=== PATIENT | male | born 1935 | race Caucasian/White ===

== ENCOUNTER → 2017-11-13 08:37 | Outpatient (CLI) | payer MEDICARE, MEDICAID, SELFPAY ==
[2017-11-13 10:01] LABS: Abs Immature Grans 0.01 k/cumm (0.0-0.09); Absolute Basophil Count 0.06 k/cumm (0.0-0.2); Absolute Eosinophil Count 0.42 k/cumm (0.0-0.7); Absolute Lymphocyte Count 1.21 k/cumm (1.2-3.4); Absolute Monocyte Count 0.37 k/cumm (0.11-0.7); Absolute Neutrophil Count 3.97 k/cumm (1.2-6.7); HCT 46.1 % (40.0-50.0); HGB 15.3 g/dL (13.5-17.5); Immature Grans % 0.2; Mean Corp. HGB Concentration 33.2 g/dL (32.0-36.0); Mean Corpuscular Hemoglobin 28.5 pg (27.0-33.0); Mean Corpuscular Volume 85.8 fL (80-95); Mean Platelet Volume 9.4 fL (8.0-11.0); Monocytes % 6.1; Neutrophils % 65.7; Platelet Count 206 x1000/uL (130-400); RBC 5.37 m/cumm (4.50-6.00); RBC Distribution Width 13.7 % (11.8-14.1); White Blood Cell Count 6.04 k/cumm (4.4-10.8)
[2017-11-13 10:44] LABS: ALT 21 U/L (12-78); AST 16 U/L (15-37); Albumin 3.6 g/dL (3.4-5.0); Alkaline Phosphatase 82 U/L (46-116); Anion Gap 6.4 mmol/L (3-11); BUN 18 mg/dL (7-18); Bilirubin, Total 0.7 mg/dL (0.2-1.0); CO2 31.6 mmol/L (21.0-32.0); CREATININE 1.17 mg/dL (0.70-1.30); Calcium 8.4 mg/dL (8.5-10.1); Chloride 104 mmol/L (98-107); Glucose 92 mg/dL (70-100); Potassium 3.4 mmol/L (3.5-5.1); Sodium 142 mmol/L (136-145); Total Protein 6.2 g/dL (6.4-8.2)
== END ==
PROVIDERS: PCP Emergency Medicine; Visit Provider Nurse Practitioner Family
DX: R42 Dizziness and giddiness (principal)
CPT/HCPCS: 36415; 80053; 85025

== ENCOUNTER 2017-11-26 14:48 | Emergency (ER) | payer MEDICARE, MEDICAID, SELFPAY ==
[2017-11-26] VITALS (25 sets, daily range): BP systolic 124–175; BP diastolic 58–79; PULSE 66–81; RESP 13–35; TEMP 36.7–37.4; O2SAT 90–97
--- NOTE | 2017-11-26 15:18 | ED.GENADUL ---
Disposition Clinical Impression: UTI (urinary tract infection), Parkinson disease Disposition: HOME Instructions: Urinary Tract Infection in Men (ED) Additional Instructions: Please take antibiotic as prescribed. Be sure to complete the full course. Please follow-up with your primary care physician. Return to the emergency department immediately for any worsening or new concerning symptoms. Prescriptions: Cephalexin [Keflex] 500 mg PO QID #27 cap Referrals: Laureano Kaminski DO [Primary Care Provider] - Medical Decision Making - Lab Data Laboratory Tests 11/26/17 11/26/17 11/26/17 15:25 15:25 15:33 WBC 7.90 RBC 5.19 Hgb 14.8 Hct 44.1 MCV 85.0 MCH 28.5 MCHC 33.6 RDW 13.4 Plt Count 163 MPV 9.5 Immature Gran % 0.1 Neutrophils % 84.2 Lymphocytes % 4.3 Monocytes % 10.6 Eosinophils % 0.4 Basophils % 0.4 Absolute Neutrophils 6.65 Absolute Lymphocytes 0.34 L Absolute Monocytes 0.84 H Absolute Eosinophils 0.03 Absolute Basophils 0.03 Sodium 139 Potassium 4.0 Chloride 103 Carbon Dioxide 28.4 Anion Gap 7.6 BUN 18 Creatinine 1.09 Estimated GFR/1.73 m2 >= 60.00 Glucose 117 H Calcium 8.7 Magnesium 1.8 Total Bilirubin 0.9 AST 20 ALT 17 Alkaline Phosphatase 86 Troponin I < 0.02 Total Protein 6.7 Albumin 3.2 L Urine Color Yellow Urine Clarity Cloudy Urine pH 6.0 Ur Specific [place] 1.020 Urine Protein 30 H Urine Ketones 40 H Urine Blood Small H Urine Nitrite Positive H Urine Bilirubin Negative Urine Urobilinogen 0.2 Ur Leukocyte Esterase Moderate H Urine RBC 20-50 H Urine WBC >50 Ur Epithelial Cells Few Urine Crystals Negative Urine Bacteria Many Urine Casts Negative Urine Mucus Negative Ur Culture Indicated? Yes Urine Glucose Negative Results reviewed for labs ordered during visit: Yes - Medical Decision Making 81-year-old male with history of Parkinson's disease here with generalized weakness that has been chronic but worse over the past couple days. Subjective fever earlier today. Afebrile now. Labs reviewed: Urinalysis concerning for UTI. Patient is not septic. Patient was given IV fluid and started on Keflex. Plan is for discharge to home. It was recommended that he call his primary care physician tomorrow to arrange outpatient follow-up. I have asked care management to assist in arranging PT/OT to help him develop strength and hopefully prevent further decline. History of Present Illness - General Chief complaint: GenMedical Stated complaint: BARRIE Time Seen by Provider: 11/26/17 15:01 Source: patient, RN notes reviewed Mode of arrival: ambulatory Limitations: no limitations - History of Present Illness Initial comments: 81-year-old male with history of Parkinson's disease, A. fib, status post pacemaker, presents with chief complaint of weakness. Patient and his note generalized weakness worsening over the past 1 year. Much worse over the past couple days. Moderate intensity. Today he had difficulty ambulating. also concerned that he felt warm earlier today. No associated chills. No headache. No specific focal numbness or weakness. No abdominal pain. - Related Data Multivitamin/Iron/Folic Acid [Centrum Complete Multivit Tab] 1 tab-cap PO DAILY tab-cap 03/30/14 Cholecalciferol (Vitamin D3) [Vitamin D3] 1,000 unit PO DAILY 08/03/14 Cyanocobalamin (Vitamin B-12) [Vitamin B-12] 1,000 mcg PO DAILY 11/28/15 Apixaban [Eliquis] 5 mg PO BID #180 tab-cap 06/30/17 Loratadine [Claritin] 10 mg PO DAILY #60 tab-cap 09/25/17 Sertraline HCl 100 mg PO DAILY #90 tab-cap 10/13/17 Fludrocortisone Acetate [Florinef] 0.2 mg PO DAILY #180 tab-cap 11/09/17 Cephalexin [Keflex] 500 mg PO QID #27 cap 11/26/17 Allergies Allergy/AdvReac Type Severity Reaction Status Date / Time bee pollen [Bee Pollen] Allergy Intermediate PERIORBITAL Unverified 11/09/17 13:41 EDEMA aspirin AdvReac Mild Upset Unverified 11/09/17 13:41 Stomach DUST Allergy Intermediate unknown Uncoded 03/11/17 12:35 Review of Systems Constitutional: fever. denies: chills Cardiovascular: denies: chest pain Gastrointestinal: denies: abdominal pain Genitourinary: denies: urgency, dysuria, frequency Neurological: as per HPI, weakness. denies: headache, numbness Comment: All other systems reviewed and negative Past Medical History - Past Medical History Medical history: AFIB, arthritis gout, hernia, Parkinsonian features Surgical history: herniorraphy, pacemaker/AICD, other (Cataract surgery) - Social History Alcohol use: none Drug use: none General Exam - General Limitations: no limitations General appearance: alert, in no apparent distress - Eye Eye exam: Absent: scleral icterus, conjunctival injection - ENT ENT exam: Present: mucous membranes moist - Respiratory Respiratory exam: Present: normal lung sounds bilaterally. Absent: respiratory distress, wheezes, rales, rhonchi - Cardiovascular Cardiovascular Exam: Present: regular rate, normal rhythm, normal heart sounds - GI/Abdominal GI/Abdominal exam: Present: soft. Absent: distended, tenderness - Extremities Exam Extremities exam: Absent: pedal edema - Neurological Exam Neurological exam: Present: alert. Absent: altered, motor sensory deficit - Psychiatric Psychiatric exam: Present: other (Flat affect) - Skin Skin exam: Present: warm, dry, intact Course Vital Signs - 24 hr 11/26/17 11/26/17 15:02 15:13 Temperature 36.7 C Pulse 76 Respiratory 16 16 Rate Blood Pressure 127/79 Pulse Oximetry 95
[2017-11-26] MEDS: Normal Saline 1,000 ML 150 ML IV (15:27)
[2017-11-26 15:37] LABS: Abs Immature Grans 0.01 k/cumm (0.0-0.09); Absolute Basophil Count 0.03 k/cumm (0.0-0.2); Absolute Eosinophil Count 0.03 k/cumm (0.0-0.7); Absolute Lymphocyte Count 0.34 k/cumm (1.2-3.4); Absolute Monocyte Count 0.84 k/cumm (0.11-0.7); Absolute Neutrophil Count 6.65 k/cumm (1.2-6.7); Basophils % 0.4; Eosinophils % 0.4; HCT 44.1 % (40.0-50.0); HGB 14.8 g/dL (13.5-17.5); Immature Grans % 0.1; Lymphocytes % 4.3; Mean Corp. HGB Concentration 33.6 g/dL (32.0-36.0); Mean Corpuscular Hemoglobin 28.5 pg (27.0-33.0); Mean Platelet Volume 9.5 fL (8.0-11.0); Monocytes % 10.6; Neutrophils % 84.2; Platelet Count 163 x1000/uL (130-400); RBC 5.19 m/cumm (4.50-6.00); RBC Distribution Width 13.4 % (11.8-14.1)
[2017-11-26 15:39] LABS: Bilirubin Negative (Negative); Blood Small (Negative); Clarity Cloudy; Glucose Negative (Negative); Ketones 40 mg/dL (Negative); Leukocyte Esterase Moderate (Negative); Nitrite Positive (Negative); Urobilinogen 0.2 EU/dL (Up TO 0.2)
[2017-11-26 15:53] LABS: Bacteria Many HPF (Negative); C & S Indicated? Yes; Casts Negative LPF (Negative); Crystals Negative HPF (Negative); Epithelial Cells Few HPF (Negative); Mucus Negative (Negative); RBC 20-50 (0-2); WBC >50 HPF (0-5)
[2017-11-26 16:06] LABS: ALT 17 U/L (12-78); AST 20 U/L (15-37); Albumin 3.2 g/dL (3.4-5.0); Alkaline Phosphatase 86 U/L (46-116); Anion Gap 7.6 mmol/L (3-11); BUN 18 mg/dL (7-18); Bilirubin, Total 0.9 mg/dL (0.2-1.0); CO2 28.4 mmol/L (21.0-32.0); CREATININE 1.09 mg/dL (0.70-1.30); Calcium 8.7 mg/dL (8.5-10.1); Chloride 103 mmol/L (98-107); Glucose 117 mg/dL (70-100); Magnesium 1.8 mg/dL (1.8-2.4); Sodium 139 mmol/L (136-145); Total Protein 6.7 g/dL (6.4-8.2)
[2017-11-26 16:07] LABS: Troponin I < 0.02 ng/mL (0.00-0.06)
[2017-11-26] MEDS: Cephalexin 500 MG CAP PO (16:25)
--- NOTE | 2017-11-26 17:28 | NUR.NOTE ---
Nursing Note: 1700 able to walk around room with walker--pt states he wants to go home and his states she is willing to try it---Mayur LYNN to help with services
--- NOTE | 2017-11-27 12:26 | PDOC.ERCMPRO ---
Care Management Progress Note 11/26-DR. varghese requested assistance with home health and to see if other services were needed in the home. Laureano has Parkinson's and his is his primary care transition coordinator. Met with Laureano and his . Both are very receptive to having home health services. Completed home health referral, Dr. Varghese signed and it was faxed to home health. 11/27-Called Home health this am and spoke with Melissa. Melissa stated they received the referral and that home health will call Laureano and schedule a visit. Laureano and his have this CM's contact information if further assistance is needed.
== END 2017-11-26 17:18 | disposition home or self-care (01) ==
PROVIDERS: Emergency Provider Student in an Organized Health Care Education/Training Program; PCP Emergency Medicine
DX: N39.0 Urinary tract infection, site not specified (principal); B96.1 Klebsiella pneumoniae [K. pneumoniae] as the cause of diseases classified elsewhere; G20 Parkinson's disease
CPT/HCPCS: 93005; 96360; 96361; 99284 ×2; 36415; 80053; 87077; 81003; 81015; 83735; 84484; 85025; 87086; 87186; 93010

== ENCOUNTER → 2018-01-06 10:27 | Outpatient (BNVA) | payer MEDICARE, MEDICAID, SELFPAY | PROVIDERS: PCP Emergency Medicine; Visit Provider Psychiatry & Neurology Neurology | DX: I95.1 Orthostatic hypotension (principal); G23.9 Degenerative disease of basal ganglia, unspecified; G31.84 Mild cognitive impairment of uncertain or unknown etiology; R49.8 Other voice and resonance disorders; R26.89 Other abnormalities of gait and mobility | CPT/HCPCS: 99214 ==

== ENCOUNTER → 2018-01-21 13:22 | Outpatient (BNVA) | payer MEDICARE, MEDICAID, SELFPAY | PROVIDERS: PCP Emergency Medicine; Visit Provider Psychiatry & Neurology Neurology | DX: I95.1 Orthostatic hypotension (principal); G23.9 Degenerative disease of basal ganglia, unspecified; G31.84 Mild cognitive impairment of uncertain or unknown etiology; R26.89 Other abnormalities of gait and mobility | CPT/HCPCS: 99214 ==

== ENCOUNTER 2018-02-10 00:53 | Outpatient (CLI) | payer MEDICARE, MEDICAID, SELFPAY ==
--- NOTE | 2018-02-10 12:29 | DI.CT_ITS ---
SYMPTOM/DIAGNOSIS: CHANGE IN MENTAL STATUS, MILD COGNITIVE SYMPTOMS, G31.[address]: A noncontrast enhanced examination was performed. Atrophic changes consistent with age are identified. Faint areas of diminished absorption in the frontoparietal white matter would be consistent with small vessel disease. There is no evidence of an intra/extra-axial hemorrhage, mass or edema. There is nothing to suggest a territorial infarct. There is no evidence of a skull fracture. Mucoperiosteal thickening is noted in the ethmoid sinuses and a small left maxillary anterior retention cyst is seen and there is moderate mucoperiosteal thickening involving the inferior portion of the maxillary sinuses. A retention cyst is noted in the right sphenoid air cell. There is no evidence of a mastoid effusion. SUMMARY: No acute intracranial abnormality is demonstrated. There are findings consistent with sinusitis.
== END 2018-02-10 01:13 ==
PROVIDERS: PCP Emergency Medicine; Visit Provider Psychiatry & Neurology Neurology
DX: R41.82 Altered mental status, unspecified (principal); G31.84 Mild cognitive impairment of uncertain or unknown etiology; G31.1 Senile degeneration of brain, not elsewhere classified; I67.89 Other cerebrovascular disease; J01.00 Acute maxillary sinusitis, unspecified
CPT/HCPCS: 70450

== ENCOUNTER 2018-02-12 10:19 | Inpatient (IN) | payer MEDICARE, MEDICAID, SELFPAY ==
[2018-02-12 10:29] VITALS: BP 132/68; PULSE 60; RESP 18; TEMP 36.7; O2SAT 97
[2018-02-12 11:36] LABS: Lactate-non-spesis 0.7 mmol/L (0.6-1.4)
[2018-02-12 11:40] LABS: Abs Immature Grans 0.04 k/cumm (0.0-0.09); Absolute Eosinophil Count 0.22 k/cumm (0.0-0.7); Absolute Monocyte Count 1.08 k/cumm (0.11-0.7); Basophils % 0.3; Eosinophils % 1.9; HCT 42.3 % (40.0-50.0); HGB 13.9 g/dL (13.5-17.5); Immature Grans % 0.3; Lymphocytes % 5.4; Mean Corp. HGB Concentration 32.9 g/dL (32.0-36.0); Mean Corpuscular Hemoglobin 28.3 pg (27.0-33.0); Mean Platelet Volume 9.7 fL (8.0-11.0); Monocytes % 9.2; Neutrophils % 82.9; Platelet Count 184 x1000/uL (130-400); RBC 4.92 m/cumm (4.50-6.00); RBC Distribution Width 14.1 % (11.8-14.1); White Blood Cell Count 11.76 k/cumm (4.4-10.8)
[2018-02-12 11:42] LABS: Absolute Basophil Count 0.04 k/cumm (0.0-0.2); Absolute Lymphocyte Count 0.64 k/cumm (1.2-3.4); Absolute Neutrophil Count 9.75 k/cumm (1.2-6.7)
[2018-02-12] MEDS: Acetaminophen 325 MG TAB 650 MG PO (11:48)
[2018-02-12 11:53] LABS: Bilirubin Negative (Negative); Blood Small (Negative); Clarity Sl Cloudy; Glucose Negative (Negative); Ketones Negative (Negative); Leukocyte Esterase Moderate (Negative); Nitrite Positive (Negative); Specific Gravity 1.015 (1.005-1.025); Urobilinogen 0.2 EU/dL (Up TO 0.2)
[2018-02-12 12:07] LABS: ALT 20 U/L (12-78); AST 17 U/L (15-37); Albumin 3.1 g/dL (3.4-5.0); Alkaline Phosphatase 72 U/L (46-116); Anion Gap 6.7 mmol/L (3-11); BUN 20 mg/dL (7-18); Bilirubin, Total 0.7 mg/dL (0.2-1.0); CO2 29.3 mmol/L (21.0-32.0); CREATININE 0.96 mg/dL (0.70-1.30); Calcium 8.4 mg/dL (8.5-10.1); Chloride 104 mmol/L (98-107); Glucose 106 mg/dL (70-100); Potassium 3.9 mmol/L (3.5-5.1); Sodium 140 mmol/L (136-145); Total Protein 6.3 g/dL (6.4-8.2)
[2018-02-12 12:14] LABS: Bacteria Many HPF (Negative); C & S Indicated? Yes; Casts Negative LPF (Negative); Crystals Negative HPF (Negative); Epithelial Cells Negative HPF (Negative); Mucus Trace (Negative); RBC Negative (0-2); WBC 20-50 HPF (0-5)
--- NOTE | 2018-02-12 12:22 | DI.RAD_ITS ---
SYMPTOM/DIAGNOSIS: CONFUSION PA AND LATERAL CHEST: Comparison is made with 03/11/17. Heart size and pulmonary vasculature are within normal limits. Pacing wires are in stable position. The lungs are clear. No effusions or pneumothoraces are identified. Degenerative changes are seen in the spine. There are degenerative changes of the shoulders, left greater than right. IMPRESSION: No acute pulmonary process.
[2018-02-12 14:00] VITALS: BP 93/59; PULSE 55; RESP 16; TEMP 36.9; O2SAT 95
--- NOTE | 2018-02-12 14:04 | NUTRITION ---
pt. ate full lunch
--- NOTE | 2018-02-12 14:12 | W.ED.GENAD ---
Discharge Plan Disposition Patient Disposition: [facility] INPATIENT Condition: Stable Discharge Details Chief Complaint: Urinary Clinical Impression: UTI (urinary tract infection) Reason For Visit: UTI Admit Date/Time: 02/12/18 14:06 Admit Provider: Ignacio James Attending Provider: Ignacio Jmaes Primary Care Provider: Laureano Kaminski ED Provider: Ariel Moura Discharge Data Discharge Date/Time-TO BE ENTERED AT DEPARTURE: 02/12/18 15:55 Medical Decision Making Patient presenting to the emergency department for chief complaint of confusion and foul-smelling odor. states that she has noticed over the last 3 days. She does state that he had complained of a mild stomachache for the past week but has had no nausea vomiting or diarrhea. Patient states some mild back pain but has history of chronic back pain otherwise denies any other symptoms. Patient is alert and oriented but states significant weakness. Patient has no CVA tenderness no abdominal findings normal cardiac and respiratory examination. Neurologically patient is intact and moves all extremities but he does have Parkinson's. Given stating confusion I do feel that checking patient's labs, chest x-ray, and urinalysis as needed. I do not feel that CT examination is required as I am highly suspicious of urinary tract infection. Pending results patient was given acetaminophen for back pain Pending results staffing branch manager informed me that attempting to get patient up to restroom to give urine sample patient was extremely weak and needed significant 2 person assist to even ambulate to the bathroom. After review of labs that show a mild leukocytosis and positive findings for urinary tract infection otherwise nondiagnostic labs and normal chest x-ray patient was ordered 1 g of Rocephin. Given patient's significant weakness, 's report of confusion, and urinary tract infection I do not feel that patient is able to be safely discharged home. Called and spoke with the hospitalist and Dr. James agreed to admit the patient. Holding orders were placed for the patient. Patient remained stable throughout emergency department stay incident no new or worsening symptoms. Lab Data Lab results reviewed: Yes I reviewed the patient's lab results. HPI General Mode of arrival: EMS. Date/Time Provider Initiated Documentation: 02/12/18 10:32. Limitations to Documentation: no limitations. Information obtained by: patient and RN notes reviewed. History of Present Illness 82 year old M presents to the emergency department with the chief complaint of Confusion, foul-smelling urine, described as moderate, with intensity rated at 6. and is localized to the back. Patient reports no radiation. Patient started experiencing this day(s) (3) and it has been constant. No relieving factors improve symptom(s), No exacerbating factors reported . Patient did receive the following treatments prior to arrival, none Related Data Home Medications Medication Instructions Recorded Confirmed [id number] 1 tab-cap PO DAILY tab-cap 03/30/14 02/12/18 [Centrum Complete] cholecalciferol (vitamin D3) 1,000 unit PO DAILY 08/03/14 02/12/18 cyanocobalamin (vitamin B-12) 1,000 mcg PO DAILY 11/28/15 02/12/18 [Vitamin B-12] apixaban [Eliquis] 5 mg PO BID #180 tab-cap 06/30/17 01/21/18 fludrocortisone 0.2 mg PO DAILY #180 tab-cap 11/09/17 02/12/18 sertraline 150 mg PO DAILY #135 tab-cap 12/04/17 02/12/18 loratadine 10 mg tablet 10 mg PO DAILY #60 tab-cap 02/10/18 02/12/18 Previous Rx's Medication Instructions Recorded apixaban [Eliquis] 5 mg PO BID #180 tab-cap 06/30/17 fludrocortisone 0.2 mg PO DAILY #180 tab-cap 11/09/17 sertraline 150 mg PO DAILY #135 tab-cap 12/04/17 loratadine 10 mg tablet 10 mg PO DAILY #60 tab-cap 02/10/18 Allergies Allergy/AdvReac Type Severity Reaction Status Date / Time bee pollen [Bee Pollen] Allergy Intermediate PERIORBITAL Unverified 02/12/18 10:33 EDEMA aspirin AdvReac Mild Upset Unverified 02/12/18 10:33 Stomach DUST Allergy Intermediate unknown Uncoded 02/12/18 10:33 General Stated Complaint: Urinary ERIN: 3 Review of Systems Constitutional Denies body ache(s), Denies chills, Reports daytime sleepiness, Denies fever(s), Reports malaise and Reports weakness Cardiovascular Denies chest pain Respiratory Reports system reviewed and no additional complaints, except as docu Gastrointestinal Reports abdominal pain, Denies nausea and Denies vomiting Genitourinary Reports as per HPI, Denies hematuria, Denies difficulty urinating, Denies dysuria, Reports urinary frequency, Denies urinary hesitancy, Denies urinary incontinence and Denies urinary urgency Musculoskeletal Reports back pain Integumentary/Breasts Denies rash Neurologic Reports confusion and Reports weakness Psychiatric Reports confusion [facility] Family History Mother Personal history of malignant neoplasm Father Personal history of malignant neoplasm Sister Personal history of malignant neoplasm Brother Personal history of malignant neoplasm Son No problems noted. 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 No smoking, ETOH, illicit drug use. Surgical History H/O surgical procedure (Chronic) Excision, Skin Mass (03/06/14) Pacemaker Repair of inguinal hernia (~2002) Vasectomy Exam Const General: cooperative and no acute distress Orientation: alert, awake and oriented x3 Neck Neck: normal visual inspection and no meningeal signs Resp Effort & Inspection: normal respiratory effort and able to speak in complete sentences Auscultation: clear to auscultation bilaterally Cardio Rate: regular rate Rhythm: regular rhythm Heart Sounds: S1 normal and S2 normal GI Palpation: nontender Auscultation: normal bowel sounds Back/Spine/Pelvis Back: no CVA tenderness Neuro General: alert, awake, oriented x3, moves all extremities, no meningeal signs and confused Extrem General: normal capillary refill Course Vital Signs Temperature 36.7 C 02/12/18 10:29 Pulse 60 02/12/18 10:29 Respiratory Rate 18 02/12/18 10:29 Blood Pressure 132/68 02/12/18 10:29 Pulse Oximetry 97 02/12/18 10:29 Temperature 36.9 C 02/12/18 14:00 Temperature Source Temporal Artery Scan 02/12/18 14:00 Pulse 55 L 02/12/18 14:00 Respiratory Rate 16 02/12/18 14:00 Respiratory Effort 02/12/18 12:06 Blood Pressure 93/59 L 02/12/18 14:00 Pulse Oximetry 95 02/12/18 14:00 Oxygen Delivery Method Room Air 02/12/18 14:00 Oxygen Flow Rate 0 02/12/18 14:00 Pain Level 0 02/12/18 14:00 Comment 02/12/18 14:00 Lab/Test Results Lab/Test Results: 02/12/18 11:45 Urine - Reflex from Ua Urine Culture - Pending Laboratory Tests Range/Units 02/12/18 02/12/18 02/12/18 11:30 11:30 11:30 WBC (4.4-10.8) k/cumm 11.76 H RBC (4.50-6.00) m/cumm 4.92 Hgb (13.5-17.5) g/dL 13.9 Hct (40.0-50.0) % 42.3 MCV (80-95) fL 86.0 MCH (27.0-33.0) pg 28.3 MCHC (32.0-36.0) g/dL 32.9 RDW (11.8-14.1) % 14.1 Plt Count (130-400) x1000/uL 184 MPV (8.0-11.0) fL 9.7 Immature Gran % 0.3 Neutrophils % 82.9 Lymphocytes % 5.4 Monocytes % 9.2 Eosinophils % 1.9 Basophils % 0.3 Absolute Neutrophils (1.2-6.7) k/cumm 9.75 H Absolute Lymphocytes (1.2-3.4) k/cumm 0.64 L Absolute Monocytes (0.11-0.7) k/cumm 1.08 H Absolute Eosinophils (0.0-0.7) k/cumm 0.22 Absolute Basophils (0.0-0.2) k/cumm 0.04 Sodium (136-145) mmol/L 140 Potassium (3.5-5.1) mmol/L 3.9 Chloride (98-107) mmol/L 104 Carbon Dioxide (21.0-32.0) mmol/L 29.3 Anion Gap (3-11) mmol/L 6.7 BUN (7-18) mg/dL 20 H Creatinine (0.70-1.30) mg/dL 0.96 Estimated GFR/1.73 m2 (mL/min/1.73m2) >= 60.00 Glucose (70-100) mg/dL 106 H Lactate (0.6-1.4) mmol/L 0.7 Calcium (8.5-10.1) mg/dL 8.4 L Total Bilirubin (0.2-1.0) mg/dL 0.7 AST (15-37) U/L 17 ALT (12-78) U/L 20 Alkaline Phosphatase (46-116) U/L 72 Total Protein (6.4-8.2) g/dL 6.3 L Albumin (3.4-5.0) g/dL 3.1 L Urine Color (Yellow) Urine Clarity Urine pH (5-8) Ur Specific [place] (1.005-1.025) Urine Protein (Negative) mg/dL Urine Ketones (Negative) mg/dL Urine Blood (Negative) Urine Nitrite (Negative) Urine Bilirubin (Negative) Urine Urobilinogen (Up TO 0.2) EU/dL Ur Leukocyte Esterase (Negative) Urine RBC (0-2) Urine WBC (0-5) HPF Ur Epithelial Cells (Negative) HPF Urine Crystals (Negative) HPF Urine Bacteria (Negative) HPF Urine Casts (Negative) LPF Urine Mucus (Negative) Ur Culture Indicated? Urine Glucose (Negative) mg/dL Range/Units 02/12/18 11:45 WBC (4.4-10.8) k/cumm RBC (4.50-6.00) m/cumm Hgb (13.5-17.5) g/dL Hct (40.0-50.0) % MCV (80-95) fL MCH (27.0-33.0) pg MCHC (32.0-36.0) g/dL RDW (11.8-14.1) % Plt Count (130-400) x1000/uL MPV (8.0-11.0) fL Immature Gran % Neutrophils % Lymphocytes % Monocytes % Eosinophils % Basophils % Absolute Neutrophils (1.2-6.7) k/cumm Absolute Lymphocytes (1.2-3.4) k/cumm Absolute Monocytes (0.11-0.7) k/cumm Absolute Eosinophils (0.0-0.7) k/cumm Absolute Basophils (0.0-0.2) k/cumm Sodium (136-145) mmol/L Potassium (3.5-5.1) mmol/L Chloride (98-107) mmol/L Carbon Dioxide (21.0-32.0) mmol/L Anion Gap (3-11) mmol/L BUN (7-18) mg/dL Creatinine (0.70-1.30) mg/dL Estimated GFR/1.73 m2 (mL/min/1.73m2) Glucose (70-100) mg/dL Lactate (0.6-1.4) mmol/L Calcium (8.5-10.1) mg/dL Total Bilirubin (0.2-1.0) mg/dL AST (15-37) U/L ALT (12-78) U/L Alkaline Phosphatase (46-116) U/L Total Protein (6.4-8.2) g/dL Albumin (3.4-5.0) g/dL Urine Color (Yellow) Yellow Urine Clarity Sl cloudy Urine pH (5-8) 7.0 Ur Specific [place] (1.005-1.025) 1.015 Urine Protein (Negative) mg/dL Negative Urine Ketones (Negative) mg/dL Negative Urine Blood (Negative) Small H Urine Nitrite (Negative) Positive H Urine Bilirubin (Negative) Negative Urine Urobilinogen (Up TO 0.2) EU/dL 0.2 Ur Leukocyte Esterase (Negative) Moderate H Urine RBC (0-2) Negative Urine WBC (0-5) HPF 20-50 Ur Epithelial Cells (Negative) HPF Negative Urine Crystals (Negative) HPF Negative Urine Bacteria (Negative) HPF Many Urine Casts (Negative) LPF Negative Urine Mucus (Negative) Trace Ur Culture Indicated? Yes Urine Glucose (Negative) mg/dL Negative
[2018-02-12 15:50] VITALS: BP 141/71; BP 141/73; PULSE 59; PULSE 60; RESP 18; TEMP 37.1; O2SAT 96
[2018-02-12 16:32] VITALS: BP 141/71; PULSE 59; RESP 18; TEMP 37.1; O2SAT 96
--- NOTE | 2018-02-12 17:49 | HPE_ITS ---
Date of service: 02/12/18 Time of Service: 17:47 Assessment and Plan (1) Urinary tract infection: Current visit: Yes Status: Acute With altered mental status and generalized weakness. He does have a mild leukocytosis. His urinalysis was suspicious for infection. Urine culture is pending. IV ceftriaxone pending culture results. We will give him some gentle IV fluid hydration overnight. Discontinue tomorrow morning if he is taking p.o. fluids well. (2) Cardiomyopathy: Current visit: No Status: Chronic Possibly related to history of alcohol abuse. His most recent echocardiogram on record was from March 2017 which revealed an LVEF of 45-50% . Monitor fluid status closely. Daily weights. D/C IV fluids once he is taking orals well. (3) Parkinsons disease: Current visit: Yes Status: Chronic On no medication due to orthostatic hypotension requiring fludrocortisone at baseline. Will order PT consult. (4) Orthostatic hypotension: Current visit: No Status: Chronic His blood pressure is 141/71, which is elevated for him. We will hold fludrocortisone for now and monitor blood pressures. (5) Depression: Current visit: No Status: Chronic Continue sertraline at home dose. (6) Paroxysmal atrial fibrillation: Current visit: No Status: Chronic He is on a apixaban chronically. 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 We will continue his apixaban. (7) DVT prophylaxis: Current visit: Yes Status: Acute Continue apixaban for anticoagulation. (8) Discharge planning issues: Current visit: Yes Status: Acute He is a full code. His primary care provider has been working to set him up with home health services. He will likely need home health services upon discharge. His is his primary caregiver. This case was discussed with Dr. James who is in agreement. History of Present Illness Chief Complaint: Altered mental status Narrative: Laureano Baugh is an 82 year old man with a history of Parkinson's Disease (not on medication due to hypotension) with mild cognitive impairment, paroxysmal atrial fibrillation, and bradycardia, status post pacemaker, cardiomyopathy, with LVEF 45-50% (from [facility] 03/29), who presented to the ED via EMS with altered mental status. His notes that he was aggressive last night , trying to get out of the house. She said his urine had a foul odor. He notes abdominal discomfort. He has been eating, he has been drinking but his does not think he was taking in enough PO fluids. He felt warm at home, but they did not check his temperature. He denies chest pain/pressure, palpitations , shortness of breath, cough, wheeze, no nausea or vomiting,he had some abdominal discomfort over the last few days, he tends to be constipated. In the ED, his UA was suspicious for infection. He had mild leukocytosis at 11.76, his BUN was 20, creatinine normal at 0.96. Given his altered mental status and generalized weakness in the setting of UTI with history of parkinsons disease, he was admitted to the med/surg floor for further observation and managmenet. Review of Systems Review of Systems All systems reviewed & are unremarkable except as noted in HPI and below Meds Home Medications Medication Instructions Recorded Confirmed Type [id number] acid 1 tab-cap PO DAILY tab-cap 03/30/14 02/12/18 History [Centrum Complete] cholecalciferol (vitamin D3) 1,000 unit PO DAILY 08/03/14 02/12/18 History cyanocobalamin (vitamin B-12) 1,000 mcg PO DAILY 11/28/15 02/12/18 History [Vitamin B-12] apixaban [Eliquis] 5 mg PO BID #180 tab-cap 06/30/17 01/21/18 Rx fludrocortisone 0.2 mg PO DAILY #180 tab-cap 11/09/17 02/12/18 Rx sertraline 150 mg PO DAILY #135 tab-cap 12/04/17 02/12/18 Rx loratadine 10 mg tablet 10 mg PO DAILY #60 tab-cap 02/10/18 02/12/18 Rx Allergies Allergy/AdvReac Type Severity Reaction Status Date / Time bee pollen [Bee Pollen] Allergy Intermediate PERIORBITAL Unverified 02/12/18 10: 33 EDEMA aspirin AdvReac Mild Upset Unverified 02/12/18 10:33 Stomach DUST Allergy Intermediate unknown Uncoded 02/12/18 10:33 Exam Narrative Exam Narrative: General: He is awake and alert, he is oriented to self and place. He is in no acute distress. Neuro: his affect is flat, he has parkinsonian facies, he does not answer most questions appropriately. Neck: supple, no JVD or lymphadenopathy. HEENT: Pupils are equal round and reactive to light. Mucous membranes are slightly dry. Respiratory: Respirations are even and unlabored, lung sounds are clear to auscultation throughout. Cardiovascular: Heart rate regular, no murmur appreciated. GI: abdomen soft, mildly tender on palpation of lower abdomen, normoactive bowel sounds throughout. Extremities: well perfused without clubbing, cyanosis or edema. Healing skin tear on left elbow, no signs of infection. Results Labs : 02/12/18 11:30 02/12/18 11:30 Laboratory Results - last 24 hr 02/12/18 02/12/18 02/12/18 11:30 11:30 11:30 WBC 11.76 H RBC 4.92 Hgb 13.9 Hct 42.3 MCV 86.0 MCH 28.3 MCHC 32.9 RDW 14.1 Plt Count 184 MPV 9.7 Immature Gran % 0.3 Neutrophils % 82.9 Lymphocytes % 5.4 Monocytes % 9.2 Eosinophils % 1.9 Basophils % 0.3 Absolute Neutrophils 9.75 H Absolute Lymphocytes 0.64 L Absolute Monocytes 1.08 H Absolute Eosinophils 0.22 Absolute Basophils 0.04 Sodium 140 Potassium 3.9 Chloride 104 Carbon Dioxide 29.3 Anion Gap 6.7 BUN 20 H Creatinine 0.96 Estimated GFR/1.73 m2 >= 60.00 Glucose 106 H Lactate 0.7 Calcium 8.4 L Total Bilirubin 0.7 AST 17 ALT 20 Alkaline Phosphatase 72 Total Protein 6.3 L Albumin 3.1 L Urine Color Urine Clarity Urine pH Ur Specific Hollenberg Urine Protein Urine Ketones Urine Blood Urine Nitrite Urine Bilirubin Urine Urobilinogen Ur Leukocyte Esterase Urine RBC Urine WBC Ur Epithelial Cells Urine Crystals Urine Bacteria Urine Casts Urine Mucus Ur Culture Indicated? Urine Glucose 02/12/18 11:45 WBC RBC Hgb Hct MCV MCH MCHC RDW Plt Count MPV Immature Gran % Neutrophils % Lymphocytes % Monocytes % Eosinophils % Basophils % Absolute Neutrophils Absolute Lymphocytes Absolute Monocytes Absolute Eosinophils Absolute Basophils Sodium Potassium Chloride Carbon Dioxide Anion Gap BUN Creatinine Estimated GFR/1.73 m2 Glucose Lactate Calcium Total Bilirubin AST ALT Alkaline Phosphatase Total Protein Albumin Urine Color Yellow Urine Clarity Sl cloudy Urine pH 7.0 Ur Specific Hollenberg 1.015 Urine Protein Negative Urine Ketones Negative Urine Blood Small H Urine Nitrite Positive H Urine Bilirubin Negative Urine Urobilinogen 0.2 Ur Leukocyte Esterase Moderate H Urine RBC Negative Urine WBC 20-50 Ur Epithelial Cells Negative Urine Crystals Negative Urine Bacteria Many Urine Casts Negative Urine Mucus Trace Ur Culture Indicated? Yes Urine Glucose Negative Last Vital Signs Temp 37.1 C 02/12/18 16:32 Pulse 59 L 02/12/18 16:32 Resp 18 02/12/18 16:32 BP 141/71 H 02/12/18 16:32 Pulse Ox 96 02/12/18 16:32
[2018-02-12] MEDS: Docusate Sodium 100 MG CAP PO (20:27)
[2018-02-12] MEDS: Apixaban 5 MG TAB PO (20:27)
[2018-02-12] MEDS: Normal Saline Flush 10 ML SYR (21:55)
[2018-02-12] MEDS: Normal Saline 1,000 ML 80 ML IV (21:55)
[2018-02-12 22:20] VITALS: BP 166/90; PULSE 60; RESP 18; TEMP 37; O2SAT 94
[2018-02-12] MEDS: Normal Saline Flush 10 ML SYR IVP (23:07)
[2018-02-12 23:55] VITALS: BP 168/82; PULSE 58; RESP 19; TEMP 36; O2SAT 98
[2018-02-13] VITALS (7 sets, daily range): BP systolic 131–185; BP diastolic 57–88; PULSE 55–64; RESP 16–24; TEMP 36.1–36.8; O2SAT 97–100
[2018-02-13 07:26] LABS: Abs Immature Grans 0.01 k/cumm (0.0-0.09); Absolute Basophil Count 0.03 k/cumm (0.0-0.2); Absolute Eosinophil Count 0.51 k/cumm (0.0-0.7); Absolute Lymphocyte Count 1.67 k/cumm (1.2-3.4); Absolute Monocyte Count 0.86 k/cumm (0.11-0.7); Basophils % 0.3; Eosinophils % 5.7; HCT 44.6 % (40.0-50.0); HGB 14.4 g/dL (13.5-17.5); Immature Grans % 0.1; Lymphocytes % 18.8; Mean Corp. HGB Concentration 32.3 g/dL (32.0-36.0); Mean Corpuscular Hemoglobin 27.6 pg (27.0-33.0); Mean Corpuscular Volume 85.6 fL (80-95); Mean Platelet Volume 10.2 fL (8.0-11.0); Monocytes % 9.7; Neutrophils % 65.4; Platelet Count 198 x1000/uL (130-400); RBC 5.21 m/cumm (4.50-6.00); RBC Distribution Width 14.1 % (11.8-14.1); White Blood Cell Count 8.88 k/cumm (4.4-10.8)
[2018-02-13 07:32] LABS: Anion Gap 9.6 mmol/L (3-11); BUN 19 mg/dL (7-18); CO2 28.4 mmol/L (21.0-32.0); CREATININE 0.98 mg/dL (0.70-1.30); Calcium 8.6 mg/dL (8.5-10.1); Chloride 103 mmol/L (98-107); Glucose 98 mg/dL (70-100); Magnesium 1.9 mg/dL (1.8-2.4); Potassium 3.9 mmol/L (3.5-5.1); Sodium 141 mmol/L (136-145)
--- NOTE | 2018-02-13 07:45 | PDOC.CMIN ---
- If Service Date Differs Date of service: 02/13/18 Time of Service: 07:45 Care Management Initial Assess REASON FOR HOSPITALIZATION:: UTI. PAST MEDICAL HISTORY/PAST SURGICAL HISTORY:: Parkinson's disease, actinic keratosis, alcoholism in remission, basal cell carcinma right forehead, BPH, cardiomyopathy, chronic thoracic back pain s/p fracture, depression, diverticulosis, erectile dysfunction, gout, hearing loss, heart block s/p PM, mutiple system atrophy, orthostatic hypotension, osteoarthritis, seborrheic keratosis, paroxysmal A-fib, symptomatic bradycardia. Surgical hx: pacemaker, repair inguinal hernia, vesectomy. PREVIOUS FUNCTIONAL STATUS/SOCIAL/FAMILY SUPPORTS:: Laureano resides in [place] with his , Maegan. 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 He is independent with his ADLs and transports with Maegan, though he reports he can drive, he just doesn't think it's smart for him to do so. He utilizes a walker for ambulation. CURRENT FUNCTIONAL STATUS:: Laureano is lying in bed when CM visits this morning. He is engaged in conversation, makes good eye contact, and is talkative. Laureano reports that he is tired but is otherwise feeling 'ok'. When asks Laureano about discharge plans, he reports that now that he has Parkinson's and heart issues, he will likely be staying here (at [facility]?) for a long time. CM and Laureano talk about options for SNF s/t rehab vs HH services vs ?, but Laureano does not seem able to grasp/discuss. Maegan will likely be visiting later today and a conversation should be had when she is available. Per Laureano, he has outpatient PT and nursing. Nursing, he reports, only came one time and never came back. ADVANCE DIRECTIVES:: None on file at [facility]. Has patient been provided with information about the portal?: Yes Did the patient sign up for the portal?: No CODE STATUS:: Full Code INSURANCE COVERAGE / FINANCIAL ISSUES:: Medicaid, Medicare. CURRENT HOME/COMMUNITY SERVICES/EQUIPMENT:: [facility] ([facility]), outpatient/in home PT (patient not clear on which), HH nursing services x1 (again, pt not clear on this). FWW. PRIMARY CARE PHYSICIAN:: Laureano Kaminski MD. POTENTIAL DISCHARGE NEEDS:: Follow up appointment with PCP. PATIENT/FAMILY EDUCATION NEEDS:: Discharge education, any limitations, and follow up plan of care. Ask Me Three discussion. ANTICIPATED BARRIERS TO DISCHARGE:: No anticipated barriers to discharge. TRANSPORTATION:: Laureano will transport via private vehicle with his , Maegan. PLAN:: Laureano will discharge when medically ready per MD. Anticipate patient will discharge with no services vs. nursing/PT/OT (?) and follow up with PCP. CM will continue to offer support to patient and care team regarding discharge planning and disposition.
--- NOTE | 2018-02-13 07:53 | INITIAL_ITS ---
- If Service Date Differs Date of service: 02/13/18 Time of Service: 07:45 Care Management Initial Assess REASON FOR HOSPITALIZATION:: UTI. PAST MEDICAL HISTORY/PAST SURGICAL HISTORY:: Parkinson's disease, actinic keratosis, alcoholism in remission, basal cell carcinma right forehead, BPH, cardiomyopathy, chronic thoracic back pain s/p fracture, depression, diverticulosis, erectile dysfunction, gout, hearing loss, heart block s/p PM, mutiple system atrophy, orthostatic hypotension, osteoarthritis, seborrheic keratosis, paroxysmal A-fib, symptomatic bradycardia. Surgical hx: pacemaker, repair inguinal hernia, vesectomy. PREVIOUS FUNCTIONAL STATUS/SOCIAL/FAMILY SUPPORTS:: Laureano resides in [place] with his , Maegan. 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 He is independent with his ADLs and transports with Maegan, though he reports he can drive, he just doesn't think it's smart for him to do so. He utilizes a walker for ambulation. CURRENT FUNCTIONAL STATUS:: Laureano is lying in bed when CM visits this morning. He is engaged in conversation, makes good eye contact, and is talkative. Laureano reports that he is tired but is otherwise feeling 'ok'. When asks Laureano about discharge plans, he reports that now that he has Parkinson's and heart issues, he will likely be staying here (at [facility]?) for a long time. CM and Laureano talk about options for SNF s/t rehab vs HH services vs ?, but Laureano does not seem able to grasp/discuss. Maegan will likely be visiting later today and a conversation should be had when she is available. Per Laureano, he has outpatient PT and nursing. Nursing, he reports, only came one time and never came back. ADVANCE DIRECTIVES:: None on file at [facility]. Has patient been provided with information about the portal?: Yes Did the patient sign up for the portal?: No CODE STATUS:: Full Code INSURANCE COVERAGE / FINANCIAL ISSUES:: Medicaid, Medicare. CURRENT HOME/COMMUNITY SERVICES/EQUIPMENT:: [facility] ([facility]), outpatient/ in home PT (patient not clear on which), HH nursing services x1 (again, pt not clear on this). FWW. PRIMARY CARE PHYSICIAN:: Laureano Kaminski MD. POTENTIAL DISCHARGE NEEDS:: Follow up appointment with PCP. PATIENT/FAMILY EDUCATION NEEDS:: Discharge education, any limitations, and follow up plan of care. Ask Me Three discussion. ANTICIPATED BARRIERS TO DISCHARGE:: No anticipated barriers to discharge. TRANSPORTATION:: Laureano will transport via private vehicle with his , Maegan. PLAN:: Laureano will discharge when medically ready per MD. Anticipate patient will discharge with no services vs. nursing/PT/OT (?) and follow up with PCP. CM will continue to offer support to patient and care team regarding discharge planning and disposition.
[2018-02-13] MEDS: Acetaminophen 325 MG TAB PO (07:57)
[2018-02-13] MEDS: Apixaban 5 MG TAB PO ×2 (07:58→19:57)
[2018-02-13] MEDS: Sertraline 50 MG TAB 150 MG PO (07:58)
[2018-02-13] MEDS: Docusate Sodium 100 MG CAP PO (07:58)
[2018-02-13] MEDS: Normal Saline Flush 10 ML SYR IVP (07:58)
[2018-02-13] MEDS: Pantoprazole 40 MG VIAL IVP (07:59)
--- NOTE | 2018-02-13 09:42 | PT.INIE ---
Date of service: 02/13/18 Time of Service: 09:42 PT Notes Inpatient Physical Therapy Evaluation Date: 02/13/18 Referring Doctor: Ladonna Nelson PT Orders: PT CONSULT: Parkinson's disease, UIT, generalized weakness Precautions: Fall precautions Patient Profile/Admitting Diagnosis: Pt is an 82yr old male admitted with urinary tract infection PMHX: Parkinson's disease, osteoarthritis, hearing loss, orthostatic hypotension, bradycardia, s/p pacemaker, atrial fibrillation, cardiomyopathy, chronic thoracic back pain s/p fracture, depression, mild cognitive impairment diverticulosis, erectile dysfunction, basal cell carcinoma, alcoholism in remission, gout Social History/Home Situation: Lives with in a house, patient reports 7 steps with railing to enter, baseline mobility independent gait with cane or walker, states he has only started using them recently, independent with ADLS Equipment Owned/DME: cane, FWW Subjective: Pt lying in bed, asking to use a commode to have a bowel movement, agreeable to PT Consult. Objective: General Observation: IV RUE Mental Status: A&O x3 Pain: no c/o pain Bed Mobility/Transfers: Supine-sit: independent Sit-stand: SBA with FWW Bed-commode: SBA with FWW Stand-sit: independent Commode-bed: SBA with FWW Sit-supine: independent Gait: SBA with FWW 3ft in room, gait limited by patient needing to use commode, pt sat on commode for 10min experiencing constipation, RN notified. Pt deferred sitting in chair and transferred back to bed with fall alarm activated Balance: Static Sitting: normal Dynamic Sitting: normal Static Standing: fair Dynamic Standing: fair Special Tests: Mobility Limitations Standardized Measure [facility] AM-PAC 6 clicks Basic Mobility Inpatient Short Form: Raw Score: 18 Standardized Score: 43.63 CMS Score: 46.58% CMS Modifier: CK Informed Consent/Education: Patient instructed in purpose of PT consult and plan of care. Assessment: Pt is an 82yr old male admitted with urinary tract infection in setting of Parkinson's disease, osteoarthritis, hearing loss, orthostatic hypotension, bradycardia, s/p pacemaker, atrial fibrillation, cardiomyopathy, chronic thoracic back pain s/p fracture. Patient presents with the following impairment level findings: decreased strength with gait mobility, decreased static and dynamic standing balance putting him at risk for falls. Pt will benefit from short term therapy intervention in hospital setting, anticipate discharge to home when medically cleared. Impairments are contributing to the following functional limitations: AMPAC score CMS Score: 46.58% Patient is assessed as a Moderate [id number] complexity based on the following: History: see above Examination: see above Presentation: evolving Decision Making: AMPAC score CMS Score: 46.58% Goals: Goals X1 week 1. Supine-Sit : independent 2. Sit-Supine :L independent 3. Sit-Stand : independent 4. Stand-Sit : independent 5. Bed-Chair : supervision with FWW 6. Chair-Bed : supervision with FWW 7. Gait : supervision with FWW 100ft 8. Stairs : up/down 7 steps with railing, SBA Plan of Care/Treatment Plan: 1-2x/day, 7 days/week x 1 week. Plan of care has been reviewed with the REPAIRER providing the service under Physical Therapy direction. Initiate Physical Therapy intervention for strengthening, bed mobility, transfers, gait, stairs, balance training, use of assistive device. DISCHARGE RECOMMENDATIONS: Home with TREATMENT CODE/TIME: 25 IE 9:15 G Codes in the area mobility of walking and moving around: current status [id number] []; projected status GP [id number]-[]. Discharge status (if discharging) GP [id number] based on AMPAC score CMS Score: 46.58% Kitty Valdez PT
--- NOTE | 2018-02-13 09:54 | IN_ITS ---
Date of service: 02/13/18 Time of Service: 09:42 PT Notes Inpatient Physical Therapy Evaluation Date: 02/13/18 Referring Doctor: Ladonna Nelson PT Orders: PT CONSULT: Parkinson's disease, UIT, generalized weakness Precautions: Fall precautions Patient Profile/Admitting Diagnosis: Pt is an 82yr old male admitted with urinary tract infection PMHX: Parkinson's disease, osteoarthritis, hearing loss, orthostatic hypotension , bradycardia, s/p pacemaker, atrial fibrillation, cardiomyopathy, chronic thoracic back pain s/p fracture, depression, mild cognitive impairment diverticulosis, erectile dysfunction, basal cell carcinoma, alcoholism in remission, gout Social History/Home Situation: Lives with in a house, patient reports 7 steps with railing to enter, baseline mobility independent gait with cane or walker, states he has only started using them recently, independent with ADLS Equipment Owned/DME: cane, FWW Subjective: Pt lying in bed, asking to use a commode to have a bowel movement, agreeable to PT Consult. Objective: General Observation: IV RUE Mental Status: A&O x3 Pain: no c/o pain Bed Mobility/Transfers: Supine-sit: independent Sit-stand: SBA with FWW Bed-commode: SBA with FWW Stand-sit: independent Commode-bed: SBA with FWW Sit-supine: independent Gait: SBA with FWW 3ft in room, gait limited by patient needing to use commode, pt sat on commode for 10min experiencing constipation, RN notified. Pt deferred sitting in chair and transferred back to bed with fall alarm activated Balance: Static Sitting: normal Dynamic Sitting: normal Static Standing: fair Dynamic Standing: fair Special Tests: Mobility Limitations Standardized Measure [facility] AM-PAC 6 clicks Basic Mobility Inpatient Short Form: Raw Score: 18 Standardized Score: 43.63 CMS Score: 46.58% CMS Modifier: CK Informed Consent/Education: Patient instructed in purpose of PT consult and plan of care. Assessment: Pt is an 82yr old male admitted with urinary tract infection in setting of Parkinson's disease, osteoarthritis, hearing loss, orthostatic hypotension, bradycardia, s/p pacemaker, atrial fibrillation, cardiomyopathy, chronic thoracic back pain s/p fracture. Patient presents with the following impairment level findings: decreased strength with gait mobility, decreased static and dynamic standing balance putting him at risk for falls. Pt will benefit from short term therapy intervention in hospital setting, anticipate discharge to home when medically cleared. Impairments are contributing to the following functional limitations: AMPAC score CMS Score: 46.58% Patient is assessed as a Moderate [id number] complexity based on the following: History: see above Examination: see above Presentation: evolving Decision Making: AMPAC score CMS Score: 46.58% Goals: Goals X1 week 1. Supine-Sit : independent 2. Sit-Supine :L independent 3. Sit-Stand : independent 4. Stand-Sit : independent 5. Bed-Chair : supervision with FWW 6. Chair-Bed : supervision with FWW 7. Gait : supervision with FWW 100ft 8. Stairs : up/down 7 steps with railing, SBA Plan of Care/Treatment Plan: 1-2x/day, 7 days/week x 1 week. Plan of care has been reviewed with the CELL SUPPORT OPERATOR providing the service under Physical Therapy direction. Initiate Physical Therapy intervention for strengthening, bed mobility, transfers, gait, stairs, balance training, use of assistive device. DISCHARGE RECOMMENDATIONS: Home with TREATMENT CODE/TIME: 25 IE 9:15 G Codes in the area mobility of walking and moving around: current status [id number] []; projected status GP [id number]-[]. Discharge status (if discharging) GP [id number] based on AMPAC score CMS Score: 46.58% Kitty Valdez PT
[2018-02-13] MEDS: Fludrocortisone 0.1 MG TAB 0.2 MG PO (11:14)
--- NOTE | 2018-02-13 13:01 | PHARADMIT ---
Admission Pharmacy Clinical Review UTI, Altered mental status, weakness Code Status Full Code Current Weight 82.4 kg Renally Cleared and Narrow Therapeutic Index Meds CrCl~62ml/min QTc Value / Action Taken QTC 499 BP Control, Fever BP 131/85 HR 50-60's Afebrile Electrolytes reviewed K+ 3.9, Mag 1.9 DVT Prophylaxis Eliquis 5mg BID for Paroxysmal Afib Opiate Usage / Scheduled Bowel Regimen Ordered NONE Plt/SCr for Heparin / Enoxaparin Plt 198 SCr 0.98 INR for Warfarin H/H stable, WBC/Bands H/H 14.4/44.6 WBC 8.88 Antibiotic appropriateness Rocephin Cultures and Sensitivities Urine Gram neg >100K Surgical ABX d/c within 24 hr DM control / Insulin Dosing BG 98 Heart Failure (Check EF%) (SHANTEL's, B-Block, Diuretics) NONE IV to PO Switch Home Meds Reviewed Home Meds Not Ordered vIT d, Loratadine, MVI, Comments Fludrocortisone for Orthostatic Hypotension? Pacemaker in place
--- NOTE | 2018-02-13 19:30 | W.PM.PROGNOT ---
Date of Service Date of service: 02/13/18 Time of Service: 15:50 Assessment and Plan (1) Urinary tract infection: Current visit: No Status: Acute GNR UTI, POA. R/o urinary retention by voiding trial tonight. Continue empiric rocephin (2) Toxic metabolic encephalopathy: Current visit: Yes Status: Acute Treat infection (3) Cardiomyopathy: Current visit: No Status: Chronic ?alcoholic, w/ EF 45-50%. IVF d/c'ed (4) Parkinsons disease: Current visit: No Status: Chronic PT/OT consulted. Not on meds as outpatient. (5) Orthostatic hypotension: Current visit: No Status: Chronic Resume florinef (6) Depression: Current visit: No Status: Chronic Continue sertraline at home dose. (7) Paroxysmal atrial fibrillation: Current visit: No Status: Chronic with sick sinus syndrome, s/p pacer - continue his apixaban. (8) DVT prophylaxis: Current visit: No Status: Acute Continue apixaban for anticoagulation. (9) Discharge planning issues: Current visit: No Status: Acute Full code. Home health vs rehab on discharge - defer to PT for recommendations. Subjective Interval history since last seen: The patient does not clearly answer my questions - he is mumbling. He states he is not in pain, but I am unable to interpret his other answers. Exam Narrative Exam Narrative: General: Calm, cooperative elderly male, laying comfortably in bed, speaking softly/not pronouncing words clearly, confused Neurological: A&OX1, rigid, speaking very quietly Psychiatric: confused, calm/cooperative Skin: no bruising/rashes HEENT: EOMI, Dry MM Cardiovascular: RRR, no m/r/g Lungs: CTAB Gastrointestinal: Abdomen soft, nontender, nondistended Extremities: no edema, clubbing, or cyanosis BLE's Objective Objective Clinical Data: Abnormal lab results 02/13/18 02/13/18 Range/Units 07:00 07:00 Absolute Monocytes 0.86 H (0.11-0.7) k/cumm BUN 19 H (7-18) mg/dL Vital Signs Temperature 36.7 C 02/13/18 15:50 Temperature Source Tympanic 02/13/18 15:50 Pulse 60 02/13/18 15:50 Pulse Rhythm Regular 02/13/18 16:35 Respiratory Rate 18 02/13/18 15:50 Respiratory Effort Non-Labored 02/13/18 16:35 Respiratory Depth Normal 02/13/18 16:35 Respiratory Pattern Normal 02/13/18 16:35 Blood Pressure 183/88 H 02/13/18 15:50 Pulse Oximetry 97 02/13/18 15:50 Oxygen Delivery Method Room Air 02/13/18 15:50 Oxygen Flow Rate 0 02/13/18 15:50 Pain Level 0 02/13/18 15:50 Comment 02/13/18 11:28 Intake & Output 02/12/18 02/13/18 02/13/18 23:59 11:59 23:59 Intake Total 0 / 0 1240 / 1240 290 / 290 Output Total 400 / 400 300 / 300 1200 / 1200 Balance -400 / -400 940 / 940 -910 / -910 Weight 81.647 kg 82.4 kg Intake: IV 0 / 0 1000 / 1000 50 / 50 Oral 240 / 240 240 / 240 Output: Urine 400 / 400 300 / 300 1200 / 1200 Other: Urine Color Light Hillary Straw Yellow Urine Appearance Cloudy Clear Clear Urine Odor Strong Strong Normal Stool Size Small Stool Characteristics Hard Voiding Methods Toilet Urinal Toilet Laboratory Results WBC 8.88 k/cumm (4.4-10.8) 02/13/18 07:00 RBC 5.21 m/cumm (4.50-6.00) 02/13/18 07:00 Hgb 14.4 g/dL (13.5-17.5) 02/13/18 07:00 Hct 44.6 % (40.0-50.0) 02/13/18 07:00 MCV 85.6 fL (80-95) 02/13/18 07:00 MCH 27.6 pg (27.0-33.0) 02/13/18 07:00 MCHC 32.3 g/dL (32.0-36.0) 02/13/18 07:00 RDW 14.1 % (11.8-14.1) 02/13/18 07:00 Plt Count 198 x1000/uL (130-400) 02/13/18 07:00 MPV 10.2 fL (8.0-11.0) 02/13/18 07:00 Immature Gran % 0.1 02/13/18 07:00 Neutrophils % 65.4 02/13/18 07:00 Lymphocytes % 18.8 02/13/18 07:00 Monocytes % 9.7 02/13/18 07:00 Eosinophils % 5.7 02/13/18 07:00 Basophils % 0.3 02/13/18 07:00 Absolute Neutrophils 5.80 k/cumm (1.2-6.7) 02/13/18 07:00 Absolute Lymphocytes 1.67 k/cumm (1.2-3.4) 02/13/18 07:00 Absolute Monocytes 0.86 k/cumm (0.11-0.7) H 02/13/18 07:00 Absolute Eosinophils 0.51 k/cumm (0.0-0.7) 02/13/18 07:00 Absolute Basophils 0.03 k/cumm (0.0-0.2) 02/13/18 07:00 Sodium 141 mmol/L (136-145) 02/13/18 07:00 Potassium 3.9 mmol/L (3.5-5.1) 02/13/18 07:00 Chloride 103 mmol/L (98-107) 02/13/18 07:00 Carbon Dioxide 28.4 mmol/L (21.0-32.0) 02/13/18 07:00 Anion Gap 9.6 mmol/L (3-11) 02/13/18 07:00 BUN 19 mg/dL (7-18) H 02/13/18 07:00 Creatinine 0.98 mg/dL (0.70-1.30) 02/13/18 07:00 Estimated GFR/1.73 m2 >= 60.00 (mL/min/1.73m2) 02/13/18 07:00 Glucose 98 mg/dL (70-100) 02/13/18 07:00 Lactate 0.7 mmol/L (0.6-1.4) 02/12/18 11:30 Calcium 8.6 mg/dL (8.5-10.1) 02/13/18 07:00 Magnesium 1.9 mg/dL (1.8-2.4) 02/13/18 07:00 Total Bilirubin 0.7 mg/dL (0.2-1.0) 02/12/18 11:30 AST 17 U/L (15-37) 02/12/18 11:30 ALT 20 U/L (12-78) 02/12/18 11:30 Alkaline Phosphatase 72 U/L (46-116) 02/12/18 11:30 Total Protein 6.3 g/dL (6.4-8.2) L 02/12/18 11:30 Albumin 3.1 g/dL (3.4-5.0) L 02/12/18 11:30 Urine Color Yellow (Yellow) 02/12/18 11:45 Urine Clarity Sl cloudy 02/12/18 11:45 Urine pH 7.0 (5-8) 02/12/18 11:45 Ur Specific [place] 1.015 (1.005-1.025) 02/12/18 11:45 Urine Protein Negative mg/dL (Negative) 02/12/18 11:45 Urine Ketones Negative mg/dL (Negative) 02/12/18 11:45 Urine Blood Small (Negative) H 02/12/18 11:45 Urine Nitrite Positive (Negative) H 02/12/18 11:45 Urine Bilirubin Negative (Negative) 02/12/18 11:45 Urine Urobilinogen 0.2 EU/dL (Up TO 0.2) 02/12/18 11:45 Ur Leukocyte Esterase Moderate (Negative) H 02/12/18 11:45 Urine RBC Negative (0-2) 02/12/18 11:45 Urine WBC 20-50 HPF (0-5) 02/12/18 11:45 Ur Epithelial Cells Negative HPF (Negative) 02/12/18 11:45 Urine Crystals Negative HPF (Negative) 02/12/18 11:45 Urine Bacteria Many HPF (Negative) 02/12/18 11:45 Urine Casts Negative LPF (Negative) 02/12/18 11:45 Urine Mucus Trace (Negative) 02/12/18 11:45 Ur Culture Indicated? Yes 02/12/18 11:45 Urine Glucose Negative mg/dL (Negative) 02/12/18 11:45
[2018-02-14] VITALS (7 sets, daily range): BP systolic 113–176; BP diastolic 77–92; PULSE 55–69; RESP 18–20; TEMP 35.9–37.1; O2SAT 95–98
[2018-02-14 07:31] LABS: Absolute Basophil Count 0.05 k/cumm (0.0-0.2); Absolute Eosinophil Count 0.45 k/cumm (0.0-0.7); Absolute Lymphocyte Count 1.33 k/cumm (1.2-3.4); Absolute Monocyte Count 0.72 k/cumm (0.11-0.7); Absolute Neutrophil Count 5.01 k/cumm (1.2-6.7); Basophils % 0.7; HCT 41.7 % (40.0-50.0); HGB 13.7 g/dL (13.5-17.5); Lymphocytes % 17.6; Mean Corp. HGB Concentration 32.9 g/dL (32.0-36.0); Mean Corpuscular Hemoglobin 28.4 pg (27.0-33.0); Mean Corpuscular Volume 86.3 fL (80-95); Monocytes % 9.5; Neutrophils % 66.2; Platelet Count 208 x1000/uL (130-400); RBC 4.83 m/cumm (4.50-6.00); White Blood Cell Count 7.56 k/cumm (4.4-10.8)
[2018-02-14 07:45] LABS: Anion Gap 4.3 mmol/L (3-11); BUN 16 mg/dL (7-18); CO2 31.7 mmol/L (21.0-32.0); CREATININE 0.96 mg/dL (0.70-1.30); Calcium 8.5 mg/dL (8.5-10.1); Chloride 105 mmol/L (98-107); Glucose 105 mg/dL (70-100); Sodium 141 mmol/L (136-145)
[2018-02-14] MEDS: Normal Saline Flush 10 ML SYR IVP ×2 (09:23→11:56)
[2018-02-14] MEDS: Pantoprazole 40 MG VIAL IVP (09:23)
[2018-02-14] MEDS: Docusate Sodium 100 MG CAP PO ×2 (09:24→20:12)
[2018-02-14] MEDS: Sertraline 50 MG TAB 150 MG PO (09:24)
[2018-02-14] MEDS: Apixaban 5 MG TAB PO ×2 (09:24→20:11)
[2018-02-14] MEDS: Fludrocortisone 0.1 MG TAB 0.2 MG PO (09:24)
--- NOTE | 2018-02-14 11:08 | PTTR_ITS ---
Date of service: 02/14/18 Time of Service: 11:04 PT Notes 02/14/18 SUBJECTIVE: Laureaon stating he feels okay today. No complaints. Pt states he does daily exercise at home. He utilizes a cane and walker at home but feels he will use the walker for a while until he gets his strength back. OBJECTIVE: Supine in bed. Agreeable to PT treatment. Bed mobility/transfers: Supine to sit: I Sit to stand: SBA Stand to sit: SBA Gait: Device: FWW Weight bearing: Full Assist: SBA Distance: 25'x2 Deviation: Leans right, forgets walking when he turns Therex: Performs seated UE/LE strengthening exercises as noted on his flow sheet. See flow sheet for specifics. ASSESSMENT: Tolerates PT well. He does require cues for walker management and safe stand to sit transfers with hand placement and reaching. At one point he lets go of his walker and starts walking without it. PLAN: Continue current POC progressing towards established goals. Time: 15 minutes CHRISTINE Juarez, CONFIGURATION MANAGEMENT SPECIALIST
--- NOTE | 2018-02-14 18:05 | CMPROGNOTE_ITS ---
Care Management Progress Note S/O: Laureano was lying in bed, watching football when CM met with him. He reported he has pre-parkinsons and struggles to form his words. He requested Maegan join discharge planning discussions and voiced no concerns at this time. A: 82 year old male admitted to [facility] 02/14/18 for UTI P: Laureano will discharge when medically ready per MD. Laureano would like to meet with CM and his Maegan to discuss discharge planning considerations. CM will meet with the couple and continue to offer support to patient and care team regarding discharge planning and disposition.
--- NOTE | 2018-02-14 19:08 | W.PM.PROGNOT ---
Date of Service Date of service: 02/14/18 Time of Service: 15:25 Assessment and Plan (1) Urinary tract infection: Current visit: No Status: Acute GNR UTI, POA. Speciation pending. PVR's unremarkable overnight. Continue empiric rocephin. (2) Toxic metabolic encephalopathy: Current visit: Yes Status: Acute Significantly better. Continue to treat infection (3) Cardiomyopathy: Current visit: No Status: Chronic ?alcoholic, w/ EF 45-50%. Euvolemic. (4) Parkinsons disease: Current visit: No Status: Chronic PT/OT - appears to be able to ambulate at his baseline. (5) Orthostatic hypotension: Current visit: No Status: Chronic Continue florinef (6) Depression: Current visit: No Status: Chronic Continue sertraline at home dose. (7) Paroxysmal atrial fibrillation: Current visit: No Status: Chronic with sick sinus syndrome, s/p pacer - continue apixaban. (8) DVT prophylaxis: Current visit: No Status: Acute Continue apixaban for anticoagulation. (9) Discharge planning issues: Current visit: No Status: Acute Full code. Likely d/c home tomorrow if cx/sensitivities show a pathogen I can treat with oral abx. Subjective Interval history since last seen: Feels a lot better today. Denies dizziness, chest pain, shortness of breath, nausea, vomiting. Exam Narrative Exam Narrative: General: Calm, cooperative elderly male, laying comfortably in bed, speech much more clear today, and answers make sense. Neurological: A&OX2, rigid, no focal deficits Psychiatric: confused, calm/cooperative Skin: no bruising/rashes HEENT: EOMI, Dry MM Cardiovascular: RRR, no m/r/g Lungs: CTAB Gastrointestinal: Abdomen soft, nontender, nondistended Extremities: no edema, clubbing, or cyanosis BLE's Objective Objective Clinical Data: Abnormal lab results 02/14/18 02/14/18 Range/Units 07:05 07:05 Absolute Monocytes 0.72 H (0.11-0.7) k/cumm Glucose 105 H (70-100) mg/dL Vital Signs Temperature 37.1 C 02/14/18 16:41 Temperature Source Tympanic 02/14/18 16:41 Pulse 69 02/14/18 16:41 Pulse Rhythm Regular 02/14/18 09:59 Respiratory Rate 19 02/14/18 16:41 Respiratory Effort Non-Labored 02/14/18 09:59 Respiratory Depth Normal 02/14/18 09:59 Respiratory Pattern Normal 02/14/18 09:59 Blood Pressure 113/78 02/14/18 16:41 Pulse Oximetry 97 02/14/18 16:41 Oxygen Delivery Method Room Air 02/14/18 16:41 Oxygen Flow Rate 0 02/14/18 16:41 Pain Level 0 02/13/18 15:50 Comment 02/14/18 08:05 Intake & Output 02/14/18 02/14/18 02/14/18 00:59 11:59 23:59 Intake Total 1020 / 1020 Output Total Balance 1020 / 1020 Weight Intake: IV 50 / 50 Oral 970 / 970 Output: Urine Other: Urine Color Urine Appearance Urine Odor Comment pt voided in toilet, not in hat. hat noted to be in the trash can in bathroom. Voiding Methods Toilet Laboratory Results WBC 7.56 k/cumm (4.4-10.8) 02/14/18 07:05 RBC 4.83 m/cumm (4.50-6.00) 02/14/18 07:05 Hgb 13.7 g/dL (13.5-17.5) 02/14/18 07:05 Hct 41.7 % (40.0-50.0) 02/14/18 07:05 MCV 86.3 fL (80-95) 02/14/18 07:05 MCH 28.4 pg (27.0-33.0) 02/14/18 07:05 MCHC 32.9 g/dL (32.0-36.0) 02/14/18 07:05 RDW 14.0 % (11.8-14.1) 02/14/18 07:05 Plt Count 208 x1000/uL (130-400) 02/14/18 07:05 MPV 10.0 fL (8.0-11.0) 02/14/18 07:05 Immature Gran % 0.0 02/14/18 07:05 Neutrophils % 66.2 02/14/18 07:05 Lymphocytes % 17.6 02/14/18 07:05 Monocytes % 9.5 02/14/18 07:05 Eosinophils % 6.0 02/14/18 07:05 Basophils % 0.7 02/14/18 07:05 Absolute Neutrophils 5.01 k/cumm (1.2-6.7) 02/14/18 07:05 Absolute Lymphocytes 1.33 k/cumm (1.2-3.4) 02/14/18 07:05 Absolute Monocytes 0.72 k/cumm (0.11-0.7) H 02/14/18 07:05 Absolute Eosinophils 0.45 k/cumm (0.0-0.7) 02/14/18 07:05 Absolute Basophils 0.05 k/cumm (0.0-0.2) 02/14/18 07:05 Sodium 141 mmol/L (136-145) 02/14/18 07:05 Potassium 4.0 mmol/L (3.5-5.1) 02/14/18 07:05 Chloride 105 mmol/L (98-107) 02/14/18 07:05 Carbon Dioxide 31.7 mmol/L (21.0-32.0) 02/14/18 07:05 Anion Gap 4.3 mmol/L (3-11) 02/14/18 07:05 BUN 16 mg/dL (7-18) 02/14/18 07:05 Creatinine 0.96 mg/dL (0.70-1.30) 02/14/18 07:05 Estimated GFR/1.73 m2 >= 60.00 (mL/min/1.73m2) 02/14/18 07:05 Glucose 105 mg/dL (70-100) H 02/14/18 07:05 Lactate 0.7 mmol/L (0.6-1.4) 02/12/18 11:30 Calcium 8.5 mg/dL (8.5-10.1) 02/14/18 07:05 Magnesium 2.0 mg/dL (1.8-2.4) 02/14/18 07:05 Total Bilirubin 0.7 mg/dL (0.2-1.0) 02/12/18 11:30 AST 17 U/L (15-37) 02/12/18 11:30 ALT 20 U/L (12-78) 02/12/18 11:30 Alkaline Phosphatase 72 U/L (46-116) 02/12/18 11:30 Total Protein 6.3 g/dL (6.4-8.2) L 02/12/18 11:30 Albumin 3.1 g/dL (3.4-5.0) L 02/12/18 11:30 Urine Color Yellow (Yellow) 02/12/18 11:45 Urine Clarity Sl cloudy 02/12/18 11:45 Urine pH 7.0 (5-8) 02/12/18 11:45 Ur Specific [place] 1.015 (1.005-1.025) 02/12/18 11:45 Urine Protein Negative mg/dL (Negative) 02/12/18 11:45 Urine Ketones Negative mg/dL (Negative) 02/12/18 11:45 Urine Blood Small (Negative) H 02/12/18 11:45 Urine Nitrite Positive (Negative) H 02/12/18 11:45 Urine Bilirubin Negative (Negative) 02/12/18 11:45 Urine Urobilinogen 0.2 EU/dL (Up TO 0.2) 02/12/18 11:45 Ur Leukocyte Esterase Moderate (Negative) H 02/12/18 11:45 Urine RBC Negative (0-2) 02/12/18 11:45 Urine WBC 20-50 HPF (0-5) 02/12/18 11:45 Ur Epithelial Cells Negative HPF (Negative) 02/12/18 11:45 Urine Crystals Negative HPF (Negative) 02/12/18 11:45 Urine Bacteria Many HPF (Negative) 02/12/18 11:45 Urine Casts Negative LPF (Negative) 02/12/18 11:45 Urine Mucus Trace (Negative) 02/12/18 11:45 Ur Culture Indicated? Yes 02/12/18 11:45 Urine Glucose Negative mg/dL (Negative) 02/12/18 11:45
[2018-02-14] MEDS: Acetaminophen 325 MG TAB PO (20:16)
[2018-02-15 04:34] VITALS: BP 181/84; PULSE 59; RESP 18; TEMP 35.7; O2SAT 96
[2018-02-15 07:15] VITALS: BP 177/97; PULSE 60; RESP 16; TEMP 36.1; O2SAT 98
[2018-02-15 07:18] LABS: Anion Gap 4.5 mmol/L (3-11); BUN 15 mg/dL (7-18); CO2 32.5 mmol/L (21.0-32.0); CREATININE 1.12 mg/dL (0.70-1.30); Calcium 8.2 mg/dL (8.5-10.1); Chloride 104 mmol/L (98-107); Glucose 104 mg/dL (70-100); Magnesium 1.8 mg/dL (1.8-2.4); Potassium 3.7 mmol/L (3.5-5.1); Sodium 141 mmol/L (136-145)
[2018-02-15] MEDS: Apixaban 5 MG TAB PO (08:13)
[2018-02-15] MEDS: Sertraline 50 MG TAB 150 MG PO (08:14)
[2018-02-15] MEDS: Fludrocortisone 0.1 MG TAB 0.2 MG PO (08:14)
[2018-02-15] MEDS: Pantoprazole 40 MG TABCR PO (08:14)
[2018-02-15] MEDS: Docusate Sodium 100 MG CAP PO (08:14)
[2018-02-15 09:30] VITALS: O2SAT 98
--- NOTE | 2018-02-15 10:00 | PT.INTREAT ---
Date of service: 02/15/18 Time of Service: 10:00 PT Notes Inpatient Physical Therapy Treatment Note Date: 02/15/18 PRECAUTIONS: Fall precautions SUBJECTIVE: Pt lying in bed, states he has been up walking and has been walking to the bathroom. Reluctantly agreeable to PT session with encouragement to mobilize. OBJECTIVE: PAIN: no c/o pain BED MOBILITY/TRANSFERS Rolling L/R: independent Supine-sit: independent Sit-supine: independent Sit-stand: SBA with FWW, pt with slight posterior lean but able to self correct Stand-sit: supervision GAIT Assistive Device: FWW Weight bearing: full Assist: SBA Distance: 75ftx2 Deviation: narrow base of support, decreased stride length, decreased heel strike, slight posterior lean requiring cues to weight shift forward onto FWW. Verbal cues provided to stay closer to FWW with mking turns. Pt gait pattern consistent with Parkinson's disease. Pt deferred sitting in chair and returned back to bed after session completed. THEREX: seated ankle pumps, long arc quads and hip flexion x 20 reps bilaterally ASSESSMENT: Pt is independent with transfers except with sitting to standing where he occasionally has a posterior lean that he is able to self correct. Due to Parkinson's disease and decreased static and dynamic standing balance, pt is safer with gait with use of FWW than without an assistive device, recommend use of FWW in home setting. Pt will benefit from continued gait training and progression to stair training. If discharge home is planned, home PT is recommended PLAN: Progress gait Progress to stair training TREATMENT CODE/TIME: 25 min IE 9:56 Kitty Valdez PT
[2018-02-15 11:30] VITALS: BP 159/80; PULSE 60; RESP 18; TEMP 36.3; O2SAT 96
[2018-02-15] MEDS: Normal Saline Flush 10 ML SYR IVP (12:00)
--- NOTE | 2018-02-15 12:08 | DSE_ITS ---
Date of service: 02/15/18 Time of Service: 12:00 DS: Diagnosis Discharge Diagnosis (1) Urinary tract infection: Status: Acute (2) Toxic metabolic encephalopathy: Status: Acute (3) Cardiomyopathy: Status: Chronic (4) Parkinsons disease: Status: Chronic (5) Orthostatic hypotension: Status: Chronic (6) Depression: Status: Chronic (7) Paroxysmal atrial fibrillation: Status: Chronic (8) DVT prophylaxis: Status: Acute (9) Discharge planning issues: Status: Acute Discharge Plan Disposition Patient Disposition: HOME Condition: Stable Discharge Details Chief Complaint: Urinary Reason For Visit: UTI Admit Date/Time: 02/12/18 14:06 Admit Provider: Ignacio James Attending Provider: Ignacio James Primary Care Provider: Laureano Kaminski [facility] [place] [facility] Course: Laureano Baugh is an 82 year old man with a history of Parkinson's Disease ( not on medication due to hypotension) with mild cognitive impairment, paroxysmal atrial fibrillation, and bradycardia, status post pacemaker, cardiomyopathy, with LVEF 45-50% (from Echo 03/29), who presented to the ED via EMS with altered mental status. His notes that he was aggressive last night , trying to get out of the house. She said his urine had a foul odor. He notes abdominal discomfort. He has been eating, he has been drinking but his does not think he was taking in enough PO fluids. He felt warm at home, but they did not check his temperature. He denies chest pain/pressure, palpitations , shortness of breath, cough, wheeze, no nausea or vomiting,he had some abdominal discomfort over the last few days, he tends to be constipated. In the ED, his UA was suspicious for infection. He had mild leukocytosis at 11.76, his BUN was 20, creatinine normal at 0.96. Given his altered mental status and generalized weakness in the setting of UTI with history of parkinsons disease, he was admitted to the med/surg floor for further observation and managmenet. He was treated with ceftriaxone, slowly symptoms improved and he returned to his baseline. He remained afebrile and white count normalized. His urine grew 2 species of klebsiella pneumoniae both senstive to ceftriaxone. He will be discharged to complete 10 day course of oral antibiotics. Home Meds and New Rx's Prescriptions: New cephalexin 500 mg capsule 500 mg PO BID Qty: 14 RF: 0 Continue cxwgshddcykj-bqzz-aotzc acid [Centrum Complete] 1 EACH tablet 1 tab-cap PO DAILY RF: 0 cholecalciferol (vitamin D3) 1,000 UNIT tablet 1,000 unit PO DAILY RF: 0 cyanocobalamin (vitamin B-12) [Vitamin B-12] 1,000 MCG tablet extended release 1,000 mcg PO DAILY RF: 0 apixaban [Eliquis] 5 MG tablet 5 mg PO BID Qty: 180 RF: 3 fludrocortisone 0.1 MG tablet 0.2 mg PO DAILY Qty: 180 RF: 3 sertraline 100 MG tablet 150 mg PO DAILY Qty: 135 RF: 3 loratadine 10 mg tablet 10 mg PO DAILY Qty: 60 RF: 1 Discharge Instructions Instructions: Urinary Tract Infection in Men (DC) Additional Instructions: continue taking antibiotics as directed for 7 more days to complete a 10 day course. continue the rest of your medications as prescribed. drink at least 6-8 glasses of water daily to stay well hydrated. Stand Alone Forms: Nursing Discharge Form Referrals: Laureano Kaminski DO [Primary Care Provider] - Activity:: Activity as Tolerated Equipment/Supplies:: No Equipment Needed Diet:: As Tolerated Discharge Orders Discharge Orders: Discharge Order (Routine); Ordered 02/15/18 Ordered By: Adamaris Welch Exam Const General: cooperative, comfortable, disheveled (older than stated age), frail appearing and ill appearing chronically Orientation: alert, awake and oriented x3 HENMT Head: normocephalic and atraumatic Resp Effort & Inspection: normal respiratory effort Auscultation: clear to auscultation bilaterally and diminished lung sounds bilaterally in the lower lung solano Cardio Rate: regular rate GI Inspection: normal to inspection Palpation: soft Auscultation: normal bowel sounds Skin General skin exam: no rashes or lesions noted Neuro General: alert, awake and oriented Patient Orientation: Person, Place and Time ( able to tell me he is going home today) Extrem General: normal to inspection and full ROM Psych Affect: blunted Attitude: cooperative DS: Data Vitals/I&O Vitals and I&O: Vital Signs Temperature 36.1 C L 02/15/18 07:15 Temperature Source Tympanic 02/15/18 07:15 Pulse 60 02/15/18 07:15 Pulse Rhythm Irregular 02/15/18 07:32 Respiratory Rate 16 02/15/18 07:15 Respiratory Effort 02/15/18 07:32 Respiratory Depth Normal 02/15/18 07:32 Respiratory Pattern Normal 02/15/18 07:32 Blood Pressure 177/97 H 02/15/18 07:15 Pulse Oximetry 98 02/15/18 07:15 Oxygen Delivery Method Room Air 02/15/18 07:15 Oxygen Flow Rate 0 02/15/18 07:15 Pain Level 7 02/14/18 20:16 Comment 02/15/18 04:34 Intake & Output 02/14/18 02/15/18 02/15/18 23:59 11:59 23:59 Intake Total 1020 / 1020 350 / 350 Output Total 550 / 550 Balance 1020 / 1020 -200 / -200 Weight 81.3 kg Intake: IV 50 / 50 Oral 970 / 970 350 / 350 Output: Urine 550 / 550 Other: Urine Color Yellow Yellow Urine Appearance Clear Clear Comment Scanned pt and then he voided moderate amount in the toilet. Highest scan number was 212ml. Voiding Methods Toilet Urinal Labs on day of discharge: Labs from last 24 hours 02/15/18 06:56 Sodium 141 Potassium 3.7 Chloride 104 Carbon Dioxide 32.5 H Anion Gap 4.5 BUN 15 Creatinine 1.12 Estimated GFR/1.73 m2 >= 60.00 Glucose 104 H Calcium 8.2 L Magnesium 1.8
--- NOTE | 2018-02-15 13:35 | PDOC.CMDIS ---
- If Service Date Differs Date of service: 02/15/18 Time of Service: 13:35 LACE Index Scoring Tool - Questions: Length of Stay (in days): 4 - 6 Acuity (Admit via E.D.?): Yes Care Management Discharge Reason for Hospitalization: UTI. Discharge Plan: Laureano is being discharged home today with no addtional services. He will follow up with primary care as scheduled. SHANE has attempted to contact spouse to transport patient home. CM has been unable to contact the spouse on the cell phones listed. CM left a voicemail for spouse. Patient/Family Education Needs: Discharge education, limitations and follow up plan of care including ask me three and self management discussion.
--- NOTE | 2018-02-15 14:47 | PT.INDS ---
Date of service: 02/15/18 Time of Service: 14:47 PT Notes Inpatient Physical Therapy Discharge Summary Date: 02/15/18 Dates of Service: 02/13/18-02/15/18 SUBJECTIVE: NT OBJECTIVE: 02/13/18-02/15/18 Bed Mobility/Transfers: Supine-sit: independent Sit-stand: SBA with FWW Stand-sit: supervision Sit-supine: independent Gait: SBA with FWW 75ftx2 Balance: Static Sitting: normal Dynamic Sitting: normal Static Standing: fair Dynamic Standing: fair Assessment: Pt is an 82yr old male admitted with urinary tract infection in setting of Parkinson's disease, osteoarthritis, hearing loss, orthostatic hypotension, bradycardia, s/p pacemaker, atrial fibrillation, cardiomyopathy, chronic thoracic back pain s/p fracture. Patient was seen for 3 PT visits. Progressed from SBA gait with FWW 3ft to SBA gait with FWW 75ftx2, pt was discharged to home setting, home PT recommended for continued strengthening and mobility training. Goals: Goals X1 week 1. Supine-Sit : independent 2. Sit-Supine : independent 3. Sit-Stand : independent 4. Stand-Sit : independent 5. Bed-Chair : supervision with FWW 6. Chair-Bed : supervision with FWW 7. Gait : supervision with FWW 100ft 8. Stairs : up/down 7 steps with railing, SBA Pt met goals # 1, 2, 5 - recommend home PT DISCHARGE RECOMMENDATIONS: Home with Nika Pagan in the area mobility of walking and moving around:; projected status GP [id number]. Discharge status (if discharging) GP [id number] -CK Kitty Valdez PT
== END 2018-02-15 17:00 | disposition home or self-care (01) | DRG 689 ==
LOC: ER 14:25 → MS 16:10
PROVIDERS: Nurse Practitioner; Admitting Provider Internal Medicine; Emergency Provider Nurse Practitioner Family; PCP Emergency Medicine; Visit Provider Internal Medicine
DX: N39.0 Urinary tract infection, site not specified (principal); G92 Toxic encephalopathy; I42.9 Cardiomyopathy, unspecified; G20 Parkinson's disease; I95.9 Hypotension, unspecified; F32.9 Major depressive disorder, single episode, unspecified; I48.0 Paroxysmal atrial fibrillation; Z95.0 Presence of cardiac pacemaker; B96.1 Klebsiella pneumoniae [K. pneumoniae] as the cause of diseases classified elsewhere; Z16.11 Resistance to penicillins; Z79.01 Long term (current) use of anticoagulants; Z23 Encounter for immunization
CPT/HCPCS: 36415; 80048; 80053; 87077; 96365; 97110; 97162; 97530; 99222; 99232; 99238; 99285; 71046; 81003; 81015; 83605; 83735; 85025; 87086; 87186; 99284; J0696

== ENCOUNTER 2018-03-24 13:48 | Observation (INO) | payer MEDICARE, MEDICAID, SELFPAY ==
[2018-03-24 13:49] VITALS: BP 173/80; PULSE 69; RESP 16; TEMP 36.4; O2SAT 96
--- NOTE | 2018-03-24 14:03 | DI.RAD_ITS ---
SYMPTOMS/DIAGNOSIS: ALTERED MENTAL STATUS CHEST X-RAY, AP AND LATERAL: Comparison is 03/11/17. The heart size and pulmonary vasculature are stable and within normal limits. The pacing wires are stable in position. The lungs are clear. No effusions or pneumothoraces are identified. Stable degenerative changes are present in the spine. IMPRESSION: No acute pulmonary process.
--- NOTE | 2018-03-24 14:11 | W.ED.GENAD ---
Discharge Plan Disposition Patient Disposition: [facility] INPATIENT Condition: Fair Discharge Details Chief Complaint: AMS/LOC Clinical Impression: UTI (urinary tract infection) Reason For Visit: UTI Admit Date/Time: 03/24/18 17:09 Admit Provider: Ignacio James Attending Provider: Ignacio James Primary Care Provider: Laureano Kaminski ED Provider: Samira Campbell Discharge Data Discharge Date/Time-TO BE ENTERED AT DEPARTURE: 03/24/18 17:07 Medical Decision Making Patient is a 82-year-old male, brought in via EMS, with chief complaint of altered mental status. is also present and giving good history. She reports that beginning yesterday, he began having altered mental status and change in behavior. She reports that he has been paranoid, has been seeing people out of the house, mumbling to himself. EMS reports when they first arrived they did notice the patient was mumbling which is unusual for the patient at baseline. EMS providers do know the patient well. However, while in the ambulance, patient did seem to calm and was no longer mumbling or acting unusually. Patient has history of toxic metabolic encephalopathy, UTI, Parkinson's, pacemaker placement, mild cognitive impairment, depression, chronic pain, paroxysmal atrial fibrillation, orthostatic hypotension, diverticulosis, cardiomyopathy, basal cell carcinoma, as urethritis, alcoholism in remission, bradycardia and heart block. EMS reports that they noted a short time, prior to getting patient into the ambulance, when patient was bradycardic in the 30-40s. When on the monitor, in the ambulance and while here, patient has been in the 60s. At this time, patient is answering questions appropriately. He denies any discomfort. Denies any dysuria. does report that this onset of symptoms is quite similar to when he was having urinary tract infection in the past, most recently of which she was admitted for last month. EKG was reviewed by Dr. Tang. Pacer spikes, irregular heart rate and block are noted. She did compare this to previous EKG and does not note an acute abnormality. Laboratory evaluation significant for findings to suggest UTI. No leukocytosis. CT reviewed by radiology with no acute abnormality, read as negative. Patient given dose of Keflex orally. Nursing staff attempted to ambulate the patient, he was having difficulty following basic movement commands and is unable to ambulate with even one assist. Road test was aborted secondary to safety concerns. Consulted with hospitalist regarding admission for UTI with associated confusion and weakness. Dr. James agrees to admission. We also discussed the reported bradycardia, he will have device interigated while here. Contacted hospitalist LICENSED ARCHITECT as well to relay concerns for rash in groin. HPI General Mode of arrival: EMS. Date/Time Provider Initiated Documentation: 03/24/18 14:03. Limitations to Documentation: altered mental status. Information obtained by: patient, family and EMS. History of Present Illness 82 year old M presents to the emergency department with the chief complaint of AMS, described as moderate, and it has been constant. No relieving factors improve symptom(s), No exacerbating factors reported . Patient notes confusion; denies chest pain, cough, diaphoresis, fever/chills, headaches, loss of appetite, malaise, nausea/vomiting, rash, seizure, shortness of breath and syncope. Patient did receive the following treatments prior to arrival, none Related Data Home Medications Medication Instructions Recorded Confirmed leqgvapxmyae-pyxo-ferjc acid 1 tab-cap PO HS tab-cap 03/30/14 03/24/18 [Centrum Complete] cholecalciferol (vitamin D3) 1,000 unit PO DAILY 08/03/14 03/24/18 cyanocobalamin (vitamin B-12) 1,000 mcg PO DAILY 11/28/15 03/24/18 [Vitamin B-12] apixaban [Eliquis] 5 mg PO BID #180 tab-cap 06/30/17 03/24/18 fludrocortisone 0.2 mg PO DAILY #180 tab-cap 11/09/17 03/24/18 loratadine 10 mg tablet 10 mg PO DAILY #60 tab-cap 03/17/18 03/24/18 psyllium husk [Metamucil] 1 tbsp PO DAILY 03/24/18 03/24/18 sertraline 150 mg PO HS 03/24/18 03/24/18 Previous Rx's Medication Instructions Recorded apixaban [Eliquis] 5 mg PO BID #180 tab-cap 06/30/17 fludrocortisone 0.2 mg PO DAILY #180 tab-cap 11/09/17 loratadine 10 mg tablet 10 mg PO DAILY #60 tab-cap 03/17/18 Allergies Allergy/AdvReac Type Severity Reaction Status Date / Time bee pollen [Bee Pollen] Allergy Intermediate PERIORBITAL Unverified 02/12/18 10:33 EDEMA aspirin AdvReac Mild Upset Unverified 02/12/18 10:33 Stomach DUST Allergy Intermediate unknown Uncoded 02/12/18 10:33 General Stated Complaint: AMS/LOC ERIN: 3 Review of Systems Review of Systems Unobtainable due to mental status PFSH Depression (Chronic) Chronic thoracic back pain (Chronic) Shoulder pain, bilateral (Chronic 10/26/13) Paroxysmal atrial fibrillation (Chronic 11/28/15) Other seborrheic keratosis (Chronic) Orthostatic hypotension (Chronic 08/04/17) 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) Diverticulosis of colon without diverticulitis (Chronic) Cardiomyopathy (Chronic 08/03/14) Basal cell carcinoma of right forehead (Chronic 03/06/14) Actinic keratosis (Chronic) Osteoarthritis (Chronic) 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 No smoking, ETOH, illicit drug use. Exam Const General: cooperative, healthy appearing, comfortable, no acute distress, well developed and well groomed Nutritional Appearance: average body habitus and well nourished Orientation: alert, awake and not oriented x3 (level of orientation varies ) [facility] Head: normal to inspection, normocephalic and atraumatic Ears: hearing grossly normal bilaterally, external ears normal and TM's normal bilaterally General nose exam: external nose normal and nares normal Face and sinus: normal facial exam, sinuses nontender and face symmetric Mouth: oral mucosae normal, lip normal, tongue normal, oropharynx normal and mucous membranes dry (patient appears dry on exam) Throat: posterior oropharynx normal, tonsils normal and uvula midline Eyes General: appearance normal, both eyes and all related structures Alignment and Position: alignment normal Eyelids: eyelids normal Conjunctivae: conjunctivae normal Pupils: PERRL and normal by confrontation EOM: EOM intact bilaterally Neck Neck: normal visual inspection, full ROM, no lymphadenopathy and no meningeal signs Resp Effort & Inspection: normal respiratory effort, able to speak in complete sentences and no respiratory distress Auscultation: clear to auscultation bilaterally, no rales, no rhonchi and no wheezes Cardio Rate: regular rate Rhythm: regular rhythm Heart Sounds: S1 normal and S2 normal GI Inspection: normal to inspection, no abdominal wall ecchymosis, no edema, non-distended and no obesity Palpation: soft, no hepatosplenomegaly, not firm, no guarding, not rigid and nontender Auscultation: normal bowel sounds Male General Exam: Yes normal external exam, No ecchymosis, No edema, No erythema, No hernia, No lacerations and No lesions Penis: normal penis Meatus: meatus normal Scrotum: scrotum normal, no ecchymosis, not edematous, not erythematous and other (along the inguinal fold, patient has a moist, erythematous rash) Testes: normal Back/Spine/Pelvis Back: no CVA tenderness Skin General skin exam: no rashes or lesions noted Rashes: rashes noted (rash as above in inguinal folds bilaterally, R>L) Neuro General: alert, awake, not oriented x3 (as above), gait abnormal (patient is unable to ambulate without large amount of assistance) and tone normal Cranial Nerves: CN's II-XI intact bilaterally Cognition: abnormal cognition (patient has varying degrees of cognition, mumbling to himself) Speech: speech normal Gait: gait abnormal (as above) Motor: muscle tone normal throughout and strength 5/5 throughout Sensory Exam: no sensory deficits noted (no saddle paresthesias) Extrem General: normal to inspection, normal capillary refill, no joint enlargement, no pedal edema, no calf tenderness and abnormal gait Psych Appearance: grossly normal and disheveled Mental Status: other (cognition varies) Speech and Movement: delayed speech and restless Mood: anxious mood and other (cognition varies) Course Vital Signs Temperature 36.4 C L 03/24/18 13:49 Pulse 69 03/24/18 13:49 Respiratory Rate 16 03/24/18 13:49 Blood Pressure 173/80 H 03/24/18 13:49 Pulse Oximetry 96 03/24/18 13:49 Temperature 36.4 C L 03/24/18 13:49 Temperature Source Temporal Artery Scan 03/24/18 13:49 Pulse 69 03/24/18 13:49 Respiratory Rate 16 03/24/18 13:49 Blood Pressure 173/80 H 03/24/18 13:49 Pulse Oximetry 96 03/24/18 13:49 Oxygen Delivery Method Room Air 03/24/18 13:49 Oxygen Flow Rate 0 03/24/18 13:49
[2018-03-24 14:16] LABS: Abs Immature Grans 0.01 k/cumm (0.0-0.09); Absolute Basophil Count 0.04 k/cumm (0.0-0.2); Absolute Eosinophil Count 0.52 k/cumm (0.0-0.7); Absolute Lymphocyte Count 0.99 k/cumm (1.2-3.4); Absolute Monocyte Count 0.56 k/cumm (0.11-0.7); Absolute Neutrophil Count 4.75 k/cumm (1.2-6.7); Basophils % 0.6; Eosinophils % 7.6; HCT 42.4 % (40.0-50.0); HGB 14.3 g/dL (13.5-17.5); Immature Grans % 0.1; Lymphocytes % 14.4; Mean Corp. HGB Concentration 33.7 g/dL (32.0-36.0); Mean Corpuscular Hemoglobin 28.8 pg (27.0-33.0); Mean Corpuscular Volume 85.5 fL (80-95); Mean Platelet Volume 9.8 fL (8.0-11.0); Monocytes % 8.2; Neutrophils % 69.1; Platelet Count 193 x1000/uL (130-400); RBC 4.96 m/cumm (4.50-6.00); RBC Distribution Width 13.8 % (11.8-14.1); White Blood Cell Count 6.87 k/cumm (4.4-10.8)
--- NOTE | 2018-03-24 14:19 | ED.GENADUL_ITS ---
Discharge Plan Disposition Patient Disposition: [facility] INPATIENT Condition: Fair Discharge Details Chief Complaint: AMS/LOC Clinical Impression: UTI (urinary tract infection) Reason For Visit: UTI Admit Date/Time: 03/24/18 17:09 Admit Provider: Ignacio James Attending Provider: Ignacio James Primary Care Provider: Laureano Kaminski ED Provider: Samira Campbell Discharge Data Discharge Date/Time-TO BE ENTERED AT DEPARTURE: 03/24/18 17:07 Medical Decision Making Patient is a 82-year-old male, brought in via EMS, with chief complaint of altered mental status. is also present and giving good history. She reports that beginning yesterday, he began having altered mental status and change in behavior. She reports that he has been paranoid, has been seeing people out of the house, mumbling to himself. EMS reports when they first arrived they did notice the patient was mumbling which is unusual for the patient at baseline. EMS providers do know the patient well. However, while in the ambulance, patient did seem to calm and was no longer mumbling or acting unusually. Patient has history of toxic metabolic encephalopathy, UTI, Parkinson's, pacemaker placement, mild cognitive impairment, depression, chronic pain, paroxysmal atrial fibrillation, orthostatic hypotension, diverticulosis, cardiomyopathy, basal cell carcinoma, as urethritis, alcoholism in remission, bradycardia and heart block. EMS reports that they noted a short time, prior to getting patient into the ambulance, when patient was bradycardic in the 30-40s. When on the monitor, in the ambulance and while here, patient has been in the 60s. At this time, patient is answering questions appropriately. He denies any discomfort. Denies any dysuria. does report that this onset of symptoms is quite similar to when he was having urinary tract infection in the past, most recently of which she was admitted for last month. EKG was reviewed by Dr. Tang. Pacer spikes, irregular heart rate and block are noted. She did compare this to previous EKG and does not note an acute abnormality. Laboratory evaluation significant for findings to suggest UTI. No leukocytosis. CT reviewed by radiology with no acute abnormality, read as negative. Patient given dose of Keflex orally. Nursing staff attempted to ambulate the patient, he was having difficulty following basic movement commands and is unable to ambulate with even one assist. Road test was aborted secondary to safety concerns. Consulted with hospitalist regarding admission for UTI with associated confusion and weakness. Dr. James agrees to admission. We also discussed the reported bradycardia, he will have device interigated while here. Contacted hospitalist REPROGRAPHICS TECHNICIAN as well to relay concerns for rash in groin. HPI General Mode of arrival: EMS . Date/Time Provider Initiated Documentation: 03/24/18 14:03 . Limitations to Documentation: altered mental status . Information obtained by: patient, family and EMS . History of Present Illness 10 0 year old M presents to the emergency department with the chief complaint of AMS, described as moderate, and it has been constant. No relieving factors improve symptom(s), No exacerbating factors reported . Patient notes confusion; denies chest pain, cough, diaphoresis, fever/chills, headaches, loss of appetite, malaise, nausea/vomiting, rash, seizure, shortness of breath and syncope. Patient did receive the following treatments prior to arrival, none Related Data Home Medications Medication Instructions Recorded Confirmed fsyacenrbdko-ivrx-jiuig acid 1 tab-cap PO HS tab-cap 03/30/14 03/24/18 [Centrum Complete] cholecalciferol (vitamin D3) 1,000 unit PO DAILY 08/03/14 03/24/18 cyanocobalamin (vitamin B-12) 1,000 mcg PO DAILY 11/28/15 03/24/18 [Vitamin B-12] apixaban [Eliquis] 5 mg PO BID #180 tab-cap 06/30/17 03/24/18 fludrocortisone 0.2 mg PO DAILY #180 tab-cap 11/09/17 03/24/18 loratadine 10 mg tablet 10 mg PO DAILY #60 tab-cap 03/17/18 03/24/18 psyllium husk [Metamucil] 1 tbsp PO DAILY 03/24/18 03/24/18 sertraline 150 mg PO HS 03/24/18 03/24/18 Previous Rx's Medication Instructions Recorded apixaban [Eliquis] 5 mg PO BID #180 tab-cap 06/30/17 fludrocortisone 0.2 mg PO DAILY #180 tab-cap 11/09/17 loratadine 10 mg tablet 10 mg PO DAILY #60 tab-cap 03/17/18 Allergies Allergy/AdvReac Type Severity Reaction Status Date / Time bee pollen [Bee Pollen] Allergy Intermediate PERIORBITAL Unverified 02/12/18 10:33 EDEMA aspirin AdvReac Mild Upset Unverified 02/12/18 10:33 Stomach DUST Allergy Intermediate unknown Uncoded 02/12/18 10:33 General Stated Complaint: AMS/LOC ERIN: 3 Review of Systems Review of Systems Unobtainable due to mental status PFSH Depression (Chronic) Chronic thoracic back pain (Chronic) Shoulder pain, bilateral (Chronic 10/26/13) Paroxysmal atrial fibrillation (Chronic 11/28/15) Other seborrheic keratosis (Chronic) Orthostatic hypotension (Chronic 08/04/17) 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) Diverticulosis of colon without diverticulitis (Chronic) Cardiomyopathy (Chronic 08/03/14) Basal cell carcinoma of right forehead (Chronic 03/06/14) Actinic keratosis (Chronic) Osteoarthritis (Chronic) 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 No smoking, ETOH, illicit drug use. Exam Const General: cooperative, healthy appearing, comfortable, no acute distress, well developed and well groomed Nutritional Appearance: average body habitus and well nourished Orientation: alert, awake and not oriented x3 (level of orientation varies ) [facility] Head: normal to inspection, normocephalic and atraumatic Ears: hearing grossly normal bilaterally, external ears normal and TM's normal bilaterally General nose exam: external nose normal and nares normal Face and sinus: normal facial exam, sinuses nontender and face symmetric Mouth: oral mucosae normal, lip normal, tongue normal, oropharynx normal and mucous membranes dry (patient appears dry on exam) Throat: posterior oropharynx normal, tonsils normal and uvula midline Eyes General: appearance normal, both eyes and all related structures Alignment and Position: alignment normal Eyelids: eyelids normal Conjunctivae: conjunctivae normal Pupils: PERRL and normal by confrontation EOM: EOM intact bilaterally Neck Neck: normal visual inspection, full ROM, no lymphadenopathy and no meningeal signs Resp Effort & Inspection: normal respiratory effort, able to speak in complete sentences and no respiratory distress Auscultation: clear to auscultation bilaterally, no rales, no rhonchi and no wheezes Cardio Rate: regular rate Rhythm: regular rhythm Heart Sounds: S1 normal and S2 normal GI Inspection: normal to inspection, no abdominal wall ecchymosis, no edema, non- distended and no obesity Palpation: soft, no hepatosplenomegaly, not firm, no guarding, not rigid and nontender Auscultation: normal bowel sounds Male General Exam: Yes normal external exam, No ecchymosis, No edema, No ryan thema, No hernia, No lacerations and No lesions Penis: normal penis Meatus: meatus normal Scrotum: scrotum normal, no ecchymosis, not edematous, not erythematous and other (along the inguinal fold, patient has a moist, erythematous rash) Testes: normal Back/Spine/Pelvis Back: no CVA tenderness Skin General skin exam: no rashes or lesions noted Rashes: rashes noted (rash as above in inguinal folds bilaterally, R>L) Neuro General: alert, awake, not oriented x3 (as above), gait abnormal (patient is unable to ambulate without large amount of assistance) and tone normal Cranial Nerves: CN's II-XI intact bilaterally Cognition: abnormal cognition (patient has varying degrees of cognition, mumbling to himself) Speech: speech normal Gait: gait abnormal (as above) Motor: muscle tone normal throughout and strength 5/5 throughout Sensory Exam: no sensory deficits noted (no saddle paresthesias) Extrem General: normal to inspection, normal capillary refill, no joint enlargement, no pedal edema, no calf tenderness and abnormal gait Psych Appearance: grossly normal and disheveled Mental Status: other (cognition varies) Speech and Movement: delayed speech and restless Mood: anxious mood and other (cognition varies) Course Vital Signs Temperature 36.4 C L 03/24/18 13:49 Pulse 69 03/24/18 13:49 Respiratory Rate 16 03/24/18 13:49 Blood Pressure 173/80 H 03/24/18 13:49 Pulse Oximetry 96 03/24/18 13:49 Temperature 36.4 C L 03/24/18 13:49 Temperature Source Temporal Artery Scan 03/24/18 13:49 Pulse 69 03/24/18 13:49 Respiratory Rate 16 03/24/18 13:49 Blood Pressure 173/80 H 03/24/18 13:49 Pulse Oximetry 96 03/24/18 13:49 Oxygen Delivery Method Room Air 03/24/18 13:49 Oxygen Flow Rate 0 03/24/18 13:49
[2018-03-24 14:22] VITALS: RESP 16
[2018-03-24 14:37] LABS: ALT 21 U/L (12-78); AST 19 U/L (15-37); Albumin 3.4 g/dL (3.4-5.0); Alkaline Phosphatase 79 U/L (46-116); BUN 20 mg/dL (7-18); Bilirubin, Total 0.7 mg/dL (0.2-1.0); CREATININE 1.06 mg/dL (0.70-1.30); Calcium 8.8 mg/dL (8.5-10.1); Chloride 104 mmol/L (98-107); Glucose 113 mg/dL (70-100); Potassium 3.7 mmol/L (3.5-5.1); Sodium 142 mmol/L (136-145); TSH 3.79 uIU/mL (0.358-3.74); Total Protein 6.6 g/dL (6.4-8.2); Troponin I < 0.02 ng/mL (0.00-0.06)
--- NOTE | 2018-03-24 14:44 | DI.CT_ITS ---
SYMPTOMS/DIAGNOSIS: ALTERED MENTAL STATUS CT BRAIN, NONCONTRAST EXAMINATION: The ventricles and sulci are consistent with the patient's age. There are areas of decreased attenuation in the white matter consistent with small vessel ischemic disease. No evidence of an acute infarct, hemorrhage, midline shift or mass effect is identified. The ventricles are intact. The basilar cisterns are patent. There is opacification of several ethmoid air cells. Small mucus retention cysts or polyps are seen in the left maxillary sinus and the sphenoid sinuses. No fluid levels are seen. The mastoid air cells are well pneumatized. The calvarium is intact. IMPRESSION: No acute intracranial process. The findings were discussed with the Emergency Department on the date of the examination.
[2018-03-24] MEDS: Normal Saline 1,000 ML 125 ML IV (14:45)
[2018-03-24 14:53] LABS: Bilirubin Negative (Negative); Blood Moderate (Negative); Clarity Cloudy; Glucose Negative (Negative); Ketones Negative (Negative); Leukocyte Esterase Moderate (Negative); Nitrite Positive (Negative); Urobilinogen 0.2 EU/dL (Up TO 0.2)
[2018-03-24 14:59] LABS: Bacteria Many HPF (Negative); Casts Negative LPF (Negative); Crystals Negative HPF (Negative); Epithelial Cells Moderate HPF (Negative); Mucus Negative (Negative); RBC >50 (0-2); WBC >50 HPF (0-5)
[2018-03-24 15:00] LABS: C & S Indicated? Yes
[2018-03-24] MEDS: Cephalexin 500 MG CAP PO (16:45)
[2018-03-24 17:10] VITALS: BP 162/78; PULSE 76; RESP 20; TEMP 37.3; O2SAT 100
[2018-03-24 17:22] VITALS: BP 178/80; PULSE 73; RESP 20; TEMP 37.5; O2SAT 100
--- NOTE | 2018-03-24 17:44 | HPE_ITS ---
Date of service: 03/24/18 Time of Service: 17:43 Assessment and Plan (1) Urinary tract infection: Current visit: No Status: Acute With altered mental status and generalized weakness. No leukocytosis. His urinalysis was suspicious for infection. Urine culture is pending, previous cultures have grown Klebsiella. IV ceftriaxone pending culture results. We will give him some gentle IV fluid hydration overnight. Discontinue tomorrow morning if he is taking p.o. fluids well. (2) Cardiomyopathy: Current visit: No Status: Chronic Possibly related to history of alcohol abuse. His most recent echocardiogram on record was from March 2017 which revealed an LVEF of 45- 50%. Monitor fluid status closely. Daily weights. D/C IV fluids once he is taking orals well. (3) Parkinsons disease: Current visit: No Status: Chronic Not on medication due to orthostatic hypotension requiring fludrocortisone at baseline. Will order PT consult. (4) Orthostatic hypotension: Current visit: No Status: Chronic Continue fludrocortisone. Monitor blood pressures. Change positions slowly. (5) Depression: Current visit: No Status: Chronic Continue sertraline at home dose. (6) Paroxysmal atrial fibrillation: Current visit: No Status: Chronic He is on a apixaban chronically. 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 We will continue his apixaban. (7) Fungal infection of the groin: Current visit: Yes Status: Acute Nystatin powder. (8) DVT prophylaxis: Current visit: No Status: Acute Continue apixaban for anticoagulation. (9) Discharge planning issues: Current visit: No Status: Acute He is a full code. He will likely need home health services upon discharge. His is his primary caregiver. This case was discussed with Dr. James who is in agreement. History of Present Illness Chief Complaint: AMS Narrative: Laureano Baugh is an 82 year old man with a history of Parkinson's Disease (not on medication due to hypotension) with mild cognitive impairment, paroxysmal atrial fibrillation, and bradycardia, status post pacemaker, cardiomyopathy, with LVEF 45-50% (from Echo 03/29), BPH who presented to the ED via EMS with altered mental status. His reports that he has been paranoid, beginning yesterday, he was seeing people outside of the house that were not there, he was taking to himself. She is his primary caregiver, she reports that he becomes very confused when he gets a urinary tract infection. He was recently admitted to the hospital for a urinary tract infection with altered mental status in February of 2018 (last month). In the ED, he had a UA that was suspicious for infection with moderate leukocyte esterase, positive nitrite, many bacteria. He had a chest x-ray that was negative for an acute pulmonary process. His head CT did not show an acute intracranial process. He had no leukocytosis, his creatinine was normal. He was not felt to be safe for discharge due to his altered mental status and was admitted to the med/surg floor for IV antibiotics, urology consult and PT consult. On admission, he reports that he is hungry, he denies any other complaints. He denies chest pain/pressure, palpitations, shortness of breath, cough, wheeze, nausea, vomiting, diarrhea. He had a bowel movement today. His reports that he is still not at his baseline mental status. She has not noticed any odor to his urine, he has been eating and drinking. She notes that he has a fungal infection to his right groin. 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 No smoking, ETOH, illicit drug use. Meds Home Medications Medication Instructions Recorded Confirmed Type [id number] acid 1 tab-cap PO HS tab-cap 03/30/14 03/24/18 History [Centrum Complete] cholecalciferol (vitamin D3) 1,000 unit PO DAILY 08/03/14 03/24/18 History cyanocobalamin (vitamin B-12) 1,000 mcg PO DAILY 11/28/15 03/24/18 History [Vitamin B-12] apixaban [Eliquis] 5 mg PO BID #180 tab-cap 06/30/17 03/24/18 Rx fludrocortisone 0.2 mg PO DAILY #180 tab-cap 11/09/17 03/24/18 Rx loratadine 10 mg tablet 10 mg PO DAILY #60 tab-cap 03/17/18 03/24/18 Rx psyllium husk [Metamucil] 1 tbsp PO DAILY 03/24/18 03/24/18 History sertraline 150 mg PO HS 03/24/18 03/24/18 History Allergies Allergy/AdvReac Type Severity Reaction Status Date / Time bee pollen [Bee Pollen] Allergy Intermediate PERIORBITAL Unverified 02/12/18 10:33 EDEMA aspirin AdvReac Mild Upset Unverified 02/12/18 10:33 Stomach DUST Allergy Intermediate unknown Uncoded 02/12/18 10:33 Exam Narrative Exam Narrative: General: He is awake and alert, pleasantly confused, he is oriented to self. He is in no acute distress. Neuro: his affect is flat, he has a parkinsonian facies, he does not answer most questions. Neck: supple, no JVD or lymphadenopathy. HEENT: Pupils are equal round and reactive to light. Mucous membranes moist, tongue protrudes midline, palate rises symmetrically. Respiratory: Respirations are even and unlabored, lung sounds are clear to auscultation throughout. Cardiovascular: Heart rate regular, no murmur appreciated. GI: abdomen soft, nontender on palpation, normoactive bowel sounds throughout. Extremities: well perfused without clubbing, cyanosis or edema. Skin: right groin with erythema, appears fungal with odor. Results Labs : 03/24/18 14:07 03/24/18 14:07 Laboratory Results - last 24 hr 03/24/18 03/24/18 03/24/18 14:07 14:07 14:15 WBC 6.87 RBC 4.96 Hgb 14.3 Hct 42.4 MCV 85.5 MCH 28.8 MCHC 33.7 RDW 13.8 Plt Count 193 MPV 9.8 Immature Gran % 0.1 Neutrophils % 69.1 Lymphocytes % 14.4 Monocytes % 8.2 Eosinophils % 7.6 Basophils % 0.6 Absolute Neutrophils 4.75 Absolute Lymphocytes 0.99 L Absolute Monocytes 0.56 Absolute Eosinophils 0.52 Absolute Basophils 0.04 Sodium 142 Potassium 3.7 Chloride 104 Carbon Dioxide 31.0 Anion Gap 7.0 BUN 20 H Creatinine 1.06 Estimated GFR/1.73 m2 >= 60.00 Glucose 113 H Calcium 8.8 Magnesium 2.0 Total Bilirubin 0.7 AST 19 ALT 21 Alkaline Phosphatase 79 Troponin I < 0.02 Total Protein 6.6 Albumin 3.4 TSH 3.79 H Urine Color Yellow Urine Clarity Cloudy Urine pH 6.0 Ur Specific [place] 1.020 Urine Protein Trace H Urine Ketones Negative Urine Blood Moderate H Urine Nitrite Positive H Urine Bilirubin Negative Urine Urobilinogen 0.2 Ur Leukocyte Esterase Moderate H Urine RBC >50 H Urine WBC >50 Ur Epithelial Cells Moderate Urine Crystals Negative Urine Bacteria Many Urine Casts Negative Urine Mucus Negative Ur Culture Indicated? Yes Urine Glucose Negative Last Vital Signs Temp 36.4 C L 03/24/18 13:49 Pulse 69 03/24/18 13:49 Resp 16 03/24/18 14:22 BP 173/80 H 03/24/18 13:49 Pulse Ox 96 03/24/18 13:49
[2018-03-24 17:52] VITALS: BP 178/91; PULSE 73; RESP 20; TEMP 37.5; O2SAT 100
[2018-03-24] MEDS: Normal Saline Flush 10 ML SYR IVP (20:08)
[2018-03-24] MEDS: Nystatin POWDER 60 GM JAR TP (20:10)
[2018-03-24] MEDS: Apixaban 5 MG TAB PO (20:10)
--- NOTE | 2018-03-24 20:30 | NUR.NOTE ---
Patient presented to the med-surg unit with his who gave the history that patient was behaving confused and this generally happens when his having an unrinary tract infection. On assessment patient appears confused oriented to place and person but not to time. Chest clear when ascultated, abdomen having active bowel sounds. Left hand noted with IV access with normal saline progressing. Blood was noted to the underwear, pt state the doctor in ER told her this is sometimes normal for patients that is having an UTI, patient denied patient at this time. Bilateral yeasty looking rash noted to the groin.. Healed scar noted to the right lower leg, spouse said their cat at home had scratched him. Bed alarm applied.
[2018-03-24] MEDS: Normal Saline 500 ML 30 ML IV (21:56)
[2018-03-24] MEDS: Multivitamin w/Minerals TAB 1 TAB PO (21:56)
[2018-03-24] MEDS: Sertraline 50 MG TAB 150 MG PO (21:56)
[2018-03-24 23:40] VITALS: BP 158/91; PULSE 60; RESP 16; TEMP 36.3; O2SAT 97
[2018-03-25] MEDS: Normal Saline 1,000 ML 75 ML IV (01:59)
[2018-03-25 03:27] VITALS: TEMP 36.6
[2018-03-25 07:15] LABS: HCT 41.5 % (40.0-50.0); HGB 13.4 g/dL (13.5-17.5); Mean Corp. HGB Concentration 32.3 g/dL (32.0-36.0); Mean Corpuscular Hemoglobin 27.9 pg (27.0-33.0); Mean Corpuscular Volume 86.5 fL (80-95); Mean Platelet Volume 9.9 fL (8.0-11.0); Platelet Count 202 x1000/uL (130-400); RBC Distribution Width 13.7 % (11.8-14.1); White Blood Cell Count 6.35 k/cumm (4.4-10.8)
[2018-03-25 07:27] LABS: Anion Gap 7.8 mmol/L (3-11); BUN 17 mg/dL (7-18); CO2 31.2 mmol/L (21.0-32.0); CREATININE 1.04 mg/dL (0.70-1.30); Calcium 8.1 mg/dL (8.5-10.1); Chloride 106 mmol/L (98-107); Glucose 101 mg/dL (70-100); Magnesium 1.9 mg/dL (1.8-2.4); Potassium 3.5 mmol/L (3.5-5.1); Sodium 145 mmol/L (136-145)
[2018-03-25 07:30] VITALS: O2SAT 98
[2018-03-25 08:00] VITALS: BP 190/97; PULSE 65; RESP 16; TEMP 36.6; O2SAT 97
--- NOTE | 2018-03-25 08:13 | PHARADMIT ---
Admission Pharmacy Clinical Review UTI Code Status Full Code Current Weight Wgt-88 kg Renally Cleared and Narrow Therapeutic Index Meds CrCl~ 62 mL/min Meds-OK QTc Value / Action Taken [id number] NA (Sertraline) BP Control, Fever BP-158/91 Tmax- 36.3C Electrolytes reviewed Na- 145 K+3.5 Mag-1.9 DVT Prophylaxis Apixaban Opiate Usage / Scheduled Bowel Regimen Ordered No Yes Plt/SCr for Heparin / Enoxaparin Plts-202 SCr-1.04 INR for Warfarin NA H/H stable, WBC/Bands H&H- 13.4/41.5 WBC- 6.35 Antibiotic appropriateness Rocephin Cultures and Sensitivities Urine-Pending Surgical ABX d/c within 24 hr NA DM control / Insulin Dosing BG- 101 Heart Failure (Check EF%) (SHANTEL's, B-Block, Diuretics) NONE IV to PO Switch No Home Meds Reviewed Yes Home Meds Not Ordered B-12 Comments No Fludrocortisone
[2018-03-25] MEDS: Magnesium Oxide 400 MG TAB PO (09:03)
[2018-03-25] MEDS: Apixaban 5 MG TAB PO ×2 (09:03→20:45)
[2018-03-25] MEDS: Psyllium PKT 1 EACH PO (09:03)
[2018-03-25] MEDS: Nystatin POWDER 60 GM JAR TP ×3 (09:04→20:45)
[2018-03-25] MEDS: Loratidine 10 MG TAB PO (09:04)
[2018-03-25] MEDS: Fludrocortisone 0.1 MG TAB 0.2 MG PO (09:04)
[2018-03-25] MEDS: Potassium Chloride 20 MEQ TABCR 40 MEQ PO (09:04)
--- NOTE | 2018-03-25 10:40 | PT.INIE ---
Date of service: 03/25/18 Time of Service: 10:16 PT Notes Inpatient Physical Therapy Evaluation Date: 03/24/2018 Referring Doctor: Ladonna Kincaid PT Orders: PT CONSULT: UTI, Parkinson's, AMS Precautions: Fall precautions Patient Profile/Admitting Diagnosis: Patient is an 82-year-old male admitted with urinary tract infection, altered mental status, weakness PMHX: Parkinson's disease Mild cognitive impairment Bradycardia, status post pacemaker Chronic thoracic pain Depression Chronic thoracic back pain Shoulder pain, bilateral Paroxysmal atrial fibrillation Other seborrheic keratosis Orthostatic hypotension Multiple system atrophy Diverticulosis of colon without diverticulitis Cardiomyopathy Basal cell carcinoma of right forehead Actinic keratosis Osteoarthritis Alcoholism in remission Erectile dysfunction Benign prostatic hypertrophy Gout Hearing loss Vasectomy Social History/Home Situation: Lives with and home patient unable to provide home information, states he uses a walker for gait Equipment Owned/DME: [facility] Subjective: Patient lying in bed alert and agreeable to PT consult. He is able to state he is at [facility] in [facility] and the month is March, unable to state year. States he likes to move around it makes him feel better. Objective: General Observation: IV left upper extremity Mental Status: A and O times name, place, month Pain: Complains of pain Bed Mobility/Transfers: Supine to sit: Independent Sit to stand: SBA with FWW Stand to sit: SBA with FWW Sit to supine: Independent Gait: CGA with FWW 150 feet with use of gait belt, patient was steady step through gait pattern required tactile assist to guide front wheel walker around obstacles in the hallway and verbal cues for steering and directional changes. Patient returned to room back in bed with fall precaution alarm activated. Balance: Static Sitting: Normal Dynamic Sitting: Normal Static Standing: Fair Dynamic Standing: Fair Special Tests: Mobility Limitations Standardized Measure [facility] AM-PAC 6 clicks Basic Mobility Inpatient Short Form: Raw Score: 18 standardized Score: 43.63 CMS Score: 46.58% CMS Modifier: CK Informed Consent/Education: Patient instructed in purpose of PT consult and plan of care. Assessment: Patient is an 82-year-old male admitted with urinary tract infection, altered mental status, weakness in setting of Parkinson's disease, bilateral shoulder pain, chronic thoracic pain, bradycardia with pacemaker, paroxysmal atrial fibrillation. Patient presents with the following impairment level findings: Decreased strength with standing transfers, decreased strength with gait mobility requiring use of front wheel walker for stability to prevent falls due to decreased static and dynamic standing balance. Decreased safety with gait mobility due to Parkinson's disease and mild cognitive impairment, requiring tactile cues to guide front wheel walker around objects in hallway and verbal cues for directional changes. Patient was able to follow direction and participate with therapy session, oriented to place, name and month. Patient will benefit from skilled therapy intervention for strengthening, balance training, gait training with front wheel walker, and stair training to assist return to home setting with . Impairments are contributing to the following functional limitations: AMPAC score CMS Score: 46.58% Patient is assessed as a Moderate 68840 complexity based on the following: History: See above Examination: See above Presentation: Evolving Decision Making: AMPAC score CMS Score: 46.58% Goals: Goals X1 week 1. Supine-Sit: Independent 2. Sit-Supine: Independent 3. Sit-Stand: Independent with FWW 4. Stand-Sit: Independent 5. Bed-Chair: SBA with FWW 6. Chair-Bed: SBA with FWW 7. Gait: SBA with FWW 200 feet 8. Stairs up/down 5 steps with railing, SBA Plan of Care/Treatment Plan: 1-2x/day, 7 days/week x 1 week. Plan of care has been reviewed with the B[employer] CARPENTER providing the service under Physical Therapy direction. Initiate Physical Therapy intervention for strengthening, bed mobility, transfers, gait, stairs, balance training, use of assistive device. DISCHARGE RECOMMENDATIONS: Home with TREATMENT CODE/TIME: 26 minutes IE 10:15 AM G Codes in the area mobility of walking and moving around: current status [id number] CK projected status GP [id number]. Discharge status (if discharging) GP [id number] CK based on AMAPC score. Kitty Valdez PT Disclaimer: This note was created using [employer] voice recognition software. It was reviewed for major content. However, there may be multiple small discrepancies and errors due to the voice recognition aspects of the software.
--- NOTE | 2018-03-25 10:45 | IN_ITS ---
Date of service: 03/25/18 Time of Service: 10:16 PT Notes Inpatient Physical Therapy Evaluation Date: 03/24/2018 Referring Doctor: Ladonna Kincaid PT Orders: PT CONSULT: UTI, Parkinson's, AMS Precautions: Fall precautions Patient Profile/Admitting Diagnosis: Patient is an 82-year-old male admitted with urinary tract infection, altered mental status, weakness PMHX: Parkinson's disease Mild cognitive impairment Bradycardia, status post pacemaker Chronic thoracic pain Depression Chronic thoracic back pain Shoulder pain, bilateral Paroxysmal atrial fibrillation Other seborrheic keratosis Orthostatic hypotension Multiple system atrophy Diverticulosis of colon without diverticulitis Cardiomyopathy Basal cell carcinoma of right forehead Actinic keratosis Osteoarthritis Alcoholism in remission Erectile dysfunction Benign prostatic hypertrophy Gout Hearing loss Vasectomy Social History/Home Situation: Lives with and home patient unable to provide home information, states he uses a walker for gait Equipment Owned/DME: [facility] Subjective: Patient lying in bed alert and agreeable to PT consult. He is able to state he is at [facility] in [facility] and the month is March, unable to state year. States he likes to move around it makes him feel better. Objective: General Observation: IV left upper extremity Mental Status: A and O times name, place, month Pain: Complains of pain Bed Mobility/Transfers: Supine to sit: Independent Sit to stand: SBA with FWW Stand to sit: SBA with FWW Sit to supine: Independent Gait: CGA with FWW 150 feet with use of gait belt, patient was steady step through gait pattern required tactile assist to guide front wheel walker around obstacles in the hallway and verbal cues for steering and directional changes. Patient returned to room back in bed with fall precaution alarm activated. Balance: Static Sitting: Normal Dynamic Sitting: Normal Static Standing: Fair Dynamic Standing: Fair Special Tests: Mobility Limitations Standardized Measure [facility] AM-PAC 6 clicks Basic Mobility Inpatient Short Form: Raw Score: 18 standardized Score: 43.63 CMS Score: 46.58% CMS Modifier: CK Informed Consent/Education: Patient instructed in purpose of PT consult and plan of care. Assessment: Patient is an 82-year-old male admitted with urinary tract infection, altered mental status, weakness in setting of Parkinson's disease, bilateral shoulder pain, chronic thoracic pain, bradycardia with pacemaker, paroxysmal atrial fibrillation. Patient presents with the following impairment level findings: Decreased strength with standing transfers, decreased strength with gait mobility requiring use of front wheel walker for stability to prevent falls due to decreased static and dynamic standing balance. Decreased safety with gait mobility due to Parkinson's disease and mild cognitive impairment, requiring tactile cues to guide front wheel walker around objects in hallway and verbal cues for directional changes. Patient was able to follow direction and participate with therapy session, oriented to place, name and month. Patient will benefit from skilled therapy intervention for strengthening, balance training, gait training with front wheel walker, and stair training to assist return to home setting with . Impairments are contributing to the following functional limitations: AMPAC score CMS Score: 46.58% Patient is assessed as a Moderate 88129 complexity based on the following: History: See above Examination: See above Presentation: Evolving Decision Making: AMPAC score CMS Score: 46.58% Goals: Goals X1 week 1. Supine-Sit: Independent 2. Sit-Supine: Independent 3. Sit-Stand: Independent with FWW 4. Stand-Sit: Independent 5. Bed-Chair: SBA with FWW 6. Chair-Bed: SBA with FWW 7. Gait: SBA with FWW 200 feet 8. Stairs up/down 5 steps with railing, SBA Plan of Care/Treatment Plan: 1-2x/day, 7 days/week x 1 week. Plan of care has been reviewed with the MAINTENANCE PLUMBER providing the service under Physical Therapy direction. Initiate Physical Therapy intervention for strengthening, bed mobility, transfers, gait, stairs, balance training, use of assistive device. DISCHARGE RECOMMENDATIONS: Home with TREATMENT CODE/TIME: 26 minutes IE 10:15 AM G Codes in the area mobility of walking and moving around: current status [id number] CK projected status GP [id number]. Discharge status (if discharging) GP G8980 CK based on AMAPC score. Kitty Valdez PT Disclaimer: This note was created using [employer] voice recognition software. It was reviewed for major content. However, there may be multiple small discrepancies and errors due to the voice recognition aspects of the software.
--- NOTE | 2018-03-25 12:14 | PGE_ITS ---
Date of Service Date of service: 03/25/18 Time of Service: 12:13 Assessment and Plan (1) Urinary tract infection: Current visit: No Status: Acute With altered mental status and generalized weakness, appears to be improving with current treatment. No leukocytosis. Urine culture growing gram negative rods, previous cultures have grown Klebsiella. Continue IV ceftriaxone. Repeat CBC and BMP in the morning. Continue to monitor cultures. Urology has been consulted and recommends testing for cure after antibiotic course to determine if this is a recurrent or persistent infection. He also ordered a renal ultrasound to assess for anything acute that may need to be assessed. (2) Cardiomyopathy: Current visit: No Status: Chronic Possibly related to history of alcohol abuse. His most recent echocardiogram on record was from March 2017 which revealed an LVEF of 45- 50%. Monitor fluid status closely. Daily weights. D/C IV fluids. (3) Parkinsons disease: Current visit: No Status: Chronic Not on medication due to orthostatic hypotension requiring fludrocortisone at baseline. Continue PT. (4) Orthostatic hypotension: Current visit: No Status: Chronic Continue fludrocortisone. Monitor blood pressures. Change positions slowly. (5) Depression: Current visit: No Status: Chronic Continue sertraline at home dose. (6) Paroxysmal atrial fibrillation: Current visit: No Status: Chronic He is on a apixaban chronically for anticoagulation. 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 Heart rate 65. We will continue his apixaban. (7) Fungal infection of the groin: Current visit: Yes Status: Acute Nystatin powder. (8) DVT prophylaxis: Current visit: No Status: Acute Continue apixaban for anticoagulation. (9) Discharge planning issues: Current visit: No Status: Acute He is a full code. He will likely need home health services upon discharge. His is his primary caregiver. This case was discussed with Dr. James who is in agreement. Subjective Interval history since last seen: Laureano Baugh is an 82 year old man with a history of Parkinson's Disease (not on medication due to hypotension) with mild cognitive impairment, paroxysmal atrial fibrillation, and bradycardia, status post pacemaker, cardiomyopathy, with LVEF 45-50% (from Echo 03/29), BPH who presented to the ED via EMS with altered mental status on 03/24/18. He had a UA in the ED that was suspicious for infection. He was admitted to the med/surg floor for IV ceftriaxone, urology and PT consult. He seems to be clearing mentally today. He recalls feeling confused yesterday and that he feels more like himself today. He notes that he did have some dysuria, but that has cleared today. He denies any other urinary symptoms. He remains unsteady on his feet. Denies chest pain/pressure, palpitations, shortness of breath, cough, wheeze, abdominal pain, nausea, vomiting, diarrhea. Exam Narrative Exam Narrative: General: He is awake and alert, , he is oriented x3 today. He is hard to understand at times. He seems to be answering questions appropriately. He is in no acute distress. Neuro: his affect is flat, he has parkinsonian facies. Neck: supple, no JVD. HEENT: Pupils are equal and round. Mucous membranes moist, tongue protrudes midline, palate rises symmetrically. Respiratory: Respirations are even and unlabored, lung sounds are clear to auscultation throughout. Cardiovascular: Heart rate regular, no murmur appreciated. GI: abdomen soft, nontender on palpation, normoactive bowel sounds throughout. Extremities: well perfused without clubbing, cyanosis or edema. Skin: right groin remains with erythema, appears fungal with odor. Objective Objective Clinical Data: Abnormal lab results 03/24/18 03/24/18 03/24/18 Range/Units 14:07 14:07 14:15 Hgb (13.5-17.5) g/dL Absolute Lymphocytes 0.99 L (1.2-3.4) k/cumm BUN 20 H (7-18) mg/dL Glucose 113 H (70-100) mg/dL Calcium (8.5-10.1) mg/dL TSH 3.79 H (0.358-3.74) uIU/mL Urine Protein Trace H (Negative) mg/dL Urine Blood Moderate H (Negative) Urine Nitrite Positive H (Negative) Ur Leukocyte Esterase Moderate H (Negative) Urine RBC >50 H (0-2) 03/25/18 03/25/18 Range/Units 06:30 06:30 Hgb 13.4 L (13.5-17.5) g/dL Absolute Lymphocytes (1.2-3.4) k/cumm BUN (7-18) mg/dL Glucose 101 H (70-100) mg/dL Calcium 8.1 L (8.5-10.1) mg/dL TSH (0.358-3.74) uIU/mL Urine Protein (Negative) mg/dL Urine Blood (Negative) Urine Nitrite (Negative) Ur Leukocyte Esterase (Negative) Urine RBC (0-2) Vital Signs Temperature 36.6 C 03/25/18 03:27 Temperature Source Skin 03/25/18 03:27 Pulse 60 03/24/18 23:40 Pulse Rhythm Regular 03/24/18 23:40 Respiratory Rate 16 03/24/18 23:40 Respiratory Effort Non-Labored 03/24/18 23:40 Respiratory Depth Normal 03/24/18 23:40 Respiratory Pattern Normal 03/24/18 23:40 Blood Pressure 158/91 H 03/24/18 23:40 Pulse Oximetry 97 03/24/18 23:40 Oxygen Delivery Method Room Air 03/24/18 23:40 Oxygen Flow Rate 0 03/24/18 23:40 Pain Level 0 03/24/18 23:40 Intake & Output 03/24/18 03/25/18 03/25/18 23:59 11:59 23:59 Intake Total 1550 / 1550 Output Total 525 / 525 Balance 1550 / 1550 -525 / -525 Weight 88 kg Intake: IV 1550 / 1550 Output: Urine 525 / 525 Other: Urine Color Yellow Urine Appearance Clear Urine Odor Normal Comment bladder scanned after voiding void x 1 toilet Voiding Methods Toilet Laboratory Results WBC 6.35 k/cumm (4.4-10.8) 03/25/18 06:30 RBC 4.80 m/cumm (4.50-6.00) 03/25/18 06:30 Hgb 13.4 g/dL (13.5-17.5) L 03/25/18 06:30 Hct 41.5 % (40.0-50.0) 03/25/18 06:30 MCV 86.5 fL (80-95) 03/25/18 06:30 MCH 27.9 pg (27.0-33.0) 03/25/18 06:30 MCHC 32.3 g/dL (32.0-36.0) 03/25/18 06:30 RDW 13.7 % (11.8-14.1) 03/25/18 06:30 Plt Count 202 x1000/uL (130-400) 03/25/18 06:30 MPV 9.9 fL (8.0-11.0) 03/25/18 06:30 Immature Gran % 0.1 03/24/18 14:07 Neutrophils % 69.1 03/24/18 14:07 Lymphocytes % 14.4 03/24/18 14:07 Monocytes % 8.2 03/24/18 14:07 Eosinophils % 7.6 03/24/18 14:07 Basophils % 0.6 03/24/18 14:07 Absolute Neutrophils 4.75 k/cumm (1.2-6.7) 03/24/18 14:07 Absolute Lymphocytes 0.99 k/cumm (1.2-3.4) L 03/24/18 14:07 Absolute Monocytes 0.56 k/cumm (0.11-0.7) 03/24/18 14:07 Absolute Eosinophils 0.52 k/cumm (0.0-0.7) 03/24/18 14:07 Absolute Basophils 0.04 k/cumm (0.0-0.2) 03/24/18 14:07 Sodium 145 mmol/L (136-145) 03/25/18 06:30 Potassium 3.5 mmol/L (3.5-5.1) 03/25/18 06:30 Chloride 106 mmol/L (98-107) 03/25/18 06:30 Carbon Dioxide 31.2 mmol/L (21.0-32.0) 03/25/18 06:30 Anion Gap 7.8 mmol/L (3-11) 03/25/18 06:30 BUN 17 mg/dL (7-18) 03/25/18 06:30 Creatinine 1.04 mg/dL (0.70-1.30) 03/25/18 06:30 Estimated GFR/1.73 m2 >= 60.00 (mL/min/1.73m2) 03/25/18 06:30 Glucose 101 mg/dL (70-100) H 03/25/18 06:30 Calcium 8.1 mg/dL (8.5-10.1) L 03/25/18 06:30 Magnesium 1.9 mg/dL (1.8-2.4) 03/25/18 06:30 Total Bilirubin 0.7 mg/dL (0.2-1.0) 03/24/18 14:07 AST 19 U/L (15-37) 03/24/18 14:07 ALT 21 U/L (12-78) 03/24/18 14:07 Alkaline Phosphatase 79 U/L (46-116) 03/24/18 14:07 Troponin I < 0.02 ng/mL (0.00-0.06) 03/24/18 14:07 Total Protein 6.6 g/dL (6.4-8.2) 03/24/18 14:07 Albumin 3.4 g/dL (3.4-5.0) 03/24/18 14:07 TSH 3.79 uIU/mL (0.358-3.74) H 03/24/18 14:07 Urine Color Yellow (Yellow) 03/24/18 14:15 Urine Clarity Cloudy 03/24/18 14:15 Urine pH 6.0 (5-8) 03/24/18 14:15 Ur Specific [place] 1.020 (1.005-1.025) 03/24/18 14:15 Urine Protein Trace mg/dL (Negative) H 03/24/18 14:15 Urine Ketones Negative mg/dL (Negative) 03/24/18 14:15 Urine Blood Moderate (Negative) H 03/24/18 14:15 Urine Nitrite Positive (Negative) H 03/24/18 14:15 Urine Bilirubin Negative (Negative) 03/24/18 14:15 Urine Urobilinogen 0.2 EU/dL (Up TO 0.2) 03/24/18 14:15 Ur Leukocyte Esterase Moderate (Negative) H 03/24/18 14:15 Urine RBC >50 (0-2) H 03/24/18 14:15 Urine WBC >50 HPF (0-5) 03/24/18 14:15 Ur Epithelial Cells Moderate HPF (Negative) 03/24/18 14:15 Urine Crystals Negative HPF (Negative) 03/24/18 14:15 Urine Bacteria Many HPF (Negative) 03/24/18 14:15 Urine Casts Negative LPF (Negative) 03/24/18 14:15 Urine Mucus Negative (Negative) 03/24/18 14:15 Ur Culture Indicated? Yes 03/24/18 14:15 Urine Glucose Negative mg/dL (Negative) 03/24/18 14:15
[2018-03-25] MEDS: Acetaminophen 325 MG TAB PO (12:31)
--- NOTE | 2018-03-25 13:30 | DI.US_ITS ---
SYMPTOMS/DIAGNOSIS: RECURRENT URINARY TRACT INFECTIONS RENAL ULTRASOUND: Routine examination was performed. The right kidney measures 11.1 cm long. There are two simple renal cysts present, the largest measures 3 x 2.6 x 3.5 cm. The smaller measures 1.2 x 1.4 x 1.7 cm. No solid right renal mass, calculus or obstruction is seen. The left kidney measures 10.2 cm long. No renal mass or obstruction is present. There is an echogenic focus measuring 0.7 cm in the mid pole, suggestive of a nonobstructing stone. The prevoid urinary bladder volume is 180 cc. The bladder wall appeared smooth. No intraluminal masses were seen. Both ureteral jets were visualized. Postvoid urinary bladder volume was 16 cc. The prostatic volume was 40 cc. IMPRESSION: 1. Right renal cysts. 2. Findings suggestive of a nonobstructing stone in the left kidney.
--- NOTE | 2018-03-25 14:02 | W.UROLOGYCON ---
Date of service: 03/25/18 Time of Service: 11:03 History of Present Illness Chief Complaint: recurrent UTI Narrative: This is an 82-year-old gentleman who has had several hospitalizations in the past 6 months related to mental status changes. During each of these encounters, he was identified as having a urinary tract infection. When cultures have been obtained, his urine has grown Klebsiella. He is again admitted with mental status changes. A urine culture has been obtained but the results are not yet available. I have been asked to see him for his recurrent UTIs. He tells me that he rarely has any dysuria. He has had hematuria in the past. He tells me this only occurred when he was passing a kidney stone. He is never had urologic surgery as far as he can recall. He does have some lower urinary tract symptoms but has never gone into urinary retention Review of Systems Constitutional Denies chills, Reports fatigue and Denies headache(s) ENT Denies dizziness and Denies headache(s) Cardiovascular Denies chest pain and Denies palpitations Respiratory Denies cough and Denies hemoptysis Gastrointestinal Denies nausea and Denies vomiting Musculoskeletal Reports arthralgias Neurologic Denies dizziness and Denies headache(s) Endocrine Reports fatigue and Denies palpitations Hematologic/Lymphatic Denies easy bleeding PFSH Depression (Chronic) Chronic thoracic back pain (Chronic) Shoulder pain, bilateral (Chronic 10/26/13) Paroxysmal atrial fibrillation (Chronic 11/28/15) Other seborrheic keratosis (Chronic) Orthostatic hypotension (Chronic 08/04/17) 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) Diverticulosis of colon without diverticulitis (Chronic) Cardiomyopathy (Chronic 08/03/14) Basal cell carcinoma of right forehead (Chronic 03/06/14) Actinic keratosis (Chronic) Osteoarthritis (Chronic) 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 No smoking, ETOH, illicit drug use. Exam Narrative Exam Narrative: He does not appear septic or toxic He is a bit confused and difficult to keep on point. His vital signs are documented elsewhere in the chart. His abdomen is soft with no masses. The testes are soft with no scrotal erythema or tenderness. There is no scrotal fluctuance. He is awake and alert. Results Last Vital Signs Temp 36.6 C 03/25/18 03:27 Pulse 60 03/24/18 23:40 Resp 16 03/24/18 23:40 BP 158/91 H 03/24/18 23:40 Pulse Ox 97 03/24/18 23:40 Labs : 03/25/18 06:30 03/25/18 06:30 Laboratory Results - last 24 hr 03/24/18 03/24/18 03/24/18 14:07 14:07 14:15 WBC 6.87 RBC 4.96 Hgb 14.3 Hct 42.4 MCV 85.5 MCH 28.8 MCHC 33.7 RDW 13.8 Plt Count 193 MPV 9.8 Immature Gran % 0.1 Neutrophils % 69.1 Lymphocytes % 14.4 Monocytes % 8.2 Eosinophils % 7.6 Basophils % 0.6 Absolute Neutrophils 4.75 Absolute Lymphocytes 0.99 L Absolute Monocytes 0.56 Absolute Eosinophils 0.52 Absolute Basophils 0.04 Sodium 142 Potassium 3.7 Chloride 104 Carbon Dioxide 31.0 Anion Gap 7.0 BUN 20 H Creatinine 1.06 Estimated GFR/1.73 m2 >= 60.00 Glucose 113 H Calcium 8.8 Magnesium 2.0 Total Bilirubin 0.7 AST 19 ALT 21 Alkaline Phosphatase 79 Troponin I < 0.02 Total Protein 6.6 Albumin 3.4 TSH 3.79 H Urine Color Yellow Urine Clarity Cloudy Urine pH 6.0 Ur Specific [place] 1.020 Urine Protein Trace H Urine Ketones Negative Urine Blood Moderate H Urine Nitrite Positive H Urine Bilirubin Negative Urine Urobilinogen 0.2 Ur Leukocyte Esterase Moderate H Urine RBC >50 H Urine WBC >50 Ur Epithelial Cells Moderate Urine Crystals Negative Urine Bacteria Many Urine Casts Negative Urine Mucus Negative Ur Culture Indicated? Yes Urine Glucose Negative 03/25/18 03/25/18 06:30 06:30 WBC 6.35 RBC 4.80 Hgb 13.4 L Hct 41.5 MCV 86.5 MCH 27.9 MCHC 32.3 RDW 13.7 Plt Count 202 MPV 9.9 Immature Gran % Neutrophils % Lymphocytes % Monocytes % Eosinophils % Basophils % Absolute Neutrophils Absolute Lymphocytes Absolute Monocytes Absolute Eosinophils Absolute Basophils Sodium 145 Potassium 3.5 Chloride 106 Carbon Dioxide 31.2 Anion Gap 7.8 BUN 17 Creatinine 1.04 Estimated GFR/1.73 m2 >= 60.00 Glucose 101 H Calcium 8.1 L Magnesium 1.9 Total Bilirubin AST ALT Alkaline Phosphatase Troponin I Total Protein Albumin TSH Urine Color Urine Clarity Urine pH Ur Specific [place] Urine Protein Urine Ketones Urine Blood Urine Nitrite Urine Bilirubin Urine Urobilinogen Ur Leukocyte Esterase Urine RBC Urine WBC Ur Epithelial Cells Urine Crystals Urine Bacteria Urine Casts Urine Mucus Ur Culture Indicated? Urine Glucose Assessment and Plan (1) Urinary tract infection: Current visit: No Status: Acute I do not see that his urine has been checked after he completes his antibiotic to insure the bacteruria has cleared. If it does not clear, we would consider this a persistent infection rather than reinfection and a longer course of antibiotic is probably needed. If the urine clears, but he develops repeated new infections with the same organism over and over, we need to look for a nidus of infection like a stone. I have ordered a renal US to make sure there is nothing acute that needs to be addressed (I would doubt it since he has never had positive blood cultures). As long as nothing acute is identified, we will simply recommend treating him based on his C&S results. We can see him as an outpatient once he completes his antibiotic and retest his urine. We can then make recommendations regarding additional studies such as a cystoscopy.
--- NOTE | 2018-03-25 14:26 | PDOC.ERCMIN ---
Care Management Initial Assess REASON FOR HOSPITALIZATION:: UTI PAST MEDICAL HISTORY/PAST SURGICAL HISTORY:: Actinic keratosis, Alcoholism in remission, basal cell carcinoma of right forehead, benign prostatic hypertrophy, cardiomyopathy, chronic thoracic back pain, depression, diverticulosis of colon without diverticulitis, erectile dysfunction, Gout, hearing loss, heart block, multiple system atrophy, orthostatic hypotension, osteoarthritis, other seborrheic keratosis, paroxysmal atrial fibrillation, shoulder pain, bilateral, symptomatic bradycardia, excision of skin mass, hx of surgical procedure, pacemaker, repair of inguinal hernia, vasectomy PREVIOUS FUNCTIONAL STATUS/SOCIAL/FAMILY SUPPORTS:: Laureano resides in [place] with his , Maegan. He retired 10 years ago following a career in [employer] and has a love of fishing. Laureano resides with his , Maegan in [place], [place]. She reports no family locally and shares that Laureano has children that live out of state, including a son in [facility]. Maegan manages most of the couple's ADLs though she reports besides driving, Laureano is physically independent at baseline and only needs some support when showering. He utilizes a walker for ambulation. CURRENT FUNCTIONAL STATUS:: Laureano is more clear this morning and alert and oriented. He reports being tired and his voice is gone. He is difficult to understand. He reports wanting to get up and walk more as he is feeling increasingly weak. Maegan and Laureano engage fully in assessment and are agreeable to and requesting additional support and referral for [facility]/PT/OT. ADVANCE DIRECTIVES:: None on file at [facility]. Has patient been provided with information about the portal?: Yes Did the patient sign up for the portal?: No CODE STATUS:: Full Code INSURANCE COVERAGE / FINANCIAL ISSUES:: Medicaid, Medicare. CURRENT HOME/COMMUNITY SERVICES/EQUIPMENT:: MOW ([place] [facility]), FWW. PRIMARY CARE PHYSICIAN:: aLureano Kaminski, POTENTIAL DISCHARGE NEEDS:: Follow up appointments, new orders for PT/OT (CM faxed referral to [facility]), evaluation for further needs. PATIENT/FAMILY EDUCATION NEEDS:: Review of discharge instructions, community based supports, discuss Ask Me Three. ANTICIPATED BARRIERS TO DISCHARGE:: None identfied. TRANSPORTATION:: Via private vehicle with his , Maegan. PLAN:: Laureano will continue to be monitored, his AMS is clearing and he is being treated for UTI, he is working with PT and will likely be ready for discharge tomorrow. Anticipate new orders for [facility]/PT/OT. Laureano will transport via private vehicle with his , Maegan.
--- NOTE | 2018-03-25 14:41 | PT.INTREAT ---
Date of service: 03/25/18 Time of Service: 14:42 PT Notes Inpatient Physical Therapy Treatment Note Date: 03/25/18 PRECAUTIONS: Fall SUBJECTIVE: Ayden is agreeable to PT, although states that he has already walked three times today. OBJECTIVE: PAIN: No c/o pain BED MOBILITY/TRANSFERS Supine-sit: I Sit-supine: I Sit-stand: SBA Stand-sit: SBA GAIT Assistive Device: FWW Weight bearing: Full Assist: CGA Distance: 300' Deviation: Cueing for FWW mechanics, upright posture, and pacing. THEREX: Patient was unable to follow directions for ther ex. ASSESSMENT: Patient tolerated session without complaint. He was able to tolerate a progression in gait distance, although required significant verbal and tactile cueing throughout for FWW mechanics, upright posture, and for pacing for safety. PLAN: Continue with PT's POC TREATMENT CODE/TIME: 25 minutes; TAx2
--- NOTE | 2018-03-25 14:54 | INITIAL_ITS ---
Care Management Initial Assess REASON FOR HOSPITALIZATION:: UTI PAST MEDICAL HISTORY/PAST SURGICAL HISTORY:: Actinic keratosis, Alcoholism in remission, basal cell carcinoma of right forehead, benign prostatic hypertrophy, cardiomyopathy, chronic thoracic back pain, depression, diverticulosis of colon without diverticulitis, erectile dysfunction, Gout, hearing loss, heart block, multiple system atrophy, orthostatic hypotension, osteoarthritis, other seborrheic keratosis, paroxysmal atrial fibrillation, shoulder pain, bilateral, symptomatic bradycardia, excision of skin mass, hx of surgical procedure, pacemaker, repair of inguinal hernia, vasectomy PREVIOUS FUNCTIONAL STATUS/SOCIAL/FAMILY SUPPORTS:: Laureano resides in [place] with his , Maegan. He retired 10 years ago following a career in [employer] and has a love of fishing. Laureano resides with his , Maegan in [place], [place]. She reports no family locally and shares that Laureano has children that live out of state, including a son in [facility]. Maegan manages most of the couple's ADLs though she reports besides driving, Laureano is physically independent at baseline and only needs some support when showering. He utilizes a walker for ambulation. CURRENT FUNCTIONAL STATUS:: Laureano is more clear this morning and alert and oriented. He reports being tired and his voice is gone. He is difficult to understand. He reports wanting to get up and walk more as he is feeling increasingly weak. Maegan and Laureano engage fully in assessment and are agreeable to and requesting additional support and referral for [facility]/PT/OT. ADVANCE DIRECTIVES:: None on file at [facility]. Has patient been provided with information about the portal?: Yes Did the patient sign up for the portal?: No CODE STATUS:: Full Code INSURANCE COVERAGE / FINANCIAL ISSUES:: Medicaid, Medicare. CURRENT HOME/COMMUNITY SERVICES/EQUIPMENT:: MOW ([place] [facility]), FWW. PRIMARY CARE PHYSICIAN:: Laureano Kaminski, POTENTIAL DISCHARGE NEEDS:: Follow up appointments, new orders for PT/OT (CM faxed referral to [facility]), evaluation for further needs. PATIENT/FAMILY EDUCATION NEEDS:: Review of discharge instructions, community based supports, discuss Ask Me Three. ANTICIPATED BARRIERS TO DISCHARGE:: None identfied. TRANSPORTATION:: Via private vehicle with his , Maegan. PLAN:: Laureano will continue to be monitored, his AMS is clearing and he is being treated for UTI, he is working with PT and will likely be ready for discharge tomorrow. Anticipate new orders for [facility]/PT/OT. Laureano will transport via private vehicle with his , Maegan.
[2018-03-25 15:32] VITALS: BP 171/81; PULSE 60; RESP 18; TEMP 37.3; O2SAT 95
[2018-03-25] MEDS: Potassium Chloride 10 MEQ TABCR PO (16:30)
[2018-03-25] MEDS: Normal Saline Flush 10 ML SYR IVP (17:26)
[2018-03-25] MEDS: Multivitamin w/Minerals TAB 1 TAB PO (22:56)
[2018-03-25] MEDS: Sertraline 50 MG TAB 150 MG PO (22:56)
[2018-03-26 00:12] VITALS: BP 149/91; PULSE 59; RESP 18; TEMP 36.6; O2SAT 94
[2018-03-26 07:17] LABS: Abs Immature Grans 0.01 k/cumm (0.0-0.09); Absolute Basophil Count 0.05 k/cumm (0.0-0.2); Absolute Eosinophil Count 0.65 k/cumm (0.0-0.7); Absolute Lymphocyte Count 1.38 k/cumm (1.2-3.4); Absolute Neutrophil Count 4.24 k/cumm (1.2-6.7); Basophils % 0.7; Eosinophils % 9.5; HCT 41.8 % (40.0-50.0); HGB 13.7 g/dL (13.5-17.5); Immature Grans % 0.1; Lymphocytes % 20.2; Mean Corp. HGB Concentration 32.8 g/dL (32.0-36.0); Mean Corpuscular Hemoglobin 28.3 pg (27.0-33.0); Mean Corpuscular Volume 86.4 fL (80-95); Monocytes % 7.3; Neutrophils % 62.2; Platelet Count 204 x1000/uL (130-400); RBC 4.84 m/cumm (4.50-6.00); RBC Distribution Width 13.9 % (11.8-14.1); White Blood Cell Count 6.83 k/cumm (4.4-10.8)
[2018-03-26 07:31] LABS: Anion Gap 6.2 mmol/L (3-11); BUN 17 mg/dL (7-18); CO2 31.8 mmol/L (21.0-32.0); CREATININE 1.01 mg/dL (0.70-1.30); Calcium 8.4 mg/dL (8.5-10.1); Chloride 106 mmol/L (98-107); Glucose 102 mg/dL (70-100); Potassium 3.9 mmol/L (3.5-5.1); Sodium 144 mmol/L (136-145)
--- NOTE | 2018-03-26 07:50 | PGE_ITS ---
Date of Service Date of service: 03/26/18 Time of Service: 07:47 Assessment and Plan (1) Urinary tract infection: Current visit: No Status: Acute I do not see anything on the ultrasound that indicates he needs any acute intervention. With the same organism being identified time and time again, a repeat urine sample when he completes his antibiotic is more important than ever. This would help us decide if he has an incompletely treated infection or a recurrent infection. Once his sensitivities are available, I have no issues with him being discharged on oral antibiotics. I would simply need to see him as his outpatient antibiotic therapy winds down. Subjective Patient reports: no new complaints Exam Narrative Exam Narrative: He is resting comfortably this morning. His vital signs are documented elsewhere in the chart. He does not appear septic or toxic. I did review his renal ultrasound that was done yesterday. I do not see any sign of hydronephrosis. He does have a stone in the left kidney but this does not have the appearance of a staghorn calculus His urine culture is again growing Klebsiella. Objective Objective Clinical Data: Abnormal lab results 03/26/18 Range/Units 06:20 Glucose 102 H (70-100) mg/dL Calcium 8.4 L (8.5-10.1) mg/dL Vital Signs Temperature 36.6 C 03/26/18 00:12 Temperature Source Tympanic 03/26/18 00:12 Pulse 59 L 03/26/18 00:12 Pulse Rhythm Regular 03/25/18 20:34 Respiratory Rate 18 03/26/18 00:12 Respiratory Effort 03/25/18 20:34 Respiratory Depth Normal 03/25/18 20:34 Respiratory Pattern Normal 03/25/18 20:34 Blood Pressure 149/91 H 03/26/18 00:12 Pulse Oximetry 94 L 03/26/18 00:12 Oxygen Delivery Method Room Air 03/26/18 00:12 Oxygen Flow Rate 0 03/26/18 00:12 Pain Level 6 03/25/18 12:31 Comment 03/25/18 08:00 Intake & Output 03/25/18 03/25/18 03/26/18 11:59 23:59 11:59 Intake Total 2029 240 / 240 Output Total 525 / 525 Balance -525 / 1505 2030 / 1505 240 / 240 Intake: IV 1550 / 1550 Oral 480 / 480 240 / 240 Output: Urine 525 / 525 Other: Urine Color Yellow Pale Yellow Urine Appearance Clear Clear Clear Urine Odor Normal None Normal Comment void x 1 toilet Voiding Methods Toilet Toilet Toilet Laboratory Results WBC 6.83 k/cumm (4.4-10.8) 03/26/18 06:20 RBC 4.84 m/cumm (4.50-6.00) 03/26/18 06:20 Hgb 13.7 g/dL (13.5-17.5) 03/26/18 06:20 Hct 41.8 % (40.0-50.0) 03/26/18 06:20 MCV 86.4 fL (80-95) 03/26/18 06:20 MCH 28.3 pg (27.0-33.0) 03/26/18 06:20 MCHC 32.8 g/dL (32.0-36.0) 03/26/18 06:20 RDW 13.9 % (11.8-14.1) 03/26/18 06:20 Plt Count 204 x1000/uL (130-400) 03/26/18 06:20 MPV 10.0 fL (8.0-11.0) 03/26/18 06:20 Immature Gran % 0.1 03/26/18 06:20 Neutrophils % 62.2 03/26/18 06:20 Lymphocytes % 20.2 03/26/18 06:20 Monocytes % 7.3 03/26/18 06:20 Eosinophils % 9.5 03/26/18 06:20 Basophils % 0.7 03/26/18 06:20 Absolute Neutrophils 4.24 k/cumm (1.2-6.7) 03/26/18 06:20 Absolute Lymphocytes 1.38 k/cumm (1.2-3.4) 03/26/18 06:20 Absolute Monocytes 0.50 k/cumm (0.11-0.7) 03/26/18 06:20 Absolute Eosinophils 0.65 k/cumm (0.0-0.7) 03/26/18 06:20 Absolute Basophils 0.05 k/cumm (0.0-0.2) 03/26/18 06:20 Sodium 144 mmol/L (136-145) 03/26/18 06:20 Potassium 3.9 mmol/L (3.5-5.1) 03/26/18 06:20 Chloride 106 mmol/L (98-107) 03/26/18 06:20 Carbon Dioxide 31.8 mmol/L (21.0-32.0) 03/26/18 06:20 Anion Gap 6.2 mmol/L (3-11) 03/26/18 06:20 BUN 17 mg/dL (7-18) 03/26/18 06:20 Creatinine 1.01 mg/dL (0.70-1.30) 03/26/18 06:20 Estimated GFR/1.73 m2 >= 60.00 (mL/min/1.73m2) 03/26/18 06:20 Glucose 102 mg/dL (70-100) H 03/26/18 06:20 Calcium 8.4 mg/dL (8.5-10.1) L 03/26/18 06:20 Magnesium 1.9 mg/dL (1.8-2.4) 03/25/18 06:30 Total Bilirubin 0.7 mg/dL (0.2-1.0) 03/24/18 14:07 AST 19 U/L (15-37) 03/24/18 14:07 ALT 21 U/L (12-78) 03/24/18 14:07 Alkaline Phosphatase 79 U/L (46-116) 03/24/18 14:07 Troponin I < 0.02 ng/mL (0.00-0.06) 03/24/18 14:07 Total Protein 6.6 g/dL (6.4-8.2) 03/24/18 14:07 Albumin 3.4 g/dL (3.4-5.0) 03/24/18 14:07 TSH 3.79 uIU/mL (0.358-3.74) H 03/24/18 14:07 Urine Color Yellow (Yellow) 03/24/18 14:15 Urine Clarity Cloudy 03/24/18 14:15 Urine pH 6.0 (5-8) 03/24/18 14:15 Ur Specific [place] 1.020 (1.005-1.025) 03/24/18 14:15 Urine Protein Trace mg/dL (Negative) H 03/24/18 14:15 Urine Ketones Negative mg/dL (Negative) 03/24/18 14:15 Urine Blood Moderate (Negative) H 03/24/18 14:15 Urine Nitrite Positive (Negative) H 03/24/18 14:15 Urine Bilirubin Negative (Negative) 03/24/18 14:15 Urine Urobilinogen 0.2 EU/dL (Up TO 0.2) 03/24/18 14:15 Ur Leukocyte Esterase Moderate (Negative) H 03/24/18 14:15 Urine RBC >50 (0-2) H 03/24/18 14:15 Urine WBC >50 HPF (0-5) 03/24/18 14:15 Ur Epithelial Cells Moderate HPF (Negative) 03/24/18 14:15 Urine Crystals Negative HPF (Negative) 03/24/18 14:15 Urine Bacteria Many HPF (Negative) 03/24/18 14:15 Urine Casts Negative LPF (Negative) 03/24/18 14:15 Urine Mucus Negative (Negative) 03/24/18 14:15 Ur Culture Indicated? Yes 03/24/18 14:15 Urine Glucose Negative mg/dL (Negative) 03/24/18 14:15
[2018-03-26 08:08] VITALS: BP 155/89; PULSE 64; RESP 16; TEMP 36.1; O2SAT 98
[2018-03-26] MEDS: Fludrocortisone 0.1 MG TAB 0.2 MG PO (09:18)
[2018-03-26] MEDS: Apixaban 5 MG TAB PO (09:18)
[2018-03-26] MEDS: Ciprofloxacin 500 MG TAB PO (09:18)
[2018-03-26] MEDS: Psyllium PKT 1 EACH PO (09:18)
[2018-03-26] MEDS: Loratidine 10 MG TAB PO (09:19)
[2018-03-26] MEDS: Potassium Chloride 10 MEQ TABCR PO ×2 (09:19→10:50)
[2018-03-26] MEDS: Nystatin POWDER 60 GM JAR TP (09:21)
--- NOTE | 2018-03-26 09:32 | PT.INTREAT ---
Date of service: 03/26/18 Time of Service: 09:32 PT Notes Inpatient Physical Therapy Treatment Note Date: 03/26/18 PRECAUTIONS: Fall SUBJECTIVE: Laureano is agreeable to PT OBJECTIVE: PAIN: No c/o pain BED MOBILITY/TRANSFERS Sit-stand: SBA Stand-sit: SBA GAIT Assistive Device: FWW Weight bearing: Full Assist: CGA Distance: 300' Deviation: Cueing for FWW mechanics, upright posture, and pacing STAIRS: Up/down 3x4 and 2x6 using B rails and a step-to pattern with CGA TOILETING: Patient toileted with assist ASSESSMENT: Patient continues to require significant cueing during gait training for FWW mechanics and upright posture as well as for pacing for safety. Patient was able to perform stair training with CGA. Patient would benefit from continued gait and transfer training as well as strengthening for improved mobility. PLAN: Continue with PT's POC TREATMENT CODE/TIME: 30 minutes; TAx2
--- NOTE | 2018-03-26 13:07 | W.PM.DS.N ---
Date of service: 03/26/18 Time of Service: 13:08 DS: Diagnosis Discharge Diagnosis (1) Urinary tract infection: Status: Acute Discharge Plan Disposition Patient Disposition: HOME W/HOME HEALTH SERVICE Condition: Improving Discharge Details Reason For Visit: UTI Admit Date/Time: 03/24/18 17:09 Admit Provider: Ignacio James Attending Provider: Ignacio James Primary Care Provider: Laureano Kaminski Hospital Course Hospital Course: Laureano Baugh is an 82 year old man with a history of Parkinson's Disease (not on medication due to hypotension) with mild cognitive impairment, paroxysmal atrial fibrillation, and bradycardia, status post pacemaker, cardiomyopathy, with LVEF 45-50% (from Echo 03/29), BPH who presented to the ED via EMS on 03/24/18 with altered mental status. His reports that he has been paranoid, beginning yesterday, he was seeing people outside of the house that were not there, he was taking to himself. She is his primary caregiver, she reports that he becomes very confused when he gets a urinary tract infection. He was recently admitted to the hospital for a urinary tract infection with altered mental status in February of 2018 (last month). In the ED, he had a UA that was suspicious for infection with moderate leukocyte esterase, positive nitrite, many bacteria. His urine culture grew Klebsiella pneumoniae (as it did in February,). He had a chest x-ray that was negative for an acute pulmonary process. His head CT did not show an acute intracranial process. He had no leukocytosis, his creatinine was normal. He was not felt to be safe for discharge due to his altered mental status and was admitted to the med/surg floor for IV antibiotics, urology consult and PT consult. He was started on IV ceftriaxone and improved overnight. His mental status cleared. Nursing reported some confusion overnight prior to discharge. His felt that he had cleared significantly and that this was likely related to his parkinsons with mild cognitive impairment. She felt that he would further improve when he was home in his usual environment. He was ambulating with PT with a walker. His urine cultures were monitored and grew Klebsiella, sensitive to Cipro. He was transitioned to oral antibiotics and will complete a 14 day course. Once he has completed his course of antibiotics, he will need a repeat urinalysis to ensure cure of the UTI versus persistent infection. If the infection persists, he will need further evaluation to determine the nidus of infection. He will have a follow up appointment with Urology. Urology saw him and ordered a renal ultrasound that revealed right renal cysts and findings suggestive of a nonobstructing stone in the left kidney. Post void residual at that time was 16cc. He will follow up with his PCP. He is discharged with a walker as recommended by PT. He will have new home health PT/OT. Home Meds and New Rx's Prescriptions: New ciprofloxacin HCl 500 mg Tablet 500 mg PO BID Qty: 24 RF: 0 nystatin 100,000 unit/gram Powder Topical TID Qty: 0 RF: 0 Continued [id number]-[id number] acid [Centrum Complete] 1 EACH tablet 1 tab-cap PO HS RF: 0 cholecalciferol (vitamin D3) 1,000 UNIT tablet 1,000 unit PO DAILY RF: 0 cyanocobalamin (vitamin B-12) [Vitamin B-12] 1,000 MCG tablet extended release 1,000 mcg PO DAILY RF: 0 apixaban [Eliquis] 5 MG tablet 5 mg PO BID Qty: 180 RF: 3 fludrocortisone 0.1 MG tablet 0.2 mg PO DAILY Qty: 180 RF: 3 loratadine 10 mg tablet 10 mg PO DAILY Qty: 60 RF: 1 sertraline 100 mg tablet 150 mg PO HS RF: 0 psyllium husk [Metamucil] 3.4 gram/5.4 gram Powder 1 tbsp PO DAILY RF: 0 Discharge Instructions Instructions: Urinary Tract Infection in Men (DC) Additional Instructions: Take all of your antibiotics until they are gone. You will need to take a urine sample to the lab after you complete the course of antibiotics. We will also check your potassium that day. You will have new home health PT and OT. Use the walker as recommended by PT. Follow up with your PCP and Urology as directed. Stand Alone Forms: Nursing Discharge Form Referrals: Laureano Kaminski DO [Primary Care Provider] - 04/07/18 2:40 pm Campos Jensen MD [ [facility] STAFF PHYSICIAN] - 04/16/18 2:00 pm Activity:: Activity as Tolerated Equipment/Supplies:: Walker Diet:: As Tolerated Discharge Orders Discharge Orders: Discharge Order (Routine); Ordered 03/26/18 Ordered By: Ladonna Nelson Other Ambulatory Orders: Basic Metabolic Panel (Routine) Timeframe: 20180410 Location: Determined by Patient Ordered By: Ladonna Nelson Urinalysis (Routine) Timeframe: 20180410 Location: Determined by Patient Ordered By: Ladonna Nelson Exam Narrative Exam Narrative: General: He is awake and alert, , he is oriented. He is hard to understand at times, he is soft spoken. He is answering questions appropriately. He is in no acute distress. Neuro: his affect is flat, he has parkinsonian facies. Neck: supple, no JVD. HEENT: Pupils are equal and round. Mucous membranes moist, tongue protrudes midline, palate rises symmetrically. Respiratory: Respirations are even and unlabored, lung sounds are clear to auscultation throughout. Cardiovascular: Heart rate regular, no murmur appreciated. GI: abdomen soft, nontender on palpation, normoactive bowel sounds throughout. Extremities: well perfused without clubbing, cyanosis or edema. Skin: right groin with fungal infection. DS: Data Vitals/I&O Vitals and I&O: Vital Signs Temperature 36.1 C L 03/26/18 08:08 Temperature Source Tympanic 03/26/18 08:08 Pulse 64 03/26/18 08:08 Pulse Rhythm Regular 03/26/18 10:37 Respiratory Rate 16 03/26/18 08:08 Respiratory Effort 03/26/18 10:37 Respiratory Depth Normal 03/26/18 10:37 Respiratory Pattern Normal 03/26/18 10:37 Blood Pressure 155/89 H 03/26/18 08:08 Pulse Oximetry 98 03/26/18 08:08 Oxygen Delivery Method Room Air 03/26/18 08:08 Oxygen Flow Rate 0 03/26/18 08:08 Pain Level 6 03/25/18 12:31 Comment 03/26/18 08:08 Intake & Output 03/25/18 03/26/18 03/26/18 23:59 11:59 23:59 Intake Total 2029 240 / 480 240 / 480 Balance 2029 240 / 480 240 / 480 Weight 78.3 kg Intake: IV 1550 / 1550 Oral 480 / 480 240 / 480 240 / 480 Other: Urine Color Pale Yellow Urine Appearance Clear Clear Urine Odor None Normal Comment patient was impulsive up to toilet w/o assist Stool Size Moderate Stool Characteristics Soft Formed Voiding Methods Toilet Toilet Completed studies during hospitalization [Text1]: 03/24/18: CHEST X-RAY, AP AND LATERAL: Comparison is 03/11/17. The heart size and pulmonary vasculature are stable and within normal limits. The pacing wires are stable in position. The lungs are clear. No effusions or pneumothoraces are identified. Stable degenerative changes are present in the spine. IMPRESSION: No acute pulmonary process CT BRAIN, NONCONTRAST EXAMINATION: The ventricles and sulci are consistent with the patient's age. There are areas of decreased attenuation in the white matter consistent with small vessel ischemic disease. No evidence of an acute infarct, hemorrhage, midline shift or mass effect is identified. The ventricles are intact. The basilar cisterns are patent. There is opacification of several ethmoid air cells. Small mucus retention cysts or polyps are seen in the left maxillary sinus and the sphenoid sinuses. No fluid levels are seen. The mastoid air cells are well pneumatized. The calvarium is intact. IMPRESSION: No acute intracranial process. The findings were discussed with the Emergency Department on the date of the examination. 03/25/18 RENAL ULTRASOUND: Routine examination was performed. The right kidney measures 11.1 cm long. There are two simple renal cysts present, the largest measures 3 x 2.6 x 3.5 cm. The smaller measures 1.2 x 1.4 x 1.7 cm. No solid right renal mass, calculus or obstruction is seen. The left kidney measures 10.2 cm long. No renal mass or obstruction is present. There is an echogenic focus measuring 0.7 cm in the mid pole, suggestive of a nonobstructing stone. The prevoid urinary bladder volume is 180 cc. The bladder wall appeared smooth. No intraluminal masses were seen. Both ureteral jets were visualized. Postvoid urinary bladder volume was 16 cc. The prostatic volume was 40 cc. IMPRESSION: 1. Right renal cysts. 2. Findings suggestive of a nonobstructing stone in the left kidney. Labs on day of discharge: Labs from last 24 hours 03/26/18 03/26/18 06:20 06:20 WBC 6.83 RBC 4.84 Hgb 13.7 Hct 41.8 MCV 86.4 MCH 28.3 MCHC 32.8 RDW 13.9 Plt Count 204 MPV 10.0 Immature Gran % 0.1 Neutrophils % 62.2 Lymphocytes % 20.2 Monocytes % 7.3 Eosinophils % 9.5 Basophils % 0.7 Absolute Neutrophils 4.24 Absolute Lymphocytes 1.38 Absolute Monocytes 0.50 Absolute Eosinophils 0.65 Absolute Basophils 0.05 Sodium 144 Potassium 3.9 Chloride 106 Carbon Dioxide 31.8 Anion Gap 6.2 BUN 17 Creatinine 1.01 Estimated GFR/1.73 m2 >= 60.00 Glucose 102 H Calcium 8.4 L PFSH Depression (Chronic) Chronic thoracic back pain (Chronic) Shoulder pain, bilateral (Chronic 10/26/13) Paroxysmal atrial fibrillation (Chronic 11/28/15) Other seborrheic keratosis (Chronic) Orthostatic hypotension (Chronic 08/04/17) 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) Diverticulosis of colon without diverticulitis (Chronic) Cardiomyopathy (Chronic 08/03/14) Basal cell carcinoma of right forehead (Chronic 03/06/14) Actinic keratosis (Chronic) Osteoarthritis (Chronic) 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 No smoking, ETOH, illicit drug use.
--- NOTE | 2018-03-26 14:05 | INDS_ITS ---
Date of service: 03/26/18 Time of Service: 14:02 PT Notes Inpatient Physical Therapy Discharge Summary Date: 03/26/18 Dates of Service: 03/25/18-03/26/18 SUBJECTIVE: NT OBJECTIVE: 03/25/18-03/26/18 Bed Mobility/Transfers: Supine to sit: Independent Sit to stand: SBA with FWW Stand to sit: SBA with FWW Sit to supine: Independent Gait: CGA with FWW 300ft Stairs: up/down 5 steps with railings, CGA Balance: Static Sitting: Normal Dynamic Sitting: Normal Static Standing: Fair Dynamic Standing: Fair Special Tests: Mobility Limitations Standardized Measure [facility] AM-PAC 6 clicks Basic Mobility Inpatient Short Form: Raw Score: 18 standardized Score: 43.63 CMS Score: 46.58% CMS Modifier: CK Informed Consent/Education: Patient instructed in purpose of PT consult and plan of care. Assessment: Patient is an 82-year-old male admitted with urinary tract infection, altered mental status, weakness in setting of Parkinson's disease, bilateral shoulder pain, chronic thoracic pain, bradycardia with pacemaker, paroxysmal atrial fibrillation. Patient was seen for 3 PT visits. Progressed from CGA gait with FWW 150ft to CGA with FWW 300ft. Pt is discharged to home setting, home PT recommended for continued strengthening and gait training. Goals: Goals X1 week 1. Supine-Sit: Independent 2. Sit-Supine: Independent 3. Sit-Stand: Independent with FWW 4. Stand-Sit: Independent 5. Bed-Chair: SBA with FWW 6. Chair-Bed: SBA with FWW 7. Gait: SBA with FWW 200 feet 8. Stairs up/down 5 steps with railing, SBA Pt met goals # 1, 2- recommend home PT to meet remaining goals DISCHARGE RECOMMENDATIONS: Home with Nika Pagan in the area mobility of walking and moving around: projected status GP [id number]. Discharge status (if discharging) GP [id number] CK Kitty Valdez PT
--- NOTE | 2018-03-26 14:20 | PDOC.HHF2F ---
1. Encounter Date and Reason I certify that DENA CAMACHO was seen by Ladonna Nelson on 03/26/18 and that I had a [id number] encounter with this patient that meets the physician face to face encounter requirements. 2. Clinical Findings Supporting Skilled Need and Homebound Status I certify that home health services are medically necessary, include either intermittent snf and/or physical/speech therapy, and that this patient is homebound in that absences from the home require considerable and taxing effort and are infrequent or of short duration, or are attributable to the need to receive medical care. [X] (a) Attached documentation from encounter provides clinical findings supporting skilled need and homebound status (including what assistance patient requires to leave the home). The encounter with the patient was in whole, or in part, for the following medical condition, which is the primary reason for home health care: UTI, Parkinsons with mild cognitive impairment. Usp: Physical Therapy: Needed for increasing strength and endurance after hospitalization. OT: Needed for evaluation of home environment and make recommendations as needed. Speech Therapy: Homebound: Unable to leave home without assistance. 3. Certification and Authentication I certify that I composed the above information based on my clinical judgement relating to this patient's medical condition and, if applicable, clinical findings communicated to me by the NPP or inpatient physician who performed the Home Health Referral. All further orders will be obtained through ____Dr. Kaminski (Community Based Physician - PCP)
--- NOTE | 2018-03-26 14:23 | HHF2F_ITS ---
1. Encounter Date and Reason I certify that DENA CAMACHO was seen by Ladonna Nelson on 03/26/18 and that I had a [id number] encounter with this patient that meets the physician face to face encounter requirements. 2. Clinical Findings Supporting Skilled Need and Homebound Status I certify that home health services are medically necessary, include either intermittent usp and/or physical/speech therapy, and that this patient is homebound in that absences from the home require considerable and taxing effort and are infrequent or of short duration, or are attributable to the need to receive medical care. [X] (a) Attached documentation from encounter provides clinical findings supporting skilled need and homebound status (including what assistance patient requires to leave the home). The encounter with the patient was in whole, or in part, for the following medical condition, which is the primary reason for home health care: UTI, Parkinsons with mild cognitive impairment. Penitentiary: Physical Therapy: Needed for increasing strength and endurance after hospitalization. OT: Needed for evaluation of home environment and make recommendations as needed. Speech Therapy: Homebound: Unable to leave home without assistance. 3. Certification and Authentication I certify that I composed the above information based on my clinical judgement relating to this patient's medical condition and, if applicable, clinical findings communicated to me by the NPP or inpatient physician who performed the Home Health Referral. All further orders will be obtained through ____Dr. Kaminski (Community Based Physician - PCP)
--- NOTE | 2018-03-26 17:12 | PDOC.CMDIS ---
LACE Index Scoring Tool - Questions: Length of Stay (in days): 3 Acuity (Admit via E.D.?): Yes Comorbidities: Dementia E.D. Visits: 3 - Answers: Total Score: 12 Risk of Readmission: High Risk Care Management Discharge Reason for Hospitalization: UTI Discharge Plan: Laureano will discharge home when ready per MD. He will have new orders for [facility]/PT/OT and a FWW filled through [facility] at patient preference. He will follow up with his PCP and plan of care as prescribed. Laureano will transport via private vehicle with his , Maegan. Patient/Family Education Needs: Review of discharge instructions, DME providers, discussion central to care needs upon discharge; Ask Me Three. Services Needed at Discharge: DME Agency ([facility]), Home Health Care Services (New PT/OT)
--- NOTE | 2018-03-26 17:15 | CMDISCH_ITS ---
LACE Index Scoring Tool - Questions: Length of Stay (in days): 3 Acuity (Admit via E.D.?): Yes Comorbidities: Dementia E.D. Visits: 3 - Answers: Total Score: 12 Risk of Readmission: High Risk Care Management Discharge Reason for Hospitalization: UTI Discharge Plan: Laureano will discharge home when ready per MD. He will have new orders for CHH/PT/OT and a FWW filled through [facility] at patient preference. He will follow up with his PCP and plan of care as prescribed. Laureano will transport via private vehicle with his , Maegan. Patient/Family Education Needs: Review of discharge instructions, DME providers, discussion central to care needs upon discharge; Ask Me Three. Services Needed at Discharge: DME Agency ([facility]), Home Health Care Services (New PT/OT)
== END 2018-03-26 15:20 | disposition home health service (06) ==
LOC: ER 15:10 → MS 17:16
PROVIDERS: Nurse Practitioner; Admitting Provider Internal Medicine; Emergency Provider Physician Assistant; PCP Emergency Medicine; Visit Provider Internal Medicine
DX: N39.0 Urinary tract infection, site not specified (principal); R41.82 Altered mental status, unspecified; B96.1 Klebsiella pneumoniae [K. pneumoniae] as the cause of diseases classified elsewhere; Z16.11 Resistance to penicillins; G20 Parkinson's disease; G31.84 Mild cognitive impairment of uncertain or unknown etiology; I48.0 Paroxysmal atrial fibrillation; N40.0 Benign prostatic hyperplasia without lower urinary tract symptoms; I42.9 Cardiomyopathy, unspecified; I95.1 Orthostatic hypotension; F32.9 Major depressive disorder, single episode, unspecified; Z79.01 Long term (current) use of anticoagulants; B36.8 Other specified superficial mycoses; Z87.440 Personal history of urinary (tract) infections
CPT/HCPCS: 36415; 76770; 80048; 80053; 85027; 87077; 93005; 96360; 96361; 97162; 97530; 99213; 99219; 99225; 99232; 99239; 99252; 99285; 70450; 71046; 81003; 81015; 83735; 84443; 84484; 85025; 87086; 87186; 93010; 99217; G0378; J0696

== ENCOUNTER 2018-04-07 15:55 | Outpatient (REF) | payer MEDICARE, MEDICAID, SELFPAY ==
[2018-04-07 18:36] LABS: Bilirubin Negative (Negative); Blood Trace-lysed (Negative); Clarity Clear; Glucose Negative (Negative); Ketones Negative (Negative); Leukocyte Esterase Negative (Negative); Nitrite Negative (Negative); Specific Gravity <= 1.005 (1.005-1.025); Urobilinogen 0.2 EU/dL (Up TO 0.2)
[2018-04-07 19:12] LABS: Bacteria Negative HPF (Negative); C & S Indicated? No; Casts Negative LPF (Negative); Crystals Negative HPF (Negative); Epithelial Cells Negative HPF (Negative); Mucus Negative (Negative); Other Cells Negative (Negative); RBC Negative (0-2); WBC 0-2 HPF (0-5)
== END 2018-04-07 16:15 ==
LOC: LBN 15:55
PROVIDERS: PCP Emergency Medicine; Visit Provider Emergency Medicine
DX: N39.0 Urinary tract infection, site not specified (principal)
CPT/HCPCS: 81003; 81015

== ENCOUNTER → 2018-06-21 12:44 | Outpatient (BNVA) | payer MEDICARE, MEDICAID, SELFPAY | PROVIDERS: PCP Emergency Medicine; Visit Provider Psychiatry & Neurology Neurology | DX: I95.1 Orthostatic hypotension (principal); G23.9 Degenerative disease of basal ganglia, unspecified; G31.84 Mild cognitive impairment of uncertain or unknown etiology; R26.9 Unspecified abnormalities of gait and mobility; R49.8 Other voice and resonance disorders; R41.82 Altered mental status, unspecified | CPT/HCPCS: 99214 ==

== ENCOUNTER 2018-08-04 08:22 | Emergency (ER) | payer MEDICARE, MEDICAID, SELFPAY ==
[2018-08-04] VITALS (14 sets, daily range): BP systolic 119–157; BP diastolic 66–84; PULSE 59–69; RESP 12–24; TEMP 36.5–36.6; O2SAT 98–99
--- NOTE | 2018-08-04 08:18 | W.ED.GENAD ---
Discharge Plan Disposition Patient Disposition: HOME Condition: Stable Discharge Details Chief Complaint: GenMedical Clinical Impression: Epistaxis Primary Care Provider: Laureano Kaminski ED Provider: Willie Rosenberg Home Meds and New Rx's Prescriptions: No Action Centrum Complete 1 EACH tablet 1 tab-cap PO HS RF: 0 cholecalciferol (vitamin D3) 1,000 UNIT tablet 1,000 unit PO DAILY RF: 0 cyanocobalamin (vitamin B-12) [Vitamin B-12] 1,000 MCG tablet extended release 1,000 mcg PO DAILY RF: 0 fludrocortisone 0.1 MG tablet 0.2 mg PO DAILY Qty: 180 RF: 3 Eliquis 5 mg tablet 5 mg PO BID Qty: 180 RF: 3 nystatin 100,000 unit/gram powder 1 applic Topical TID Qty: 60 RF: 0 omeprazole 20 mg capsule,delayed release(DR/EC) 20 mg PO DAILY Qty: 90 RF: 6 quetiapine [Seroquel] 50 mg tablet 50 mg PO QHS Qty: 30 RF: 5 loratadine 10 mg tablet 10 mg PO DAILY Qty: 90 RF: 3 sertraline 100 mg tablet 150 mg PO HS RF: 0 Metamucil 3.4 gram/5.4 gram Powder 1 tbsp PO DAILY RF: 0 Discharge Instructions Instructions: Nosebleed (ED) Additional Instructions: try to avoid picking your nose as this can make your nose bleed If you have a nosebleed use the nose clamp or your fingers to try and stop the bleeding by pushing on the outside of the nose. If it continues to bleed after 15 minutes of holding return to the emergency department follow up with your primary care provider within 1-2 weeks Medical Decision Making 82 yo male with hx of parkinson's and is on eliquis comes in with intermittent nose bleeds and states he has been picking his nose recently. Has no current bleeding on exam, dried blood on ecternal nare with no visible focus of bleeding on exam at this time. He has had some intermittent episodes of weakness but states at the moment feels well and has no other complaints. Denies headaches, chest pain, loc, n/v. Given his nose bleeds and being on eliquis will observe here and check for decreased platelets and also eval for electrolyte abnormalities. pt remains stable and has no recurrence of bleeding, no acute changes on lab work. He feels comfortable with d/c. I reviewed his last neurology note and they thought palliative care would be of benefit, I offered referral but pt and not interested in time. Advised f/u with pcp and return precautions given Differential Diagnosis anterior vs posterior nose bleed, med reaction HPI General Mode of arrival: EMS. Date/Time Provider Initiated Documentation: 08/04/18 08:28. Limitations to Documentation: no limitations. Information obtained by: patient and family. History of Present Illness 82 year old M presents to the emergency department with the chief complaint of epistaxis, and is localized to the face. Patient reports no radiation. Patient started experiencing this day(s) (1) and it has been now resolved. No relieving factors improve symptom(s), No exacerbating factors reported . Patient did receive the following treatments prior to arrival, none Related Data Home Medications Medication Instructions Recorded Confirmed Centrum Complete 1 tab-cap PO HS tab-cap 03/30/14 08/04/18 cholecalciferol (vitamin D3) 1,000 unit PO DAILY 08/03/14 08/04/18 cyanocobalamin (vitamin B-12) 1,000 mcg PO DAILY 11/28/15 08/04/18 [Vitamin B-12] fludrocortisone 0.2 mg PO DAILY #180 tab-cap 11/09/17 08/04/18 Metamucil 1 tbsp PO DAILY 03/24/18 08/04/18 sertraline 150 mg PO HS 03/24/18 08/04/18 apixaban 5 mg tablet 5 mg PO BID #180 tab-cap 03/30/18 08/04/18 nystatin 100,000 unit/gram topical 1 applic TOPICAL TID #60 gm 04/08/18 08/04/18 powder omeprazole 20 mg capsule,delayed 20 mg PO DAILY #90 cap 06/22/18 08/04/18 release quetiapine 50 mg tablet 50 mg PO QHS #30 tab 07/05/18 08/04/18 loratadine 10 mg tablet 10 mg PO DAILY #90 tab-cap 07/06/18 08/04/18 Previous Rx's Medication Instructions Recorded fludrocortisone 0.2 mg PO DAILY #180 tab-cap 11/09/17 apixaban 5 mg tablet 5 mg PO BID #180 tab-cap 03/30/18 nystatin 100,000 unit/gram topical 1 applic TOPICAL TID #60 gm 04/08/18 powder omeprazole 20 mg capsule,delayed 20 mg PO DAILY #90 cap 06/22/18 release quetiapine 50 mg tablet 50 mg PO QHS #30 tab 07/05/18 loratadine 10 mg tablet 10 mg PO DAILY #90 tab-cap 07/06/18 Allergies Allergy/AdvReac Type Severity Reaction Status Date / Time bee pollen [Bee Pollen] Allergy Intermediate PERIORBITAL Unverified 08/04/18 08:42 EDEMA aspirin AdvReac Mild Upset Unverified 08/04/18 08:42 Stomach DUST Allergy Intermediate unknown Uncoded 08/04/18 08:42 General ERIN: 3 Review of Systems Review of Systems All systems reviewed & are unremarkable except as noted in HPI and below Constitutional Denies chills and Denies fever(s) ENT Denies change in voice Cardiovascular Denies chest pain and Denies dyspnea Respiratory Denies cough and Denies dyspnea Gastrointestinal Denies abdominal pain, Denies nausea and Denies vomiting Genitourinary Denies dysuria Integumentary/Breasts Denies rash [facility] 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) Diverticulosis of colon without diverticulitis (Chronic) Cardiomyopathy (Chronic 08/03/14) Basal cell carcinoma of right forehead (Chronic 03/06/14) Actinic keratosis (Chronic) Osteoarthritis (Chronic) 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 No smoking, ETOH, illicit drug use. Exam Const General: no acute distress Orientation: alert HENMT Head: normal to inspection Ears: external ears normal General nose exam: no nasal polyps Mouth: moist mucous membranes Eyes General: appearance normal, both eyes and all related structures Neck Neck: normal visual inspection Resp Effort & Inspection: normal respiratory effort and able to speak in complete sentences Cardio Rate: regular rate Skin General skin exam: no rashes or lesions noted Neuro General: alert and oriented x3 Extrem General: normal to inspection Psych Mental Status: mental status grossly normal
[2018-08-04] MEDS: Normal Saline 1,000 ML 1000 ML IV (08:36)
[2018-08-04 08:39] LABS: Abs Immature Grans 0.01 k/cumm (0.0-0.09); Absolute Basophil Count 0.02 k/cumm (0.0-0.2); Absolute Eosinophil Count 0.16 k/cumm (0.0-0.7); Absolute Lymphocyte Count 0.69 k/cumm (1.2-3.4); Absolute Monocyte Count 0.45 k/cumm (0.11-0.7); Absolute Neutrophil Count 7.29 k/cumm (1.2-6.7); Basophils % 0.2; Eosinophils % 1.9; HGB 13.2 g/dL (13.5-17.5); Immature Grans % 0.1; Mean Corpuscular Hemoglobin 28.6 pg (27.0-33.0); Mean Corpuscular Volume 86.8 fL (80-95); Mean Platelet Volume 9.8 fL (8.0-11.0); Monocytes % 5.2; Neutrophils % 84.6; Platelet Count 198 x1000/uL (130-400); RBC 4.61 m/cumm (4.50-6.00); RBC Distribution Width 13.8 % (11.8-14.1); White Blood Cell Count 8.62 k/cumm (4.4-10.8)
--- NOTE | 2018-08-04 08:41 | ED.GENADUL_ITS ---
Discharge Plan Disposition Patient Disposition: HOME Condition: Stable Discharge Details Chief Complaint: GenMedical Clinical Impression: Epistaxis Primary Care Provider: Laureano Kaminski ED Provider: Willie Rosenberg Home Meds and New Rx's Prescriptions: No Action Centrum Complete 1 EACH tablet 1 tab-cap PO HS RF: 0 cholecalciferol (vitamin D3) 1,000 UNIT tablet 1,000 unit PO DAILY RF: 0 cyanocobalamin (vitamin B-12) [Vitamin B-12] 1,000 MCG tablet extended release 1,000 mcg PO DAILY RF: 0 fludrocortisone 0.1 MG tablet 0.2 mg PO DAILY Qty: 180 RF: 3 Eliquis 5 mg tablet 5 mg PO BID Qty: 180 RF: 3 nystatin 100,000 unit/gram powder 1 applic Topical TID Qty: 60 RF: 0 omeprazole 20 mg capsule,delayed release(DR/EC) 20 mg PO DAILY Qty: 90 RF: 6 quetiapine [Seroquel] 50 mg tablet 50 mg PO QHS Qty: 30 RF: 5 loratadine 10 mg tablet 10 mg PO DAILY Qty: 90 RF: 3 sertraline 100 mg tablet 150 mg PO HS RF: 0 Metamucil 3.4 gram/5.4 gram Powder 1 tbsp PO DAILY RF: 0 Discharge Instructions Instructions: Nosebleed (ED) Additional Instructions: try to avoid picking your nose as this can make your nose bleed If you have a nosebleed use the nose clamp or your fingers to try and stop the bleeding by pushing on the outside of the nose. If it continues to bleed after 15 minutes of holding return to the emergency department follow up with your primary care provider within 1-2 weeks Medical Decision Making 82 yo male with hx of parkinson's and is on eliquis comes in with intermittent nose bleeds and states he has been picking his nose recently. Has no current bleeding on exam, dried blood on ecternal nare with no visible focus of bleeding on exam at this time. He has had some intermittent episodes of weakness but states at the moment feels well and has no other complaints. Denies headaches, chest pain, loc, n/v. Given his nose bleeds and being on eliquis will observe here and check for decreased platelets and also eval for electrolyte abnormalities. pt remains stable and has no recurrence of bleeding, no acute changes on lab work. He feels comfortable with d/c. I reviewed his last neurology note and they thought palliative care would be of benefit, I offered referral but pt and not interested in time. Advised f/u with pcp and return precautions given Differential Diagnosis anterior vs posterior nose bleed, med reaction HPI General Mode of arrival: EMS . Date/Time Provider Initiated Documentation: 08/04/18 08:28 . Limitations to Documentation: no limitations . Information obtained by: patient and family . History of Present Illness 82 year old M presents to the emergency department with the chief complaint of epistaxis, and is localized to the face. Patient reports no radiation. Patient started experiencing this day(s) (1) and it has been now resolved. No relieving factors improve symptom(s), No exacerbating factors reported . Patient did receive the following treatments prior to arrival, none Related Data Home Medications Medication Instructions Recorded Confirmed Centrum Complete 1 tab-cap PO HS tab-cap 03/30/14 08/04/18 cholecalciferol (vitamin D3) 1,000 unit PO DAILY 08/03/14 08/04/18 cyanocobalamin (vitamin B-12) 1,000 mcg PO DAILY 11/28/15 08/04/18 [Vitamin B-12] fludrocortisone 0.2 mg PO DAILY #180 tab-cap 11/09/17 08/04/18 Metamucil 1 tbsp PO DAILY 03/24/18 08/04/18 sertraline 150 mg PO HS 03/24/18 08/04/18 apixaban 5 mg tablet 5 mg PO BID #180 tab-cap 03/30/18 08/04/18 nystatin 100,000 unit/gram topical 1 applic TOPICAL TID #60 gm 04/08/18 08/04/18 powder omeprazole 20 mg capsule,delayed 20 mg PO DAILY #90 cap 06/22/18 08/04/18 release quetiapine 50 mg tablet 50 mg PO QHS #30 tab 07/05/18 08/04/18 loratadine 10 mg tablet 10 mg PO DAILY #90 tab-cap 07/06/18 08/04/18 Previous Rx's Medication Instructions Recorded fludrocortisone 0.2 mg PO DAILY #180 tab-cap 11/09/17 apixaban 5 mg tablet 5 mg PO BID #180 tab-cap 03/30/18 nystatin 100,000 unit/gram topical 1 applic TOPICAL TID #60 gm 04/08/18 powder omeprazole 20 mg capsule,delayed 20 mg PO DAILY #90 cap 06/22/18 release quetiapine 50 mg tablet 50 mg PO QHS #30 tab 07/05/18 loratadine 10 mg tablet 10 mg PO DAILY #90 tab-cap 07/06/18 Allergies Allergy/AdvReac Type Severity Reaction Status Date / Time bee pollen [Bee Pollen] Allergy Intermediate PERIORBITAL Unverified 08/04/18 08:42 EDEMA aspirin AdvReac Mild Upset Unverified 08/04/18 08:42 Stomach DUST Allergy Intermediate unknown Uncoded 08/04/18 08:42 General ERIN: 3 Review of Systems Review of Systems All systems reviewed & are unremarkable except as noted in HPI and below Constitutional Denies chills and Denies fever(s) ENT Denies change in voice Cardiovascular Denies chest pain and Denies dyspnea Respiratory Denies cough and Denies dyspnea Gastrointestinal Denies abdominal pain, Denies nausea and Denies vomiting Genitourinary Denies dysuria Integumentary/Breasts Denies rash [facility] 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) Diverticulosis of colon without diverticulitis (Chronic) Cardiomyopathy (Chronic 08/03/14) Basal cell carcinoma of right forehead (Chronic 03/06/14) Actinic keratosis (Chronic) Osteoarthritis (Chronic) 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 No smoking, ETOH, illicit drug use. Exam Const General: no acute distress Orientation: alert HENMT Head: normal to inspection Ears: external ears normal General nose exam: no nasal polyps Mouth: moist mucous membranes Eyes General: appearance normal, both eyes and all related structures Neck Neck: normal visual inspection Resp Effort & Inspection: normal respiratory effort and able to speak in complete sentences Cardio Rate: regular rate Skin General skin exam: no rashes or lesions noted Neuro General: alert and oriented x3 Extrem General: normal to inspection Psych Mental Status: mental status grossly normal
[2018-08-04 08:53] LABS: INR 1.1 (0.9-1.1); PTT Activated 21.2 sec (21.0-31.4); Prothrombin Time 10.7 sec (9.3-11.0)
[2018-08-04 08:56] LABS: ALT 16 U/L (12-78); AST 13 U/L (15-37); Alkaline Phosphatase 65 U/L (46-116); Anion Gap 6.9 mmol/L (3-11); BUN 34 mg/dL (7-18); Bilirubin, Total 0.5 mg/dL (0.2-1.0); CO2 30.1 mmol/L (21.0-32.0); CREATININE 1.14 mg/dL (0.70-1.30); Chloride 105 mmol/L (98-107); Glucose 122 mg/dL (70-100); Potassium 3.9 mmol/L (3.5-5.1); Sodium 142 mmol/L (136-145)
--- NOTE | 2018-08-04 09:20 | NUR.NOTE ---
Nursing Note: has pts am mds and wants to give them---OK per Dr Rosenberg.
== END 2018-08-04 10:25 | disposition home or self-care (01) ==
PROVIDERS: Emergency Provider Emergency Medicine; PCP Emergency Medicine
DX: R04.0 Epistaxis (principal); G35 Multiple sclerosis; Z79.01 Long term (current) use of anticoagulants
CPT/HCPCS: 36415; 80053; 96360; 99283; 85025; 85610; 85730; J3490

== ENCOUNTER 2018-09-26 10:04 | Observation (INO) | payer MEDICARE, MEDICAID, SELFPAY ==
--- NOTE | 2018-09-26 10:13 | NUR.NOTE ---
Nursing Note: states that starting yesterday PT experienced hemataurea, disuria and increased confusion although baseline for PT is confused so states that some days he is just this confused
[2018-09-26 10:17] VITALS: BP 142/71; PULSE 60; RESP 18; TEMP 37.1; O2SAT 98
--- NOTE | 2018-09-26 10:25 | W.ED.GENAD ---
Discharge Plan Disposition Patient Disposition: HOME Condition: Stable Discharge Details Chief Complaint: Urinary Clinical Impression: Acute UTI Admit Date/Time: 09/26/18 12:19 Admit Provider: Catina To Attending Provider: Catina To Primary Care Provider: Laureano Kaminski ED Provider: Roberto Tang [place] [facility] Hospital Course: Mr. 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 He has been living at home with his . He was brought to the ER by his on 09/26/2018 for increased weakness and confusion with inability to care for him at home as well as a report of hematuria and dysuria. He was initiated on ceftriaxone, however, his urinalysis did not show leukocyte esterase or nitrites so the antibiotics were discontinued. His stated that she was no longer able o care for him at home due to progressing/worsening parkinson's symptoms and dementia. She was requesting that he be placed in a intermediate facility. He was admitted on observation status for further evaluation and monitoring. There have been ongoing concerns about his safety returning home to his usual living situation. His son has been present and is also concerned about him. He is listed as a full code. He was seen by Palliative, however, his family was not present for the visit. There is a meeting planned for tomorrow morning with palliative and his son and are planning to attend. They will discuss code status at that time as well. He was also seen by Neurology, Dr. Son is familiar with him as she follows him as an outpatient. She was concerned that Mr. Baugh may be oversedated from Seroquel which was started in June for increased hallucinations and agitation as reported by his . She recommends decreasing his dose to see if he continues to need the Seroquel. She recommends reducing his dose by 12.5 mg every 2 to 3 days as tolerated. His Seroquel dose has been decreased to 25 mg at HS (09/27/18). She recommends continuing Florinef 0.2 mg daily for his orthostatic hypotension and monitoring his blood pressures closely. She will follow up with him in the clinic in 4-6 weeks. Care management is working on placement at a intermediate facility, however, they have not placed him as of today. Therefore, he will transition to swing bed status while the care managers continue to work on a safe discharge plan. Discharge Data Discharge Date/Time-TO BE ENTERED AT DEPARTURE: 09/26/18 13:12 Medical Decision Making 11:00 --82-year-old male with multiple medical problems occluding history of Parkinson's dementia, urinary tract infection in the past, here with dysuria, hematuria, increased confusion and generalized weakness since yesterday. Patient is afebrile, hemodynamically stable. Patient is saturating well with clear to auscultation on lung exam. Abdominal exam is benign. No focal deficits on neurologic exam. He has had some episodes of intermittent bradycardia noted on pulse oximetry. An EKG was performed and reviewed and interpreted by me: Ventricular paced rhythm at 72 bpm, he does have some intermittent what appears to be ventricular escape rhythm in between paced beats. 11:50 -- Labs reviewed: Urinalysis with 5-10 RBCs, only 0-2 WBCs. Urinalysis is inconclusive but given his clinical symptoms treatment is indicated. I obtained and reviewed past urine culture from 03/24/2018: Growing greater than 100,000 Klebsiella pneumoniae that is sensitive to everything except ampicillin. I will give ceftriaxone 1 g IV and then continue Keflex orally. 12:05 --on attempted ambulation, nurse and patient's were not able to safely transfer him to wheelchair. He has severe generalized weakness. Plan for admission with likely rehab placement. Spoke with hospitalist who will admit - care transitioned to hospitalist service. HPI General Mode of arrival: ambulatory. Date/Time Provider Initiated Documentation: 09/26/18 10:13. Limitations to Documentation: no limitations. Information obtained by: patient. HPI Narrative: 82-year-old with multiple medical problems including history of Parkinson's disease with dementia, here with his with chief complaint of dysuria. Patient has had small hematuria, dysuria, and associated confusion since yesterday. Symptoms are mild. No modifiers. No associated fever. No abdominal pain. No chest pain, shortness of breath or cough. He has had some generalized weakness. He is able to ambulate with assistance from his . Related Data Home Medications Medication Instructions Recorded Confirmed cholecalciferol (vitamin D3) 1,000 unit PO DAILY 08/03/14 09/28/18 cyanocobalamin (vitamin B-12) 1,000 mcg PO DAILY 11/28/15 09/28/18 [Vitamin B-12] Metamucil 1 tbsp PO TID 03/24/18 09/28/18 apixaban 5 mg tablet 5 mg PO BID #180 tab-cap 03/30/18 09/28/18 omeprazole 20 mg capsule,delayed 20 mg PO DAILY #90 cap 06/22/18 09/28/18 release loratadine 10 mg tablet 10 mg PO DAILY #90 tab-cap 07/06/18 09/28/18 fludrocortisone 0.1 mg tablet 0.2 mg PO DAILY #180 tab-cap 09/15/18 09/28/18 acetaminophen 650 mg PO Q4H PRN 09/28/18 09/28/18 clotrimazole 1 applic TOPICAL TID 09/28/18 09/28/18 dimethicone-zinc oxide 0 applic TOPICAL PRN PRN 09/28/18 09/28/18 docusate sodium 100 mg PO TID PRN 09/28/18 09/28/18 magnesium hydroxide 30 ml PO DAILY PRN 09/28/18 09/28/18 quetiapine [Seroquel] 25 mg PO QHS 09/28/18 09/28/18 sertraline 100 mg PO BID 09/28/18 09/28/18 Previous Rx's Medication Instructions Recorded apixaban 5 mg tablet 5 mg PO BID #180 tab-cap 03/30/18 omeprazole 20 mg capsule,delayed 20 mg PO DAILY #90 cap 06/22/18 release loratadine 10 mg tablet 10 mg PO DAILY #90 tab-cap 07/06/18 fludrocortisone 0.1 mg tablet 0.2 mg PO DAILY #180 tab-cap 09/15/18 Allergies Allergy/AdvReac Type Severity Reaction Status Date / Time bee pollen [Bee Pollen] Allergy Intermediate PERIORBITAL Unverified 09/26/18 10:21 EDEMA aspirin AdvReac Mild Upset Unverified 09/26/18 10:21 Stomach DUST Allergy Intermediate unknown Uncoded 09/26/18 10:21 General Stated Complaint: Urinary ERIN: 3 Review of Systems Review of Systems Limited secondary to altered mental status, see [facility] 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) Diverticulosis of colon without diverticulitis (Chronic) Cardiomyopathy (Chronic 08/03/14) Basal cell carcinoma of right forehead (Chronic 03/06/14) Actinic keratosis (Chronic) Osteoarthritis (Chronic) 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 No smoking, ETOH, illicit drug use. Exam Const General: cooperative and no acute distress HENMT Head: normocephalic and atraumatic Mouth: moist mucous membranes Eyes Conjunctivae: normal conjunctivae Sclera: normal sclerae Neck Neck: trachea midline Resp Auscultation: clear to auscultation bilaterally, no rales, no rhonchi and no wheezes Cardio Jugular venous pressure: no JVD Rate: regular rate and not tachycardic Rhythm: regular rhythm GI Palpation: soft, not firm, no guarding, no masses, not rigid and nontender Penis: normal penis Meatus: meatus normal Scrotum: scrotum normal Testes: normal Skin Rashes: rashes noted (Mild scaly rash in groin bilateral) Neuro General: alert, awake and tone normal Extrem General: no edema Course Vital Signs Temperature 37.1 C 09/26/18 10:17 Pulse 60 09/26/18 10:17 Respiratory Rate 18 09/26/18 10:17 Blood Pressure 142/71 H 09/26/18 10:17 Pulse Oximetry 98 09/26/18 10:17 Temperature 37.1 C 09/26/18 10:17 Temperature Source Skin 09/26/18 10:17 Pulse 60 09/26/18 10:17 Respiratory Rate 18 09/26/18 10:17 Respiratory Effort 09/26/18 10:18 Blood Pressure 142/71 H 09/26/18 10:17 Blood Pressure Position Sitting 09/26/18 10:17 Pulse Oximetry 98 09/26/18 10:17 Oxygen Delivery Method Room Air 09/26/18 10:17 Oxygen Flow Rate 0 09/26/18 10:17 Pain Level 0 09/26/18 10:17
[2018-09-26 10:38] LABS: Abs Immature Grans 0.01 k/cumm (0.0-0.09); Absolute Basophil Count 0.05 k/cumm (0.0-0.2); Absolute Eosinophil Count 0.33 k/cumm (0.0-0.7); Absolute Lymphocyte Count 0.91 k/cumm (1.2-3.4); Absolute Monocyte Count 0.65 k/cumm (0.11-0.7); Absolute Neutrophil Count 6.22 k/cumm (1.2-6.7); Basophils % 0.6; HCT 41.9 % (40.0-50.0); HGB 13.7 g/dL (13.5-17.5); Immature Grans % 0.1; Lymphocytes % 11.1; Mean Corp. HGB Concentration 32.7 g/dL (32.0-36.0); Mean Corpuscular Hemoglobin 28.5 pg (27.0-33.0); Mean Corpuscular Volume 87.3 fL (80-95); Mean Platelet Volume 9.8 fL (8.0-11.0); Neutrophils % 76.2; Platelet Count 207 x1000/uL (130-400); RBC Distribution Width 13.3 % (11.8-14.1); White Blood Cell Count 8.17 k/cumm (4.4-10.8)
--- NOTE | 2018-09-26 10:53 | ED.GENADUL_ITS ---
Discharge Plan Disposition Patient Disposition: HOME Condition: Stable Discharge Details Chief Complaint: Urinary Clinical Impression: Acute UTI Admit Date/Time: 09/26/18 12:19 Admit Provider: Catina To Attending Provider: Catina To Primary Care Provider: Laureano Kaminski ED Provider: Roberto Tang [facility] Hospital Course: Mr. 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 He has been living at home with his . He was brought to the ER by his on 09/26/2018 for increased weakness and confusion with inability to care for him at home as well as a report of hematuria and dysuria. He was initiated on ceftriaxone, however, his urinalysis did not show leukocyte esterase or nitrites so the antibiotics were discontinued. His stated that she was no longer able o care for him at home due to progressing/worsening parkinson's symptoms and dementia. She was requesting that he be placed in a alf facility. He was admitted on observation status for further evaluation and monitoring. There have been ongoing concerns about his safety returning home to his usual living situation. His son has been present and is also concerned about him. He is listed as a full code. He was seen by Palliative, however, his family was not present for the visit. There is a meeting planned for tomorrow morning with palliative and his son and are planning to attend. They will discuss code status at that time as well. He was also seen by Neurology, Dr. Son is familiar with him as she follows him as an outpatient. She was concerned that Mr. Baugh may be overs edated from Seroquel which was started in June for increased hallucinations and agitation as reported by his . She recommends decreasing his dose to see if he continues to need the Seroquel. She recommends reducing his dose by 12.5 mg every 2 to 3 days as tolerated. His Seroquel dose has been decreased to 25 mg at HS (09/27/18). She recommends continuing Florinef 0.2 mg daily for his orthostatic hypotension and monitoring his blood pressures closely. She will follow up with him in the clinic in 4-6 weeks. Care management is working on placement at a alf facility, however, they have not placed him as of today. Therefore, he will transition to swing bed status while the care managers continue to work on a safe discharge plan. Discharge Data Discharge Date/Time-TO BE ENTERED AT DEPARTURE: 09/26/18 13:12 Medical Decision Making 11:00 --82-year-old male with multiple medical problems occluding history of Parkinson's dementia, urinary tract infection in the past, here with dysuria, hematuria, increased confusion and generalized weakness since yesterday. Patient is afebrile, hemodynamically stable. Patient is saturating well with clear to auscultation on lung exam. Abdominal exam is benign. No focal deficits on neurologic exam. He has had some episodes of intermittent bradycardia noted on pulse oximetry. An EKG was performed and reviewed and interpreted by me: Ventricular paced rhythm at 72 bpm, he does have some intermittent what appears to be ventricular escape rhythm in between paced beats. 11:50 -- Labs reviewed: Urinalysis with 5-10 RBCs, only 0-2 WBCs. Urinalysis is inconclusive but given his clinical symptoms treatment is indicated. I obtained and reviewed past urine culture from 03/24/2018: Growing greater than 100,000 Klebsiella pneumoniae that is sensitive to everything except ampicillin. I will give ceftriaxone 1 g IV and then continue Keflex orally. 12:05 --on attempted ambulation, nurse and patient's were not able to safely transfer him to wheelchair. He has severe generalized weakness. Plan for admission with likely rehab placement. Spoke with hospitalist who will admit - care transitioned to hospitalist service. HPI General Mode of arrival: ambulatory . Date/Time Provider Initiated Documentation: 09/26/18 10:13 . Limitations to Documentation: no limitations . Information obtained by: patient . HPI Narrative: 82-year-old with multiple medical problems including history of Parkinson's disease with dementia, here with his with chief complaint of dysuria. Patient has had small hematuria, dysuria, and associated confusion since yesterday. Symptoms are mild. No modifiers. No associated fever. No abdominal pain. No chest pain, shortness of breath or cough. He has had some generalized weakness. He is able to ambulate with assistance from his . Related Data Home Medications Medication Instructions Recorded Confirmed cholecalciferol (vitamin D3) 1,000 unit PO DAILY 08/03/14 09/28/18 cyanocobalamin (vitamin B-12) 1,000 mcg PO DAILY 11/28/15 09/28/18 [Vitamin B-12] Metamucil 1 tbsp PO TID 03/24/18 09/28/18 apixaban 5 mg tablet 5 mg PO BID #180 tab-cap 03/30/18 09/28/18 omeprazole 20 mg capsule,delayed 20 mg PO DAILY #90 cap 06/22/18 09/28/18 release loratadine 10 mg tablet 10 mg PO DAILY #90 tab-cap 07/06/18 09/28/18 fludrocortisone 0.1 mg tablet 0.2 mg PO DAILY #180 tab-cap 09/15/18 09/28/18 acetaminophen 650 mg PO Q4H PRN 09/28/18 09/28/18 clotrimazole 1 applic TOPICAL TID 09/28/18 09/28/18 dimethicone-zinc oxide 0 applic TOPICAL PRN PRN 09/28/18 09/28/18 docusate sodium 100 mg PO TID PRN 09/28/18 09/28/18 magnesium hydroxide 30 ml PO DAILY PRN 09/28/18 09/28/18 quetiapine [Seroquel] 25 mg PO QHS 09/28/18 09/28/18 sertraline 100 mg PO BID 09/28/18 09/28/18 Previous Rx's Medication Instructions Recorded apixaban 5 mg tablet 5 mg PO BID #180 tab-cap 03/30/18 omeprazole 20 mg capsule,delayed 20 mg PO DAILY #90 cap 06/22/18 release loratadine 10 mg tablet 10 mg PO DAILY #90 tab-cap 07/06/18 fludrocortisone 0.1 mg tablet 0.2 mg PO DAILY #180 tab-cap 09/15/18 Allergies Allergy/AdvReac Type Severity Reaction Status Date / Time bee pollen [Bee Pollen] Allergy Intermediate PERIORBITAL Unverified 09/26/18 10:21 EDEMA aspirin AdvReac Mild Upset Unverified 09/26/18 10:21 Stomach DUST Allergy Intermediate unknown Uncoded 09/26/18 10:21 General Stated Complaint: Urinary ERIN: 3 Review of Systems Review of Systems Limited secondary to altered mental status, see [facility] 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) Diverticulosis of colon without diverticulitis (Chronic) Cardiomyopathy (Chronic 08/03/14) Basal cell carcinoma of right forehead (Chronic 03/06/14) Actinic keratosis (Chronic) Osteoarthritis (Chronic) 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 No smoking, ETOH, illicit drug use. Exam Const General: cooperative and no acute distress HENMT Head: normocephalic and atraumatic Mouth: moist mucous membranes Eyes Conjunctivae: normal conjunctivae Sclera: normal sclerae Neck Neck: trachea midline Resp Auscultation: clear to auscultation bilaterally, no rales, no rhonchi and no wheezes Cardio Jugular venous pressure: no JVD Rate: regular rate and not tachycardic Rhythm: regular rhythm GI Palpation: soft, not firm, no guarding, no masses, not rigid and nontender Penis: normal penis Meatus: meatus normal Scrotum: scrotum normal Testes: normal Skin Rashes: rashes noted (Mild scaly rash in groin bilateral) Neuro General: alert, awake and tone normal Extrem General: no edema Course Vital Signs Temperature 37.1 C 09/26/18 10:17 Pulse 60 09/26/18 10:17 Respiratory Rate 18 09/26/18 10:17 Blood Pressure 142/71 H 09/26/18 10:17 Pulse Oximetry 98 09/26/18 10:17 Temperature 37.1 C 09/26/18 10:17 Temperature Source Skin 09/26/18 10:17 Pulse 60 09/26/18 10:17 Respiratory Rate 18 09/26/18 10:17 Respiratory Effort 09/26/18 10:18 Blood Pressure 142/71 H 09/26/18 10:17 Blood Pressure Position Sitting 09/26/18 10:17 Pulse Oximetry 98 09/26/18 10:17 Oxygen Delivery Method Room Air 09/26/18 10:17 Oxygen Flow Rate 0 09/26/18 10:17 Pain Level 0 09/26/18 10:17
[2018-09-26 10:54] LABS: ALT 16 U/L (12-78); AST 18 U/L (15-37); Albumin 3.4 g/dL (3.4-5.0); Alkaline Phosphatase 76 U/L (46-116); Anion Gap 8.4 mmol/L (3-11); BUN 25 mg/dL (7-18); Bilirubin, Total 0.3 mg/dL (0.2-1.0); CO2 28.6 mmol/L (21.0-32.0); Calcium 8.6 mg/dL (8.5-10.1); Chloride 107 mmol/L (98-107); Estimated GFR 58.26 (mL/min/1.73m2); Glucose 89 mg/dL (70-100); Sodium 144 mmol/L (136-145); Total Protein 6.3 g/dL (6.4-8.2)
[2018-09-26 10:54] LABS: Bilirubin Negative (Negative); Blood Small (Negative); Clarity Clear; Glucose Negative (Negative); Ketones Negative (Negative); Leukocyte Esterase Negative (Negative); Nitrite Negative (Negative); Urobilinogen 0.2 EU/dL (Up TO 0.2)
[2018-09-26 11:05] LABS: Bacteria Rare HPF (Negative); C & S Indicated? No; Casts Negative LPF (Negative); Crystals Rare Calcium Oxalate HPF (Negative); Epithelial Cells Negative HPF (Negative); Mucus Negative (Negative); WBC 0-2 HPF (0-5)
[2018-09-26] MEDS: cefTRIAXone 1 GM/50 ML BAG IVPB (11:31)
[2018-09-26 12:05] VITALS: BP 121/73; PULSE 60; TEMP 36.6; O2SAT 98
--- NOTE | 2018-09-26 13:08 | W.PM.HP.N ---
Date of service: 09/26/18 Time of Service: 13:08 Assessment and Plan (1) Hematuria: Start date: 09/26/18 Start time: 13:25 Current visit: Yes Status: Acute Brought in by , when she was helping him void yesterday she saw bloody urine and he stated it burned. Rocephine received in the ED, u/a without leuks or nitrites. Unlikely UTI. Consider retention. Is on eliquis for Afib. montior for bleeding. No symptoms or signs of infection, hold off on antibiotics at this time. PVR was 83 ml 30 mins after voiding 100 ml (2) Parkinsons disease: Start date: 09/26/18 Start time: 13:27 Current visit: No Status: Chronic Progressing, worsening parkinsons with dementia, Unable to care for self, bathes, feeds, toilets patient, would like palliative care to see him and would like him to go to a intermediate, but not the [facility]. Does not follow commands, AO to self and time. (3) Depression: Start date: 09/26/18 Start time: 13:28 Current visit: No Status: Chronic Continue seroquel and sertraline (4) Paroxysmal atrial fibrillation: Start date: 09/26/18 Start time: 13:28 Current visit: No Status: Chronic Rate controlled at this time. Pacemaker in place and on eliquis, continue to monitor. (5) DVT prophylaxis: Start date: 09/26/18 Start time: 13:29 Current visit: No Status: Acute On eliquis at this time (6) Discharge planning issues: Start date: 09/26/18 Start time: 13:29 Current visit: Yes Status: Acute Unable to care for self and unable to care for patient would like him placed into a intermediate. He is a full code. History of Present Illness Chief Complaint: PARKINSONS, DEMENTIA, DYSURIA Narrative: 82 y.o Male brought to [facility] emergency department by after having bloody pee yesterday. Increased weakness, confusion since yesterday. PMH of Parkinson, Dementia, Afib on eliquis. U/A in the ED negative for leukocyte Esterase and Nitrites, positive for small amount of blood, awaiting PVR at this time, he did void 100 ml while in the ED that was not bloody. Received one dose Rocephine in ED. Afebrile with no leukocytosis. Chemistry is normal. has a hard time managing patient at home with declining cognition, she would like palliative involved and wants him to go to a intermediate but not the [facility]. Does not follow commands, though he answered who he was, where he was, AA0x2. Parkinsonian tremors noticable when sitting still. Unable to feed himself, bath himself or use the bathroom on his own. Will be admitted to M/S as observation. Monitor for signs of infection and have PT/OT work with him. Review of Systems Constitutional Reports system reviewed and no additional complaints, except as docu Eyes Reports system reviewed and no additional complaints, except as docu ENT Reports system reviewed and no additional complaints, except as docu Cardiovascular Reports as per HPI Respiratory Reports system reviewed and no additional complaints, except as docu Gastrointestinal Reports system reviewed and no additional complaints, except as docu Genitourinary Reports as per HPI Musculoskeletal Reports as per HPI and Reports stiffness Integumentary/Breasts Reports as per HPI Neurologic Reports as per HPI Psychiatric Reports system reviewed and no additional complaints, except as docu Hematologic/Lymphatic Reports system reviewed and no additional complaints, except as docu Allergic/Immunologic Reports system reviewed and no additional complaints, except as docu [facility] 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) Diverticulosis of colon without diverticulitis (Chronic) Cardiomyopathy (Chronic 08/03/14) Basal cell carcinoma of right forehead (Chronic 03/06/14) Actinic keratosis (Chronic) Osteoarthritis (Chronic) 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 No smoking, ETOH, illicit drug use. Meds Home Medications Medication Instructions Recorded Confirmed Type Centrum Complete 1 tab-cap PO HS tab-cap 03/30/14 09/26/18 History cholecalciferol (vitamin D3) 1,000 unit PO DAILY 08/03/14 09/26/18 History cyanocobalamin (vitamin B-12) 1,000 mcg PO DAILY 11/28/15 09/26/18 History [Vitamin B-12] Metamucil 1 tbsp PO DAILY 03/24/18 09/26/18 History apixaban 5 mg tablet 5 mg PO BID #180 tab-cap 03/30/18 09/26/18 Rx nystatin 100,000 unit/gram topical 1 applic TOPICAL TID #60 gm 04/08/18 09/26/18 Rx powder omeprazole 20 mg capsule,delayed 20 mg PO DAILY #90 cap 06/22/18 09/26/18 Rx release quetiapine 50 mg tablet 50 mg PO QHS #30 tab 07/05/18 09/26/18 Rx loratadine 10 mg tablet 10 mg PO DAILY #90 tab-cap 07/06/18 09/26/18 Rx sertraline 100 mg tablet 200 mg PO HS #180 tab 08/10/18 09/26/18 Rx fludrocortisone 0.1 mg tablet 0.2 mg PO DAILY #180 tab-cap 09/15/18 09/26/18 Rx cephalexin [Keflex] 500 mg PO BID #14 cap 09/26/18 Rx Allergies Allergy/AdvReac Type Severity Reaction Status Date / Time bee pollen [Bee Pollen] Allergy Intermediate PERIORBITAL Unverified 09/26/18 10:21 EDEMA aspirin AdvReac Mild Upset Unverified 09/26/18 10:21 Stomach DUST Allergy Intermediate unknown Uncoded 09/26/18 10:21 Exam Narrative Exam Narrative: Calm older male sitting in wheelchair being fed by . AAOx2 does not follow commands but will answer questions when asked several times, does confuse questions sometimes. Neck: No lymphedema, supple Resp: Speaking in clear sentences, no resp distress, Lung sounds clear all solano Cardio: No JVD, irregularly irregular rhythm GI: soft non tender BS + in all quads : Rash to groin area SKin: no clubbing or cyanosis Extremities: tremors from parkinsons Results Labs : 09/26/18 10:28 09/26/18 10:28 Laboratory Results - last 24 hr 09/26/18 09/26/18 09/26/18 10:28 10:28 10:47 WBC 8.17 RBC 4.80 Hgb 13.7 Hct 41.9 MCV 87.3 MCH 28.5 MCHC 32.7 RDW 13.3 Plt Count 207 MPV 9.8 Immature Gran % 0.1 Neutrophils % 76.2 Lymphocytes % 11.1 Monocytes % 8.0 Eosinophils % 4.0 Basophils % 0.6 Absolute Neutrophils 6.22 Absolute Lymphocytes 0.91 L Absolute Monocytes 0.65 Absolute Eosinophils 0.33 Absolute Basophils 0.05 Sodium 144 Potassium 4.0 Chloride 107 Carbon Dioxide 28.6 Anion Gap 8.4 BUN 25 H Creatinine 1.20 Estimated GFR/1.73 m2 58.26 Glucose 89 Calcium 8.6 Total Bilirubin 0.3 AST 18 ALT 16 Alkaline Phosphatase 76 Total Protein 6.3 L Albumin 3.4 Urine Color Yellow Urine Clarity Clear Urine pH 6.0 Ur Specific [place] 1.020 Urine Protein Negative Urine Ketones Negative Urine Blood Small H Urine Nitrite Negative Urine Bilirubin Negative Urine Urobilinogen 0.2 Ur Leukocyte Esterase Negative Urine RBC 5-10 H Urine WBC 0-2 Ur Epithelial Cells Negative Urine Crystals Rare calcium oxalate Urine Bacteria Rare Urine Casts Negative Urine Mucus Negative Ur Culture Indicated? No Urine Glucose Negative Last Vital Signs Temp 36.6 C 09/26/18 12:05 Pulse 60 09/26/18 12:05 Resp 18 09/26/18 10:17 BP 121/73 09/26/18 12:05 Pulse Ox 98 09/26/18 12:05
[2018-09-26 13:20] VITALS: BP 95/58; PULSE 55; RESP 20; TEMP 36.5; O2SAT 97
--- NOTE | 2018-09-26 13:32 | HPE_ITS ---
Date of service: 09/26/18 Time of Service: 13:08 Assessment and Plan (1) Hematuria: Start date: 09/26/18 Start time: 13:25 Current visit: Yes Status: Acute Brought in by , when she was helping him void yesterday she saw bloody urine and he stated it burned. Rocephine received in the ED, u/a without leuks or nitrites. Unlikely UTI. Consider retention. Is on eliquis for Afib. montior for bleeding. No symptoms or signs of infection, hold off on antibiotics at this time. PVR was 83 ml 30 mins after voiding 100 ml (2) Parkinsons disease: Start date: 09/26/18 Start time: 13:27 Current visit: No Status: Chronic Progressing, worsening parkinsons with dementia, Unable to care for self, bathes, feeds, toilets patient, would like palliative care to see him and would like him to go to a group home, but not the [facility]. Does not follow commands, AO to self and time. (3) Depression: Start date: 09/26/18 Start time: 13:28 Current visit: No Status: Chronic Continue seroquel and sertraline (4) Paroxysmal atrial fibrillation: Start date: 09/26/18 Start time: 13:28 Current visit: No Status: Chronic Rate controlled at this time. Pacemaker in place and on eliquis, continue to monitor. (5) DVT prophylaxis: Start date: 09/26/18 Start time: 13:29 Current visit: No Status: Acute On eliquis at this time (6) Discharge planning issues: Start date: 09/26/18 Start time: 13:29 Current visit: Yes Status: Acute Unable to care for self and unable to care for patient would like him placed into a group home. He is a full code. History of Present Illness Chief Complaint: PARKINSONS, DEMENTIA, DYSURIA Narrative: 82 y.o Male brought to [facility] emergency department by after having bloody pee yesterday. Increased weakness, confusion since yesterday. PMH of Parkinson, Dementia, Afib on eliquis. U/A in the ED negative for leukocyte Esterase and Nitrites, positive for small amount of blood, awaiting PVR at this time, he did void 100 ml while in the ED t hat was not bloody. Received one dose Rocephine in ED. Afebrile with no leukocytosis. Chemistry is normal. has a hard time managing patient at home with declining cognition, she would like palliative involved and wants him to go to a group home but not the [facility]. Does not follow commands, though he answered who he was, where he was, AA0x2. Parkinsonian tremors noticable when sitting still. Unable to feed himself, bath himself or use the bathroom on his own. Will be admitted to M/S as observation. Monitor for signs of infection and have PT/OT work with him. Review of Systems Constitutional Reports system reviewed and no additional complaints, except as docu Eyes Reports system reviewed and no additional complaints, except as docu ENT Reports system reviewed and no additional complaints, except as docu Cardiovascular Reports as per HPI Respiratory Reports system reviewed and no additional complaints, except as docu Gastrointestinal Reports system reviewed and no additional complaints, except as docu Genitourinary Reports as per HPI Musculoskeletal Reports as per HPI and Reports stiffness Integumentary/Breasts Reports as per HPI Neurologic Reports as per HPI Psychiatric Reports system reviewed and no additional complaints, except as docu Hematologic/Lymphatic Reports system reviewed and no additional complaints, except as docu Allergic/Immunologic Reports system reviewed and no additional complaints, except as docu [facility] 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) Diverticulosis of colon without diverticulitis (Chronic) Cardiomyopathy (Chronic 08/03/14) Basal cell carcinoma of right forehead (Chronic 03/06/14) Actinic keratosis (Chronic) Osteoarthritis (Chronic) 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 No smoking, ETOH, illicit drug use. Meds Home Medications Medication Instructions Recorded Confirmed Type Centrum Complete 1 tab-cap PO HS tab-cap 03/30/14 09/26/18 History cholecalciferol (vitamin D3) 1,000 unit PO DAILY 08/03/14 09/26/18 History cyanocobalamin (vitamin B-12) 1,000 mcg PO DAILY 11/28/15 09/26/18 History [Vitamin B-12] Metamucil 1 tbsp PO DAILY 03/24/18 09/26/18 History apixaban 5 mg tablet 5 mg PO BID #180 tab-cap 03/30/18 09/26/18 Rx nystatin 100,000 unit/gram topical 1 applic TOPICAL TID #60 gm 04/08/18 09/26/18 Rx powder omeprazole 20 mg capsule,delayed 20 mg PO DAILY #90 cap 06/22/18 09/26/18 Rx release quetiapine 50 mg tablet 50 mg PO QHS #30 tab 07/05/18 09/26/18 Rx loratadine 10 mg tablet 10 mg PO DAILY #90 tab-cap 07/06/18 09/26/18 Rx sertraline 100 mg tablet 200 mg PO HS #180 tab 08/10/18 09/26/18 Rx fludrocortisone 0.1 mg tablet 0.2 mg PO DAILY #180 tab-cap 09/15/18 09/26/18 Rx cephalexin [Keflex] 500 mg PO BID #14 cap 09/26/18 Rx Allergies Allergy/AdvReac Type Severity Reaction Status Date / Time bee pollen [Bee Pollen] Allergy Intermediate PERIORBITAL Unverified 09/26/18 10:21 EDEMA aspirin AdvReac Mild Upset Unverified 09/26/18 10:21 Stomach DUST Allergy Intermediate unknown Uncoded 09/26/18 10:21 Exam Narrative Exam Narrative: Calm older male sitting in wheelchair being fed by . AAOx2 does not follow commands but will answer questions when asked several times, does confuse questions sometimes. Neck: No lymphedema, supple Resp: Speaking in clear sentences, no resp distress, Lung sounds clear all solano Cardio: No JVD, irregularly irregular rhythm GI: soft non tender BS + in all quads : Rash to groin area SKin: no clubbing or cyanosis Extremities: tremors from parkinsons Results Labs : 09/26/18 10:28 09/26/18 10:28 Laboratory Results - last 24 hr 09/26/18 09/26/18 09/26/18 10:28 10:28 10:47 WBC 8.17 RBC 4.80 Hgb 13.7 Hct 41.9 MCV 87.3 MCH 28.5 MCHC 32.7 RDW 13.3 Plt Count 207 MPV 9.8 Immature Gran % 0.1 Neutrophils % 76.2 Lymphocytes % 11.1 Monocytes % 8.0 Eosinophils % 4.0 Basophils % 0.6 Absolute Neutrophils 6.22 Absolute Lymphocytes 0.91 L Absolute Monocytes 0.65 Absolute Eosinophils 0.33 Absolute Basophils 0.05 Sodium 144 Potassium 4.0 Chloride 107 Carbon Dioxide 28.6 Anion Gap 8.4 BUN 25 H Creatinine 1.20 Estimated GFR/1.73 m2 58.26 Glucose 89 Calcium 8.6 Total Bilirubin 0.3 AST 18 ALT 16 Alkaline Phosphatase 76 Total Protein 6.3 L Albumin 3.4 Urine Color Yellow Urine Clarity Clear Urine pH 6.0 Ur Specific [place] 1.020 Urine Protein Negative Urine Ketones Negative Urine Blood Small H Urine Nitrite Negative Urine Bilirubin Negative Urine Urobilinogen 0.2 Ur Leukocyte Esterase Negative Urine RBC 5-10 H Urine WBC 0-2 Ur Epithelial Cells Negative Urine Crystals Rare calcium oxalate Urine Bacteria Rare Urine Casts Negative Urine Mucus Negative Ur Culture Indicated? No Urine Glucose Negative Last Vital Signs Temp 36.6 C 09/26/18 12:05 Pulse 60 09/26/18 12:05 Resp 18 09/26/18 10:17 BP 121/73 09/26/18 12:05 Pulse Ox 98 09/26/18 12:05
[2018-09-26] MEDS: Acetaminophen 325 MG TAB PO (13:52)
[2018-09-26 14:42] LABS: Magnesium 2.2 mg/dL (1.8-2.4)
[2018-09-26 15:12] VITALS: BP 125/75; PULSE 60; RESP 18; TEMP 36.8; O2SAT 100
[2018-09-26] MEDS: Apixaban 5 MG TAB PO (19:37)
[2018-09-26 20:01] VITALS: BP 150/76; PULSE 60; RESP 17; TEMP 36.8; O2SAT 99
[2018-09-26] MEDS: QUEtiapine 25 MG TAB 50 MG PO (22:24)
[2018-09-26] MEDS: Sertraline 50 MG TAB 100 MG PO (22:24)
[2018-09-26 23:50] VITALS: BP 152/78; PULSE 61; RESP 17; TEMP 37; O2SAT 99
[2018-09-27 04:09] VITALS: BP 134/83; PULSE 57; RESP 16; TEMP 36.4; O2SAT 93
[2018-09-27 07:05] VITALS: BP 122/75; PULSE 61; RESP 19; TEMP 36.7; O2SAT 97
[2018-09-27 07:17] LABS: HCT 40.6 % (40.0-50.0); HGB 12.9 g/dL (13.5-17.5); Mean Corp. HGB Concentration 31.8 g/dL (32.0-36.0); Mean Corpuscular Hemoglobin 27.6 pg (27.0-33.0); Mean Corpuscular Volume 86.9 fL (80-95); Mean Platelet Volume 9.9 fL (8.0-11.0); Platelet Count 193 x1000/uL (130-400); RBC 4.67 m/cumm (4.50-6.00); RBC Distribution Width 13.3 % (11.8-14.1)
[2018-09-27 07:50] LABS: Anion Gap 7.4 mmol/L (3-11); BUN 24 mg/dL (7-18); CO2 27.6 mmol/L (21.0-32.0); CREATININE 1.11 mg/dL (0.70-1.30); Calcium 8.5 mg/dL (8.5-10.1); Chloride 107 mmol/L (98-107); Glucose 102 mg/dL (70-100); Sodium 142 mmol/L (136-145)
[2018-09-27] MEDS: Sertraline 50 MG TAB 100 MG PO ×2 (08:24→23:15)
[2018-09-27] MEDS: Loratidine 10 MG TAB PO (08:25)
[2018-09-27] MEDS: Apixaban 5 MG TAB PO ×2 (08:25→19:57)
[2018-09-27] MEDS: Omeprazole 20 MG CAPCR PO (08:25)
[2018-09-27] MEDS: Cholecalciferol (Vitamin D3) 1,000 UNIT TAB 1000 UNITS PO (08:25)
[2018-09-27] MEDS: Cyanocobalamin 500 MCG TAB 1000 MCG PO (08:25)
[2018-09-27] MEDS: Fludrocortisone 0.1 MG TAB 0.2 MG PO (08:25)
[2018-09-27 11:15] VITALS: BP 171/91; PULSE 60; RESP 18; TEMP 36.5; O2SAT 98
--- NOTE | 2018-09-27 11:15 | W.PM.PROGNOT ---
Date of Service Date of service: 09/27/18 Time of Service: 11:16 Assessment and Plan (1) Hematuria: Start date: 09/27/18 Start time: 11:18 Current visit: Yes Status: Acute Resolved. Continue to monitor in setting of being on eliqius. (2) Parkinsons disease: Current visit: No Status: Chronic Flat affect, staring at wall when spoken too. Not communicating today, does have tremors to upper and lower extremities. Neurology consulted, palliative care consulted. PT/OT consulted. (3) Depression: Start date: 09/27/18 Start time: 11:20 Current visit: No Status: Chronic Continue seroquel and sertraline (4) Paroxysmal atrial fibrillation: Start date: 09/27/18 Start time: :20 Current visit: No Status: Chronic Rate controlled at this time. Pacemaker in place and on eliquis, continue to monitor. (5) DVT prophylaxis: Start date: 09/27/18 Start time: 11:20 Current visit: No Status: Acute On eliquis at this time, with TEDs and SCDs, consider fall risk, may need to d/c eliquis. (6) Discharge planning issues: Start date: 09/27/18 Start time: 11:20 Current visit: Yes Status: Acute Unable to care for self, patient will need PT/OT, palliative care consult. Subjective Patient reports: no new complaints Interval history since last seen: Flat affect, not really answering questions, blank stare when spoken too, at times will shut eyes and pretend to sleep. Could not get patient to follow commands or answer questions today. Noticeable tremors to feet. Neurology consulted. Exam Narrative Exam Narrative: Lying in bed, flat affect not answering questions. Neck: No lymphedema, supple Resp: Speaking in clear sentences, no resp distress, Lung sounds clear all solano Cardio: No JVD, irregularly irregular rhythm GI: soft non tender BS + in all quads : Rash to groin area SKin: no clubbing or cyanosis Extremities: tremors from parkinsons Objective Objective Clinical Data: Abnormal lab results 09/27/18 09/27/18 Range/Units 06:55 06:55 Hgb 12.9 L (13.5-17.5) g/dL MCHC 31.8 L (32.0-36.0) g/dL BUN 24 H (7-18) mg/dL Glucose 102 H (70-100) mg/dL Vital Signs Temperature 36.7 C 09/27/18 07:05 Temperature Source Tympanic 09/27/18 07:05 Pulse 61 09/27/18 07:05 Pulse Rhythm Regular 09/27/18 07:40 Respiratory Rate 19 09/27/18 07:05 Respiratory Effort Non-Labored 09/27/18 07:40 Respiratory Depth Normal 09/27/18 07:40 Respiratory Pattern Normal 09/27/18 07:40 Blood Pressure 122/75 09/27/18 07:05 Blood Pressure Position Sitting 09/26/18 10:17 Pulse Oximetry 97 09/27/18 07:05 Oxygen Delivery Method Room Air 09/27/18 07:05 Oxygen Flow Rate 0 09/27/18 07:05 Pain Level 0 09/27/18 07:05 Intake & Output 09/26/18 09/26/18 09/27/18 11:59 23:59 11:59 Intake Total 50 / 490 440 / 490 480 / 480 Output Total 1150 / 1150 1250 / 1250 Balance 50 / -660 -710 / -660 -770 / -770 Weight 175 kg 77 kg 78.3 kg Intake: IV 50 / 50 Oral 440 / 440 480 / 480 Output: Urine 1150 / 1150 1250 / 1250 Other: Urine Color Yellow Yellow Urine Appearance Clear Clear Urine Odor Normal Comment pt voided 30 min ago ( 100 ) Stool Size Moderate Stool Characteristics Formed Brown Voiding Methods Bedside Commode Bedside Commode Laboratory Results WBC 7.20 k/cumm (4.4-10.8) 09/27/18 06:55 RBC 4.67 m/cumm (4.50-6.00) 09/27/18 06:55 Hgb 12.9 g/dL (13.5-17.5) L 09/27/18 06:55 Hct 40.6 % (40.0-50.0) 09/27/18 06:55 MCV 86.9 fL (80-95) 09/27/18 06:55 MCH 27.6 pg (27.0-33.0) 09/27/18 06:55 MCHC 31.8 g/dL (32.0-36.0) L 09/27/18 06:55 RDW 13.3 % (11.8-14.1) 09/27/18 06:55 Plt Count 193 x1000/uL (130-400) 09/27/18 06:55 MPV 9.9 fL (8.0-11.0) 09/27/18 06:55 Immature Gran % 0.1 09/26/18 10:28 Neutrophils % 76.2 09/26/18 10:28 Lymphocytes % 11.1 09/26/18 10:28 Monocytes % 8.0 09/26/18 10:28 Eosinophils % 4.0 09/26/18 10:28 Basophils % 0.6 09/26/18 10:28 Absolute Neutrophils 6.22 k/cumm (1.2-6.7) 09/26/18 10:28 Absolute Lymphocytes 0.91 k/cumm (1.2-3.4) L 09/26/18 10:28 Absolute Monocytes 0.65 k/cumm (0.11-0.7) 09/26/18 10:28 Absolute Eosinophils 0.33 k/cumm (0.0-0.7) 09/26/18 10:28 Absolute Basophils 0.05 k/cumm (0.0-0.2) 09/26/18 10:28 Sodium 142 mmol/L (136-145) 09/27/18 06:55 Potassium 4.0 mmol/L (3.5-5.1) 09/27/18 06:55 Chloride 107 mmol/L (98-107) 09/27/18 06:55 Carbon Dioxide 27.6 mmol/L (21.0-32.0) 09/27/18 06:55 Anion Gap 7.4 mmol/L (3-11) 09/27/18 06:55 BUN 24 mg/dL (7-18) H 09/27/18 06:55 Creatinine 1.11 mg/dL (0.70-1.30) 09/27/18 06:55 Estimated GFR/1.73 m2 >= 60.00 (mL/min/1.73m2) 09/27/18 06:55 Glucose 102 mg/dL (70-100) H 09/27/18 06:55 Calcium 8.5 mg/dL (8.5-10.1) 09/27/18 06:55 Magnesium 2.0 mg/dL (1.8-2.4) 09/27/18 06:55 Total Bilirubin 0.3 mg/dL (0.2-1.0) 09/26/18 10:28 AST 18 U/L (15-37) 09/26/18 10:28 ALT 16 U/L (12-78) 09/26/18 10:28 Alkaline Phosphatase 76 U/L (46-116) 09/26/18 10:28 Total Protein 6.3 g/dL (6.4-8.2) L 09/26/18 10:28 Albumin 3.4 g/dL (3.4-5.0) 09/26/18 10:28 Urine Color Yellow (Yellow) 09/26/18 10:47 Urine Clarity Clear 09/26/18 10:47 Urine pH 6.0 (5-8) 09/26/18 10:47 Ur Specific [place] 1.020 (1.005-1.025) 09/26/18 10:47 Urine Protein Negative mg/dL (Negative) 09/26/18 10:47 Urine Ketones Negative mg/dL (Negative) 09/26/18 10:47 Urine Blood Small (Negative) H 09/26/18 10:47 Urine Nitrite Negative (Negative) 09/26/18 10:47 Urine Bilirubin Negative (Negative) 09/26/18 10:47 Urine Urobilinogen 0.2 EU/dL (Up TO 0.2) 09/26/18 10:47 Ur Leukocyte Esterase Negative (Negative) 09/26/18 10:47 Urine RBC 5-10 (0-2) H 09/26/18 10:47 Urine WBC 0-2 HPF (0-5) 09/26/18 10:47 Ur Epithelial Cells Negative HPF (Negative) 09/26/18 10:47 Urine Crystals Rare calcium oxalate HPF (Negative) 09/26/18 10:47 Urine Bacteria Rare HPF (Negative) 09/26/18 10:47 Urine Casts Negative LPF (Negative) 09/26/18 10:47 Urine Mucus Negative (Negative) 09/26/18 10:47 Ur Culture Indicated? No 09/26/18 10:47 Urine Glucose Negative mg/dL (Negative) 09/26/18 10:47
--- NOTE | 2018-09-27 12:26 | PTTR_ITS ---
Date of service: 09/27/18 Time of Service: 12:24 PT Notes Inpatient Physical Therapy Treatment Note [facility] Date: 09/27/18 PRECAUTIONS: Fall, Dementia SUBJECTIVE: Laureano is agreeable to participating in PT, although appears to be confused about where he is, asking multiple times when did I get here and do you know how I got here? OBJECTIVE: PAIN: No c/o pain BED MOBILITY/TRANSFERS Supine-sit: Min A with HOB at 20 degrees Sit-supine: Min A with HOB flat Sit-stand: Min A x2 Stand-sit: CGA GAIT Assistive Device: INHALATION THERAPY TEACHER x2 Weight bearing: Full Assist: Min A x2 Distance: 15' x2 Deviation: Path deviation TOILETING: Patient toileted with Min A for transfers ASSESSMENT: Patient was able to tolerate a progression in gait distance today, with INHALATION THERAPY TEACHER x2 for support and Min A x2. Patient would benefit from continued gait and transfer training, as well as strengthening for improved mobility and improved ability to perform daily functional tasks at a more independent level. PLAN: Continue with PT's POC TREATMENT CODE/TIME: Session 1: 30 minutes; 21597 x2
--- NOTE | 2018-09-27 13:04 | W.NEUROCONSU ---
Date of service: 09/27/18 Time of Service: 13:04 Assessment and Plan (1) Multiple system atrophy: Current visit: No Status: Chronic Mr. Baugh is an 82-year-old, right-handed man with severe orthostatic hypotension secondary to dysautonomia and moderate dementia from multiple system atrophy, admitted for increasing confusion and inability to be cared for at home. Neurologically, he appears at baseline to me. There is a question of whether he may be oversedated from Seroquel. Seroquel was started in June due to increased hallucinations and agitation as reported by his [place]. As he is currently inpatient, it may be worthwhile to wean it off to see if he truly needs it. It is not clear exactly what dose she was giving him. When we last spoke, he was taking 12.5 mg a.m. and noon time with 25 mg at bedtime. I would reduce to 12.5 mg every 2 to 3 days as tolerated. He should continue Florinef 0.2mg daily for his OH. Monitor for supine hypertension. BPs generally good while inpatient. In the meantime, I have recommended both speech therapy and physical therapy for some time as an outpatient. It sounds like plans are to go to rehab facility initially and then likely placement in a home care per situation. I recommend PT and ST as an outpatient. He should follow-up in the neurology clinic in 4 to 6 weeks. DISCLAIMER: This note was created using [employer] voice recognition software. (2) Orthostatic hypotension: Current visit: No Status: Chronic (3) Mild cognitive impairment: Current visit: No Status: Chronic History of Present Illness Chief Complaint: altered mental status Narrative: Handedness: right. HPI: Mr. Baugh is an 82-year-old man well-known to me for multiple system atrophy complicated by severe orthostatic hypotension, moderate hypophonia/dysarthria, moderate memory loss, and gait imbalance. He was brought to the ER by his on 09/26/2018 for increased weakness and confusion with inability to care for him at home. He was admitted for presumed urinary tract infection, however, his UA was unremarkable. Further laboratory studies have been unremarkable. In the hospital, his blood pressures have been under fairly good control with some dysautonomia. He has not had any difficulties with delirium and has generally been more sedated per reports. He was started on Seroquel in June after his reported increased hallucinations with agitation. This was reportedly increased to 12.5 mg a.m. and noon time with 25 mg at bedtime when I last spoke with her. There has been some previous difficulties in knowing exactly what medication doses and amounts Mr. Baugh is receiving from his . His often canceled follow-up appointments due to difficulty in transporting to the office and has not followed up with recommendations including outpatient speech therapy, physical therapy, and a sleep study. She has been very resistant to people coming into her home in the past. 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) Diverticulosis of colon without diverticulitis (Chronic) Cardiomyopathy (Chronic 08/03/14) Basal cell carcinoma of right forehead (Chronic 03/06/14) Actinic keratosis (Chronic) Osteoarthritis (Chronic) 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 No smoking, ETOH, illicit drug use. Visit Medication and Allergies Active Medications Generic Name Dose Route Start Last Admin Trade Name Freq PRN Reason Stop Dose Admin Acetaminophen 0 mg 09/26/18 12:18 09/26/18 13:52 Tylenol PO 650 mg Q4H PRN PRN Administration Al Hydrox/Mg Hydrox/Simethicone 30 ml 09/26/18 12:18 Mylanta Liquid PO Q2H PRN PRN Apixaban 5 mg 09/26/18 20:00 09/27/18 08:25 Eliquis PO 5 mg BID IAM Administration Cholecalciferol 1,000 units 09/27/18 08:30 09/27/18 08:25 Vitamin D PO 1,000 units DAILY IAM Administration Clotrimazole 60 gm/ Zinc Oxide 0 gm 09/26/18 14:00 09/26/18 19:37 60 gm/ Vitamin A/Vitamin D 60 TP 1 applicatio gm TID IAM Administration Cyanocobalamin 1,000 mcg 09/27/18 08:30 09/27/18 08:25 Vitamin B-12 PO 1,000 mcg DAILY IAM Administration Dimethicone/Zinc Oxide 0 gm 09/26/18 12:18 Adelso Protect Cream TP PRN PRN Docusate Sodium 100 mg 09/26/18 12:18 Colace PO TID PRN PRN Fludrocortisone Acetate 0.2 mg 09/27/18 08:30 09/27/18 08:25 Florinef PO 0.2 mg DAILY IAM Administration Loratadine 10 mg 09/27/18 08:30 09/27/18 08:25 Claritin PO 10 mg DAILY IAM Administration Magnesium Hydroxide 30 ml 09/26/18 12:18 Milk Of Magnesia PO DAILY PRN PRN Omeprazole 20 mg 09/27/18 07:30 09/27/18 08:25 Prilosec PO 20 mg DAILY@0730 IAM Administration Quetiapine Fumarate 50 mg 09/26/18 22:00 09/26/18 22:24 Seroquel PO 50 mg HS IAM Administration Sertraline HCl 100 mg 09/26/18 22:00 09/27/18 08:24 Zoloft PO 100 mg BID@0800,2200 IAM Administration Allergies bee pollen [Bee Pollen] Allergy (Intermediate, Unverified 09/26/18 10:21) PERIORBITAL EDEMA aspirin Adverse Reaction (Mild, Unverified 09/26/18 10:21) Upset Stomach DUST Allergy (Intermediate, Uncoded 09/26/18 10:21) unknown Exam Narrative Exam Narrative: Physical Exam: Constitutional: Patient of apparent stated age, well nourished, well developed, no acute distress; mild hypomimia Neck: Supple, no meningismus CV: irregular Resp: CTAB Abd: Soft, nontender, nondistended, +BS Extrem: no edema, cyanosis, or clubbing; AMANDA hose on Neuro: MS/Language/Speech: Alert, oriented to self only, clear language (fluency and comprehension), mild dysarthria with moderate hypophonia CN: PERRL, EOMI with impaired pursuit, visual solano full, trigeminal sensation intact, no facial asymmetry, hearing reduced, palate elevates symmetrically, tongue protrudes midline, SCM and trap strength intact Motor: Normal bulk. Mild bilateral UE cogwheel rigidity. Mild diffuse bradykinesia, worse in the bilateral LE and on the right compared to the left. FMM intact, no pronator drift. 5/5 strength in bilateral upper and lower extremities. No resting tremor. Sensation: Intact to PP throughout Reflexes: 2+ DTRs in the UE; brisk in the bilateral LE, downgoing toes Coordination: Finger to nose performed with mild bilateral UE dysmetria Gait: deferred Results Last Vital Signs Temp 36.5 C 09/27/18 11:15 Pulse 60 09/27/18 11:15 Resp 18 09/27/18 11:15 BP 171/91 H 09/27/18 11:15 Pulse Ox 98 09/27/18 11:15 Labs : 09/27/18 06:55 09/27/18 06:55 Laboratory Results - last 24 hr 09/26/18 09/27/18 09/27/18 10:28 06:55 06:55 WBC 7.20 RBC 4.67 Hgb 12.9 L Hct 40.6 MCV 86.9 MCH 27.6 MCHC 31.8 L RDW 13.3 Plt Count 193 MPV 9.9 Sodium 142 Potassium 4.0 Chloride 107 Carbon Dioxide 27.6 Anion Gap 7.4 BUN 24 H Creatinine 1.11 Estimated GFR/1.73 m2 >= 60.00 Glucose 102 H Calcium 8.5 Magnesium 2.2 2.0
--- NOTE | 2018-09-27 13:36 | PT.INIE ---
Date of service: 09/27/18 Time of Service: 09:05 PT Notes Inpatient Physical Therapy Evaluation Date: 12/28/2018 Referring Doctor: Catina To MD PT Orders: PT CONSULT: Eval/treat Precautions: Fall. Standard. Impaired safety awareness. Activity as tolerated. Patient Profile/Admitting Diagnosis: Patient is an 82-year-old male with past medical history significant for Parkinson's disease who presented to the ED on 09/26/2018 with chief symptoms of confusion, dysuria, hematuria, and generalized weakness. Patient was diagnosed with toxic metabolic encephalopathy, multiple system atrophy, hematuria, depression, paroxysmal atrial fibrillation with referral for palliative care. 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 Current Functional Limitations: Need for physical assistance, assistive device, and maximum verbal cueing for all transfer and ambulation tasks Equipment Owned/DME: Unable to extract information from patient due to impaired cognitive level Subjective: My wfe's name is Maegan. Patient was able to follow single step commands with maximal verbal, tactile, visual cueing. Objective: General Observation: Patient seen resting in bed with head of bed elevated 20 degree. TEDS on bilateral legs. Anti-DVT pump on bilateral legs. IV access to right UE. Intentional tremors aggravated by movement. Mental Status: Alert and oriented as to person only Pain: No verbal and nonverbal expression of bodily pain throughout PT evaluation ROM: Right Upper Extremity: Shoulder Flexion 0 to 120 degrees. Shoulder abduction 0 to 110 degrees. Elbow flexion WFL. Wrist flexion WFL. Functional opening and closing of hand WFL. Left Upper Extremity: Shoulder Flexion 0 to 120 degrees. Shoulder abduction 0 to 110 degrees. Elbow flexion WFL. Wrist flexion WFL. Functional opening and closing of hand WFL. Right Lower Extremity: Hip flexion WFL. Hip abduction WFL. Knee flexion WFL. Ankle dorsiflexion WFL. Ankle plantarflexion WFL. Left Lower Extremity: Hip flexion WFL. Hip abduction WFL. Knee flexion WFL. Ankle dorsiflexion WFL. Ankle plantarflexion WFL. Strength: Right Upper Extremity: Shoulder flexors 3-/5. Shoulder abductors 3-/5. Elbow flexors 4/5. Elbow extensors 4/5. Professor Of Practice strong. Left Upper Extremity: Shoulder flexors 3-/5. Shoulder abductors 3-/5. Elbow flexors 4/5. Elbow extensors 4/5. Professor Of Practice strong. Right Lower Extremity: Hip flexors 4-/5. Hip abductors 4-/5. Knee flexors 4/5. Knee extensors 4-/5. Ankle dorsiflexors 4-/5. Ankle plantarflexors 4-5. Left Lower Extremity:Hip flexors 4-/5. Hip abductors 4-/5. Knee flexors 4/5. Knee extensors 4-/5. Ankle dorsiflexors 4-/5. Ankle plantarflexors 4-5. Bed Mobility/Transfers: Rolling minimal assist Supine to sit minimal assist of 2 for safety Sit to supine minimal assist of 2 for safety Sit to stand minimal assist of 2 for safety Stand to sit minimal assist of 2 for safety Bed to chair moderate assist of 2 for safety Chair to bed moderate assist of 2 for safety Gait: Patient was only able to do 2-3 steps and one side step onto chair placed directly adjacent to his bed. He is unable to fully grasp the use of and therefore may present as a fall risk at this time. Balance: Static Sitting: Fair Dynamic Sitting: Fair Static Standing: Fair Dynamic Standing: Fair Special Tests: Mobility Limitations Standardized Measure [employer] AM-PAC 6 clicks Basic Mobility Inpatient Short Form: Raw Score: 10 CMS Score: 77% deficit Informed Consent/Education: Maegan is agreeable to PT referral for patient to determine appropriateness of therapy intervention while in this facility. Assessment: Patient is an 82-year-old male with diagnosis of toxic metabolic encephalopathy, multiple system atrophy, Parkinson's disease and hematuria. Patient presents with clinical signs and symptoms consistent with current/admitting diagnoses that have resulted to mobility limitations, gait instability, generalized weakness, and impairment of motor control as demonstrated by the following impairment level findings: 1. Decreased strength to B LE major muscle groups 2. Impaired sitting/standing balance 3. Impaired activity tolerance 4. Impaired safety awareness Impairments are contributing to the following functional limitations: 1. Dependent bed mobility skills 2. Increased dependence with transfers 3. Inability to safely ambulate without assistive device and physical assistance 4. Increase completion time for mobility ADL performance 5. Increased fall risk 6. Inability to negotiate steps alone safely Patient is assessed as a 73735 moderate complexity based on the following: History: Cognitively impaired patient with Parkinson's disease, toxic metabolic encephalopathy and multi-system with being unable to provide care for her at this time Examination: Underlying impairments and functional limitations as noted above Presentation:Evolving Decision Makin moderate complexity Goals: Goals X1 week 1. Supine-Sit supervision 2. Sit-Supine supervision 3. Sit-Stand supervision 4. Stand-Sit supervision 5. Bed-Chair supervision 6. Chair-Bed supervision 7. Independent gait on level surface with use of least restrictive device for at least 50 feet without report of pain nor dyspnea 8. Independent with home exercise program 19. Good static and dynamic standing balance/tolerance Plan of Care/Treatment Plan: 1-2x/day, 7 days/week x 1 week. Plan of care has been reviewed with the CABLE MAKER providing the service under Physical Therapy direction. Initiate Physical Therapy intervention for strengthening, bed mobility, transfers, gait, stairs, balance training, use of assistive device. DISCHARGE RECOMMENDATIONS: Patient will benefit from [facility] facility placement in order to progress mobility level, strength, and balance in preparation for a safe discharge to home. TREATMENT CODE/TIME: 74143 for 29 minutes beginning at 9:05 AM. Thank you very much for this referral. Valorie Hunter PT, DPT, CLT [facility]
--- NOTE | 2018-09-27 13:43 | IN_ITS ---
Date of service: 09/27/18 Time of Service: 09:05 PT Notes Inpatient Physical Therapy Evaluation Date: 12/28/2018 Referring Doctor: Catina To MD PT Orders: PT CONSULT: Eval/treat Precautions: Fall. Standard. Impaired safety awareness. Activity as tolerated. Patient Profile/Admitting Diagnosis: Patient is an 82-year-old male with past medical history significant for Parkinson's disease who presented to the ED on 09/26/2018 with chief symptoms of confusion, dysuria, hematuria, and generalized weakness. Patient was diagnosed with toxic metabolic encephalopathy, multiple system atrophy, hematuria, depression, paroxysmal atrial fibrillation with re ferral for palliative care. 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 Current Functional Limitations: Need for physical assistance, assistive device, and maximum verbal cueing for all transfer and ambulation tasks Equipment Owned/DME: Unable to extract information from patient due to impaired cognitive level Subjective: My wfe's name is Maegan. Patient was able to follow single step commands with maximal verbal, tactile, visual cueing. Objective: General Observation: Patient seen resting in bed with head of bed elevated 20 degree. TEDS on bilateral legs. Anti-DVT pump on bilateral legs. IV access to right UE. Intentional tremors aggravated by movement. Mental Status: Alert and oriented as to person only Pain: No verbal and nonverbal expression of bodily pain throughout PT evaluation ROM: Right Upper Extremity: Shoulder Flexion 0 to 120 degrees. Shoulder abduction 0 to 110 degrees. Elbow flexion WFL. Wrist flexion WFL. Functional opening and closing of hand WFL. Left Upper Extremity: Shoulder Flexion 0 to 120 degrees. Shoulder abduction 0 to 110 degrees. Elbow flexion WFL. Wrist flexion WFL. Functional opening and closing of hand WFL. Right Lower Extremity: Hip flexion WFL. Hip abduction WFL. Knee flexion WFL. Ankle dorsiflexion WFL. Ankle plantarflexion WFL. Left Lower Extremity: Hip flexion WFL. Hip abduction WFL. Knee flexion WFL. Ankle dorsiflexion WFL. Ankle plantarflexion WFL. Strength: Right Upper Extremity: Shoulder flexors 3-/5. Shoulder abductors 3-/5. Elbow flexors 4/5. Elbow extensors 4/5. Rfid Systems Engineer strong. Left Upper Extremity: Shoulder flexors 3-/5. Shoulder abductors 3-/5. Elbow flexors 4/5. Elbow extensors 4/5. Rfid Systems Engineer strong. Right Lower Extremity: Hip flexors 4-/5. Hip abductors 4-/5. Knee flexors 4/5. Knee extensors 4-/5. Ankle dorsiflexors 4-/5. Ankle plantarflexors 4-5. Left Lower Extremity:Hip flexors 4-/5. Hip abductors 4-/5. Knee flexors 4/5. Knee extensors 4-/5. Ankle dorsiflexors 4-/5. Ankle plantarflexors 4-5. Bed Mobility/Transfers: Rolling minimal assist Supine to sit minimal assist of 2 for safety Sit to supine minimal assist of 2 for safety Sit to stand minimal assist of 2 for safety Stand to sit minimal assist of 2 for safety Bed to chair moderate assist of 2 for safety Chair to bed moderate assist of 2 for safety Gait: Patient was only able to do 2-3 steps and one side step onto chair placed directly adjacent to his bed. He is unable to fully grasp the use of and therefore may present as a fall risk at this time. Balance: Static Sitting: Fair Dynamic Sitting: Fair Static Standing: Fair Dynamic Standing: Fair Special Tests: Mobility Limitations Standardized Measure [facility]-PAC 6 clicks Basic Mobility Inpatient Short Form: Raw Score: 10 CMS Score: 77% deficit Informed Consent/Education: Maegan is agreeable to PT referral for patient to determine appropriateness of therapy intervention while in this facility. Assessment: Patient is an 82-year-old male with diagnosis of toxic metabolic encephalopathy, multiple system atrophy, Parkinson's disease and hematuria. Patient presents with clinical signs and symptoms consistent with current/admitting diagnoses that have resulted to mobility limitations, gait instability, generalized weakness, and impairment of motor control as demonstrated by the following impairment level findings: 1. Decreased strength to B LE major muscle groups 2. Impaired sitting/standing balance 3. Impaired activity tolerance 4. Impaired safety awareness Impairments are contributing to the following functional limitations: 1. Dependent bed mobility skills 2. Increased dependence with transfers 3. Inability to safely ambulate without assistive device and physical assistance 4. Increase completion time for mobility ADL performance 5. Increased fall risk 6. Inability to negotiate steps alone safely Patient is assessed as a 42019 moderate complexity based on the following: History: Cognitively impaired patient with Parkinson's disease, toxic metabolic encephalopathy and multi-system with being unable to provide care for her at this time Examination: Underlying impairments and functional limitations as noted above Presentation:Evolving Decision Makin moderate complexity Goals: Goals X1 week 1. Supine-Sit supervision 2. Sit-Supine supervision 3. Sit-Stand supervision 4. Stand-Sit supervision 5. Bed-Chair supervision 6. Chair-Bed supervision 7. Independent gait on level surface with use of least restrictive device for at least 50 feet without report of pain nor dyspnea 8. Independent with home exercise program 19. Good static and dynamic standing balance/tolerance Plan of Care/Treatment Plan: 1-2x/day, 7 days/week x 1 week. Plan of care has been reviewed with the INSTRUMENT REPAIR TECHNICIAN providing the service under Physical Therapy direction. Initiate Physical Therapy intervention for strengthening, bed mobility, transfers, gait, stairs, balance training, use of assistive device. DISCHARGE RECOMMENDATIONS: Patient will benefit from [facility] facility placement in order to progress mobility level, strength, and balance in preparation for a safe discharge to home. TREATMENT CODE/TIME: 47612 for 29 minutes beginning at 9:05 AM. Thank you very much for this referral. Valorie Hunter PT, DPT, CLT [facility]
--- NOTE | 2018-09-27 14:36 | OT.INIE ---
Occupational Therapy Notes Inpatient Occupational Therapy Evaluation Date: 09/27/18 Referring Doctor:Catina To MD OT Orders: Eval and Treat Precautions: Fall, Standard PATIENT PROFILE/ADMITTING DIAGNOSIS: Pt is an 82 year old male who was admitted through the ER on 09/26/2018 with chief symptoms of confusion, dysuria, hematuria, and generalized weakness. Patient was diagnosed with hematuria, depression, paroxysmal atrial fibrillation with referral for palliative care. 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 His (A) pt with bathing, feeding and toileting. Pt is a poor historian and unable to report details of his home. Equipment owned/DME: Unable to assess from pt SUBJECTIVE: Pt was sitting in bed when OT arrived. He is difficulty to understand with quiet slurred speech from [place]. OBJECTIVE: General Observation: Pt quickly tries to pull a blanket over himself when OT arrives. He is nervous and asks for his pants multiple times. Mental Status: Alert to self and time Pain: no c/o pain ROM: RUE AROM WNL L UE AROM WNL STRENGTH: RUE 3-/5 throughout with weak hardware sales assistant symmetrically LUE 3-/5 throughout with weak hardware sales assistant symmetrically FUNCTIONAL MOBILITY/ADLS: Transfers FWW, mod (A) Supine-sit mod (A) Sit-Stand mod (A) x2 Stand-sit mod (A) x2 Bed-Chair CGA HHAx2 Chair-bed CGa, HHAx2 BATHING Standing at sink Bathing UE Min (A) Bathing LE NT pt denies DRESSING Sitting on side of bed Dressing UE Max (A) placement of shirt on pts lap for appropriate put on directions, (I) putting over head Dressing LE Mod (A) don and doffing pants, max (A) don and doffing (B) socks. GROOMING Standing at sink with FWW min vc TOILETING on toilet, min (A) EATING Min (A) with opening containers BALANCE: Static sitting Fair Dynamic Sitting Fair Static Standing Poor Dynamic Standing Poor SPECIAL TESTS: Daily Activity Limitations Standardized Measure [facility] AM -PAC ?6 clicks? Daily Activity Inpatient Short Form: Raw score: 16 CMS score: 53.32% INFORMED CONSENT/EDUCATION: Pt instructed in purpose of OT Consult and plan of care. ASSESSMENT: Patient is a 82-year-old male referred to occupational therapy services with diagnosis of acute UTI, hx parkinsons,dementia, dysuria, hematuria, increased confusion, generalized weakness . Patient presents with clinical signs and symptoms consistent with dx, as demonstrated by the following impairment level findings: decreased (B) UE strength, decreased functional activity tolerance, hx of dementia, decreased functional mobility. Impairments are contributing to the following functional limitations: Decreased functional mobility, mod vc throughout for performance of ADLs/IADLs, decreased cognitive affecting ability to perform ADLs in a safe manner. AMPAC score 16, CMS score 53.32% Patient is assessed as a high 68348 complexity based on the following: History: See Above Examination: See Above Presentation: Evolving Decision Making: AMPAC score 16, CMS score 53.32% GOALS Goals x1 week 1. Transfers FWW, SBA 2. Dressing- Seated with min (A) LE dressing, (I) UE dressing 3. Bathing- Seated with min (A) LE, (I) UE 4. Toileting- Toilet (I) 5. Eating- Seated (I) 6. Grooming- Standing at sink with FWW (I) with teeth and hair. PLAN OF CARE/TREATMENT PLAN: 1x/day, 5 days/ week x 1week Initiate Occupational Therapy Services for bathing, dressing, grooming, toileting, eating, transfer training. DISCHARGE RECOMMENDATIONS OT recommends SNF vs. 24 hour care. TREATMENT TIME/MINUTES/CODES 14775, 79364, 25 minutes (11:30) Lucía Rogel OTR/[facility]
--- NOTE | 2018-09-27 14:53 | OTIE_ITS ---
Occupational Therapy Notes Inpatient Occupational Therapy Evaluation Date: 09/27/18 Referring Doctor:Catina To MD OT Orders: Eval and Treat Precautions: Fall, Standard PATIENT PROFILE/ADMITTING DIAGNOSIS: Pt is an 82 year old male who was admitted through the ER on 09/26/2018 with chief symptoms of confusion, dysuria, hematuria, and generalized weakness. Patient was diagnosed with hematuria, depression, paroxysmal atrial fibrillation with referral for palliative care. 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 His (A) pt with bathing, feeding and toileting. Pt is a poor historian and unable to report details of his home. Equipment owned/DME: Unable to assess from pt SUBJECTIVE: Pt was sitting in bed when OT arrived. He is difficulty to understand with quiet slurred speech from Parksinsons. OBJECTIVE: General Observation: Pt quickly tries to pull a blanket over himself when OT arrives. He is nervous and asks for his pants multiple times. Mental Status: Alert to self and time Pain: no c/o pain ROM: RUE AROM WNL L UE AROM WNL STRENGTH: RUE 3-/5 throughout with weak decorating machine tender symmetrically LUE 3-/5 throughout with weak decorating machine tender symmetrically FUNCTIONAL MOBILITY/ADLS: Transfers FWW, mod (A) Supine-sit mod (A) Sit-Stand mod (A) x2 Stand-sit mod (A) x2 Bed-Chair CGA HHAx2 Chair-bed CGa, HHAx2 BATHING Standing at sink Bathing UE Min (A) Bathing LE NT pt denies DRESSING Sitting on side of bed Dressing UE Max (A) placement of shirt on pts lap for appropriate put on directions, (I) putting over head Dressing LE Mod (A) don and doffing pants, max (A) don and doffing (B) socks. GROOMING Standing at sink with FWW min vc TOILETING on toilet, min (A) EATING Min (A) with opening containers BALANCE: Static sitting Fair Dynamic Sitting Fair Static Standing Poor Dynamic Standing Poor SPECIAL TESTS: Daily Activity Limitations Standardized Measure [facility] AM -PAC ?6 clicks? Daily Activity Inpatient Short Form: Raw score: 16 CMS score: 53.32% INFORMED CONSENT/EDUCATION: Pt instructed in purpose of OT Consult and plan of care. ASSESSMENT: Patient is a 82-year-old male referred to occupational therapy services with diagnosis of acute UTI, hx parkinsons,dementia, dysuria, hematuria, increased confusion, generalized weakness . Patient presents with clinical signs and symptoms consistent with dx, as demonstrated by the following impairment level findings: decreased (B) UE strength, decreased functional activity tolerance, hx of dementia, decreased functional mobility. Impairments are contributing to the following functional limitations: Decreased functional mobility, mod vc throughout for performance of ADLs/IADLs, decreased cognitive affecting ability to perform ADLs in a safe manner. AMPAC score 16, CMS score 53.32% Patient is assessed as a high 25662 complexity based on the following: History: See Above Examination: See Above Presentation: Evolving Decision Making: AMPAC score 16, CMS score 53.32% GOALS Goals x1 week 1. Transfers FWW, SBA 2. Dressing- Seated with min (A) LE dressing, (I) UE dressing 3. Bathing- Seated with min (A) LE, (I) UE 4. Toileting- Toilet (I) 5. Eating- Seated (I) 6. Grooming- Standing at sink with FWW (I) with teeth and hair. PLAN OF CARE/TREATMENT PLAN: 1x/day, 5 days/ week x 1week Initiate Occupational Therapy Services for bathing, dressing, grooming, toileting, eating, transfer training. DISCHARGE RECOMMENDATIONS OT recommends SNF vs. 24 hour care. TREATMENT TIME/MINUTES/CODES 39016, 11481, 25 minutes (11:30) Lucía Rogel OTR/[facility]
[2018-09-27 15:20] VITALS: BP 96/59; PULSE 63; RESP 16; TEMP 36.5; O2SAT 93
[2018-09-27 19:05] VITALS: BP 166/78; PULSE 60; RESP 16; TEMP 37.2; O2SAT 96
[2018-09-27] MEDS: QUEtiapine 25 MG TAB PO (23:16)
[2018-09-28 00:41] VITALS: BP 138/78; PULSE 64; RESP 16; TEMP 36.9; O2SAT 96
[2018-09-28 07:53] VITALS: BP 93/61; PULSE 60; RESP 17; TEMP 36; O2SAT 97
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
[2018-09-28] MEDS: Cholecalciferol (Vitamin D3) 1,000 UNIT TAB 1000 UNITS PO (09:44)
[2018-09-28] MEDS: Sertraline 50 MG TAB 100 MG PO (09:44)
[2018-09-28] MEDS: Apixaban 5 MG TAB PO (09:45)
[2018-09-28] MEDS: Loratidine 10 MG TAB PO (09:45)
[2018-09-28] MEDS: Omeprazole 20 MG CAPCR PO (09:45)
[2018-09-28] MEDS: Cyanocobalamin 500 MCG TAB 1000 MCG PO (09:45)
[2018-09-28] MEDS: Fludrocortisone 0.1 MG TAB 0.2 MG PO (09:45)
--- NOTE | 2018-09-28 10:06 | W.PALLCONSUL ---
Date of service: 09/28/18 Time of Service: 06:30 History of Present Illness Narrative: Patient is an 82-year-old man who was recently admitted to the hospital due to hematuria. There is big concerns that he is not able to be cared for at home. Additionally he has Parkinson's, dementia, depression, A. fib, multisystem atrophy and cardiomyopathy Per nursing he has not been verbal he has been a little erratic in his behavior. Consults Consult date: 09/28/18 Requesting physician: Catina To Assessment and Plan (1) Discharge planning issues: Current visit: Yes Status: Acute (2) Hematuria: Current visit: Yes Status: Acute (3) Mild cognitive impairment: Current visit: No Status: Chronic (4) Paroxysmal atrial fibrillation: Current visit: No Status: Chronic (5) Multiple system atrophy: Current visit: No Status: Chronic I do believe the CODE STATUS needs to be clarified. He does not have a designated D POA. I will need to meet with him and his family to determine next steps. I did find a advanced directive on the bedside. It looks like it was filled out by his son. And also had full code checked. I think a discussion is warranted given his multiple comorbidities There is question about his hypotension and whether he needs be on medication for this Parkinson's with dementia?appears that he has not been taking his medications outpatient. Await discussion with family regarding placement. This document was created by [email or web address] recognition and may contain grammatical and translation errors. Addendum Plan is to meet with the family tomorrow at 830 to discuss the above issues. Review of Systems Review of Systems The patient was nonverbal when I was in the room. He was arousable. He looks through me rather than at me. 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) Diverticulosis of colon without diverticulitis (Chronic) Cardiomyopathy (Chronic 08/03/14) Basal cell carcinoma of right forehead (Chronic 11/24/14) Actinic keratosis (Chronic) Osteoarthritis (Chronic) 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 No smoking, ETOH, illicit drug use. Exam Narrative Exam Narrative: He is lying in bed. He looks comfortable for most part. His heart is irregular. His lungs very little effort. His abdomen was nontender. Results Last Vital Signs Temp 96.8 F L 09/28/18 07:53 Pulse 60 09/28/18 07:53 Resp 17 09/28/18 07:53 BP 93/61 L 09/28/18 07:53 Pulse Ox 97 09/28/18 07:53 Labs : 09/27/18 06:55 09/27/18 06:55
--- NOTE | 2018-09-28 10:09 | PCNE_ITS ---
Date of service: 09/28/18 Time of Service: 06:30 History of Present Illness Narrative: Patient is an 82-year-old man who was recently admitted to the hospital due to hematuria. There is big concerns that he is not able to be cared for at home. Additionally he has Parkinson's, dementia, depression, A. fib, multisystem atrophy and cardiomyopathy Per nursing he has not been verbal he has been a little erratic in his behavior. Consults Consult date: 09/28/18 Requesting physician: Catina To Assessment and Plan (1) Discharge planning issues: Current visit: Yes Status: Acute (2) Hematuria: Current visit: Yes Status: Acute (3) Mild cognitive impairment: Current visit: No Status: Chronic (4) Paroxysmal atrial fibrillation: Current visit: No Status: Chronic (5) Multiple system atrophy: Current visit: No Status: Chronic I do believe the CODE STATUS needs to be clarified. He does not have a designated D POA. I will need to meet with him and his family to determine next steps. I did find a advanced directive on the bedside. It looks like it was filled out by his son. And also had full code checked. I think a discussion is warranted given his multiple comorbidities There is question about his hypotension and whether he needs be on medication for this Parkinson's with dementia?appears that he has not been taking his medications outpatient. Await discussion with family regarding placement. This document was created by [employer] recognition and may contain grammatical and translation errors. Addendum Plan is to meet with the family tomorrow at 830 to discuss the above issues. Review of Systems Review of Systems The patient was nonverbal when I was in the room. He was arousable. He looks through me rather than at me. 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) Diverticulosis of colon without diverticulitis (Chronic) Cardiomyopathy (Chronic 08/03/14) Basal cell carcinoma of right forehead (Chronic 11/24/14) Actinic keratosis (Chronic) Osteoarthritis (Chronic) 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 No smoking, ETOH, illicit drug use. Exam Narrative Exam Narrative: He is lying in bed. He looks comfortable for most part. His heart is irregular. His lungs very little effort. His abdomen was nontender. Results Last Vital Signs Temp 96.8 F L 09/28/18 07:53 Pulse 60 09/28/18 07:53 Resp 17 09/28/18 07:53 BP 93/61 L 09/28/18 07:53 Pulse Ox 97 09/28/18 07:53 Labs : 09/27/18 06:55 09/27/18 06:55
--- NOTE | 2018-09-28 10:49 | OT.INTREAT ---
Date of service: 09/28/18 Time of Service: 08:40 Occupational Therapy Notes Occupational Therapy Inpatient Treatment Note Date: 09/28/18 PRECAUTIONS: Fall, Standard SUBJECTIVE: Pt was sitting in chair when OT arrived. He was agreeable to OT session noting that he would like to use the bathroom. His overall verbal response to questions was very limited today. OBJECTIVE: PAIN:no c/o pain FUNCTIONAL MOBILITY required mod vc throughout for performance of functional mobility Sit-stand: Min (A) Stand-sit: Min (A) Bed-Chair: CGA, FAVOR MAKER Chair-bed: CGA, FAVOR MAKER BATHING: Standing at sink pt had an episode of non verbal response with slight shaking of whole body. He was unable to stand up straight at this time. Post episode he performed the following functional activities Upper Body: Standing at sink with mod vc with (I) in washing face and (B) UE DRESSING: At toilet Lower Extremity: Mod (A) donning underwear and pulling up TOILETING: Device: Toilet Assist: Mod (A) for underwear, mod vc for toileting hygiene ASSESSMENT/PLAN: Pt functionally was able to perform toileting routine with increased (A). Pt requires mod vc throughout for functional mobility as well as step by step instructions to aide pt in performance. OT will discuss with RN episode at sink. OT will continue to progress pt towards goals established at initial evaluation. TREATMENT CODES/TIME: [id number], 25 minutes (08;40) [facility]
--- NOTE | 2018-09-28 11:02 | OTTR_ITS ---
Date of service: 09/28/18 Time of Service: 08:40 Occupational Therapy Notes Occupational Therapy Inpatient Treatment Note Date: 09/28/18 PRECAUTIONS: Fall, Standard SUBJECTIVE: Pt was sitting in chair when OT arrived. He was agreeable to OT session noting that he would like to use the bathroom. His overall verbal response to questions was very limited today. OBJECTIVE: PAIN:no c/o pain FUNCTIONAL MOBILITY required mod vc throughout for performance of functional mobility Sit-stand: Min (A) Stand-sit: Min (A) Bed-Chair: CGA, WING MAILER MACHINE OPERATOR Chair-bed: CGA, WING MAILER MACHINE OPERATOR BATHING: Standing at sink pt had an episode of non verbal response with slight shaking of whole body. He was unable to stand up straight at this time. Post episode he performed the following functional activities Upper Body: Standing at sink with mod vc with (I) in washing face and (B) UE DRESSING: At toilet Lower Extremity: Mod (A) donning underwear and pulling up TOILETING: Device: Toilet Assist: Mod (A) for underwear, mod vc for toileting hygiene ASSESSMENT/PLAN: Pt functionally was able to perform toileting routine with increased (A). Pt requires mod vc throughout for functional mobility as well as step by step instructions to aide pt in performance. OT will discuss with RN episode at sink. OT will continue to progress pt towards goals established at initial evaluation. TREATMENT CODES/TIME: [id number], 25 minutes (08;40) [facility]
--- NOTE | 2018-09-28 11:05 | PT.INTREAT ---
Date of service: 09/28/18 Time of Service: 11:05 PT Notes Inpatient Physical Therapy Treatment Note [facility] Date: 09/28/18 PRECAUTIONS: Fall SUBJECTIVE: Tee is agreeable to participing in PT, although states that he is tired. OBJECTIVE: PAIN: No c/o pain BED MOBILITY/TRANSFERS Sit-supine: SBA with HOB flat Sit-stand: CGA Stand-sit: CGA GAIT Assistive Device: MANAGER PRODUCT SUPPORT Weight bearing: Full Assist: CGA Distance: 15' + 20' THEREX: Patient completed a LE and UE strengthening program, as per flow sheet. He requires visual and verbal cueing for exercise completion. ASSESSMENT: Patient tolerated session well with some c/o increased fatigue. He was able to tolerate the addition of supine UE and LE exercises, requiring visual and verbal cueing. Patient would benefit from continued gait and transfer training, as well a strengthening for improved activity tolerance and mobility. PLAN: Continue with PT's POC TREATMENT CODE/TIME: Session 1: 20 minutes; [id number]
--- NOTE | 2018-09-28 11:10 | PTTR_ITS ---
Date of service: 09/28/18 Time of Service: 11:05 PT Notes Inpatient Physical Therapy Treatment Note [facility] Date: 09/28/18 PRECAUTIONS: Fall SUBJECTIVE: Tee is agreeable to participing in PT, although states that he is tired. OBJECTIVE: PAIN: No c/o pain BED MOBILITY/TRANSFERS Sit-supine: SBA with HOB flat Sit-stand: CGA Stand-sit: CGA GAIT Assistive Device: MUSIC LIBRARY ASSISTANT Weight bearing: Full Assist: CGA Distance: 15' + 20' THEREX: Patient completed a LE and UE strengthening program, as per flow sheet. He requires visual and verbal cueing for exercise completion. ASSESSMENT: Patient tolerated session well with some c/o increased fatigue. He was able to tolerate the addition of supine UE and LE exercises, requiring visual and verbal cueing. Patient would benefit from continued gait and transfer training, as well a strengthening for improved activity tolerance and mobility. PLAN: Continue with PT's POC TREATMENT CODE/TIME: Session 1: 20 minutes; [id number]
[2018-09-28 11:15] VITALS: BP 117/65; PULSE 60; RESP 17; TEMP 36.5; O2SAT 96
[2018-09-28] MEDS: Psyllium PKT 1 EACH PO (14:27)
--- NOTE | 2018-09-28 14:46 | W.PM.DS.N ---
Date of service: 09/28/18 Time of Service: 14:47 DS: Diagnosis Discharge Diagnosis (1) Discharge planning issues: Status: Acute (2) Hematuria: Status: Acute (3) Mild cognitive impairment: Status: Chronic (4) Paroxysmal atrial fibrillation: Status: Chronic (5) Multiple system atrophy: Status: Chronic Discharge Plan Disposition Patient Disposition: [facility] SWING BED LEVEL 1 Condition: Stable Discharge Details Reason For Visit: FAILURE TO THRIVE, AMBULATORY DYSFUNCTION, DEMENTI Admit Date/Time: 09/26/18 12:19 Admit Provider: Catina To Attending Provider: Catina To Primary Care Provider: Laureano Kaminski Hospital Course Hospital Course: Mr. 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 He has been living at home with his . He was brought to the ER by his on 09/26/2018 for increased weakness and confusion with inability to care for him at home as well as a report of hematuria and dysuria. He was initiated on ceftriaxone, however, his urinalysis did not show leukocyte esterase or nitrites so the antibiotics were discontinued. His stated that she was no longer able o care for him at home due to progressing/worsening parkinson's symptoms and dementia. She was requesting that he be placed in a fdc facility. He was admitted on observation status for further evaluation and monitoring. There have been ongoing concerns about his safety returning home to his usual living situation. His son has been present and is also concerned about him. He is listed as a full code. He was seen by Palliative, however, his family was not present for the visit. There is a meeting planned for tomorrow morning with palliative and his son and are planning to attend. They will discuss code status at that time as well. He was also seen by Neurology, Dr. Son is familiar with him as she follows him as an outpatient. She was concerned that Mr. Baugh may be oversedated from Seroquel which was started in June for increased hallucinations and agitation as reported by his . She recommends decreasing his dose to see if he continues to need the Seroquel. She recommends reducing his dose by 12.5 mg every 2 to 3 days as tolerated. His Seroquel dose has been decreased to 25 mg at HS (09/27/18). She recommends continuing Florinef 0.2 mg daily for his orthostatic hypotension and monitoring his blood pressures closely. She will follow up with him in the clinic in 4-6 weeks. Care management is working on placement at a fdc facility, however, they have not placed him as of today. Therefore, he will transition to swing bed status while the care managers continue to work on a safe discharge plan. Home Meds and New Rx's Prescriptions: New cephalexin [Keflex] 500 mg capsule 500 mg PO BID Qty: 14 RF: 0 Continued Centrum Complete 1 EACH tablet 1 tab-cap PO HS RF: 0 cholecalciferol (vitamin D3) 1,000 UNIT tablet 1,000 unit PO DAILY RF: 0 cyanocobalamin (vitamin B-12) [Vitamin B-12] 1,000 MCG tablet extended release 1,000 mcg PO DAILY RF: 0 Eliquis 5 mg tablet 5 mg PO BID Qty: 180 RF: 3 nystatin 100,000 unit/gram powder 1 applic Topical TID Qty: 60 RF: 0 omeprazole 20 mg capsule,delayed release(DR/EC) 20 mg PO DAILY Qty: 90 RF: 6 quetiapine [Seroquel] 50 mg tablet 50 mg PO QHS Qty: 30 RF: 5 loratadine 10 mg tablet 10 mg PO DAILY Qty: 90 RF: 3 sertraline 100 mg tablet 200 mg PO HS Qty: 180 RF: 4 fludrocortisone 0.1 mg tablet 0.2 mg PO DAILY Qty: 180 RF: 3 Metamucil 3.4 gram/5.4 gram Powder 1 tbsp PO TID RF: 0 Discharge Instructions Referrals: Laureano Kaminski DO [Primary Care Provider] - Activity:: with assistance Equipment/Supplies:: No Equipment Needed Diet:: Heart healthy diet Exam Narrative Exam Narrative: General: Resting in bed with eyes closed, awakens briefly to verbal and tactile stimuli. HEENT: Normocephalic, atraumatic, mucous membranes moist. Neck: Supple, no JVD. Respiratory: Respirations even and unlabored, lung sounds clear on limited anterior and lateral exam bilaterally. Cardiovascular: irregularly irregular rhythm, no murmur appreciated. Extremities: no significant edema. Teds on BLEs. DS: Data Vitals/I&O Vitals and I&O: Vital Signs Temperature 36.5 C 09/28/18 11:15 Temperature Source Tympanic 09/28/18 11:15 Pulse 60 09/28/18 11:15 Pulse Rhythm Regular 09/28/18 09:39 Respiratory Rate 17 09/28/18 11:15 Respiratory Effort Non-Labored 09/28/18 09:39 Respiratory Depth Normal 09/28/18 09:39 Respiratory Pattern Normal 09/28/18 09:39 Blood Pressure 117/65 09/28/18 11:15 Blood Pressure Position Sitting 09/26/18 10:17 Pulse Oximetry 96 09/28/18 11:15 Oxygen Delivery Method Room Air 09/28/18 11:15 Oxygen Flow Rate 0 09/28/18 11:15 Pain Level 0 09/27/18 15:20 Intake & Output 09/27/18 09/28/18 09/28/18 23:59 11:59 23:59 Intake Total 360 / 840 770 / 1010 240 / 1010 Output Total 1350 / 2600 325 / 325 Balance -990 / -1760 445 / 685 240 / 685 Weight 78 kg Intake: IV 50 / 50 Oral 360 / 840 720 / 960 240 / 960 Output: Urine 1350 / 2600 325 / 325 Other: Urine Color Straw Yellow Urine Appearance Clear Clear Urine Odor Normal None Comment pt sat on bedside commode but did not void mixed w/stool. 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) Diverticulosis of colon without diverticulitis (Chronic) Cardiomyopathy (Chronic 08/03/14) Basal cell carcinoma of right forehead (Chronic 03/06/14) Actinic keratosis (Chronic) Osteoarthritis (Chronic) 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 No smoking, ETOH, illicit drug use.
--- NOTE | 2018-09-28 14:54 | DSE_ITS ---
Date of service: 09/28/18 Time of Service: 14:47 DS: Diagnosis Discharge Diagnosis (1) Discharge planning issues: Status: Acute (2) Hematuria: Status: Acute (3) Mild cognitive impairment: Status: Chronic (4) Paroxysmal atrial fibrillation: Status: Chronic (5) Multiple system atrophy: Status: Chronic Discharge Plan Disposition Patient Disposition: [facility] SWING BED LEVEL 1 Condition: Stable Discharge Details Reason For Visit: FAILURE TO THRIVE, AMBULATORY DYSFUNCTION, DEMENTI Admit Date/Time: 09/26/18 12:19 Admit Provider: Catina To Attending Provider: Catina To Primary Care Provider: Laureano Kaminski Hospital Course Hospital Course: Mr. 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 He has been living at home with his . He was brought to the ER by his on 09/26/2018 for increased weakness and confusion with inability to care for him at home as well as a report of hematuria and dysuria. He was initiated on ceftriaxone, however, his urinalysis did not show leukocyte esterase or nitrites so the antibiotics were discontinued. His stated that she was no longer able o care for him at home due to progressing/worsening parkinson's symptoms and dementia. She was requesting that he be placed in a senior care facility. He was admitted on observation status for further evaluation and monitoring. There have been ongoing concerns about his safety returning home to his usual living situation. His son has been present and is also concerned about him. He is listed as a full code. He was seen by Palliative, however, his family was not present for the visit. There is a meeting planned for tomorrow morning with palliative and his son and are planning to attend. They will discuss code status at that time as well. He was also seen by Neurology, Dr. Son is familiar with him as she follows him as an outpatient. She was concerned that Mr. Baugh may be oversed ated from Seroquel which was started in June for increased hallucinations and agitation as reported by his . She recommends decreasing his dose to see if he continues to need the Seroquel. She recommends reducing his dose by 12.5 mg every 2 to 3 days as tolerated. His Seroquel dose has been decreased to 25 mg at HS (09/27/18). She recommends continuing Florinef 0.2 mg daily for his orthostatic hypotension and monitoring his blood pressures closely. She will follow up with him in the clinic in 4-6 weeks. Care management is working on placement at a senior care facility, however, they have not placed him as of today. Therefore, he will transition to swing bed status while the care managers continue to work on a safe discharge plan. Home Meds and New Rx's Prescriptions: New cephalexin [Keflex] 500 mg capsule 500 mg PO BID Qty: 14 RF: 0 Continued Centrum Complete 1 EACH tablet 1 tab-cap PO HS RF: 0 cholecalciferol (vitamin D3) 1,000 UNIT tablet 1,000 unit PO DAILY RF: 0 cyanocobalamin (vitamin B-12) [Vitamin B-12] 1,000 MCG tablet extended release 1,000 mcg PO DAILY RF: 0 Eliquis 5 mg tablet 5 mg PO BID Qty: 180 RF: 3 nystatin 100,000 unit/gram powder 1 applic Topical TID Qty: 60 RF: 0 omeprazole 20 mg capsule,delayed release(DR/EC) 20 mg PO DAILY Qty: 90 RF: 6 quetiapine [Seroquel] 50 mg tablet 50 mg PO QHS Qty: 30 RF: 5 loratadine 10 mg tablet 10 mg PO DAILY Qty: 90 RF: 3 sertraline 100 mg tablet 200 mg PO HS Qty: 180 RF: 4 fludrocortisone 0.1 mg tablet 0.2 mg PO DAILY Qty: 180 RF: 3 Metamucil 3.4 gram/5.4 gram Powder 1 tbsp PO TID RF: 0 Discharge Instructions Referrals: Laureano Kaminski DO [Primary Care Provider] - Activity:: with assistance Equipment/Supplies:: No Equipment Needed Diet:: Heart healthy diet Exam Narrative Exam Narrative: General: Resting in bed with eyes closed, awakens briefly to verbal and tactile stimuli. HEENT: Normocephalic, atraumatic, mucous membranes moist. Neck: Supple, no JVD. Respiratory: Respirations even and unlabored, lung sounds clear on limited anterior and lateral exam bilaterally. Cardiovascular: irregularly irregular rhythm, no murmur appreciated. Extremities: no significant edema. Teds on BLEs. DS: Data Vitals/I&O Vitals and I&O: Vital Signs Temperature 36.5 C 09/28/18 11:15 Temperature Source Tympanic 09/28/18 11:15 Pulse 60 09/28/18 11:15 Pulse Rhythm Regular 09/28/18 09:39 Respiratory Rate 17 09/28/18 11:15 Respiratory Effort Non-Labored 09/28/18 09:39 Respiratory Depth Normal 09/28/18 09:39 Respiratory Pattern Normal 09/28/18 09:39 Blood Pressure 117/65 09/28/18 11:15 Blood Pressure Position Sitting 09/26/18 10:17 Pulse Oximetry 96 09/28/18 11:15 Oxygen Delivery Method Room Air 09/28/18 11:15 Oxygen Flow Rate 0 09/28/18 11:15 Pain Level 0 09/27/18 15:20 Intake & Output 09/27/18 09/28/18 09/28/18 23:59 11:59 23:59 Intake Total 360 / 840 770 / 1010 240 / 1010 Output Total 1350 / 2600 325 / 325 Balance -990 / -1760 445 / 685 240 / 685 Weight 78 kg Intake: IV 50 / 50 Oral 360 / 840 720 / 960 240 / 960 Output: Urine 1350 / 2600 325 / 325 Other: Urine Color Straw Yellow Urine Appearance Clear Clear Urine Odor Normal None Comment pt sat on bedside commode but did not void mixed w/stool. 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) Diverticulosis of colon without diverticulitis (Chronic) Cardiomyopathy (Chronic 08/03/14) Basal cell carcinoma of right forehead (Chronic 03/06/14) Actinic keratosis (Chronic) Osteoarthritis (Chronic) 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 No smoking, ETOH, illicit drug use.
[2018-09-28 14:55] VITALS: BP 148/77; PULSE 60; RESP 17; TEMP 36.3; O2SAT 96
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
--- NOTE | 2018-09-28 17:07 | PT.INDS ---
Date of service: 09/28/18 Time of Service: 17:07 PT Notes Inpatient Physical Therapy Discharge Summary Dates: 09/28/2018 Dates of Service: 09/27/2018 through 09/28/2018 This is a clinical summary of care provided on the duration of dates listed above. No charge was made in the completion of this documentation. Referring Doctor: Catina To MD PT Orders: PT CONSULT: Eval/treat Precautions: Fall. Standard. Impaired safety awareness. Activity as tolerated. Patient Profile/Admitting Diagnosis: Patient is an 82-year-old male with past medical history significant for Parkinson's disease who presented to the ED on 09/26/2018 with chief symptoms of confusion, dysuria, hematuria, and generalized weakness. Patient was diagnosed with toxic metabolic encephalopathy, multiple system atrophy, hematuria, depression, paroxysmal atrial fibrillation with referral for palliative care. Patient is discontinued today under observation status and will be re-evaluated tomorrow under swing bed level. 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 Current Functional Limitations: Need for physical assistance, assistive device, and maximum verbal cueing for all transfer and ambulation tasks Equipment Owned/DME: Unable to extract information from patient due to impaired cognitive level Subjective: NT Objective: General Observation: NT Mental Status: NT Pain: NT ROM: Right Upper Extremity: Shoulder Flexion 0 to 120 degrees. Shoulder abduction 0 to 110 degrees. Elbow flexion WFL. Wrist flexion WFL. Functional opening and closing of hand WFL. Left Upper Extremity: Shoulder Flexion 0 to 120 degrees. Shoulder abduction 0 to 110 degrees. Elbow flexion WFL. Wrist flexion WFL. Functional opening and closing of hand WFL. Right Lower Extremity: Hip flexion WFL. Hip abduction WFL. Knee flexion WFL. Ankle dorsiflexion WFL. Ankle plantarflexion WFL. Left Lower Extremity: Hip flexion WFL. Hip abduction WFL. Knee flexion WFL. Ankle dorsiflexion WFL. Ankle plantarflexion WFL. Strength: Right Upper Extremity: Shoulder flexors 3-/5. Shoulder abductors 3-/5. Elbow flexors 4/5. Elbow extensors 4/5. Blood Bank Laboratory Technician strong. Left Upper Extremity: Shoulder flexors 3-/5. Shoulder abductors 3-/5. Elbow flexors 4/5. Elbow extensors 4/5. Blood Bank Laboratory Technician strong. Right Lower Extremity: Hip flexors 4-/5. Hip abductors 4-/5. Knee flexors 4/5. Knee extensors 4-/5. Ankle dorsiflexors 4-/5. Ankle plantarflexors 4-5. Left Lower Extremity:Hip flexors 4-/5. Hip abductors 4-/5. Knee flexors 4/5. Knee extensors 4-/5. Ankle dorsiflexors 4-/5. Ankle plantarflexors 4-5. Bed Mobility/Transfers: Rolling minimal assist Supine to sit minimal assist of 2 for safety Sit to supine minimal assist of 2 for safety Sit to stand minimal assist of 2 for safety Stand to sit minimal assist of 2 for safety Bed to chair moderate assist of 2 for safety Chair to bed moderate assist of 2 for safety Gait: Patient was only able to do 2-3 steps and one side step onto chair placed directly adjacent to his bed. He is unable to fully grasp the use of and therefore may present as a fall risk at this time. Balance: Static Sitting: Fair Dynamic Sitting: Fair Static Standing: Fair Dynamic Standing: Fair Special Tests: Mobility Limitations Standardized Measure [facility]-P[facility] 6 clicks Basic Mobility Inpatient Short Form: Raw Score: 10 CMS Score: 77% deficit Informed Consent/Education: Maegan is agreeable to PT referral for patient to determine appropriateness of therapy intervention while in this facility. Assessment: Patient is an 82-year-old male with diagnosis of toxic metabolic encephalopathy, multiple system atrophy, Parkinson's disease and hematuria. Patient presents with clinical signs and symptoms consistent with current/admitting diagnoses that have resulted to mobility limitations, gait instability, generalized weakness, and impairment of motor control as demonstrated by the following impairment level findings: 1. Decreased strength to B LE major muscle groups 2. Impaired sitting/standing balance 3. Impaired activity tolerance 4. Impaired safety awareness Impairments are contributing to the following functional limitations: 1. Dependent bed mobility skills 2. Increased dependence with transfers 3. Inability to safely ambulate without assistive device and physical assistance 4. Increase completion time for mobility ADL performance 5. Increased fall risk 6. Inability to negotiate steps alone safely Patient is assessed as a [id number] moderate complexity based on the following: History: Cognitively impaired patient with Parkinson's disease, toxic metabolic encephalopathy and multi-system with being unable to provide care for her at this time Examination: Underlying impairments and functional limitations as noted above Presentation:Evolving Decision Makin moderate complexity Goals: Goals X1 week 1. Supine-Sit supervision NOT MET 2. Sit-Supine supervision NOT MET 3. Sit-Stand supervision NOT MET 4. Stand-Sit supervision NOT MET 5. Bed-Chair supervision NOT MET 6. Chair-Bed supervision NOT MET 7. Independent gait on level surface with use of least restrictive device for at least 50 feet without report of pain nor dyspnea NOT MET 8. Independent with home exercise program NOT MET 19. Good static and dynamic standing balance/tolerance NOT MET DISCHARGE RECOMMENDATIONS: Patient will benefit from shelter facility placement in order to progress mobility level, strength, and balance in preparation for a safe discharge to home. TREATMENT CODE/TIME: NC. Thank you very much for this referral. Valorie Hunter PT, DPT, CLT [facility]
--- NOTE | 2018-09-29 07:53 | OT.INDS ---
Date of service: 09/29/18 Time of Service: 07:53 Occupational Therapy Notes Occupational Therapy Inpatient Discharge Summary Date: 09/29/18 Dates of Service: 09/27/18-09/29/18 Referring Doctor:Catina To MD OT Orders: Eval and Treat Precautions: Fall, Standard PATIENT PROFILE/ADMITTING DIAGNOSIS: Pt is an 82 year old male who was admitted through the ER on 09/26/2018 with chief symptoms of confusion, dysuria, hematuria, and generalized weakness. Patient was diagnosed with hematuria, depression, paroxysmal atrial fibrillation with referral for palliative care. 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 His (A) pt with bathing, feeding and toileting. Pt is a poor historian and unable to report details of his home. Equipment owned/DME: Unable to assess from pt SUBJECTIVE: NT This document serves as a summary of care, no skilled OT services provided for this documentation. OBJECTIVE: ROM: RUE AROM WNL L UE AROM WNL STRENGTH: RUE 3-/5 throughout with weak rest room attendant symmetrically LUE 3-/5 throughout with weak rest room attendant symmetrically FUNCTIONAL MOBILITY/ADLS: Based on previous treatment no skilled OT services provided for this documentation. Transfers FWW, mod (A) Supine-sit mod (A) Sit-Stand mod (A) x2 Stand-sit mod (A) x2 Bed-Chair CGA HHAx2 Chair-bed CGa, HHAx2 BATHING Standing at sink Bathing UE Min (A) Bathing LE NT pt denies DRESSING Sitting on side of bed Dressing UE Max (A) placement of shirt on pts lap for appropriate put on directions, (I) putting over head Dressing LE Mod (A) don and doffing pants, max (A) don and doffing (B) socks. GROOMING Standing at sink with FWW min vc TOILETING on toilet, min (A) EATING Min (A) with opening containers BALANCE: Static sitting Fair Dynamic Sitting Fair Static Standing Poor Dynamic Standing Poor ASSESSMENT: Patient is a 82-year-old male referred to occupational therapy services with diagnosis of acute UTI, hx parkinsons,dementia, dysuria, hematuria, increased confusion, generalized weakness . Pt was seen for 2 skilled OT sessions. He will transition to SWING bed status at this time and will be re-assessed functionally for performance of ADLs/IADLs. GOALS- Not met 1. Transfers FWW, SBA 2. Dressing- Seated with min (A) LE dressing, (I) UE dressing 3. Bathing- Seated with min (A) LE, (I) UE 4. Toileting- Toilet (I) 5. Eating- Seated (I) 6. Grooming- Standing at sink with FWW (I) with teeth and hair. PLAN OF CARE/TREATMENT PLAN: Discharge pt at this time, pt to be transitioned to SWING bed rehabilitation status DISCHARGE RECOMMENDATIONS OT recommends SNF vs. 24 hour care. TREATMENT TIME/MINUTES/CODES N/A Lucía Rogel OTR/L [facility]
--- NOTE | 2018-09-29 07:56 | OTDS_ITS ---
Date of service: 09/29/18 Time of Service: 07:53 Occupational Therapy Notes Occupational Therapy Inpatient Discharge Summary Date: 09/29/18 Dates of Service: 09/27/18-09/29/18 Referring Doctor:Catina To MD OT Orders: Eval and Treat Precautions: Fall, Standard PATIENT PROFILE/ADMITTING DIAGNOSIS: Pt is an 82 year old male who was admitted through the ER on 09/26/2018 with chief symptoms of confusion, dysuria, hematuria, and generalized weakness. Patient was diagnosed with hematuria, depression, paroxysmal atrial fibrillation with referral for palliative care. 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 His (A) pt with bathing, feeding and toileting. Pt is a poor historian and unable to report details of his home. Equipment owned/DME: Unable to assess from pt SUBJECTIVE: NT This document serves as a summary of care, no skilled OT services provided for this documentation. OBJECTIVE: ROM: RUE AROM WNL L UE AROM WNL STRENGTH: RUE 3-/5 throughout with weak structural analysis engineer symmetrically LUE 3-/5 throughout with weak structural analysis engineer symmetrically FUNCTIONAL MOBILITY/ADLS: Based on previous treatment no skilled OT services provided for this documentation. Transfers FWW, mod (A) Supine-sit mod (A) Sit-Stand mod (A) x2 Stand-sit mod (A) x2 Bed-Chair CGA HHAx2 Chair-bed CGa, HHAx2 BATHING Standing at sink Bathing UE Min (A) Bathing LE NT pt denies DRESSING Sitting on side of bed Dressing UE Max (A) placement of shirt on pts lap for appropriate put on directions, (I) putting over head Dressing LE Mod (A) don and doffing pants, max (A) don and doffing (B) socks. GROOMING Standing at sink with FWW min vc TOILETING on toilet, min (A) EATING Min (A) with opening containers BALANCE: Static sitting Fair Dynamic Sitting Fair Static Standing Poor Dynamic Standing Poor ASSESSMENT: Patient is a 82-year-old male referred to occupational therapy services with diagnosis of acute UTI, hx parkinsons,dementia, dysuria, hematuria, increased confusion, generalized weakness . Pt was seen for 2 skilled OT sessions. He will transition to SWING bed status at this time and will be re- assessed functionally for performance of ADLs/IADLs. GOALS- Not met 1. Transfers FWW, SBA 2. Dressing- Seated with min (A) LE dressing, (I) UE dressing 3. Bathing- Seated with min (A) LE, (I) UE 4. Toileting- Toilet (I) 5. Eating- Seated (I) 6. Grooming- Standing at sink with FWW (I) with teeth and hair. PLAN OF CARE/TREATMENT PLAN: Discharge pt at this time, pt to be transitioned to SWING bed rehabilitation status DISCHARGE RECOMMENDATIONS OT recommends SNF vs. 24 hour care. TREATMENT TIME/MINUTES/CODES N/A Lucía Rogel OTR/L [facility]
== END 2018-09-28 17:30 | disposition swing bed (61) ==
LOC: ER 12:40 → MS 13:14
PROVIDERS: Admitting Provider Internal Medicine; Emergency Provider Student in an Organized Health Care Education/Training Program; PCP Emergency Medicine; Visit Provider Internal Medicine
DX: R31.9 Hematuria, unspecified (principal); R30.0 Dysuria; G20 Parkinson's disease; F02.80 Dementia in other diseases classified elsewhere, unspecified severity, without behavioral disturbance, psychotic disturbance, mood disturbance, and anxiety; R62.7 Adult failure to thrive; Z68.23 Body mass index [BMI] 23.0-23.9, adult; Z74.2 Need for assistance at home and no other household member able to render care; R53.81 Other malaise; T43.595A Adverse effect of other antipsychotics and neuroleptics, initial encounter; I95.1 Orthostatic hypotension; G23.9 Degenerative disease of basal ganglia, unspecified; I48.0 Paroxysmal atrial fibrillation; N40.0 Benign prostatic hyperplasia without lower urinary tract symptoms; Z75.1 Person awaiting admission to adequate facility elsewhere; Z79.01 Long term (current) use of anticoagulants; F32.9 Major depressive disorder, single episode, unspecified; Z95.0 Presence of cardiac pacemaker; Z51.5 Encounter for palliative care
CPT/HCPCS: 36415; 80048; 80053; 85027; 96365; 97110; 97162; 97167; 97530; 97535; 99215; 99222; 99223; 99233; 99239; 99253; 99285; 81003; 81015; 83735; 85025; 99217; 99220; 99226; 99284; G0378; J0696

== ENCOUNTER → 2018-09-27 09:41 | Outpatient (BNVA) | payer MEDICARE, MEDICAID, SELFPAY | PROVIDERS: PCP Emergency Medicine; Visit Provider Psychiatry & Neurology Neurology | DX: R69 Illness, unspecified (principal) ==

== ENCOUNTER 2018-09-28 16:41 | Inpatient (IN) | payer MEDICARE, MEDICAID, SELFPAY ==
--- NOTE | 2018-09-28 16:01 | W.PM.HP.N ---
Date of service: 09/28/18 Time of Service: 16:01 Assessment and Plan (1) Multiple system atrophy: Current visit: No Status: Chronic With dementia and increasing difficulty being cared for at home. He has been seen by Dr. Son who is familiar with the patient and feels he is neurologically at his baseline. She is concerned that he may be oversedated from Seroquel. His dose has been decreased to 25 mg at HS. She recommends that he continue Florinef 0.2mg daily for his orthostatic hypotension. She recommends Speech therapy and Physical therapy. He should follow up with Dr. Son in the clinic in 4-6 weeks. Continue PT/OT. (2) Orthostatic hypotension: Current visit: No Status: Chronic Continue Florinef 0.2mg daily. Continue to monitor blood pressure. (3) Depression: Current visit: No Status: Chronic Continue seroquel and sertraline. (4) Paroxysmal atrial fibrillation: Current visit: No Status: Chronic Rate controlled. Has pacemaker. Continue eliquis. (5) DVT prophylaxis: Current visit: No Status: Acute On eliquis. Conitinue TEDs and SCDs. (6) Discharge planning issues: Current visit: No Status: Acute He is a FULL CODE. There is a palliative care meeting planned for tomorrow morning (09/29/18) to discuss goals of care. There are concerns about his ability to be cared for at home. Care management is working on placement for him at a senior living facility. This case was discussed with Dr. To who is in agreement. History of Present Illness Chief Complaint: Weakness, failure to thrive, dementia. Narrative: Mr. 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 He has been living at home with his . He was brought to the ER by his on 09/26/2018 for increased weakness and confusion with inability to care for him at home as well as a report of hematuria and dysuria. He was initiated on ceftriaxone, however, his urinalysis did not show leukocyte esterase or nitrites so the antibiotics were discontinued. His stated that she was no longer able to care for him at home due to progressing/worsening parkinson's symptoms and dementia. She was requesting that he be placed in a senior living facility. He was admitted on observation status for further evaluation and monitoring. There have been ongoing concerns about his safety returning home to his usual living situation. His son has been present and is also concerned about him. He is listed as a full code. He was seen by Palliative, however, his family was not present for the visit. There is a meeting planned for tomorrow morning with palliative and his son and are planning to attend. They will discuss code status at that time as well. He was also seen by Neurology, Dr. Son is familiar with him as she follows him as an outpatient. She was concerned that Mr. Baugh may be oversedated from Seroquel which was started in June for increased hallucinations and agitation as reported by his . She recommends decreasing his dose to see if he continues to need the Seroquel. She recommends reducing his dose by 12.5 mg every 2 to 3 days as tolerated. She recommends continuing Florinef 0.2 mg daily for his orthostatic hypotension and monitoring his blood pressures closely. She will follow up with him in the clinic in 4-6 weeks. Care management is working on placement at a senior living facility, however, they have not placed him as of today. Therefore, he will transition to swing bed status while the care managers continue to work on a safe discharge plan. Today, he is resting in bed with eyes closed. He awakens briefly to verbal and tactile stimuli. He is unable to engage in a review of symptoms. He answers no when questioned if he has any pain. His denies that he has been coughing, she states, he just sleeps all of the time like at home. 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 No smoking, ETOH, illicit drug use. Meds Home Medications Medication Instructions Recorded Confirmed Type Centrum Complete 1 tab-cap PO HS tab-cap 03/30/14 09/26/18 History cholecalciferol (vitamin D3) 1,000 unit PO DAILY 08/03/14 09/26/18 History cyanocobalamin (vitamin B-12) 1,000 mcg PO DAILY 11/28/15 09/26/18 History [Vitamin B-12] Metamucil 1 tbsp PO TID 03/24/18 09/26/18 History apixaban 5 mg tablet 5 mg PO BID #180 tab-cap 03/30/18 09/26/18 Rx nystatin 100,000 unit/gram topical 1 applic TOPICAL TID #60 gm 04/08/18 09/26/18 Rx powder omeprazole 20 mg capsule,delayed 20 mg PO DAILY #90 cap 06/22/18 09/26/18 Rx release quetiapine 50 mg tablet 50 mg PO QHS #30 tab 07/05/18 09/26/18 Rx loratadine 10 mg tablet 10 mg PO DAILY #90 tab-cap 07/06/18 09/26/18 Rx sertraline 100 mg tablet 200 mg PO HS #180 tab 08/10/18 09/26/18 Rx fludrocortisone 0.1 mg tablet 0.2 mg PO DAILY #180 tab-cap 09/15/18 09/26/18 Rx cephalexin [Keflex] 500 mg PO BID #14 cap 09/26/18 Rx Allergies Allergy/AdvReac Type Severity Reaction Status Date / Time bee pollen [Bee Pollen] Allergy Intermediate PERIORBITAL Unverified 09/26/18 10:21 EDEMA aspirin AdvReac Mild Upset Unverified 09/26/18 10:21 Stomach DUST Allergy Intermediate unknown Uncoded 09/26/18 10:21 Exam Narrative Exam Narrative: Exam Narrative: General: Resting in bed with eyes closed, awakens briefly to verbal and tactile stimuli. HEENT: Normocephalic, atraumatic, mucous membranes moist. Neck: Supple, no JVD. Respiratory: Respirations even and unlabored, lung sounds clear on limited anterior and lateral exam bilaterally. Cardiovascular: irregularly irregular rhythm, no murmur appreciated. Extremities: no significant edema. Teds on BLEs.
--- NOTE | 2018-09-28 16:13 | HPE_ITS ---
Date of service: 09/28/18 Time of Service: 16:01 Assessment and Plan (1) Multiple system atrophy: Current visit: No Status: Chronic With dementia and increasing difficulty being cared for at home. He has been seen by Dr. Son who is familiar with the patient and feels he is neurologically at his baseline. She is concerned that he may be oversedated from Seroquel. His dose has been decreased to 25 mg at HS. She recommends that he continue Florinef 0.2mg daily for his orthostatic hypotension. She recommends Speech therapy and Physical therapy. He should follow up with Dr. Son in the clinic in 4-6 weeks. Continue PT/OT. (2) Orthostatic hypotension: Current visit: No Status: Chronic Continue Florinef 0.2mg daily. Continue to monitor blood pressure. (3) Depression: Current visit: No Status: Chronic Continue seroquel and sertraline. (4) Paroxysmal atrial fibrillation: Current visit: No Status: Chronic Rate controlled. Has pacemaker. Continue eliquis. (5) DVT prophylaxis: Current visit: No Status: Acute On eliquis. Conitinue TEDs and SCDs. (6) Discharge planning issues: Current visit: No Status: Acute He is a FULL CODE. There is a palliative care meeting planned for tomorrow morning (09/29/18) to discuss goals of care. There are concerns about his ability to be cared for at home. Care management is [facility]. This case was discussed with Dr. To who is in agreement. History of Present Illness Chief Complaint: Weakness, failure to thrive, dementia. Narrative: Mr. 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 He has been living at home with his . He was brought to the ER by his on 09/26/2018 for increased weakness and confusion with inability to care for him at home as well as a report of hematuria and dysuria. He was initiated on ceftriaxone, however, his urinalysis did not show leukocyte esterase or nitrites so the antibiotics were discontinued. His stated that she was no longer able to care for him at home due to progressing/worsening parkinson's symptoms and dementia. She was requesting that he be placed in a jail facility. He was admitted on observation status for further evaluation and monitoring. There have been ongoing concerns about his safety returning home to his usual living situation. His son has been present and is also concerned about him. He is listed as a full code. He was seen by Palliative, however, his family was not present for the visit. There is a meeting planned for tomorrow morning with palliative and his son and are planning to attend. They will discuss code status at that time as well. He was also seen by Neurology, Dr. Son is familiar with him as she follows him as an outpatient. She was concerned that Mr. Baugh may be oversedated from Seroquel which was started in June for increased hallucinations and agitation as reported by his . She recommends decreasing his dose to see if he continues to need the Seroquel. She recommends reducing his dose by 12.5 mg every 2 to 3 days as tolerated. She recommends continuing Florinef 0.2 mg daily for his orthostatic hypotension and monitoring his blood pressures closely. She will follow up with him in the clinic in 4-6 weeks. Care management is working on placement at a jail facility, however, they have not placed him as of today. Therefore, he will transition to swing bed status while the care managers continue to work on a safe discharge plan. Today, he is resting in bed with eyes closed. He awakens briefly to verbal and tactile stimuli. He is unable to engage in a review of symptoms. He answers no when questioned if he has any pain. His denies that he has been coughing, she states, he just sleeps all of the time like at home. 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 No smoking, ETOH, illicit drug use. Meds Home Medications Medication Instructions Recorded Confirmed Type Centrum Complete 1 tab-cap PO HS tab-cap 03/30/14 09/26/18 History cholecalciferol (vitamin D3) 1,000 unit PO DAILY 08/03/14 09/26/18 History cyanocobalamin (vitamin B-12) 1,000 mcg PO DAILY 11/28/15 09/26/18 History [Vitamin B-12] Metamucil 1 tbsp PO TID 03/24/18 09/26/18 History apixaban 5 mg tablet 5 mg PO BID #180 tab-cap 03/30/18 09/26/18 Rx nystatin 100,000 unit/gram topical 1 applic TOPICAL TID #60 gm 04/08/18 09/26/18 Rx powder omeprazole 20 mg capsule,delayed 20 mg PO DAILY #90 cap 06/22/18 09/26/18 Rx release quetiapine 50 mg tablet 50 mg PO QHS #30 tab 07/05/18 09/26/18 Rx loratadine 10 mg tablet 10 mg PO DAILY #90 tab-cap 07/06/18 09/26/18 Rx sertraline 100 mg tablet 200 mg PO HS #180 tab 08/10/18 09/26/18 Rx fludrocortisone 0.1 mg tablet 0.2 mg PO DAILY #180 tab-cap 09/15/18 09/26/18 Rx cephalexin [Keflex] 500 mg PO BID #14 cap 09/26/18 Rx Allergies Allergy/AdvReac Type Severity Reaction Status Date / Time bee pollen [Bee Pollen] Allergy Intermediate PERIORBITAL Unverified 09/26/18 10:21 EDEMA aspirin AdvReac Mild Upset Unverified 09/26/18 10:21 Stomach DUST Allergy Intermediate unknown Uncoded 09/26/18 10:21 Exam Narrative Exam Narrative: Exam Narrative: General: Resting in bed with eyes closed, awakens briefly to verbal and tactile stimuli. HEENT: Normocephalic, atraumatic, mucous membranes moist. Neck: Supple, no JVD. Respiratory: Respirations even and unlabored, lung sounds clear on limited anterior and lateral exam bilaterally. Cardiovascular: irregularly irregular rhythm, no murmur appreciated. Extremities: no significant edema. Teds on BLEs.
[2018-09-28 18:24] VITALS: BP 148/77; PULSE 60; RESP 17; TEMP 36.3; O2SAT 96
[2018-09-28 18:30] VITALS: BP 148/77; PULSE 60; RESP 17; TEMP 36.3; O2SAT 96
[2018-09-28] MEDS: Acetaminophen 325 MG TAB PO (19:07)
[2018-09-28 19:16] VITALS: BP 141/79; PULSE 60; RESP 18; TEMP 36.7; O2SAT 97
[2018-09-28] MEDS: Psyllium PKT 1 EACH PO (20:15)
[2018-09-28] MEDS: Apixaban 5 MG TAB PO (20:15)
--- NOTE | 2018-09-28 20:52 | CM.SWINGPC ---
Swingbed Plan of Care Plan of care: SWING BED PROGRAM ACTIVITIES/DISCHARGE PLAN OF CARE ACTIVITIES PLAN Date: 09/28/18 Identified Need: Life enrichment Intervention/Plan: Music, PT, OT, Activities Cart, Reiki, Therapy Dogs, Plants, etc. Initials: [facility] DISCHARGE PLAN Date: 09/28/18 Identified Need: Further assessment, possible placement, payer source attainment. Intervention/Plan: Family planning, DPOA assignment, APS report completed, possible guardianship, completion of applications for LTC Medicaid and [facility] financial assistance. Initials: [facility]
--- NOTE | 2018-09-28 20:57 | CMSCP_ITS ---
Swingbed Plan of Care Plan of care: SWING BED PROGRAM ACTIVITIES/DISCHARGE PLAN OF CARE ACTIVITIES PLAN Date: 09/28/18 Identified Need: Life enrichment Intervention/Plan: Music, PT, OT, Activities Cart, Reiki, Therapy Dogs, Plants, etc. Initials: [facility] DISCHARGE PLAN Date: 09/28/18 Identified Need: Further assessment, possible placement, payer source attainment. Intervention/Plan: Family planning, DPOA assignment, APS report completed, possible guardianship, completion of applications for LTC Medicaid and [facility] financial assistance. Initials: [facility]
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
[2018-09-28] MEDS: QUEtiapine 25 MG TAB PO (21:39)
[2018-09-28] MEDS: Sertraline 50 MG TAB 100 MG PO (21:40)
[2018-09-28 23:30] VITALS: BP 162/85; PULSE 82; RESP 18; TEMP 36.6; O2SAT 96
--- NOTE | 2018-09-29 00:34 | NUR.NOTE ---
Nursing Note: Pt received alert and oriented x 2, except time. at bedside all night. Medicated with tylenol for back pain rated 7. HS meds given and well tolerated but after, pt became confused, suspicious that staff giving him with needles. Rest assured that, only vital signs will be done. Pt was very resistant. Assisted by two staff on bedside commode used. Remains weak and unsteady on gait. Continue to observe with bed alarm in progress.
[2018-09-29 08:07] VITALS: BP 116/72; PULSE 61; RESP 17; TEMP 36.2; O2SAT 96
[2018-09-29] MEDS: Psyllium PKT 1 EACH PO ×2 (10:31→14:02)
[2018-09-29] MEDS: Cholecalciferol (Vitamin D3) 1,000 UNIT TAB 1000 UNITS PO (10:31)
[2018-09-29] MEDS: Sertraline 50 MG TAB 100 MG PO ×2 (10:31→20:16)
[2018-09-29] MEDS: Loratidine 10 MG TAB PO (10:32)
[2018-09-29] MEDS: Fludrocortisone 0.1 MG TAB 0.2 MG PO (10:32)
[2018-09-29] MEDS: Cyanocobalamin 500 MCG TAB 1000 MCG PO (10:32)
[2018-09-29] MEDS: Omeprazole 20 MG CAPCR PO (10:33)
[2018-09-29] MEDS: Apixaban 5 MG TAB PO ×2 (10:33→20:15)
--- NOTE | 2018-09-29 10:40 | PDOC.CMPRO ---
Care Management Progress Note CM participated in family meeting with Palliative Care doctor, Dr. Vargas. Laureano completed [employer] form listing Duane as first agent and Maegan as second. Both were present as well as Ismael; identified long-term provider and family friend. CM processed COLST and DPOA paperwork and provided copies to the agents and placed a copy on the chart. CM coordinated and facilitated completion of [employer] for Medicaid coverage with [employer] of [employer] completed the application and reported anticipating a determination within a week. CM reviewed LTC Medicaid application with Duane and Maegan, reviewed document retrieval needed and copies for completion. CM provided resources for [facility], the family decided they would likely choose [facility] for CM services when appropriate. CM will continue to follow and support completion and processing of LTC Medicaid application.
--- NOTE | 2018-09-29 10:51 | W.SPEECHEVAL ---
Date of service: 09/29/18 Time of Service: 09:30 Speech Therapy Evaluation Note: REFERRING PROVIDER: Ladonna Nelson NP BACKGROUND This is an 82 year old right-handed male who presented to the ED from home on 09/26/18 with weakness, FTT, dementia and 's report that she can no longer take care of him at home. He had been seeing Dr. Son on an outpatient basis and she had recommended a speech evaluation due to dysarthria/hypophonia which, to date, had not been followed up on. Consequently, it was ordered during this hospital stay. PMH: multisystem atrophy with severe orthostatic hypotension, moderate hypophonia/dysarthria, moderate memory loss & gait imbalance; h/o ETOH abuse;depression; hearing loss; paroxysmal A-fib; heart block w/pace maker; BPH. The patient's is able to provide additional background information. She states that he began to have problems five years ago and that the diminished speech intelligibility began several months ago. Some days are worse than others with regard to intelligibility. Mornings, after he gets up, are often problematic. OBJECTIVE The patient (pt) is transferred from bed to chair by his & son with minimal assist. Once seated he almost immediately gets up and requires repeated requests to stay seated. He becomes stationary when a bedside table is placed in front of him, as I sit at the opposite side of the table. He makes delayed direct eye contact and offers a Hi in response to my verbal greeting. He shows adequate conversational turn-taking but many of his utterances are off-topic (e.g., when asked if he thinks people sometimes have a hard time understanding him, he begins talking about baseball). At times this unrelated speech continues until I interrupt him. His vocal intensity/volume is inconsistently low and very occasionally aphonic. Similarly, his production accuracy for consonants, and even vowels at times, is inconsistent. Some utterances are 100% intelligible and others are unintelligible. He shows no oral groping behaviors. Vocal quality, pitch & prosody are WNL. No vocal tremor is noted. He is A & O x 1 (person) and able to follow 1-step directions inconsistently. When responding to the orientation question for 'place', he says [facility]. When asked what type of place it is, he says [facility] place [facility] human care. versus 'hospital'. Later, when asked his [age], he says [age]. Oral Sensorimotor Exam The pt has his own dentition but is partially edentulous on the upper ridge bilaterally and has no partial denture. Oral hygiene is poor but he denies any dental discomfort. Oral sensation is unable to be assessed due to his difficulty with following directions. This limitation prevents assessment of other parts of this exam but the following is noted: no facial droop; smile is symmetrical; no lingual deviation on protrusion in a setting of good excursion; velopharyngeal elevation is strong & symmetrical; volitional cough & throat-clear are strong; automatic oral motor movement is WNL; estimated overall speech intelligibility to this unfamiliar listener in the absence of background noise is 75%. Respiratory support is perceptually adequate for spontaneous speech. Respiratory support for a 15-syllable sentence on imitation is WNL but mildly diminished for oral reading at paragraph level. It should be noted that vocal intensity for these tasks was WNL. Articulation tasks: - Repetitive speech (CVCVCV): 100% - Coarticulation ([id number]): unable to follow direction - Multisyllabic words: - 2-syllable: 100% - 3-syllable: 100% - 4-syllable: 75% - 5-syllable: 100% - 6-syllable: 50% - Vocal intensity for all tasks is WNL. The pt is trialed on use of vocal intensity exercises but he is unable to comprehend what to do. However, during spontaneous speech, he is generally responsive to cueing for both raising his vocal volume and for moving his oral musculature more. Both of these strategies increase his speech intelligibility. Unfortunately, his dementia prevents him from generalizing the use of these strategies beyond the moment of cueing. INTERPRETATION The pt shows inconsistent mild-moderate flaccid dysarthria as well as inconsistent mild-moderate hypophonia, both likely late effects of the multisystem atrophy. He is not a candidate for speech therapy as his significant dementia would cause him to not comprehend what/how to do it as well as not be able to generalize the target skills to spontaneous speech. In this setting, speech therapy would likely create frustration for him. Time is spent discussing today's results with the pt's , son, friend & CM. They are instructed in the use of cueing of the pt for increasing his vocal intensity/volume and his clarity of sound production short of creating frustration in him. After the discussion, they deny having any remaining questions. RECOMMENDATIONS 1. Use of cueing by listeners as instructed for improving intelligibility of specific utterances. 2. No speech therapy is indicated at this time. Thank you for referring this pt.
--- NOTE | 2018-09-29 10:58 | EVALE_ITS ---
Date of service: 09/29/18 Time of Service: 09:30 Speech Therapy Evaluation Note: REFERRING PROVIDER: Ladonna Nelson NP BACKGROUND This is an 82 year old right-handed male who presented to the ED from home on 09/26/18 with weakness, FTT, dementia and 's report that she can no longer take care of him at home. He had been seeing Dr. Son on an outpatient basis and she had recommended a speech evaluation due to dysarthria/hypophonia which, to date, had not been followed up on. Consequently, it was ordered during this hospital stay. PMH: multisystem atrophy with severe orthostatic hypotension, moderate hypophonia/dysarthria, moderate memory loss & gait imbalance; h/o ETOH abuse;depression; hearing loss; paroxysmal A-fib; heart block w/pace maker; BPH. The patient's is able to provide additional background information. She states that he began to have problems five years ago and that the diminished speech intelligibility began several months ago. Some days are worse than others with regard to intelligibility. Mornings, after he gets up, are often problematic. OBJECTIVE The patient (pt) is transferred from bed to chair by his & son with minimal assist. Once seated he almost immediately gets up and requires repeated requests to stay seated. He becomes stationary when a bedside table is placed in front of him, as I sit at the opposite side of the table. He makes delayed direct eye contact and offers a Hi in response to my verbal greeting. He shows adequate conversational turn-taking but many of his utterances are off- topic (e.g., when asked if he thinks people sometimes have a hard time understanding him, he begins talking about baseball). At times this unrelated speech continues until I interrupt him. His vocal intensity/volume is inconsistently low and very occasionally aphonic. Similarly, his production accuracy for consonants, and even vowels at times, is inconsistent. Some utterances are 100% intelligible and others are unintelligible. He shows no oral groping behaviors. Vocal quality, pitch & prosody are WNL. No vocal tremor is noted. He is A & O x 1 (person) and able to follow 1-step directions inconsistently. When responding to the orientation question for 'place', he says [facility]. When asked what type of place it is, he says A place of human care. versus 'hospital'. Later, when asked his age, he says [age]. Oral Sensorimotor Exam The pt has his own dentition but is partially edentulous on the upper ridge bilaterally and has no partial denture. Oral hygiene is poor but he denies any dental discomfort. Oral sensation is unable to be assessed due to his difficulty with following directions. This limitation prevents assessment of other parts of this exam but the following is noted: no facial droop; smile is symmetrical; no lingual deviation on protrusion in a setting of good excursion; velopharyngeal elevation is strong & symmetrical; volitional cough & throat- clear are strong; automatic oral motor movement is WNL; estimated overall speech intelligibility to this unfamiliar listener in the absence of background noise is 75%. Respiratory support is perceptually adequate for spontaneous speech. Respiratory support for a 15-syllable sentence on imitation is WNL but mildly diminished for oral reading at paragraph level. It should be noted that vocal intensity for these tasks was WNL. Articulation tasks: - Repetitive speech (CVCVCV): 100% - Coarticulation ([id number]): unable to follow direction - Multisyllabic words: - 2-syllable: 100% - 3-syllable: 100% - 4-syllable: 75% - 5-syllable: 100% - 6-syllable: 50% - Vocal intensity for all tasks is WNL. The pt is trialed on use of vocal intensity exercises but he is unable to comprehend what to do. However, during spontaneous speech, he is generally responsive to cueing for both raising his vocal volume and for moving his oral musculature more. Both of these strategies increase his speech intelligibility. Unfortunately, his dementia prevents him from generalizing the use of these strategies beyond the moment of cueing. INTERPRETATION The pt shows inconsistent mild-moderate flaccid dysarthria as well as inconsistent mild-moderate hypophonia, both likely late effects of the multisystem atrophy. He is not a candidate for speech therapy as his significant dementia would cause him to not comprehend what/how to do it as well as not be able to generalize the target skills to spontaneous speech. In this setting, speech therapy would likely create frustration for him. Time is spent discussing today's results with the pt's , son, friend & CM. They are instructed in the use of cueing of the pt for increasing his vocal intensity/volume and his clarity of sound production short of creating frustration in him. After the discussion, they deny having any remaining qu estions. RECOMMENDATIONS 1. Use of cueing by listeners as instructed for improving intelligibility of specific utterances. 2. No speech therapy is indicated at this time. Thank you for referring this pt.
--- NOTE | 2018-09-29 11:22 | W.PALLCONSUL ---
Date of service: 09/29/18 Time of Service: 10:22 History of Present Illness Narrative: Ayden is an 82-year-old man who is very sick with hematuria, Parkinson's, history of toxic metabolic encephalopathy, cognitive impairment, pacemaker in place, atrial fibrillation, multisystem atrophy with orthostatic hypotension, cardiomyopathy. His medications are documented in the EMR I was asked to come to speak with Ayden, his Maegan, his son Duane and moshe who is Duane's friend. Specifically I was asked to address the issues of CODE STATUS, D POA, and living situation following hospitalization. We were all gathered and comfortable. Ayden is known to have some cognitive impairment. He still was very clear this morning and was able to clearly state his preferences and opinion Assessment and Plan (1) Counseling regarding end of life decision making: Current visit: Yes Status: Acute We spoke for a long time about preferences and what Ayden would like Regarding his D POA: He would like his son Duane to be first, and his Maegan to be second. Duane and Maegan both agree that they will consult each other for decision-making, and the decision would be made together although Duane is listed first. Regarding CODE STATUS: We talked about what CPR was the risks and the benefits the chances of it actually resulting in time living through a CPR and having a quality of life, we talked about his multiple diseases. Time weighing in on the choices that Duane was talking about decided he wanted us to try CPR. Initially he was not in favor of this and just wanted to be kept comfortable and for us to hold his hand and allow natural . Duane was quite insistent that it might work and that even though it was similar to the chances of winning the lottery to have to go through his CPR and come out with any quality of life that it was worth the attempt Ayden was not much in favor of being intubated for something like pneumonia, he really was not much in favor of a feeding tube although he did not want to put that in writing He does want antibiotics if he can return to his baseline. Regarding living situation after hospitalization: Maegan, His , states that she can no longer take care of him. His sons friend, Felipe, does take care of people in his home. It was decided that time would live with her again as his caregiver. Maegan was upset but understanding of the decision. She does not want to be excluded from decision-making. She does not want it to be in the notes that he was not safe at home or that she did not do a good job. I explained to her that caregiving was the hardest job in the world. She had done a great job but now it takes more than just one person to care for her . All forms were signed, originals given to family, CO LOS T and D POA will be filed electronically in our EMR This document was created by [employer] and may contain grammatical and translation errors. I have spent more than 50% of time in counseling with this patient. 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 No smoking, ETOH, illicit drug use. Exam Narrative Exam Narrative: Ayden was very clear in his preferences for his D POA, listened intently to options on the CO LST form and listened carefully to what his family was saying as well as what his preferences were Results Last Vital Signs Temp 97.2 F L 09/29/18 08:07 Pulse 61 09/29/18 08:07 Resp 17 09/29/18 08:07 BP 116/72 09/29/18 08:07 Pulse Ox 96 09/29/18 08:07
--- NOTE | 2018-09-29 11:25 | PCNE_ITS ---
Date of service: 09/29/18 Time of Service: 10:22 History of Present Illness Narrative: Ayden is an 82-year-old man who is very sick with hematuria, Parkinson's, history of toxic metabolic encephalopathy, cognitive impairment, pacemaker in place, atrial fibrillation, multisystem atrophy with orthostatic hypotension, cardiomyopathy. His medications are documented in the EMR I was asked to come to speak with Ayden, his Maegan, his son Duane and moshe who is Duane's friend. Specifically I was asked to address the issues of CODE STATUS, D POA, and living situation following hospitalization. We were all gathered and comfortable. Ayden is known to have some cognitive impairment. He still was very clear this morning and was able to clearly state his preferences and opinion Assessment and Plan (1) Counseling regarding end of life decision making: Current visit: Yes Status: Acute We spoke for a long time about preferences and what Ayden would like Regarding his D POA: He would like his son Duane to be first, and his Maegan to be second. Duane and Maegan both agree that they will consult each other for decision-alisson ing, and the decision would be made together although Duane is listed first. Regarding CODE STATUS: We talked about what CPR was the risks and the benefits the chances of it actually resulting in time living through a CPR and having a quality of life, we talked about his multiple diseases. Time weighing in on the choices that Duane was talking about decided he wanted us to try CPR. Initially he was not in favor of this and just wanted to be kept comfortable and for us to hold his hand and allow natural . Duane was quite insistent that it might work and that even though it was similar to the chances of winning the lottery to have to go through his CPR and come out with any quality of life that it was worth the attempt Ayden was not much in favor of being intubated for something like pneumonia, he really was not much in favor of a feeding tube although he did not want to put that in writing He does want antibiotics if he can return to his baseline. Regarding living situation after hospitalization: Maegan, His , states that she can no longer take care of him. His sons friend, Felipe, does take care of people in his home. It was decided that time would live with her again as his caregiver. Maegan was upset but understanding of the decision. She does not want to be excluded from decision-making. She does not want it to be in the notes that he was not safe at home or that she did not do a good job. I explained to her that caregiving was the hardest job in the world. She had done a great job but now it takes more than just one person to care for her . All forms were signed, originals given to family, CO LOS T and D POA will be filed electronically in our EMR This document was created by [employer] and may contain grammatical and translation errors. I have spent more than 50% of time in counseling with this patient. 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 No smoking, ETOH, illicit drug use. Exam Narrative Exam Narrative: Ayden was very clear in his preferences for his D POA, listened intently to options on the CO LST form and listened carefully to what his family was saying as well as what his preferences were Results Last Vital Signs Temp 97.2 F L 09/29/18 08:07 Pulse 61 09/29/18 08:07 Resp 17 09/29/18 08:07 BP 116/72 09/29/18 08:07 Pulse Ox 96 09/29/18 08:07
--- NOTE | 2018-09-29 11:33 | OT.INIE ---
Occupational Therapy Notes Inpatient SWING BED Occupational Therapy Evaluation Date: 09/29/18 Referring Doctor:Catina To MD OT Orders: Eval and Treat Precautions: Fall, Standard PATIENT PROFILE/ADMITTING DIAGNOSIS: Pt is an 82 year old male who was admitted through the ER on 09/26/2018 with chief symptoms of confusion, dysuria, hematuria, and generalized weakness. Patient was diagnosed with hematuria, depression, paroxysmal atrial fibrillation with referral for palliative care. Pt has transitioned to Swing bed rehabilitation and was seen for consult today. 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 His (A) pt with bathing, feeding and toileting. Pt is a poor historian and unable to report details of his home. OT was able to speak with pts and son who were present. Pts reports that over the past couple months that the pt has significantly declined. She states that she has had to help him with his ADLS/IADLS which have been difficult. Pts son notes that the house is unsanitary per pts EMR. Equipment owned/DME: Grab bars SUBJECTIVE: Pt was sitting in chair when OT arrived. He was pleasant and agreeable to performing teeth brushing in bathroom, see below for details. OBJECTIVE: General Observation: Pleasant, poor historian Mental Status: Alert to self and time Pain: no c/o pain ROM: RUE AROM WNL L UE AROM WNL STRENGTH: RUE 3-/5 throughout with weak interactive web developer symmetrically LUE 3-/5 throughout with weak interactive web developer symmetrically FUNCTIONAL MOBILITY/ADLS: Based on pts functional (I) in acute status from initial evaluation on 09/27/18. Transfers FWW, mod (A) Supine-sit mod (A) Sit-Stand mod (A) x2 Stand-sit mod (A) x2 Bed-Chair CGA HHAx2 Chair-bed CGa, HHAx2 BATHING Standing at sink Bathing UE Min (A) Bathing LE NT pt denies DRESSING Sitting on side of bed Dressing UE Max (A) placement of shirt on pts lap for appropriate put on directions, (I) putting over head Dressing LE Mod (A) don and doffing pants, max (A) don and doffing (B) socks. GROOMING Standing at sink with FWW min vc for teeth brushing which was able to perform with min vc for body mechanics and overall functional use of (B) arms. (Performed at todays session) TOILETING on toilet, min (A) EATING Min (A) with opening containers BALANCE: Static sitting Good Dynamic Sitting Fair Static Standing Poor Dynamic Standing Poor SPECIAL TESTS: Daily Activity Limitations Standardized Measure [facility] AM PAC ?6 clicks? Daily Activity Inpatient Short Form: Raw score: 16 CMS score: 53.32% INFORMED CONSENT/EDUCATION: Pt instructed in purpose of OT Consult and plan of care. ASSESSMENT: Patient is a 82-year-old male referred to occupational therapy services with diagnosis of acute UTI, hx parkinsons,dementia, dysuria, hematuria, increased confusion, generalized weakness he was transitioned to Swing bed rehabilitation status. Patient presents with clinical signs and symptoms consistent with dx, as demonstrated by the following impairment level findings: decreased (B) UE strength, decreased functional activity tolerance, hx of dementia, decreased functional mobility, requires mod vc throughout and step by step instructions, small doorways or openings pt performs stutter step limiting his functional mobility. Impairments are contributing to the following functional limitations: Decreased functional mobility, mod vc throughout for performance of ADLs/IADLs, decreased cognitive affecting ability to perform ADLs in a safe manner. AMPAC score 16, CMS score 53.32% Patient is assessed as a high [id number] complexity based on the following: History: See Above Examination: See Above Presentation: Evolving Decision Making: AMPAC score 16, CMS score 53.32% GOALS Goals x1 week 1. Transfers FWW, SBA 2. Dressing- Seated with min (A) LE dressing, (I) UE dressing 3. Bathing- Seated with min (A) LE, (I) UE 4. Toileting- Toilet (I) 5. Eating- Seated (I) 6. Grooming- Standing at sink with FWW (I) with teeth and hair. PLAN OF CARE/TREATMENT PLAN: 1x/day, 5 days/ week x 1week Initiate Occupational Therapy Services for bathing, dressing, grooming, toileting, eating, transfer training. DISCHARGE RECOMMENDATIONS OT recommends that pt go SNF vs. Home care (A) with family friend. In order for pt to be successful in terms of transitioning in to Home care with a family friend pt would benefit from HH OT referral, shower seat or bench to increase pts safety in his bathing routine, grab bars in shower/around toilet, raised toilet seat to increase pts safety with toileting routine and transfer from toilet. Pt would benefit from an area that has minimal closed in doorways as pts Parkinsons will limit his functional mobility to perform ADLs. He will require (A) with his overall ADL performance which has been his baseline level of function and likely require 24 hour care to (A) pt throughout his day to day routines. TREATMENT TIME/MINUTES/CODES [id number], 15 minutes (10:50) [facility]
--- NOTE | 2018-09-29 11:40 | PT.INIE ---
Date of service: 09/29/18 Time of Service: 11:06 PT Notes Inpatient Physical Therapy Evaluation Date: 09/29/2018 Referring Doctor: Catina To MD PT Orders: PT CONSULT: Eval/treat Precautions: Fall. Standard. Impaired safety awareness. Activity as tolerated. Patient Profile/Admitting Diagnosis: Patient is an 82-year-old male with past medical history significant for Parkinson's disease who presented to the ED on 09/26/2018 with chief symptoms of confusion, dysuria, hematuria, and generalized weakness. Patient was diagnosed with toxic metabolic encephalopathy, multiple system atrophy, hematuria, depression, paroxysmal atrial fibrillation with referral for palliative care. Skilled physical therapy services will be continued under swing bed status as of today. 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 Per report of on today during care conference, patient was able to tolerate in-house ambulation with very minimal help from her without use of any assistive ambulatory device Current Functional Limitations: Need for physical assistance, assistive device, and maximum verbal cueing for all transfer and ambulation tasks. Equipment Owned/DME: Unable to extract information from patient due to impaired cognitive level Subjective: Patient continues to require single step commands with maximal verbal, tactile, visual cueing. Objective: General Observation: Patient seen resting on his chair. TEDS on bilateral legs. IV access to right UE still open. Intentional tremors continue to be aggravated by movement. Mental Status: Alert and oriented as to person only. Pain: No verbal and nonverbal expression of bodily pain throughout PT evaluation. ROM: Right Upper Extremity: Shoulder Flexion 0 to 120 degrees. Shoulder abduction 0 to 110 degrees. Elbow flexion WFL. Wrist flexion WFL. Functional opening and closing of hand WFL. Left Upper Extremity: Shoulder Flexion 0 to 120 degrees. Shoulder abduction 0 to 110 degrees. Elbow flexion WFL. Wrist flexion WFL. Functional opening and closing of hand WFL. Right Lower Extremity: Hip flexion WFL. Hip abduction WFL. Knee flexion WFL. Ankle dorsiflexion WFL. Ankle plantarflexion WFL. Left Lower Extremity: Hip flexion WFL. Hip abduction WFL. Knee flexion WFL. Ankle dorsiflexion WFL. Ankle plantarflexion WFL. Strength: Right Upper Extremity: Shoulder flexors 3-/5. Shoulder abductors 3-/5. Elbow flexors 4/5. Elbow extensors 4/5. Circuit Court Magistrate strong. Left Upper Extremity: Shoulder flexors 3-/5. Shoulder abductors 3-/5. Elbow flexors 4/5. Elbow extensors 4/5. Circuit Court Magistrate strong. Right Lower Extremity: Hip flexors 4-/5. Hip abductors 4-/5. Knee flexors 4/5. Knee extensors 4-/5. Ankle dorsiflexors 4-/5. Ankle plantarflexors 4-5. Left Lower Extremity:Hip flexors 4-/5. Hip abductors 4-/5. Knee flexors 4/5. Knee extensors 4-/5. Ankle dorsiflexors 4-/5. Ankle plantarflexors 4-5. Bed Mobility/Transfers: Rolling minimal assist Supine to sit minimal assist of 2 for safety Sit to supine minimal assist of 2 for safety Sit to stand minimal assist of 2 for safety Stand to sit minimal assist of 2 for safety Bed to chair moderate assist of 2 for safety Chair to bed moderate assist of 2 for safety Gait: Patient was only able to ambulate to and from the bathroom 18-[address] but requiring moderate to maximal verbal visual and tactile cueing safety. Patient had 2 freezing episodes precipitated by directional changes and room architecture. Shuffling gait observed, delayed reaction time, impaired vertical orientation, and and impaired initiation/execution of movement continue to be observed. Balance: Static Sitting: Fair Dynamic Sitting: Fair Static Standing: Poor Dynamic Standing: Poor Special Tests: Mobility Limitations Standardized Measure [facility] AM-PAC 6 clicks Basic Mobility Inpatient Short Form: Raw Score: 10 CMS Score: 77% deficit Informed Consent/Education: Maegan is agreeable to PT referral for patient to determine appropriateness of therapy intervention while in this facility. Assessment: Patient is an 82-year-old male with diagnosis of toxic metabolic encephalopathy, multiple system atrophy, Parkinson's disease and hematuria. Patient presents with clinical signs and symptoms consistent with current/admitting diagnoses that have resulted to mobility limitations, gait instability, generalized weakness, and impairment of motor control as demonstrated by the following impairment level findings: 1. Decreased strength to B LE major muscle groups 2. Impaired sitting/standing balance 3. Impaired activity tolerance 4. Impaired safety awareness Impairments are contributing to the following functional limitations: 1. Dependent bed mobility skills 2. Increased dependence with transfers 3. Inability to safely ambulate without assistive device and physical assistance 4. Increase completion time for mobility ADL performance 5. Increased fall risk 6. Inability to negotiate steps alone safely Patient is assessed as a 75092 moderate complexity based on the following: History: Cognitively impaired patient with Parkinson's disease, toxic metabolic encephalopathy and multi-system with being unable to provide care for her at this time Examination: Underlying impairments and functional limitations as noted above Presentation:Evolving Decision Makin moderate complexity Goals: Goals X1 week 1. Supine-Sit supervision 2. Sit-Supine supervision 3. Sit-Stand supervision 4. Stand-Sit supervision 5. Bed-Chair supervision 6. Chair-Bed supervision 7. Independent gait on level surface with use of least restrictive device for at least 50 feet without report of pain nor dyspnea 8. Independent with home exercise program 19. Good static and dynamic standing balance/tolerance Plan of Care/Treatment Plan: 1-2x/day, 7 days/week x 1 week. Plan of care has been reviewed with the CAST SHELL GRINDER providing the service under Physical Therapy direction. Initiate Physical Therapy intervention for strengthening, bed mobility, transfers, gait, stairs, balance training, use of assistive device. DISCHARGE RECOMMENDATIONS: Patient will benefit from care home facility placement in order to progress mobility level, strength, and balance in preparation for a safe discharge to a private home with a caregiver. Patient will also benefit from home health PT services in order to progress mobility level using least restrictive assistive ambulatory device/using no device, assess home safety, identify additional equipment needs, performed caregiver education/training who can provide a consistent structure/routine for patient, and establish a functional maintenance program that will increase ability of patient to remain at home. TREATMENT CODE/TIME: 64887 for 29 minutes beginning at 9:05 AM. Thank you very much for this referral. Valorie Hunter PT, DPT, CLT [facility]
--- NOTE | 2018-09-29 11:43 | OTIE_ITS ---
Occupational Therapy Notes Inpatient SWING BED Occupational Therapy Evaluation Date: 09/29/18 Referring Doctor:Catina To MD OT Orders: Eval and Treat Precautions: Fall, Standard PATIENT PROFILE/ADMITTING DIAGNOSIS: Pt is an 82 year old male who was admitted through the ER on 09/26/2018 with chief symptoms of confusion, dysuria, hematuria, and generalized weakness. Patient was diagnosed with hematuria, depression, paroxysmal atrial fibrillation with referral for palliative care. Pt has transitioned to Swing bed rehabilitation and was seen for consult today. 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 His (A) pt with bathing, feeding and toileting. Pt is a poor historian and unable to report details of his home. OT was able to speak with pts and son who were present. Pts reports that over the past couple months that the pt has significantly declined. She states that she has had to help him with his ADLS/IADLS which have been difficult. Pts son notes that the house is unsanitary per pts EMR. Equipment owned/DME: Grab bars SUBJECTIVE: Pt was sitting in chair when OT arrived. He was pleasant and agreeable to performing teeth brushing in bathroom, see below for details. OBJECTIVE: General Observation: Pleasant, poor historian Mental Status: Alert to self and time Pain: no c/o pain ROM: RUE AROM WNL L UE AROM WNL STRENGTH: RUE 3-/5 throughout with weak underground repairer symmetrically LUE 3-/5 throughout with weak underground repairer symmetrically FUNCTIONAL MOBILITY/ADLS: Based on pts functional (I) in acute status from in tia evaluation on 09/27/18. Transfers FWW, mod (A) Supine-sit mod (A) Sit-Stand mod (A) x2 Stand-sit mod (A) x2 Bed-Chair CGA HHAx2 Chair-bed CGa, HHAx2 BATHING Standing at sink Bathing UE Min (A) Bathing LE NT pt denies DRESSING Sitting on side of bed Dressing UE Max (A) placement of shirt on pts lap for appropriate put on directions, (I) putting over head Dressing LE Mod (A) don and doffing pants, max (A) don and doffing (B) socks. GROOMING Standing at sink with FWW min vc for teeth brushing which was able to perform with min vc for body mechanics and overall functional use of (B) arms. (Performed at todays session) TOILETING on toilet, min (A) EATING Min (A) with opening containers BALANCE: Static sitting Good Dynamic Sitting Fair Static Standing Poor Dynamic Standing Poor SPECIAL TESTS: Daily Activity Limitations Standardized Measure [facility] AM -PAC ?6 clicks? Daily Activity Inpatient Short Form: Raw score: 16 CMS score: 53.32% INFORMED CONSENT/EDUCATION: Pt instructed in purpose of OT Consult and plan of care. ASSESSMENT: Patient is a 82-year-old male referred to occupational therapy services with diagnosis of acute UTI, hx parkinsons,dementia, dysuria, hematuria, increased confusion, generalized weakness he was transitioned to Swing bed rehabilitation status. Patient presents with clinical signs and symptoms consistent with dx, as demonstrated by the following impairment level findings: decreased (B) UE strength, decreased functional activity tolerance, hx of dementia, decreased functional mobility, requires mod vc throughout and step by step instructions, small doorways or openings pt performs stutter step limiting his functional mobility. Impairments are contributing to the following functional limitations: Decreased functional mobility, mod vc throughout for performance of ADLs/IADLs, decreased cognitive affecting ability to perform ADLs in a safe manner. AMPAC score 16, CMS score 53.32% Patient is assessed as a high 48056 complexity based on the following: History: See Above Examination: See Above Presentation: Evolving Decision Making: AMPAC score 16, CMS score 53.32% GOALS Goals x1 week 1. Transfers FWW, SBA 2. Dressing- Seated with min (A) LE dressing, (I) UE dressing 3. Bathing- Seated with min (A) LE, (I) UE 4. Toileting- Toilet (I) 5. Eating- Seated (I) 6. Grooming- Standing at sink with FWW (I) with teeth and hair. PLAN OF CARE/TREATMENT PLAN: 1x/day, 5 days/ week x 1week Initiate Occupational Therapy Services for bathing, dressing, grooming, toileting, eating, transfer training. DISCHARGE RECOMMENDATIONS OT recommends that pt go SNF vs. Home care (A) with family friend. In order for pt to be successful in terms of transitioning in to Home care with a family friend pt would benefit from HH OT referral, shower seat or bench to increase pts safety in his bathing routine, grab bars in shower/around toilet, raised toilet seat to increase pts safety with toileting routine and transfer from toilet. Pt would benefit from an area that has minimal closed in doorways as pts Parkinsons will limit his functional mobility to perform ADLs. He will require (A) with his overall ADL performance which has been his baseline level of function and likely require 24 hour care to (A) pt throughout his day to day routines. TREATMENT TIME/MINUTES/CODES 13651, 15 minutes (10:50) SILVIA Redman/[facility]
--- NOTE | 2018-09-29 11:52 | CMPROGNOTE_ITS ---
Care Management Progress Note CM participated in family meeting with Palliative Care doctor, Dr. Vargas. Laureano completed COLST form listing Duane as first agent and Maegan as second. Both were present as well as Ismael; identified mcc provider and family friend. CM processed COLST and DPOA paperwork and provided copies to the agents and placed a copy on the chart. CM coordinated and facilitated completion of [employer] for Medicaid coverage with [employer] of [employer] completed the application and reported anticipating a determination within a week. CM reviewed LTC Medicaid application with Duane and Maegan, reviewed document retrieval needed and copies for completion. CM provided resources for C[facility], the family decided they would likely choose [facility] for CM services when appropriate. CM will continue to follow and support completion and processing of LTC Medicaid application.
[2018-09-29] MEDS: LORazepam 0.5 MG TAB PO (14:01)
[2018-09-29] MEDS: Acetaminophen 325 MG TAB PO (14:01)
[2018-09-29] MEDS: Haloperidol 5 MG/ML VIAL 2 MG IM (14:25)
--- NOTE | 2018-09-29 15:46 | PT.INNT ---
Date of service: 09/29/18 Time of Service: 15:46 PT Notes 09/29/18 Hold afternoon PT session, per nsg, as patient is agitated this afternoon. Will attempt to resume PT services tomorrow morning.
[2018-09-29 17:05] VITALS: BP 91/61; PULSE 69; RESP 17; TEMP 36.5; O2SAT 98
--- NOTE | 2018-09-29 18:16 | NUR.NOTE ---
1400-Pt become increasingly agitated and aggressive this afternoon. Jumping out of bed, throwing things, spitting, and squeezing. Medicated with Subq Haldol with some positive results. Pt's strength much weaker this afternoon, able to stand but knees were buckling more often. Brought pt out to nurses station and settled down a bit while waiting for CPSO.
[2018-09-29] MEDS: QUEtiapine 25 MG TAB PO (20:15)
[2018-09-30 01:09] VITALS: BP 142/81; PULSE 67; RESP 13; TEMP 36.5; O2SAT 99
[2018-09-30] MEDS: Sertraline 50 MG TAB 100 MG PO ×2 (08:49→21:31)
[2018-09-30] MEDS: Apixaban 5 MG TAB PO ×2 (08:49→20:14)
[2018-09-30] MEDS: Fludrocortisone 0.1 MG TAB 0.2 MG PO (08:49)
[2018-09-30] MEDS: Cholecalciferol (Vitamin D3) 1,000 UNIT TAB 1000 UNITS PO (08:49)
[2018-09-30] MEDS: Cyanocobalamin 500 MCG TAB 1000 MCG PO (08:49)
[2018-09-30] MEDS: Psyllium PKT 1 EACH PO ×3 (08:49→20:14)
[2018-09-30] MEDS: Loratidine 10 MG TAB PO (08:50)
[2018-09-30] MEDS: Omeprazole 20 MG CAPCR PO (08:50)
[2018-09-30 09:05] VITALS: BP 107/66; PULSE 74; RESP 16; TEMP 36.4; O2SAT 93
--- NOTE | 2018-09-30 09:50 | OT.INNT ---
Date of service: 09/30/18 Time of Service: 09:50 Occupational Therapy Notes 09/30/18 OT went to see pt who was lying in bed when OT arrived. Pt notes that he does not want to participate in OT services as he is very busy today. He also states that he is not sure he is going to make it out alive. OT will attempt to see pt later on. Lucía Rogel OTR/[facility]
[2018-09-30] MEDS: QUEtiapine 25 MG TAB 12.5 MG PO (11:29)
--- NOTE | 2018-09-30 11:48 | PT.INNT ---
Date of service: 09/30/18 Time of Service: 11:48 PT Notes 09/30/18 Patient refused morning PT session. Will attempt to resume PT services this afternoon.
[2018-09-30 19:36] VITALS: BP 110/68; PULSE 72; RESP 16; TEMP 36.6; O2SAT 94
[2018-09-30] MEDS: QUEtiapine 25 MG TAB PO (21:31)
[2018-09-30 23:33] VITALS: BP 160/95; PULSE 70; RESP 19; TEMP 36.6; O2SAT 96
[2018-10-01 08:34] VITALS: BP 170/84; PULSE 61; RESP 20; TEMP 36.1; O2SAT 98
[2018-10-01] MEDS: Cyanocobalamin 500 MCG TAB 1000 MCG PO (09:20)
[2018-10-01] MEDS: Omeprazole 20 MG CAPCR PO (09:20)
[2018-10-01] MEDS: Psyllium PKT 1 EACH PO ×3 (09:20→20:07)
[2018-10-01] MEDS: Apixaban 5 MG TAB PO ×2 (09:20→20:06)
[2018-10-01] MEDS: Sertraline 50 MG TAB 100 MG PO ×2 (09:20→21:11)
[2018-10-01] MEDS: QUEtiapine 25 MG TAB 12.5 MG PO (09:20)
[2018-10-01] MEDS: Loratidine 10 MG TAB PO (09:21)
[2018-10-01] MEDS: Cholecalciferol (Vitamin D3) 1,000 UNIT TAB 1000 UNITS PO (09:21)
[2018-10-01 10:00] VITALS: BP 138/61; PULSE 43; RESP 18; TEMP 35.8; O2SAT 97
--- NOTE | 2018-10-01 10:49 | OT.INNT ---
Date of service: 10/01/18 Time of Service: 10:40 Occupational Therapy Notes 10/01/18 OT went to see pt, pt states that he does not want to get up. He notes I just want to lay in my bed and peacefully. When asked if he would like to brush his teeth he said he would like to OT to come back later but he cannot say that he will be willing to participate. Lucía Rogel, OTR/L [facility]
--- NOTE | 2018-10-01 10:53 | NUR.NOTE ---
Nursing Note:10:00 Pt assisted to floor by ALFREDO Gonzales after bilateral leg weakness going from chair to bed. Pt alert and states no pain, no injuries noted, Pretty FLORES RN notified Dr. To and Ladonna ORDER ANALYST notified.
--- NOTE | 2018-10-01 11:25 | PT.INNT ---
Date of service: 10/01/18 Time of Service: 11:25 PT Notes 10/01/18 Patient refused morning PT session, stating I just want to lay here and peacefully. Patient states I don't think I'm going to feel differently about it this afternoon, but you can try. Will attempt to resume PT services this afternoon.
[2018-10-01 15:54] VITALS: BP 164/83; PULSE 60; RESP 15; TEMP 37.4; O2SAT 98
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
--- NOTE | 2018-10-01 17:25 | PDOC.CMPRO ---
- If Service Date Differs Date of service: 10/01/18 Time of Service: 17:32 Care Management Progress Note S/O: CM met with Duane and Maegan and completed the LTM application complete and faxed to [facility]. Laureano remains in SB1 status he did have a fall today in the room. Which has been described as lowered to the floor. He does not appear to have injury related to the fall. He continues to have PT and will need a short term rehab prior to transitioning to a AFC home. Jazmin hudson from [facility] did meet with family today and assisting with adult family shelter when he is ready. Maegan has some of the paperwork including the deed to the house with the application. She will go to the bank today and obtain the statements. P: Anticipate Laureano will be [facility] once his Medicaid is active and care home medicaid is pending.
--- NOTE | 2018-10-01 17:42 | CMPROGNOTE_ITS ---
- If Service Date Differs Date of service: 10/01/18 Time of Service: 17:32 Care Management Progress Note S/O: CM met with Duane and Maegan and completed the LTM application complete and faxed to [facility]. Laureano remains in SB1 status he did have a fall today in the room. Which has been described as lowered to the floor. He does not appear to have injury related to the fall. He continues to have PT and will need a short term rehab prior to transitioning to a AFC home. Jazmin hudson from [facility] did meet with family today and assisting with adult family detention when he is ready. Maegan has some of the paperwork including the deed to the house with the application. She will go to the bank today and obtain the statements. P: Anticipate Laureano will be [facility] to [facility] once his Medicaid is active and senior living medicaid is pending.
--- NOTE | 2018-10-01 18:29 | W.PM.PROGNOT ---
Date of Service Date of service: 10/01/18 Time of Service: 18:29 Subjective Interval history since last seen: Nursing reports that Mr. Baugh was lowered to the floor today. He did not strike his head. He had no obvious injury. His vital signs have remained stable. Nursing reports his mood has been pleasant. Nursing to continue to monitor. Exam Narrative Exam Narrative: Lying in bed with HOB elevated. Oriented to self only. Smiling. Does not appear to be in any acute distress. Respirations even and unlabored. No obvious injury from fall. Objective Objective Clinical Data: Vital Signs Temperature 37.4 C 10/01/18 15:54 Temperature Source Tympanic 10/01/18 15:54 Pulse 60 10/01/18 15:54 Pulse Rhythm Regular 10/01/18 09:46 Respiratory Rate 15 10/01/18 15:54 Respiratory Effort Non-Labored 10/01/18 09:46 Respiratory Depth Normal 10/01/18 09:46 Respiratory Pattern Normal 10/01/18 09:46 Blood Pressure 164/83 H 10/01/18 15:54 Pulse Oximetry 98 10/01/18 15:54 Oxygen Delivery Method Room Air 10/01/18 15:54 Oxygen Flow Rate 0 10/01/18 15:54 Pain Level 0 09/30/18 23:33 Comment 09/30/18 01:09 Intake & Output 09/30/18 10/01/18 10/01/18 23:59 11:59 23:59 Output Total 300 / 750 500 / 500 Balance -300 / -510 -500 / -500 Output: Urine 300 / 750 500 / 500 Other: Urine Color Pale Pale Yellow Yellow Urine Appearance Clear Clear Urine Odor None None Voiding Methods Bedside Commode Bedside Commode
--- NOTE | 2018-10-01 20:39 | PT.INTREAT ---
Date of service: 10/01/18 Time of Service: 20:39 PT Notes Inpatient Physical Therapy Treatment Note [facility] Date: 10/01/18 PRECAUTIONS: Fall, impaired safety awareness SUBJECTIVE: Laureano is agreeable to participating in PT if his is present. OBJECTIVE: PAIN: No c/o pain BED MOBILITY/TRANSFERS Supine-sit: SBA Sit-supine: SBA Sit-stand: CGA Stand-sit: CGA GAIT Assistive Device: FWW Weight bearing: Full Assist: CGA x2 Distance: 20' x2 Deviation: Instance of sitting during gait training requiring Max A x2 to remain off floor until he was able to be assisted to chair for a seated rest. ASSESSMENT: Patient demonstrates poor safety awareness and an inability to follow instructions at times. Patient would benefit from continued strengthening and gait training to prevent instances of sudden sitting. PLAN: Continue with PT's POC TREATMENT CODE/TIME: 15 minutes; [id number]
[2018-10-01] MEDS: QUEtiapine 25 MG TAB PO (21:12)
[2018-10-01 23:14] VITALS: BP 189/86; PULSE 67; RESP 16; TEMP 37; O2SAT 97
[2018-10-02 07:25] VITALS: BP 139/84; PULSE 62; RESP 16; TEMP 36.6; O2SAT 97
[2018-10-02] MEDS: Fludrocortisone 0.1 MG TAB 0.2 MG PO (08:37)
[2018-10-02] MEDS: Cholecalciferol (Vitamin D3) 1,000 UNIT TAB 1000 UNITS PO (08:37)
[2018-10-02] MEDS: Omeprazole 20 MG CAPCR PO (08:37)
[2018-10-02] MEDS: Sertraline 50 MG TAB 100 MG PO ×2 (08:37→22:01)
[2018-10-02] MEDS: Psyllium PKT 1 EACH PO ×3 (08:37→20:32)
[2018-10-02] MEDS: Loratidine 10 MG TAB PO (08:37)
[2018-10-02] MEDS: QUEtiapine 25 MG TAB 12.5 MG PO (08:38)
[2018-10-02] MEDS: Apixaban 5 MG TAB PO ×2 (08:38→20:32)
[2018-10-02] MEDS: Cyanocobalamin 500 MCG TAB 1000 MCG PO (08:38)
--- NOTE | 2018-10-02 11:24 | PT.INNT ---
Date of service: 10/02/18 Time of Service: 11:24 PT Notes 10/02/18 Patient refused PT. Will attempt to resume PT services tomorrow morning.
[2018-10-02 15:44] VITALS: BP 167/77; PULSE 62; RESP 18; TEMP 36.6; O2SAT 99
--- NOTE | 2018-10-02 15:59 | NUR.NOTE ---
Nursing Note: Patient has no changes in previous nursing assessment , he is still experiencing periods of confusion, but was better able to follow direction this afternoon
[2018-10-02] MEDS: QUEtiapine 25 MG TAB PO (22:01)
[2018-10-03 04:30] VITALS: BP 159/89; PULSE 60; RESP 12; TEMP 36.6; O2SAT 98
[2018-10-03] MEDS: Psyllium PKT 1 EACH PO ×3 (09:27→20:40)
[2018-10-03] MEDS: Sertraline 50 MG TAB 100 MG PO ×2 (09:27→23:06)
[2018-10-03] MEDS: Omeprazole 20 MG CAPCR PO (09:27)
[2018-10-03] MEDS: Apixaban 5 MG TAB PO ×2 (09:27→20:40)
[2018-10-03] MEDS: Fludrocortisone 0.1 MG TAB 0.2 MG PO (09:27)
[2018-10-03] MEDS: Cholecalciferol (Vitamin D3) 1,000 UNIT TAB 1000 UNITS PO (09:27)
[2018-10-03] MEDS: Loratidine 10 MG TAB PO (09:27)
[2018-10-03] MEDS: Cyanocobalamin 500 MCG TAB 1000 MCG PO (09:28)
[2018-10-03] MEDS: QUEtiapine 25 MG TAB 12.5 MG PO (09:28)
[2018-10-03 09:45] VITALS: BP 112/68; PULSE 60; RESP 19; TEMP 36.6; O2SAT 96
--- NOTE | 2018-10-03 10:17 | PDOC.CMACT ---
Care Management Activity Note Laureano very much enjoys watching baseball and basketball on TV. He played basketball for the when he was younger. He enjoys music, and notably, Paterson Axel. He has had many visitors including family and friends. His son Duane has been visiting all week from the [facility] and returned home today. Laureano Issa's has also been visiting regularly and has completed all applications and gathering proof documents as requested. Laureano continues to be weak and requires ongoing rehabilitation, he will likely transfer to SNF this week prior to being placed at a private detention of a family friend. Awaiting determination of [id number] completed by Jose Juan dillon MICHAEL for Traditional RAMILA coverage in addition to Laureano's current MCR coverage.
--- NOTE | 2018-10-03 10:21 | CMACTNOTE_ITS ---
Care Management Activity Note Laureano very much enjoys watching baseball and basketball on TV. He played basketball for the when he was younger. He enjoys music, and notably, Celina Axel. He has had many visitors including family and friends. His son Duane has been visiting all week from the [facility] and returned home today. Laureano Issa's has also been visiting regularly and has completed all applications and gathering proof documents as requested. Laureano continues to be weak and requires ongoing rehabilitation, he will likely transfer to SNF this week prior to being placed at a private group home of a family friend. Awaiting determination of [id number] completed by Jose Juan dillon MICHAEL for Traditional RAMILA coverage in addition to Laureano's current MCR coverage.
--- NOTE | 2018-10-03 12:21 | PT.INNT ---
Date of service: 10/03/18 Time of Service: 12:22 PT Notes 10/03/18 Patient refused PT. Will attempt to resume PT services tomorrow morning.
[2018-10-03 15:37] VITALS: BP 185/79; PULSE 63; RESP 18; TEMP 36.5; O2SAT 97
[2018-10-03] MEDS: QUEtiapine 25 MG TAB PO (23:06)
[2018-10-03 23:29] VITALS: BP 168/90; PULSE 61; RESP 16; TEMP 36.3; O2SAT 98
[2018-10-04] VITALS (9 sets, daily range): BP systolic 96–171; BP diastolic 59–97; PULSE 40–71; RESP 16–18; TEMP 36.8–37.4; O2SAT 96–100
[2018-10-04] MEDS: Cyanocobalamin 500 MCG TAB 1000 MCG PO (07:46)
[2018-10-04] MEDS: Sertraline 50 MG TAB 100 MG PO (07:46)
[2018-10-04] MEDS: Fludrocortisone 0.1 MG TAB 0.2 MG PO (07:46)
[2018-10-04] MEDS: QUEtiapine 25 MG TAB 12.5 MG PO (07:47)
[2018-10-04] MEDS: Loratidine 10 MG TAB PO (07:48)
[2018-10-04] MEDS: Psyllium PKT 1 EACH PO ×2 (07:48→13:31)
[2018-10-04] MEDS: Apixaban 5 MG TAB PO (07:48)
[2018-10-04] MEDS: Cholecalciferol (Vitamin D3) 1,000 UNIT TAB 1000 UNITS PO (07:48)
[2018-10-04] MEDS: Omeprazole 20 MG CAPCR PO (07:49)
--- NOTE | 2018-10-04 09:59 | OT.INTREAT ---
Date of service: 10/04/18 Time of Service: 08:50 Occupational Therapy Notes Occupational Therapy Inpatient Treatment Note Date: 10/04/18 PRECAUTIONS: Fall, decreased safety awareness, Fall risk SUBJECTIVE: OT arrived to room pt wanted to use the bathroom, OT and RN transferred pt to [facility] via Steady lift with mod (A) x2 and mod-max vc for performance. While sitting on commode pt then urinated all out of the commode and all over the front of himself. Pt was able to verbally respond to OT during toileting and washing up on the commode post toileting routine (see below for full details). OT rang call brown for VIDEOTAPE RECORDING ENGINEER, Pt was agreeable to waiting for second person to perform transfer with Steady lift back into his bed. OT went to put water and wash clothes on table and pt suddenly jumped up off the commode onto the steady which was in front of him. OT closed the back of the steady for pt to sit and wait for nursing to arrive to (A) and pt began to become weak in his legs, he was leaning towards his (L) side onto OT's shoulder and was not responding verbally at this time, unable to make eye contact and not responding to his name. VIDEOTAPE RECORDING ENGINEER came into the room to (A) OT who called for RN. Pt was not verbally responding to RN and pt was transferred with the steady lift back to his bed where nursing continued to perform assessment of pt. OBJECTIVE: FUNCTIONAL MOBILITY Sit-stand: Mod (A) x2 Stand-sit: Mod (A) x2 Pt transferred to [facility] and back with Steady lift. BATHING: Sitting on commode with max (A) set up Upper Body: (I) with step by step instructions Lower Body: (I) upper thighs, max (A) lower legs DRESSING: Sitting Upper Extremity: Min (A) don and doffing personal shirt Lower Extremity: max (A) doffing underwear that was wet post toileting routine, max (A) donning underwear in seated position TOILETING: Device: commode Assist: Mod (A) ASSESSMENT/PLAN: Pt was able to perform ADLs /IADLs on the commode with step by step instructions and max (A) for LE dressing and bathing. Overall pt required vc throughout entire session. Pt did have non responsive episode (please see above). Nursing was notified and pt was under further assessment post OT session. Pt functionally requires max (A) for functional mobility with steady lift transfer due to cognitive deficit, parkinsons and overall decreased safety awareness. Pt has decreased functional activity tolerance. OT continues to recommends SNF vs 24 hour care for pts overall safety and ability to perform ADLS with (A). TREATMENT CODES/TIME: 54805r6, 40 minutes (08:50) Lucía Rogel OTR/[facility]
--- NOTE | 2018-10-04 10:04 | OTTR_ITS ---
Date of service: 10/04/18 Time of Service: 08:50 Occupational Therapy Notes Occupational Therapy Inpatient Treatment Note Date: 10/04/18 PRECAUTIONS: Fall, decreased safety awareness, Fall risk SUBJECTIVE: OT arrived to room pt wanted to use the bathroom, OT and RN transferred pt to [facility] via Steady lift with mod (A) x2 and mod-max vc for performance. While sitting on commode pt then urinated all out of the commode and all over the front of himself. Pt was able to verbally respond to OT during toileting and washing up on the commode post toileting routine (see below for full details). OT rang call brown for LUSTERER, Pt was agreeable to waiting for second person to perform transfer with Steady lift back into his bed. OT went to put water and wash clothes on table and pt suddenly jumped up off the commode onto the steady which was in front of him. OT closed the back of the steady for pt to sit and wait for nursing to arrive to (A) and pt began to become weak in his legs, he was leaning towards his (L) side onto OT's shoulder and was not responding verbally at this time, unable to make eye contact and not responding to his name. LUSTERER came into the room to (A) OT who called for RN. Pt was not verbally responding to RN and pt was transferred with the steady lift back to his bed where nursing continued to perform assessment of pt. OBJECTIVE: FUNCTIONAL MOBILITY Sit-stand: Mod (A) x2 Stand-sit: Mod (A) x2 Pt transferred to [facility] and back with Steady lift. BATHING: Sitting on commode with max (A) set up Upper Body: (I) with step by step instructions Lower Body: (I) upper thighs, max (A) lower legs DRESSING: Sitting Upper Extremity: Min (A) don and doffing personal shirt Lower Extremity: max (A) doffing underwear that was wet post toileting routine, max (A) donning underwear in seated position TOILETING: Device: commode Assist: Mod (A) ASSESSMENT/PLAN: Pt was able to perform ADLs /IADLs on the commode with step by step instructions and max (A) for LE dressing and bathing. Overall pt required vc throughout entire session. Pt did have non responsive episode (please see above). Nursing was notified and pt was under further assessment post OT session. Pt functionally requires max (A) for functional mobility with steady lift transfer due to cognitive deficit, parkinsons and overall decreased safety awareness. Pt has decreased functional activity tolerance. OT continues to recommends SNF vs 24 hour care for pts overall safety and ability to perform ADLS with (A). TREATMENT CODES/TIME: [id number], 40 minutes (08:50) Lucía Rogel OTR/[facility]
--- NOTE | 2018-10-04 11:26 | DI.RAD_ITS ---
SYMPTOM/DIAGNOSIS: LEAD PLACEMENT - HX PPM AP AND LATERAL CHEST: Leads are seen over the left lower chest. A pacemaker is noted. The heart is mildly enlarged, unchanged. The lungs appear clear. IMPRESSION: No acute abnormality.
[2018-10-04 13:31] LABS: Abs Immature Grans 0.01 k/cumm (0.0-0.09); Absolute Basophil Count 0.04 k/cumm (0.0-0.2); Absolute Eosinophil Count 0.21 k/cumm (0.0-0.7); Absolute Lymphocyte Count 0.58 k/cumm (1.2-3.4); Absolute Monocyte Count 0.55 k/cumm (0.11-0.7); Absolute Neutrophil Count 9.68 k/cumm (1.2-6.7); Basophils % 0.4; Eosinophils % 1.9; HCT 42.7 % (40.0-50.0); HGB 13.8 g/dL (13.5-17.5); Immature Grans % 0.1; Lymphocytes % 5.2; Mean Corp. HGB Concentration 32.3 g/dL (32.0-36.0); Mean Corpuscular Hemoglobin 28.1 pg (27.0-33.0); Mean Platelet Volume 9.5 fL (8.0-11.0); Neutrophils % 87.4; Platelet Count 190 x1000/uL (130-400); RBC 4.91 m/cumm (4.50-6.00); RBC Distribution Width 13.3 % (11.8-14.1); White Blood Cell Count 11.07 k/cumm (4.4-10.8)
[2018-10-04] MEDS: Docusate Sodium 100 MG CAP PO (13:31)
[2018-10-04] MEDS: Milk of Magnesia 30 ML CUP PO (13:32)
[2018-10-04 13:59] LABS: Anion Gap 7.3 mmol/L (3-11); BUN 12 mg/dL (7-18); CO2 28.7 mmol/L (21.0-32.0); CREATININE 1.06 mg/dL (0.70-1.30); Calcium 8.7 mg/dL (8.5-10.1); Chloride 105 mmol/L (98-107); Glucose 131 mg/dL (70-100); Magnesium 2.1 mg/dL (1.8-2.4); Potassium 3.9 mmol/L (3.5-5.1); Sodium 141 mmol/L (136-145)
--- NOTE | 2018-10-04 14:38 | PT.INNT ---
Date of service: 10/04/18 Time of Service: 14:39 PT Notes Patient had a change in mentation this morning which resulted to a difficult transfer from STEDY lift back to bed. Per nurse, patient had a bradycardic event with failed ability of pacemaker to fire. PT services are deferred this morning with plan to reassess appropriateness of patient for mobilization upon consultation with RN/MD this afternoon.
--- NOTE | 2018-10-04 16:40 | PDOC.CMPRO ---
Care Management Progress Note Ayden had an acute cardiac event and will transfer to inpatient status per MD.
--- NOTE | 2018-10-04 17:08 | PT.INNT ---
Date of service: 10/04/18 Time of Service: 17:08 PT Notes Physical therapy services are again deferred this afternoon as patient continues to be significantly lethargic and is unable to meaningfully participate in physical therapy session. Will continue to reassess appropriateness of patient to participate and physical therapy services tomorrow morning.
--- NOTE | 2018-10-04 18:52 | W.PM.DS.N ---
Date of service: 10/04/18 Time of Service: 18:52 DS: Diagnosis Discharge Diagnosis (1) Unresponsiveness: Status: Acute (2) Parkinsons disease: Status: Chronic (3) Orthostatic hypotension: Status: Chronic (4) Multiple system atrophy: Status: Chronic (5) Cardiomyopathy: Status: Chronic (6) Paroxysmal atrial fibrillation: Status: Chronic (7) Heart block: Status: Resolved Discharge Plan Disposition Patient Disposition: HOSPITAL, NON-SPECIFIC Condition: Stable Discharge Details Reason For Visit: FAILURE TO THRIVE, DEMENTIA, WEAKNESS Admit Date/Time: 09/28/18 16:41 Admit Provider: Catina To Attending Provider: Catina To Primary Care Provider: Laureano Kaminski Hospital Course Hospital Course: Chief Complaint: Unresponsive HPI: 82-year-old man with a history significant for PD, admitted originally from [facility] Emergency Department on 09/26 for increased weakness and confusion, transitioned to Swing bed status on 09/28 for Failure to Thrive at his home. Mr. Baugh has a past Medical History significant for Paroxysmal Afib, Heart Block/AV Node dysfunction s/p PPM, PD, and Multiple System Atrophy complicated by severe orthostatic hypotension. Other history includes BPH, dementia, and chronic gait imbalance. The patient had been living at home with his , brought in to the ED initially with reported increased weakness and confusion, and stated that she was no longer able to care for him at home due to progression of his parkinson's symptoms and dementia. She was requesting that he be placed in a [place] [facility] facility. He was admitted on observation status, initially, then transitioned to Swing Bed Status. Early this morning Mr. Baugh experienced an episode of unresponsiveness following straining to move his bowels. He was noted to have a HR in the 30's immediately following this witnessed episode by nursing, confirmed by monitor. However, by the time an ECG was obtained his HR had returned into the 70's, and his mentation improved. However, he did sustained this noted bradycardia for approximately 5 minutes. Cardiology informally interrogated his Pacer, and found no evidence of malfunction. He was placed on telemetry, and has had no further evidence of bradycardia for the remainder of the day. He is being changed to Acute Level care for further evaluation and treatment. Hospital Course: (1) Unresponsiveness: Current visit: Yes Status: Acute Only noted abnormality following straining was bradycardia, unusual in that patient has a dual-chamber PPM in place. Unofficial interrogation without abnormality, and with good battery life remaining in device. Plan to obtain ECG, trend serial cardiac biomarkers (Development of chest pain later in the day), check labs, and maintain on telemetry. Will also ask for official Pacer Interrogation tomorrow. Monitor symptoms as well, and ensure patient has assistance with any form of ambulation or attempted movement at this time. (2) Parkinsons disease: Current visit: No Status: Chronic Multiple System Atrophy with predominal Parkinsonism. Patient also has apparent dementia and autonomic dysfunction with noted significant orthostatic hypotension, currently on Florinef. Neuro aware and following patient - as per recommendations his seroquel dosing has been decreased, and speech and physical therapy obtained. (3) Orthostatic hypotension: Current visit: No Status: Chronic Continue Florinef. (4) Multiple system atrophy: Current visit: No Status: Chronic As above. Follows chronically with Neuro. (5) Paroxysmal atrial fibrillation: Current visit: No Status: Chronic Appears either in sinus rhythm or paced - currently with potential bradycardia as above. Not on mar agent. Continue Apixaban for anticoagulation. (6) Cardiomyopathy: Current visit: No Status: Chronic Appears euvolemic to dry. No SHANTEL-I/ARB given hypotension. Also not on BB therapy. Last ECHO locally with LVEF 45% 03/2017. Monitor volume status carefully. (7) Heart block: Current visit: No Status: Resolved S/p PPM. (8) DVT prophylaxis: Current visit: No Status: Acute On chronic anticoagulation with Apixaban. Home Meds and New Rx's Prescriptions: No Action cholecalciferol (vitamin D3) 1,000 UNIT tablet 1,000 unit PO DAILY RF: 0 cyanocobalamin (vitamin B-12) [Vitamin B-12] 1,000 MCG tablet extended release 1,000 mcg PO DAILY RF: 0 Eliquis 5 mg tablet 5 mg PO BID Qty: 180 RF: 3 omeprazole 20 mg capsule,delayed release(DR/EC) 20 mg PO DAILY Qty: 90 RF: 6 loratadine 10 mg tablet 10 mg PO DAILY Qty: 90 RF: 3 fludrocortisone 0.1 mg tablet 0.2 mg PO DAILY Qty: 180 RF: 3 Metamucil 3.4 gram/5.4 gram Powder 1 tbsp PO TID RF: 0 acetaminophen 325 mg Tablet 650 mg PO Q4H PRNRF: 0 docusate sodium 100 mg Capsule 100 mg PO TID PRNRF: 0 clotrimazole 1 % Cream 1 applic TOPICAL TID RF: 0 dimethicone-zinc oxide Cream topical PRN PRNRF: 0 magnesium hydroxide 2,400 mg/10 mL Suspension 30 ml PO DAILY PRNRF: 0 sertraline 100 mg tablet 100 mg PO BID RF: 0 quetiapine [Seroquel] 50 mg tablet 25 mg PO QHS RF: 0 Discharge Instructions Activity:: As per PT Equipment/Supplies:: No Equipment Needed Diet:: As Tolerated Discharge Orders Discharge Orders: Discharge Order (Routine); Ordered 10/04/18 Ordered By: Ignacio James Discharge Data Discharge Date/Time-TO BE ENTERED AT DEPARTURE: 10/04/18 19:00 DS: Data Vitals/I&O Vitals and I&O: Vital Signs Temperature 37.1 C 10/04/18 18:18 Temperature Source Tympanic 10/04/18 18:18 Pulse 59 L 10/04/18 18:18 Pulse Rhythm Irregular 10/04/18 08:33 Respiratory Rate 18 10/04/18 15:59 Respiratory Effort Non-Labored 10/04/18 16:00 Respiratory Depth Normal 10/04/18 16:00 Respiratory Pattern Normal 10/04/18 16:00 Blood Pressure 96/59 L 10/04/18 18:18 Pulse Oximetry 97 10/04/18 18:18 Oxygen Delivery Method Room Air 10/04/18 18:18 Oxygen Flow Rate 0 10/04/18 18:18 Pain Level 0 10/04/18 11:45 Comment 10/04/18 11:45 Intake & Output 10/03/18 10/04/18 10/04/18 23:59 11:59 23:59 Intake Total 840 / 1300 800 / 800 Output Total 800 / 1000 900 / 1200 300 / 1200 Balance 40 / 300 -900 / -400 500 / -400 Intake: Oral 840 / 1300 800 / 800 Output: Urine 800 / 1000 900 / 1200 300 / 1200 Other: Urine Color Yellow Yellow Yellow Urine Appearance Clear Clear Clear Urine Odor Normal Normal Comment Void x3 Per OT Patient grossly incontinant on floor Stool Size Copious Large Stool Characteristics Soft Soft Formed Brown Voiding Methods Urinal Urinal Urinal Labs on day of discharge: Labs from last 24 hours 10/04/18 10/04/18 10/04/18 18:25 13:05 13:05 WBC 11.07 H RBC 4.91 Hgb 13.8 Hct 42.7 MCV 87.0 MCH 28.1 MCHC 32.3 RDW 13.3 Plt Count 190 MPV 9.5 Immature Gran % 0.1 Neutrophils % 87.4 Lymphocytes % 5.2 Monocytes % 5.0 Eosinophils % 1.9 Basophils % 0.4 Absolute Neutrophils 9.68 H Absolute Lymphocytes 0.58 L Absolute Monocytes 0.55 Absolute Eosinophils 0.21 Absolute Basophils 0.04 Sodium 141 Potassium 3.9 Chloride 105 Carbon Dioxide 28.7 Anion Gap 7.3 BUN 12 Creatinine 1.06 Estimated GFR/1.73 m2 >= 60.00 Glucose 131 H Calcium 8.7 Magnesium 2.1 Troponin I Pending [facility] Social History Smoking/Tobacco Use Status: Never Alcohol Intake: never Drug use: Never Substance use type: does not use Household members: other 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 No smoking, ETOH, illicit drug use.
[2018-10-04 19:11] LABS: Troponin I < 0.05 ng/mL (0.00-0.06)
--- NOTE | 2018-10-04 21:49 | W.PM.PROGNOT ---
Date of Service Date of service: 10/04/18 Time of Service: 18:49 Assessment and Plan (1) Chest pain: Current visit: Yes Status: Acute EKG reassuring, will get at least 2 troponins, but history does not suggest cardiac. Unclear etiology, may be GERD or MSK. Continue monitoring on tele given episode of bradycardia this morning. Has pacer pads on PRN. Subjective Interval history since last seen: Called by RN, patient reporting chest pain. Onset while at rest, mild, left sided, sharp. Not a/w SOB, dizziness, n/v, palpitations. Has since resolved, lasting about 20 min. Exam Narrative Exam Narrative: GEN: Alert, NAD. Sitting up watching TV CV: RRR, no m/g/r RESP: CTAb Chest: not tender Abd: soft, NT Ext: NT, no edema Objective Objective Clinical Data: Abnormal lab results EKG: LBBB, no change from this monring 10/04/18 10/04/18 Range/Units 13:05 13:05 WBC 11.07 H (4.4-10.8) k/cumm Absolute Neutrophils 9.68 H (1.2-6.7) k/cumm Absolute Lymphocytes 0.58 L (1.2-3.4) k/cumm Glucose 131 H (70-100) mg/dL Vital Signs Temperature 37.1 C 10/04/18 18:18 Temperature Source Tympanic 10/04/18 18:18 Pulse 59 L 10/04/18 18:18 Pulse Rhythm Irregular 10/04/18 08:33 Respiratory Rate 18 10/04/18 15:59 Respiratory Effort Non-Labored 10/04/18 16:00 Respiratory Depth Normal 10/04/18 16:00 Respiratory Pattern Normal 10/04/18 16:00 Blood Pressure 96/59 L 10/04/18 18:18 Pulse Oximetry 97 10/04/18 18:18 Oxygen Delivery Method Room Air 10/04/18 18:18 Oxygen Flow Rate 0 10/04/18 18:18 Pain Level 0 10/04/18 11:45 Comment 10/04/18 11:45 Intake & Output 10/03/18 10/04/18 10/04/18 23:59 11:59 23:59 Intake Total 840 / 1300 800 / 800 Output Total 800 / 1000 900 / 1200 300 / 1200 Balance 40 / 300 -900 / -400 500 / -400 Intake: Oral 840 / 1300 800 / 800 Output: Urine 800 / 1000 900 / 1200 300 / 1200 Other: Urine Color Yellow Yellow Yellow Urine Appearance Clear Clear Clear Urine Odor Normal Normal Comment Void x3 Per OT Patient grossly incontinant on floor Stool Size Copious Large Stool Characteristics Soft Soft Formed Brown Voiding Methods Urinal Urinal Urinal Laboratory Results WBC 11.07 k/cumm (4.4-10.8) H 10/04/18 13:05 RBC 4.91 m/cumm (4.50-6.00) 10/04/18 13:05 Hgb 13.8 g/dL (13.5-17.5) 10/04/18 13:05 Hct 42.7 % (40.0-50.0) 10/04/18 13:05 MCV 87.0 fL (80-95) 10/04/18 13:05 MCH 28.1 pg (27.0-33.0) 10/04/18 13:05 MCHC 32.3 g/dL (32.0-36.0) 10/04/18 13:05 RDW 13.3 % (11.8-14.1) 10/04/18 13:05 Plt Count 190 x1000/uL (130-400) 10/04/18 13:05 MPV 9.5 fL (8.0-11.0) 10/04/18 13:05 Immature Gran % 0.1 10/04/18 13:05 Neutrophils % 87.4 10/04/18 13:05 Lymphocytes % 5.2 10/04/18 13:05 Monocytes % 5.0 10/04/18 13:05 Eosinophils % 1.9 10/04/18 13:05 Basophils % 0.4 10/04/18 13:05 Absolute Neutrophils 9.68 k/cumm (1.2-6.7) H 10/04/18 13:05 Absolute Lymphocytes 0.58 k/cumm (1.2-3.4) L 10/04/18 13:05 Absolute Monocytes 0.55 k/cumm (0.11-0.7) 10/04/18 13:05 Absolute Eosinophils 0.21 k/cumm (0.0-0.7) 10/04/18 13:05 Absolute Basophils 0.04 k/cumm (0.0-0.2) 10/04/18 13:05 Sodium 141 mmol/L (136-145) 10/04/18 13:05 Potassium 3.9 mmol/L (3.5-5.1) 10/04/18 13:05 Chloride 105 mmol/L (98-107) 10/04/18 13:05 Carbon Dioxide 28.7 mmol/L (21.0-32.0) 10/04/18 13:05 Anion Gap 7.3 mmol/L (3-11) 10/04/18 13:05 BUN 12 mg/dL (7-18) 10/04/18 13:05 Creatinine 1.06 mg/dL (0.70-1.30) 10/04/18 13:05 Estimated GFR/1.73 m2 >= 60.00 (mL/min/1.73m2) 10/04/18 13:05 Glucose 131 mg/dL (70-100) H 10/04/18 13:05 Calcium 8.7 mg/dL (8.5-10.1) 10/04/18 13:05 Magnesium 2.1 mg/dL (1.8-2.4) 10/04/18 13:05 Troponin I < 0.05 ng/mL (0.00-0.06) 10/04/18 18:25
--- NOTE | 2018-10-05 10:13 | OTDS_ITS ---
Date of service: 10/05/18 Time of Service: 10:08 Occupational Therapy Notes Occupational Therapy Inpatient Discharge Summary Date: 10/05/18 Dates of Service: 09/29/18-10/05/18 Referring Doctor:Catina To MD OT Orders: Eval and Treat Precautions: Fall, Standard PATIENT PROFILE/ADMITTING DIAGNOSIS: Pt is an 82 year old male who was admitted through the ER on 09/26/2018 with chief symptoms of confusion, dysuria, hematuria, and generalized weakness. Patient was diagnosed with hematuria, depression, paroxysmal atrial fibrillation with referral for palliative care. Pt has transitioned to Swing bed rehabilitation and was seen for consult today. 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 His (A) pt with bathing, feeding and toileting. Pt is a poor historian and unable to report details of his home. Pts reported that over the past couple months that the pt has significantly declined. has had to help him with his ADLS/IADLS which have been difficult. Pts son notes that the house is unsanitary per pts EMR. Equipment owned/DME: Grab bars SUBJECTIVE: NT OBJECTIVE: ROM: RUE AROM WNL L UE AROM WNL STRENGTH: RUE 3-/5 throughout with weak rotary driller prospecting symmetrically LUE 3-/5 throughout with weak rotary driller prospecting symmetrically FUNCTIONAL MOBILITY/ADLS: NO SKILLED OT SERVICES PROVIDED FOR THIS DOCUMENTATION, THIS DOCUMENT SERVES A SUMMARY OF CARE. Transfers FWW, mod (A) Supine-sit mod (A) Sit-Stand mod (A) x2 Stand-sit mod (A) x2 Bed-Chair CGA HHAx2 Chair-bed CGa, HHAx2 BATHING Seated position Bathing UE Min (A) Bathing LE max (A) DRESSING Sitting on side of bed Dressing UE Max (A) placement of shirt on pts lap for appropriate put on directions, (I) putting over head Dressing LE Mod (A) don and doffing pants, max (A) don and doffing (B) socks. GROOMING Standing at sink with FWW min vc for teeth brushing TOILETING on toilet, min (A) EATING Min (A) with opening containers BALANCE: Static sitting Good Dynamic Sitting Fair Static Standing Poor Dynamic Standing Poor ASSESSMENT: Patient is a 82-year-old male referred to occupational therapy services with diagnosis of acute UTI, hx parkinsons,dementia, dysuria, hematuria, increased confusion, generalized weakness he was transitioned to Swing bed rehabilitation status on 09/29/18 and was recently transitioned back to acute status. Due to this, OT will discharge pt from skilled OT services at this time and will require new referral in order to re-assess pt. Pt was only seen for 2 skilled OT services at this time as pt continued to refuse skilled OT services. GOALS- 1. Transfers FWW, SBA- not met 2. Dressing- Seated with min (A) LE dressing, (I) UE dressing- not met 3. Bathing- Seated with min (A) LE, (I) UE- met 4. Toileting- Toilet (I) - not met 5. Eating- Seated (I) - no tmet 6. Grooming- Standing at sink with FWW (I) with teeth and hair. - not met PLAN OF CARE/TREATMENT PLAN: Discharge pt from skilled OT services. DISCHARGE RECOMMENDATIONS OT recommends that pt go SNF vs. Home care (A) with family friend. In order for pt to be successful in terms of transitioning in to Home care with a family friend pt would benefit from OT referral, shower seat or bench to increase pts safety in his bathing routine, grab bars in shower/around toilet, raised toilet seat to increase pts safety with toileting routine and transfer from toilet. Pt would benefit from an area that has minimal closed in doorways as pts Parkinsons will limit his functional mobility to perform ADLs. He will require (A) with his overall ADL performance which has been his baseline level of function and likely require 24 hour care to (A) pt throughout his day to day routines. TREATMENT TIME/MINUTES/CODES N/A Lucía Rogel, OTR/L [facility]
[2018-10-05 20:00] VITALS: PULSE 60
[2018-10-06] VITALS: PULSE 60
--- NOTE | 2018-10-06 18:59 | PT.INDS ---
Date of service: 10/04/18 Time of Service: 18:59
== END 2018-10-04 19:00 | disposition short-term general hospital (02) | DRG 57 ==
PROVIDERS: Family Medicine; Internal Medicine; Admitting Provider Internal Medicine; PCP Emergency Medicine; Visit Provider Internal Medicine
DX: G23.9 Degenerative disease of basal ganglia, unspecified (principal); R62.7 Adult failure to thrive; Z68.23 Body mass index [BMI] 23.0-23.9, adult; R07.9 Chest pain, unspecified; F03.90 Unspecified dementia, unspecified severity, without behavioral disturbance, psychotic disturbance, mood disturbance, and anxiety; I95.1 Orthostatic hypotension; F32.9 Major depressive disorder, single episode, unspecified; I48.0 Paroxysmal atrial fibrillation; Z95.0 Presence of cardiac pacemaker; G20 Parkinson's disease; N40.0 Benign prostatic hyperplasia without lower urinary tract symptoms; Z74.2 Need for assistance at home and no other household member able to render care; R47.1 Dysarthria and anarthria; R49.0 Dysphonia; Z71.89 Other specified counseling
CPT/HCPCS: 36415; 80048; 97162; 97167; 97530; 97535; 99255; 99305; NC; 71046; 83735; 84484; 85025; 92522; 93005; 93010; J1630

== ENCOUNTER 2018-10-04 18:55 | Inpatient (IN) | payer MEDICARE, MEDICAID, SELFPAY ==
--- NOTE | 2018-10-04 19:00 | W.PM.HP.N ---
Date of service: 10/04/18 Time of Service: 19:00 Assessment and Plan (1) Unresponsiveness: Current visit: Yes Status: Acute Only noted abnormality following straining was bradycardia, unusual in that patient has a dual-chamber PPM in place. Unofficial interrogation without abnormality, and with good battery life remaining in device. Plan to obtain ECG, trend serial cardiac biomarkers (Development of chest pain later in the day), check labs, and maintain on telemetry. Will also ask for official Pacer Interrogation tomorrow. Monitor symptoms as well, and ensure patient has assistance with any form of ambulation or attempted movement at this time. (2) Parkinsons disease: Current visit: No Status: Chronic Multiple System Atrophy with predominal Parkinsonism. Patient also has apparent dementia and autonomic dysfunction with noted significant orthostatic hypotension, currently on Florinef. Neuro aware and following patient - as per recommendations his seroquel dosing has been decreased, and speech and physical therapy obtained. (3) Orthostatic hypotension: Current visit: No Status: Chronic Continue Florinef. (4) Multiple system atrophy: Current visit: No Status: Chronic As above. Follows chronically with Neuro. (5) Paroxysmal atrial fibrillation: Current visit: No Status: Chronic Appears either in sinus rhythm or paced - currently with potential bradycardia as above. Not on mar agent. Continue Apixaban for anticoagulation. (6) Cardiomyopathy: Current visit: No Status: Chronic Appears euvolemic to dry. No SHANTEL-I/ARB given hypotension. Also not on BB therapy. Last ECHO locally with LVEF 45% 03/2017. Monitor volume status carefully. (7) Heart block: Current visit: No Status: Resolved S/p PPM. (8) DVT prophylaxis: Current visit: No Status: Acute On chronic anticoagulation with Apixaban. History of Present Illness Narrative: 82-year-old man with a history significant for PD, admitted originally from [facility] Emergency Department on 09/26 for increased weakness and confusion, transitioned to Swing bed status on 09/28 for Failure to Thrive at his home. Mr. Baugh has a past Medical History significant for Paroxysmal Afib, Heart Block/AV Node dysfunction s/p PPM, PD, and Multiple System Atrophy complicated by severe orthostatic hypotension. Other history includes BPH, dementia, and chronic gait imbalance. The patient had been living at home with his , brought in to the ED initially with reported increased weakness and confusion, and stated that she was no longer able to care for him at home due to progression of his parkinson's symptoms and dementia. She was requesting that he be placed in a correction facility. He was admitted on observation status, initially, then transitioned to Swing Bed Status. Early this morning Mr. Baugh experienced an episode of unresponsiveness following straining to move his bowels. He was noted to have a HR in the 30's immediately following this witnessed episode by nursing, confirmed by monitor. However, by the time an ECG was obtained his HR had returned into the 70's, and his mentation improved. However, he did sustained this noted bradycardia for approximately 5 minutes. Cardiology informally interrogated his Pacer, and found no evidence of malfunction. He was placed on telemetry, and has had no further evidence of bradycardia for the remainder of the day. He is being changed to Acute Level care for further evaluation and treatment. Review of Systems Review of Systems All systems reviewed & are unremarkable except as noted in HPI and below PFSH 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) Diverticulosis of colon without diverticulitis (Chronic) Cardiomyopathy (Chronic 08/03/14) Basal cell carcinoma of right forehead (Chronic 03/06/14) Actinic keratosis (Chronic) Osteoarthritis (Chronic) 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 No smoking, ETOH, illicit drug use. Meds Home Medications Medication Instructions Recorded Confirmed Type cholecalciferol (vitamin D3) 1,000 unit PO DAILY 08/03/14 09/28/18 History cyanocobalamin (vitamin B-12) 1,000 mcg PO DAILY 11/28/15 09/28/18 History [Vitamin B-12] Metamucil 1 tbsp PO TID 03/24/18 09/28/18 History apixaban 5 mg tablet 5 mg PO BID #180 tab-cap 03/30/18 09/28/18 Rx omeprazole 20 mg capsule,delayed 20 mg PO DAILY #90 cap 06/22/18 09/28/18 Rx release loratadine 10 mg tablet 10 mg PO DAILY #90 tab-cap 07/06/18 09/28/18 Rx fludrocortisone 0.1 mg tablet 0.2 mg PO DAILY #180 tab-cap 09/15/18 09/28/18 Rx acetaminophen 650 mg PO Q4H PRN 09/28/18 09/28/18 History clotrimazole 1 applic TOPICAL TID 09/28/18 09/28/18 History dimethicone-zinc oxide 0 applic TOPICAL PRN PRN 09/28/18 09/28/18 History docusate sodium 100 mg PO TID PRN 09/28/18 09/28/18 History magnesium hydroxide 30 ml PO DAILY PRN 09/28/18 09/28/18 History quetiapine [Seroquel] 25 mg PO QHS 09/28/18 09/28/18 History sertraline 100 mg PO BID 09/28/18 09/28/18 History Allergies Allergy/AdvReac Type Severity Reaction Status Date / Time bee pollen [Bee Pollen] Allergy Intermediate PERIORBITAL Unverified 09/26/18 10:21 EDEMA aspirin AdvReac Mild Upset Unverified 09/26/18 10:21 Stomach DUST Allergy Intermediate unknown Uncoded 09/26/18 10:21 Exam Narrative Exam Narrative: General: Patient appears comfortable, laying in bed at time of exam, NAD Neck: Supple CV: Regular, nontachycardic, with distant heart sounds Pulmonary: Clear to auscultation bilaterally, no crackles, wheezing, or rhonchi on limited anterior and lateral exam Abdomen: + Bowel Sounds, soft, nontender, nondistended Vascular: No lower extremity edema Psych: Normal mood and affect. Results Labs : 10/05/18 06:38 10/05/18 06:38
--- NOTE | 2018-10-04 20:00 | PT.INDS ---
Date of service: 10/04/18 PT Notes Inpatient Physical Therapy Discharge Summary Dates: 10/04/2018 Dates of Service: 09/29/2018 through 10/04/2018 This is a clinical summary of care provided on the duration of dates listed above. No charge was made in the completion of this documentation. Referring Doctor: Catina To MD PT Orders: PT CONSULT: Eval/treat Precautions: Fall. Standard. Impaired safety awareness. Activity as tolerated. Patient Profile/Admitting Diagnosis: Patient is an 82-year-old male with past medical history significant for Parkinson's disease who presented to the ED on 09/26/2018 with chief symptoms of confusion, dysuria, hematuria, and generalized weakness. Patient was diagnosed with toxic metabolic encephalopathy, multiple system atrophy, hematuria, depression, paroxysmal atrial fibrillation with referral for palliative care. Patient is discharged under swing bed level as of today 10/04/2018. 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 Per report of on today during care conference, patient was able to tolerate in-house ambulation with very minimal help from her without use of any assistive ambulatory device Current Functional Limitations: Need for physical assistance, assistive device, and maximum verbal cueing for all transfer and ambulation tasks. Equipment Owned/DME: Unable to extract information from patient due to impaired cognitive level Subjective: Patient had a bradycardic event and a pacemaker firing issue resulted to a near fall accident and difficult transfer from chair to bed using the STEDY lift with OT and RISK CONTROL CONSULTANT. Objective: General Observation: Patient seen resting on his chair. TEDS on bilateral legs. IV access to right UE still open. Intentional tremors continue to be aggravated by movement. Mental Status: NT Pain: NT ROM: Right Upper Extremity: Shoulder Flexion 0 to 120 degrees. Shoulder abduction 0 to 110 degrees. Elbow flexion WFL. Wrist flexion WFL. Functional opening and closing of hand WFL. Left Upper Extremity: Shoulder Flexion 0 to 120 degrees. Shoulder abduction 0 to 110 degrees. Elbow flexion WFL. Wrist flexion WFL. Functional opening and closing of hand WFL. Right Lower Extremity: Hip flexion WFL. Hip abduction WFL. Knee flexion WFL. Ankle dorsiflexion WFL. Ankle plantarflexion WFL. Left Lower Extremity: Hip flexion WFL. Hip abduction WFL. Knee flexion WFL. Ankle dorsiflexion WFL. Ankle plantarflexion WFL. Strength: Right Upper Extremity: Shoulder flexors 3-/5. Shoulder abductors 3-/5. Elbow flexors 4/5. Elbow extensors 4/5. Petroleum Refinery Operator strong. Left Upper Extremity: Shoulder flexors 3-/5. Shoulder abductors 3-/5. Elbow flexors 4/5. Elbow extensors 4/5. Petroleum Refinery Operator strong. Right Lower Extremity: Hip flexors 4-/5. Hip abductors 4-/5. Knee flexors 4/5. Knee extensors 4-/5. Ankle dorsiflexors 4-/5. Ankle plantarflexors 4-5. Left Lower Extremity:Hip flexors 4-/5. Hip abductors 4-/5. Knee flexors 4/5. Knee extensors 4-/5. Ankle dorsiflexors 4-/5. Ankle plantarflexors 4-5. Bed Mobility/Transfers: Rolling minimal assist Supine to sit moderate assist of 2 for safety Sit to supine moderate assist of 2 for safety Sit to stand moderate assist of 2 for safety Stand to sit moderate assist of 2 for safety Bed to chair moderate assist of 2 for safety Chair to bed moderate assist of 2 for safety Gait: NT Balance: Static Sitting: Fair Dynamic Sitting: Fair Static Standing: Poor Dynamic Standing: Poor Assessment: Patient is an 82-year-old male with diagnosis of toxic metabolic encephalopathy, multiple system atrophy, Parkinson's disease and hematuria. Patient continues to present with clinical signs and symptoms consistent with current/admitting diagnoses that have resulted to mobility limitations, gait instability, generalized weakness, and impairment of motor control as demonstrated by the following impairment level findings: 1. Decreased strength to B LE major muscle groups 2. Impaired sitting/standing balance 3. Impaired activity tolerance 4. Impaired safety awareness Impairments are contributing to the following functional limitations: 1. Dependent bed mobility skills 2. Increased dependence with transfers 3. Inability to safely ambulate without assistive device and physical assistance 4. Increase completion time for mobility ADL performance 5. Increased fall risk 6. Inability to negotiate steps alone safely Goals: Goals X1 week 1. Supine-Sit supervision NOT MET 2. Sit-Supine supervision NOT MET 3. Sit-Stand supervision NOT MET 4. Stand-Sit supervision NOT MET 5. Bed-Chair supervision NOT MET 6. Chair-Bed supervision NOT MET 7. Independent gait on level surface with use of least restrictive device for at least 50 feet without report of pain nor dyspnea NOT MET 8. Independent with home exercise program NOT MET 19. Good static and dynamic standing balance/tolerance NOT MET Plan of Care/Treatment Plan: With pacemaker firing issues identified compounded by patient's increasing inability to follow instructions, patient is not found to be appropriate for skilled services at this time. patient is discharged from skilled services today under swing bed status and will transition to acute care level tomorrow. Will determine appropriateness for continued skilled PT services upon restabilization of cardiac status as needed. DISCHARGE RECOMMENDATIONS: Patient will benefit from half-way facility placement in order to progress mobility level, strength, and balance in preparation for a safe discharge to a private home with a caregiver. Patient will also benefit from home health PT services in order to progress mobility level using least restrictive assistive ambulatory device/using no device, assess home safety, identify additional equipment needs, performed caregiver education/training who can provide a consistent structure/routine for patient, and establish a functional maintenance program that will increase ability of patient to remain at home. TREATMENT CODE/TIME: 21893 for 29 minutes beginning at 9:05 AM. Thank you very much for this referral. Valorie Hunter PT, DPT, CLT [facility]
[2018-10-04] MEDS: Apixaban 5 MG TAB PO (20:33)
[2018-10-04] MEDS: Psyllium PKT 1 EACH PO (20:34)
[2018-10-04 20:56] LABS: Bilirubin Negative (Negative); Blood Negative (Negative); Clarity Clear (Clear); Glucose Negative (Negative); Ketones Negative (Negative); Leukocyte Esterase Negative (Negative); Nitrite Negative (Negative); Specific Gravity 1.015 (1.005-1.025); Urobilinogen 0.2 EU/dL (Up TO 0.2)
[2018-10-04] MEDS: Sertraline 50 MG TAB 100 MG PO (22:09)
[2018-10-04] MEDS: QUEtiapine 25 MG TAB PO (22:09)
[2018-10-04 23:00] VITALS: PULSE 60
[2018-10-05] VITALS (11 sets, daily range): BP systolic 88–184; BP diastolic 54–93; PULSE 37–63; RESP 12–20; TEMP 36.1–36.5; O2SAT 96–100
[2018-10-05 00:03] LABS: Troponin I < 0.05 ng/mL (0.00-0.06)
[2018-10-05 07:12] LABS: Abs Immature Grans 0.02 k/cumm (0.0-0.09); Absolute Basophil Count 0.03 k/cumm (0.0-0.2); Absolute Eosinophil Count 0.39 k/cumm (0.0-0.7); Absolute Lymphocyte Count 1.16 k/cumm (1.2-3.4); Absolute Monocyte Count 0.67 k/cumm (0.11-0.7); Absolute Neutrophil Count 6.03 k/cumm (1.2-6.7); Basophils % 0.4; Eosinophils % 4.7; HGB 13.2 g/dL (13.5-17.5); Immature Grans % 0.2; Mean Corp. HGB Concentration 32.2 g/dL (32.0-36.0); Mean Corpuscular Volume 86.9 fL (80-95); Mean Platelet Volume 9.7 fL (8.0-11.0); Monocytes % 8.1; Neutrophils % 72.6; Platelet Count 211 x1000/uL (130-400); RBC 4.72 m/cumm (4.50-6.00); RBC Distribution Width 13.3 % (11.8-14.1)
[2018-10-05 07:51] LABS: BUN 13 mg/dL (7-18); CREATININE 1.02 mg/dL (0.70-1.30); Calcium 8.8 mg/dL (8.5-10.1); Chloride 104 mmol/L (98-107); Glucose 101 mg/dL (70-100); Magnesium 2.2 mg/dL (1.8-2.4); Sodium 141 mmol/L (136-145); Troponin I < 0.05 ng/mL (0.00-0.06)
[2018-10-05] MEDS: Fludrocortisone 0.1 MG TAB 0.2 MG PO (08:32)
[2018-10-05] MEDS: Psyllium PKT 1 EACH PO ×2 (08:32→19:47)
[2018-10-05] MEDS: Loratidine 10 MG TAB PO (08:33)
[2018-10-05] MEDS: Sertraline 50 MG TAB 100 MG PO ×2 (08:33→22:05)
[2018-10-05] MEDS: Cholecalciferol (Vitamin D3) 1,000 UNIT TAB 1000 UNITS PO (08:33)
[2018-10-05] MEDS: Docusate Sodium 100 MG CAP PO (08:33)
[2018-10-05] MEDS: Acetaminophen 325 MG TAB PO (08:33)
[2018-10-05] MEDS: QUEtiapine 25 MG TAB 12.5 MG PO (08:33)
[2018-10-05] MEDS: Apixaban 5 MG TAB PO ×2 (08:34→19:47)
[2018-10-05] MEDS: Omeprazole 20 MG CAPCR PO (08:34)
[2018-10-05] MEDS: Cyanocobalamin 500 MCG TAB 1000 MCG PO (08:34)
--- NOTE | 2018-10-05 09:39 | PDOC.CMPRO ---
Care Management Progress Note O- stopped by CM office asking if we know when he might be able to go to [facility]. Advised her that he is now in acute status and will need to wait until he is medically stable for d/c. She was glad to know that things are heading in that direction. Advised CM would keep her apprised. A-82 yo man admitted from [facility] on 10/04/18 with bradycardia. P-Anticipate transfer to [facility] once medically stable to do so.
[2018-10-05] MEDS: Normal Saline Flush 10 ML SYR (14:52)
[2018-10-05] MEDS: Normal Saline 1,000 ML 75 ML IV (15:52)
[2018-10-05] MEDS: Fludrocortisone 0.1 MG TAB PO (15:59)
[2018-10-05] MEDS: Normal Saline Flush 10 ML SYR IVP (15:59)
--- NOTE | 2018-10-05 16:07 | PGE_ITS ---
Date of Service Date of service: 10/05/18 Time of Service: 15:53 Assessment and Plan (1) Unresponsiveness: Current visit: Yes Status: Acute Initially thought secondary to bradycardia in patient with a PPM in place, and with unofficial interrogation without abnormality and with good battery life, now noted to be significantly orthostatic. Mr. Baugh has a history of orthostatic hypotension based on likely autonomic dysfunction from his diagnosis of Multiple System Atrophy. Patient ruled out with serial cardiac biomarkers (Development of chest pain later in the day yesterday that resolved without intervention), with normal labs, and no evidence of bradyarrhythmia on telemetry. Continue but increase dose of Florinef. Will also administer one bag of gentle IVFs (history of CHF). Plan on official Pacer Interrogation tomorrow as cardiology is not available today. Monitor symptoms as well, and ensure patient has assistance with any form of ambulation or attempted movement at this time. (2) Parkinsons disease: Current visit: No Status: Chronic Multiple System Atrophy with predominant Parkinsonism. Patient also has apparent dementia and autonomic dysfunction with noted significant orthostatic hypotension as above. Plan on increase in dose of Florinef as above. Neuro aware and following patient - as per recommendations his seroquel dosing has been decreased, and speech and physical therapy obtained. (3) Orthostatic hypotension: Current visit: No Status: Chronic Florinef, IVFs as above. (4) Multiple system atrophy: Current visit: No Status: Chronic As above. Follows chronically with Neuro. (5) Paroxysmal atrial fibrillation: Current visit: No Status: Chronic Appears either in sinus rhythm or paced - no evidence of bradycardia on telemetry. Not on mar agent. Continue Apixaban for anticoagulation. (6) Cardiomyopathy: Current visit: No Status: Chronic Appears euvolemic to dry. No SHANTEL-I/ARB given hypotension. Also not on BB t herapy. Last ECHO locally with LVEF 45% 03/2017. Monitor volume status carefully, especially with planned IVFs as above. (7) Heart block: Current visit: No Status: Resolved S/p PPM. (8) DVT prophylaxis: Current visit: No Status: Acute On chronic anticoagulation with Apixaban. Subjective Interval history since last seen: 82-year-old man with a history significant for PD, admitted originally from [facility] Emergency Department on 09/26 for increased weakness and confusion, transitioned to Swing bed status on 09/28 for Failure to Thrive at his home, and made acute status on 10/04. Mr. Baugh has a past Medical History significant for Paroxysmal Afib, Heart Block/AV Node dysfunction s/p PPM, PD, and Multiple System Atrophy complicated by severe orthostatic hypotension. Other history includes BPH, dementia, and chronic gait imbalance. The patient had been living at home with his , brought in to the ED initially with reported increased weakness and confusion, and stated that she was no longer able to care for him at home due to progression of his parkinson's symptoms and dementia. She was requesting that he be placed in a assisted facility. He was admitted on observation status, initially, then transitioned to Swing Bed Status. Early on the morning of 10/04 Mr. Baugh experienced an episode of unresponsiveness following straining to move his bowels. He was noted to have a HR in the 30's immediately following this witnessed episode by nursing, confirmed by monitor. However, by the time an ECG was obtained his HR had returned into the 70's, and his mentation improved. However, he did sustained this noted bradycardia for approximately 5 minutes. Cardiology informally interrogated his Pacer, and found no evidence of malfunction. He was placed on telemetry, and has had no further evidence of bradycardia for the remainder of the day, nor any further bradycardia overnight. This morning he developed another episode of transient unconsciousness, and this time telemetry confirmed lack of bradycardia or any significant arrhythmia. By this afternoon when the patient had experienced another episode, orthostatics were checked and patient was noted to be significantly hypotensive, with a drop in SBP from 150 --> 80's, and a HR in the 60's. No other events reported. Exam Narrative Exam Narrative: General: Patient appears comfortable, NAD Neck: Supple CV: Regular, nontachycardic, with distant heart sounds Pulmonary: Clear to auscultation bilaterally, no crackles, wheezing, or rhonchi on limited anterior and lateral exam Abdomen: + Bowel Sounds, soft, nontender, nondistended Vascular: No lower extremity edema Psych: Normal mood and affect. Objective Objective Clinical Data: Abnormal lab results 10/05/18 10/05/18 Range/Units 06:38 06:38 Hgb 13.2 L (13.5-17.5) g/dL Absolute Lymphocytes 1.16 L (1.2-3.4) k/cumm Glucose 101 H (70-100) mg/dL Vital Signs Temperature 36.1 C L 10/05/18 10:32 Temperature Source Tympanic 10/05/18 10:32 Pulse 60 10/05/18 15:01 Pulse Rhythm Irregular 10/05/18 08:00 Respiratory Rate 16 10/05/18 10:32 Respiratory Effort Non-Labored 10/05/18 09:15 Respiratory Depth Normal 10/05/18 08:00 Respiratory Pattern Normal 10/05/18 08:00 Blood Pressure 88/54 L 10/05/18 14:21 Pulse Oximetry 97 10/05/18 10:32 Oxygen Delivery Method Nasal Cannula 10/05/18 10:32 Oxygen Flow Rate 1 10/05/18 10:32 Pain Level 0 10/05/18 10:32 Comment 10/05/18 14:21 Intake & Output 10/04/18 10/05/18 10/05/18 23:59 11:59 23:59 Intake Total 730 / 740 10 / 740 Output Total 200 / 200 Balance 530 / 540 10 / 540 Weight 78 kg Intake: IV Oral 730 / 730 Output: Urine 200 / 200 Other: Urine Color Yellow Urine Appearance Clear Urine Odor Normal Comment unable to get amount missed commode was on floor Stool Size Moderate Stool Characteristics Formed Voiding Methods Urinal Bedside Commode Laboratory Results WBC 8.30 k/cumm (4.4-10.8) 10/05/18 06:38 RBC 4.72 m/cumm (4.50-6.00) 10/05/18 06:38 Hgb 13.2 g/dL (13.5-17.5) L 10/05/18 06:38 Hct 41.0 % (40.0-50.0) 10/05/18 06:38 MCV 86.9 fL (80-95) 10/05/18 06:38 MCH 28.0 pg (27.0-33.0) 10/05/18 06:38 MCHC 32.2 g/dL (32.0-36.0) 10/05/18 06:38 RDW 13.3 % (11.8-14.1) 10/05/18 06:38 Plt Count 211 x1000/uL (130-400) 10/05/18 06:38 MPV 9.7 fL (8.0-11.0) 10/05/18 06:38 Immature Gran % 0.2 10/05/18 06:38 Neutrophils % 72.6 10/05/18 06:38 Lymphocytes % 14.0 10/05/18 06:38 Monocytes % 8.1 10/05/18 06:38 Eosinophils % 4.7 10/05/18 06:38 Basophils % 0.4 10/05/18 06:38 Absolute Neutrophils 6.03 k/cumm (1.2-6.7) 10/05/18 06:38 Absolute Lymphocytes 1.16 k/cumm (1.2-3.4) L 10/05/18 06:38 Absolute Monocytes 0.67 k/cumm (0.11-0.7) 10/05/18 06:38 Absolute Eosinophils 0.39 k/cumm (0.0-0.7) 10/05/18 06:38 Absolute Basophils 0.03 k/cumm (0.0-0.2) 10/05/18 06:38 Sodium 141 mmol/L (136-145) 10/05/18 06:38 Potassium 4.0 mmol/L (3.5-5.1) 10/05/18 06:38 Chloride 104 mmol/L (98-107) 10/05/18 06:38 Carbon Dioxide 31.0 mmol/L (21.0-32.0) 10/05/18 06:38 Anion Gap 6.0 mmol/L (3-11) 10/05/18 06:38 BUN 13 mg/dL (7-18) 10/05/18 06:38 Creatinine 1.02 mg/dL (0.70-1.30) 10/05/18 06:38 Estimated GFR/1.73 m2 >= 60.00 (mL/min/1.73m2) 10/05/18 06:38 Glucose 101 mg/dL (70-100) H 10/05/18 06:38 Calcium 8.8 mg/dL (8.5-10.1) 10/05/18 06:38 Magnesium 2.2 mg/dL (1.8-2.4) 10/05/18 06:38 Troponin I < 0.05 ng/mL (0.00-0.06) 10/05/18 06:38 Urine Color Yellow (Yellow) 10/04/18 20:30 Urine Clarity Clear (Clear) 10/04/18 20:30 Urine pH 6.0 (5-8) 10/04/18 20:30 Ur Specific [place] 1.015 (1.005-1.025) 10/04/18 20:30 Urine Protein Negative mg/dL (Negative) 10/04/18 20:30 Urine Ketones Negative mg/dL (Negative) 10/04/18 20:30 Urine Blood Negative (Negative) 10/04/18 20:30 Urine Nitrite Negative (Negative) 10/04/18 20:30 Urine Bilirubin Negative (Negative) 10/04/18 20:30 Urine Urobilinogen 0.2 EU/dL (Up TO 0.2) 10/04/18 20:30 Ur Leukocyte Esterase Negative (Negative) 10/04/18 20:30 Urine Glucose Negative mg/dL (Negative) 10/04/18 20:30
--- NOTE | 2018-10-05 16:21 | CHAPLAIN ---
I was able to understand all the Mr. Baugh said, but he was pleasant and interacted some with me.
--- NOTE | 2018-10-05 16:30 | CMPROGNOTE_ITS ---
Care Management Progress Note O- stopped by CM office asking if we know when he might be able to go to [facility]. Advised her that he is now in acute status and will need to wait until he is medically stable for d/c. She was glad to know that things are heading in that direction. Advised CM would keep her apprised. A-82 yo man admitted from [facility] on 10/04/18 with bradycardia. P-Anticipate transfer to [facility] once medically stable to do so.
[2018-10-05] MEDS: QUEtiapine 25 MG TAB PO (22:05)
[2018-10-06] VITALS (10 sets, daily range): BP systolic 120–171; BP diastolic 68–89; PULSE 60–72; RESP 17–18; TEMP 36.5–37.2; O2SAT 96–98
[2018-10-06] MEDS: Normal Saline Flush 10 ML SYR IVP (04:49)
[2018-10-06 07:29] LABS: Abs Immature Grans 0.01 k/cumm (0.0-0.09); Absolute Basophil Count 0.06 k/cumm (0.0-0.2); Absolute Eosinophil Count 0.54 k/cumm (0.0-0.7); Absolute Lymphocyte Count 1.22 k/cumm (1.2-3.4); Absolute Monocyte Count 0.65 k/cumm (0.11-0.7); Absolute Neutrophil Count 6.18 k/cumm (1.2-6.7); Basophils % 0.7; Eosinophils % 6.2; HCT 41.8 % (40.0-50.0); HGB 13.5 g/dL (13.5-17.5); Immature Grans % 0.1; Lymphocytes % 14.1; Mean Corp. HGB Concentration 32.3 g/dL (32.0-36.0); Mean Corpuscular Hemoglobin 28.1 pg (27.0-33.0); Mean Corpuscular Volume 87.1 fL (80-95); Mean Platelet Volume 9.5 fL (8.0-11.0); Monocytes % 7.5; Neutrophils % 71.4; Platelet Count 222 x1000/uL (130-400); RBC Distribution Width 13.3 % (11.8-14.1); White Blood Cell Count 8.66 k/cumm (4.4-10.8)
[2018-10-06 07:52] LABS: Anion Gap 5.6 mmol/L (3-11); BUN 14 mg/dL (7-18); CO2 30.4 mmol/L (21.0-32.0); CREATININE 1.03 mg/dL (0.70-1.30); Calcium 8.3 mg/dL (8.5-10.1); Chloride 107 mmol/L (98-107); Glucose 109 mg/dL (70-100); Magnesium 2.1 mg/dL (1.8-2.4); Sodium 143 mmol/L (136-145)
--- NOTE | 2018-10-06 08:34 | W.CARDCONSUL ---
Date of service: 10/06/18 Time of Service: 08:34 Assessment and Plan (1) Pacemaker: Current visit: Yes Status: Chronic Normal pacemaker function. Full interrogation report scanned under documents. PVCs might explain pulse deficits and thus bradycardia if pulse palpated or pulse oximeter used. No need for reprogramming. History of Present Illness Chief Complaint: Bradycardia Narrative: 82-year-old man with cardiomyopathy, paroxysmal atrial fibrillation and bradycardia status post dual-chamber pacemaker. Pacemaker interrogation has been requested given bradycardia and concern for pacemaker malfunction. EKGs during this admission showed normal sinus rhythm with normal conduction. Pacemaker interrogation on October 04, 2018 covering the time between May 15 and October 04, 2018 revealed frequent PVCs that may explain a possible pulse deficit when palpating his pulse or using pulse oximeter to obtain heart rate. There was one episode of atrial fibrillation lasting 1 minute and 3 seconds in February 2018. Patient was paced 74.5% of the time predominantly A and V paced Today's pacemaker interrogation covering the time between October 04 and October 06, 2018 revealed rare PVCs and no atrial fibrillation. Patient was placed 74.21% of the time predominantly A and V paced. 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 No smoking, ETOH, illicit drug use. Results Last Vital Signs Temp 36.5 C 10/06/18 03:22 Pulse 62 10/06/18 07:13 Resp 18 10/06/18 03:22 BP 120/68 10/06/18 03:22 Pulse Ox 97 10/06/18 03:22 Labs : 10/06/18 07:15 10/06/18 07:15 Laboratory Results - last 24 hr 10/06/18 10/06/18 07:15 07:15 WBC 8.66 RBC 4.80 Hgb 13.5 Hct 41.8 MCV 87.1 MCH 28.1 MCHC 32.3 RDW 13.3 Plt Count 222 MPV 9.5 Immature Gran % 0.1 Neutrophils % 71.4 Lymphocytes % 14.1 Monocytes % 7.5 Eosinophils % 6.2 Basophils % 0.7 Absolute Neutrophils 6.18 Absolute Lymphocytes 1.22 Absolute Monocytes 0.65 Absolute Eosinophils 0.54 Absolute Basophils 0.06 Sodium 143 Potassium 4.0 Chloride 107 Carbon Dioxide 30.4 Anion Gap 5.6 BUN 14 Creatinine 1.03 Estimated GFR/1.73 m2 >= 60.00 Glucose 109 H Calcium 8.3 L Magnesium 2.1
--- NOTE | 2018-10-06 08:45 | CCONE_ITS ---
Date of service: 10/06/18 Time of Service: 08:34 Assessment and Plan (1) Pacemaker: Current visit: Yes Status: Chronic Normal pacemaker function. Full interrogation report scanned under documents. PVCs might explain pulse deficits and thus bradycardia if pulse palpated or pulse oximeter used. No need for reprogramming. History of Present Illness Chief Complaint: Bradycardia Narrative: 82-year-old man with cardiomyopathy, paroxysmal atrial fibrillation and bradycardia status post dual-chamber pacemaker. Pacemaker interrogation has been requested given bradycardia and concern for pacemaker malfunction. EKGs during this admission showed normal sinus rhythm with normal conduction. Pacemaker interrogation on October 04, 2018 covering the time between May 15 and October 04, 2018 revealed frequent PVCs that may explain a possible pulse deficit when palpating his pulse or using pulse oximeter to obtain heart rate. There was one episode of atrial fibrillation lasting 1 minute and 3 seconds in February 2018. Patient was paced 74.5% of the time predominantly A and V paced Today's pacemaker interrogation covering the time between October 04 and October 06, 2018 revealed rare PVCs and no atrial fibrillation. Patient was placed 74.21% of the time predominantly A and V paced. 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) Diverticulosis of colon without diverticulitis (Chronic) Cardiomyopathy (Chronic 08/03/14) Basal cell carcinoma of right forehead (Chronic 03/06/14) Actinic keratosis (Chronic) Osteoarthritis (Chronic) 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 No smoking, ETOH, illicit drug use. Results Last Vital Signs Temp 36.5 C 10/06/18 03:22 Pulse 62 10/06/18 07:13 Resp 18 10/06/18 03:22 BP 120/68 10/06/18 03:22 Pulse Ox 97 10/06/18 03:22 Labs : 10/06/18 07:15 10/06/18 07:15 Laboratory Results - last 24 hr 10/06/18 10/06/18 07:15 07:15 WBC 8.66 RBC 4.80 Hgb 13.5 Hct 41.8 MCV 87.1 MCH 28.1 MCHC 32.3 RDW 13.3 Plt Count 222 MPV 9.5 Immature Gran % 0.1 Neutrophils % 71.4 Lymphocytes % 14.1 Monocytes % 7.5 Eosinophils % 6.2 Basophils % 0.7 Absolute Neutrophils 6.18 Absolute Lymphocytes 1.22 Absolute Monocytes 0.65 Absolute Eosinophils 0.54 Absolute Basophils 0.06 Sodium 143 Potassium 4.0 Chloride 107 Carbon Dioxide 30.4 Anion Gap 5.6 BUN 14 Creatinine 1.03 Estimated GFR/1.73 m2 >= 60.00 Glucose 109 H Calcium 8.3 L Magnesium 2.1
[2018-10-06] MEDS: Sertraline 50 MG TAB 100 MG PO ×2 (09:26→21:46)
[2018-10-06] MEDS: Fludrocortisone 0.1 MG TAB 0.3 MG PO (09:26)
[2018-10-06] MEDS: Cholecalciferol (Vitamin D3) 1,000 UNIT TAB 1000 UNITS PO (09:26)
[2018-10-06] MEDS: Loratidine 10 MG TAB PO (09:26)
[2018-10-06] MEDS: Psyllium PKT 1 EACH PO ×3 (09:26→19:38)
[2018-10-06] MEDS: Omeprazole 20 MG CAPCR PO (09:26)
[2018-10-06] MEDS: Cyanocobalamin 500 MCG TAB 1000 MCG PO (09:26)
[2018-10-06] MEDS: QUEtiapine 25 MG TAB 12.5 MG PO (09:27)
[2018-10-06] MEDS: Apixaban 5 MG TAB PO ×2 (09:27→19:38)
--- NOTE | 2018-10-06 18:19 | W.PM.PROGNOT ---
Date of Service Date of service: 10/06/18 Time of Service: 18:19 Assessment and Plan (1) Unresponsiveness: Current visit: Yes Status: Acute Initially thought secondary to bradycardia in patient with a PPM in place, and with unofficial interrogation without abnormality and with good battery life, now noted to be significantly orthostatic. Mr. Baugh has a history of orthostatic hypotension based on likely autonomic dysfunction from his diagnosis of Multiple System Atrophy. Patient ruled out with serial cardiac biomarkers (Development of chest pain later in the day initially that resolved without intervention), with normal labs, and no evidence of bradyarrhythmia on telemetry. Official Pacer interrogation without dysfunction. Continue increased dose of Florinef, gentle hydration (history of CHF), and recheck orthostatics. Monitor symptoms as well, and ensure patient has assistance with any form of ambulation or attempted movement at this time. (2) Parkinsons disease: Current visit: No Status: Chronic Multiple System Atrophy with predominant Parkinsonism. Patient also has apparent dementia and autonomic dysfunction with noted significant orthostatic hypotension as above. Continue increased dose of Florinef as above. Neuro aware and following patient - as per recommendations his seroquel dosing has been decreased, and speech and physical therapy obtained. (3) Orthostatic hypotension: Current visit: No Status: Chronic Florinef, IVFs as above. (4) Multiple system atrophy: Current visit: No Status: Chronic As above. Follows chronically with Neuro. (5) Paroxysmal atrial fibrillation: Current visit: No Status: Chronic Appears either in sinus rhythm or paced - no evidence of bradycardia on telemetry. Not on mar agent. Continue Apixaban for anticoagulation. (6) Cardiomyopathy: Current visit: No Status: Chronic Appears euvolemic to dry. No SHANTEL-I/ARB given hypotension. Also not on BB therapy. Last ECHO locally with LVEF 45% 03/2017. Monitor volume status carefully, especially with planned IVFs as above. (7) Heart block: Current visit: No Status: Resolved S/p PPM. (8) DVT prophylaxis: Current visit: No Status: Acute On chronic anticoagulation with Apixaban. Subjective Interval history since last seen: 82-year-old man with a history significant for PD, admitted originally from [facility] Emergency [facility] on 09/26 for increased weakness and confusion, transitioned to Swing bed status on 09/28 for Failure to Thrive at his home, and made acute status on 10/04. Mr. Baugh has a past Medical History significant for Paroxysmal Afib, Heart Block/AV Node dysfunction s/p PPM, PD, and Multiple System Atrophy complicated by severe orthostatic hypotension. Other history includes BPH, dementia, and chronic gait imbalance. The patient had been living at home with his , brought in to the ED initially with reported increased weakness and confusion, and stated that she was no longer able to care for him at home due to progression of his parkinson's symptoms and dementia. She was requesting that he be placed in a fdc facility. He was admitted on observation status, initially, then transitioned to Swing Bed Status. Early on the morning of 10/04 Mr. Baugh experienced an episode of unresponsiveness following straining to move his bowels. He was noted to have a HR in the 30's immediately following this witnessed episode by nursing, confirmed by monitor. However, by the time an ECG was obtained his HR had returned into the 70's, and his mentation improved. However, he did sustain this noted bradycardia for approximately 5 minutes. Cardiology informally interrogated his Pacer, and found no evidence of malfunction. He was placed on telemetry, and has had no further evidence of bradycardia for the remainder of the day, nor any further bradycardia overnight. Yesterday morning he developed another episode of transient symptoms, and this time telemetry confirmed lack of bradycardia or any significant arrhythmia. By that afternoon when the patient had experienced another episode, orthostatics were checked and patient was noted to be significantly hypotensive, with a drop in SBP from 150 --> 80's, and a HR in the 60's. Cardiology formally consulted today, and found No evidence of dysfunction on patient's PPM. No other events reported. Exam Narrative Exam Narrative: General: Patient appears comfortable, NAD Neck: Supple CV: Regular, nontachycardic, with distant heart sounds Pulmonary: Clear to auscultation bilaterally, no crackles, wheezing, or rhonchi on limited anterior and lateral exam Abdomen: + Bowel Sounds, soft, nontender, nondistended Vascular: No lower extremity edema Psych: Normal mood and affect. Objective Objective Clinical Data: Abnormal lab results 10/06/18 Range/Units 07:15 Glucose 109 H (70-100) mg/dL Calcium 8.3 L (8.5-10.1) mg/dL Vital Signs Temperature 37.1 C 10/06/18 15:53 Temperature Source Tympanic 10/06/18 15:53 Pulse 65 10/06/18 15:53 Pulse Rhythm Irregular 10/06/18 16:45 Respiratory Rate 18 10/06/18 15:53 Respiratory Effort Non-Labored 10/06/18 16:45 Respiratory Depth Normal 10/06/18 16:45 Respiratory Pattern Normal 10/06/18 16:45 Blood Pressure 171/81 H 10/06/18 15:53 Pulse Oximetry 97 10/06/18 15:53 Oxygen Delivery Method Room Air 10/06/18 15:53 Oxygen Flow Rate 0 10/06/18 15:53 Pain Level 0 10/05/18 23:45 Comment 10/05/18 23:45 Intake & Output 10/05/18 10/06/18 10/06/18 23:59 11:59 23:59 Intake Total 10 / 740 1700 / 2190 490 / 2190 Output Total 300 / 500 600 / 1540 940 / 1540 Balance -290 / 240 1100 / 650 -450 / 650 Intake: IV 10 / 10 1000 / 1010 10 / 1010 Oral 700 / 1180 480 / 1180 Output: Urine 300 / 500 600 / 1540 940 / 1540 Other: Urine Color Yellow Pale Urine Appearance Clear Clear Clear Urine Odor None Normal Comment unable to get amount missed commode was on floor Stool Size Moderate Stool Characteristics Formed Brown Voiding Methods Toilet Bedside Commode Urinal Urinal Laboratory Results WBC 8.66 k/cumm (4.4-10.8) 10/06/18 07:15 RBC 4.80 m/cumm (4.50-6.00) 10/06/18 07:15 Hgb 13.5 g/dL (13.5-17.5) 10/06/18 07:15 Hct 41.8 % (40.0-50.0) 10/06/18 07:15 MCV 87.1 fL (80-95) 10/06/18 07:15 MCH 28.1 pg (27.0-33.0) 10/06/18 07:15 MCHC 32.3 g/dL (32.0-36.0) 10/06/18 07:15 RDW 13.3 % (11.8-14.1) 10/06/18 07:15 Plt Count 222 x1000/uL (130-400) 10/06/18 07:15 MPV 9.5 fL (8.0-11.0) 10/06/18 07:15 Immature Gran % 0.1 10/06/18 07:15 Neutrophils % 71.4 10/06/18 07:15 Lymphocytes % 14.1 10/06/18 07:15 Monocytes % 7.5 10/06/18 07:15 Eosinophils % 6.2 10/06/18 07:15 Basophils % 0.7 10/06/18 07:15 Absolute Neutrophils 6.18 k/cumm (1.2-6.7) 10/06/18 07:15 Absolute Lymphocytes 1.22 k/cumm (1.2-3.4) 10/06/18 07:15 Absolute Monocytes 0.65 k/cumm (0.11-0.7) 10/06/18 07:15 Absolute Eosinophils 0.54 k/cumm (0.0-0.7) 10/06/18 07:15 Absolute Basophils 0.06 k/cumm (0.0-0.2) 10/06/18 07:15 Sodium 143 mmol/L (136-145) 10/06/18 07:15 Potassium 4.0 mmol/L (3.5-5.1) 10/06/18 07:15 Chloride 107 mmol/L (98-107) 10/06/18 07:15 Carbon Dioxide 30.4 mmol/L (21.0-32.0) 10/06/18 07:15 Anion Gap 5.6 mmol/L (3-11) 10/06/18 07:15 BUN 14 mg/dL (7-18) 10/06/18 07:15 Creatinine 1.03 mg/dL (0.70-1.30) 10/06/18 07:15 Estimated GFR/1.73 m2 >= 60.00 (mL/min/1.73m2) 10/06/18 07:15 Glucose 109 mg/dL (70-100) H 10/06/18 07:15 Calcium 8.3 mg/dL (8.5-10.1) L 10/06/18 07:15 Magnesium 2.1 mg/dL (1.8-2.4) 10/06/18 07:15 Troponin I < 0.05 ng/mL (0.00-0.06) 10/05/18 06:38 Urine Color Yellow (Yellow) 10/04/18 20:30 Urine Clarity Clear (Clear) 10/04/18 20:30 Urine pH 6.0 (5-8) 10/04/18 20:30 Ur Specific Yoder 1.015 (1.005-1.025) 10/04/18 20:30 Urine Protein Negative mg/dL (Negative) 10/04/18 20:30 Urine Ketones Negative mg/dL (Negative) 10/04/18 20:30 Urine Blood Negative (Negative) 10/04/18 20:30 Urine Nitrite Negative (Negative) 10/04/18 20:30 Urine Bilirubin Negative (Negative) 10/04/18 20:30 Urine Urobilinogen 0.2 EU/dL (Up TO 0.2) 10/04/18 20:30 Ur Leukocyte Esterase Negative (Negative) 10/04/18 20:30 Urine Glucose Negative mg/dL (Negative) 10/04/18 20:30
--- NOTE | 2018-10-06 19:19 | PDOC.CMPRO ---
Care Management Progress Note S/O: Ayden continues to have work up for bradycardia and orthostatic response. He was pleasantly engaged when meeting with this senior grant writer and APS reference investigator; Margarito Valdez. Ayden was alert and oriented and conversant. He appeared to be back to baseline. [facility] provided bed offer which was accepted by Ayden. CM notified his , Maegan as well who was agreeable as well. CM continues to follow. A: 82 year old male admitted to [facility] for Failure to Thrive, AMS, Dementia, Acute status 10/04/18 due to cardiac event. P: Anticipate Ayden could discharge to [facility] as soon as tomorrow, 10/07/18. [facility] and [facility] have provided bed offer and report W/C availability at 1330, in event Ayden is medically ready for discharge.
--- NOTE | 2018-10-06 19:23 | CMPROGNOTE_ITS ---
Care Management Progress Note S/O: Ayden continues to have work up for bradycardia and orthostatic response. He was pleasantly engaged when meeting with this program writer and APS safety investigator; Margarito Valdez. Ayden was alert and oriented and conversant. He appeared to be back to baseline. [facility] provided bed offer which was accepted by Ayden. CM notified his , Maegan as well who was agreeable as well. CM continues to follow. A: 82 year old male admitted to [facility] for Failure to Thrive, AMS, Dementia, Acute status 10/04/18 due to cardiac event. P: Anticipate Ayden could discharge to [facility] as soon as tomorrow, 10/07/18. [facility] and [facility] have provided bed offer and report W/C availability at 1330, in event Ayden is medically ready for discharge.
--- NOTE | 2018-10-06 20:00 | PT.INNT ---
Date of service: 10/06/18 PT Notes Per cardiology consultation notes review on 10/04/2018 and per MD progress notes as of today, patient is found to have severe orthostatic hypotension due to autonomic dysfunction from his multiple system atrophy. Referral for continued skilled PT services was received on 10/05/2018 but patient continues to be weak and unable to follow simple instructions. Patient is not appropriate for skilled services at this time. Will plan to re-evaluate as needed to progress to highest/safest transfer level. Will consult with MD per facility protocol. Please continue with assist of 2 for all transfers using STEDY lift and use wheelchair for all mobility and transport needs at this time. Thank you very much for this referral. Valorie Hunter PT, DPT, [facility]
[2018-10-06] MEDS: QUEtiapine 25 MG TAB PO (21:45)
--- NOTE | 2018-10-06 22:53 | NUR.NOTE ---
Nursing Note: Pt is fully awake on bed, conversant, sometimes with delayed responsed. Both groins remains with reddened rashes, cream applied as ordered. Pt able to used urinal independently. Sponfed himself. Denied of pain until this time. cadre was with him from 7 to 11pm. Bed alarm in progress.
[2018-10-07 04:38] VITALS: O2SAT 97
--- NOTE | 2018-10-07 04:43 | INDS_ITS ---
Date of service: 10/04/18 PT Notes Inpatient Physical Therapy Discharge Summary Dates: 10/04/2018 Dates of Service: 09/29/2018 through 10/04/2018 This is a clinical summary of care provided on the duration of dates listed above. No charge was made in the completion of this documentation. Referring Doctor: Catina To MD PT Orders: PT CONSULT: Eval/treat Precautions: Fall. Standard. Impaired safety awareness. Activity as tolerated. Patient Profile/Admitting Diagnosis: Patient is an 82-year-old male with past medical history significant for Parkinson's disease who presented to the ED on 09/26/2018 with chief symptoms of confusion, dysuria, hematuria, and generalized weakness. Patient was diagnosed with toxic metabolic encephalopathy, multiple system atrophy, hematuria, depression, paroxysmal atrial fibrillation with referral for palliative care. Patient is discharged under swing bed level as of today 10/04/2018. 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 Per report of on today during care conference, patient was able to tolerate in-house ambulation with very minimal help from her without use of any assistive ambulatory device Current Functional Limitations: Need for physical assistance, assistive device, and maximum verbal cueing for all transfer and ambulation tasks. Equipment Owned/DME: Unable to extract information from patient due to impaired cognitive level Subjective: Patient had a bradycardic event and a pacemaker firing issue resu lted to a near fall accident and difficult transfer from chair to bed using the STEDY lift with OT and RIB SAWYER. Objective: General Observation: Patient seen resting on his chair. TEDS on bilateral legs. IV access to right UE still open. Intentional tremors continue to be aggravated by movement. Mental Status: NT Pain: NT ROM: Right Upper Extremity: Shoulder Flexion 0 to 120 degrees. Shoulder abduction 0 to 110 degrees. Elbow flexion WFL. Wrist flexion WFL. Functional opening and closing of hand WFL. Left Upper Extremity: Shoulder Flexion 0 to 120 degrees. Shoulder abduction 0 to 110 degrees. Elbow flexion WFL. Wrist flexion WFL. Functional opening and closing of hand WFL. Right Lower Extremity: Hip flexion WFL. Hip abduction WFL. Knee flexion WFL. Ankle dorsiflexion WFL. Ankle plantarflexion WFL. Left Lower Extremity: Hip flexion WFL. Hip abduction WFL. Knee flexion WFL. Ankle dorsiflexion WFL. Ankle plantarflexion WFL. Strength: Right Upper Extremity: Shoulder flexors 3-/5. Shoulder abductors 3-/5. Elbow flexors 4/5. Elbow extensors 4/5. Double Backer strong. Left Upper Extremity: Shoulder flexors 3-/5. Shoulder abductors 3-/5. Elbow flexors 4/5. Elbow extensors 4/5. Double Backer strong. Right Lower Extremity: Hip flexors 4-/5. Hip abductors 4-/5. Knee flexors 4/5. Knee extensors 4-/5. Ankle dorsiflexors 4-/5. Ankle plantarflexors 4-5. Left Lower Extremity:Hip flexors 4-/5. Hip abductors 4-/5. Knee flexors 4/5. Knee extensors 4-/5. Ankle dorsiflexors 4-/5. Ankle plantarflexors 4-5. Bed Mobility/Transfers: Rolling minimal assist Supine to sit moderate assist of 2 for safety Sit to supine moderate assist of 2 for safety Sit to stand moderate assist of 2 for safety Stand to sit moderate assist of 2 for safety Bed to chair moderate assist of 2 for safety Chair to bed moderate assist of 2 for safety Gait: NT Balance: Static Sitting: Fair Dynamic Sitting: Fair Static Standing: Poor Dynamic Standing: Poor Assessment: Patient is an 82-year-old male with diagnosis of toxic metabolic encephalopathy, multiple system atrophy, Parkinson's disease and hematuria. Patient continues to present with clinical signs and symptoms consistent with current/admitting diagnoses that have resulted to mobility limitations, gait instability, generalized weakness, and impairment of motor control as demonstrated by the following impairment level findings: 1. Decreased strength to B LE major muscle groups 2. Impaired sitting/standing balance 3. Impaired activity tolerance 4. Impaired safety awareness Impairments are contributing to the following functional limitations: 1. Dependent bed mobility skills 2. Increased dependence with transfers 3. Inability to safely ambulate without assistive device and physical assistance 4. Increase completion time for mobility ADL performance 5. Increased fall risk 6. Inability to negotiate steps alone safely Goals: Goals X1 week 1. Supine-Sit supervision NOT MET 2. Sit-Supine supervision NOT MET 3. Sit-Stand supervision NOT MET 4. Stand-Sit supervision NOT MET 5. Bed-Chair supervision NOT MET 6. Chair-Bed supervision NOT MET 7. Independent gait on level surface with use of least restrictive device for at least 50 feet without report of pain nor dyspnea NOT MET 8. Independent with home exercise program NOT MET 19. Good static and dynamic standing balance/tolerance NOT MET Plan of Care/Treatment Plan: With pacemaker firing issues identified compounded by patient's increasing inability to follow instructions, patient is not found to be appropriate for skilled services at this time. patient is discharged from skilled services today under swing bed status and will transition to acute care level tomorrow. Will determine appropriateness for continued skilled PT services upon restabilization of cardiac status as needed. DISCHARGE RECOMMENDATIONS: Patient will benefit from long-term facility placement in order to progress mobility level, strength, and balance in preparation for a safe discharge to a private home with a caregiver. Patient will also benefit from home health PT services in order to progress mobility level using least restrictive assistive ambulatory device/using no device, assess home safety, identify additional equipment needs, performed caregiver education/training who can provide a consistent structure/routine for patient, and establish a functional maintenance program that will increase ability of patient to remain at home. TREATMENT CODE/TIME: [id number] for 29 minutes beginning at 9:05 AM. Thank you very much for this referral. Valorie Hunter PT, DPT, CLT [facility]
[2018-10-07 04:55] VITALS: O2SAT 96
[2018-10-07 07:14] LABS: Abs Immature Grans 0.01 k/cumm (0.0-0.09); Absolute Basophil Count 0.06 k/cumm (0.0-0.2); Absolute Eosinophil Count 0.52 k/cumm (0.0-0.7); Absolute Lymphocyte Count 1.32 k/cumm (1.2-3.4); Absolute Monocyte Count 0.64 k/cumm (0.11-0.7); Basophils % 0.7; Eosinophils % 6.2; HCT 40.5 % (40.0-50.0); HGB 13.4 g/dL (13.5-17.5); Immature Grans % 0.1; Lymphocytes % 15.8; Mean Corp. HGB Concentration 33.1 g/dL (32.0-36.0); Mean Corpuscular Hemoglobin 28.4 pg (27.0-33.0); Mean Corpuscular Volume 85.8 fL (80-95); Mean Platelet Volume 9.5 fL (8.0-11.0); Monocytes % 7.7; Neutrophils % 69.5; Platelet Count 224 x1000/uL (130-400); RBC 4.72 m/cumm (4.50-6.00); White Blood Cell Count 8.35 k/cumm (4.4-10.8)
[2018-10-07 07:30] VITALS: BP 155/83; PULSE 62; RESP 18; TEMP 36.6; O2SAT 95
[2018-10-07 07:52] LABS: Anion Gap 7.3 mmol/L (3-11); BUN 14 mg/dL (7-18); CO2 29.7 mmol/L (21.0-32.0); CREATININE 0.96 mg/dL (0.70-1.30); Calcium 8.3 mg/dL (8.5-10.1); Chloride 107 mmol/L (98-107); Glucose 106 mg/dL (70-100); Potassium 3.7 mmol/L (3.5-5.1); Sodium 144 mmol/L (136-145)
[2018-10-07] MEDS: Cholecalciferol (Vitamin D3) 1,000 UNIT TAB 1000 UNITS PO (09:21)
[2018-10-07] MEDS: Cyanocobalamin 500 MCG TAB 1000 MCG PO (09:21)
[2018-10-07] MEDS: Omeprazole 20 MG CAPCR PO (09:21)
[2018-10-07] MEDS: Psyllium PKT 1 EACH PO (09:21)
[2018-10-07] MEDS: Apixaban 5 MG TAB PO (09:21)
[2018-10-07] MEDS: QUEtiapine 25 MG TAB 12.5 MG PO (09:22)
[2018-10-07] MEDS: Loratidine 10 MG TAB PO (09:22)
[2018-10-07] MEDS: Fludrocortisone 0.1 MG TAB 0.3 MG PO (09:22)
--- NOTE | 2018-10-07 09:53 | PDOC.CMDIS ---
LACE Index Scoring Tool - Questions: Length of Stay (in days): 7 - 13 Acuity (Admit via E.D.?): Yes Comorbidities: Dementia, Connective Tissue Disease E.D. Visits: 5 - Answers: Total Score: 17 Risk of Readmission: High Risk Care Management Discharge Reason for Hospitalization: Bradycardia, Failure to Thrive, Dementia Discharge Plan: Ayden will discharge to [facility] via W/C van at 1330. The facility will manage his further care needs. Ayden and his family are awaiting notication for Traditional Medicaid coverage and [employer] Medicaid; Choices for Care. Ultimately, the plan is for Ayden to enter a family friend home under [facility] benefit. Patient/Family Education Needs: Review of discharge instructions, discuss Ask Me Three. Services Needed at Discharge: Long-Term Facility ([facility], [facility], [id number], LTC [facility] completed. )
[2018-10-07] MEDS: Sertraline 50 MG TAB 100 MG PO (10:52)
--- NOTE | 2018-10-07 11:06 | DSE_ITS ---
Date of service: 10/07/18 Time of Service: 10:56 DS: Diagnosis Discharge Diagnosis (1) Unresponsiveness: Status: Acute (2) Parkinsons disease: Status: Chronic (3) Orthostatic hypotension: Status: Chronic (4) Multiple system atrophy: Status: Chronic (5) Paroxysmal atrial fibrillation: Status: Chronic (6) Cardiomyopathy: Status: Chronic (7) Heart block: Status: Resolved (8) Advance directive on file: Status: Acute Discharge Plan Disposition Patient Disposition: SNF (LEVEL 1) [facility] Condition: Stable Discharge Details Reason For Visit: BRADYCARDIA Admit Date/Time: 10/04/18 18:55 Admit Provider: Ignacio James Attending Provider: Ignacio James Primary Care Provider: Laureano Kaminski Hospital Course Hospital Course: CC: Failure to Thrive HPI: 82-year-old man with a history significant for PD, admitted originally from [facility] Emergency Department on 09/26 for increased weakness and confusion, transitioned to Swing bed status on 09/28 for Failure to Thrive at his home, and made acute status on 10/04. Mr. Baugh has a past Medical History significant for Paroxysmal Afib, Heart Block/AV Node dysfunction s/p PPM, PD, and Multiple System Atrophy complicated by severe orthostatic hypotension. Other history includes BPH, dementia, and chronic gait imbalance. The patient had been living at home with his , brought in to the ED initially with reported increased weakness and confusion, and stated that she was no longer able to care for him at home due to progression of his parkinson's symptoms and dementia. She was requesting that he be placed in a nursing home facility. He was admitted on observation status, initially, then transitioned to Swing Bed Status. Early on the morning of 10/04 Mr. Baugh experienced an episode of unresponsiveness following straining to move his bowels. He was noted to have a HR in the 30's immediately following this witnessed episode by nursing, confirmed by bedside monitor. However, by the time an ECG was obtained his HR had returned into the 70's, and his mentation improved. However, he did sustain this noted bradycardia for approximately 5 minutes. Cardiology informally interrogated his Pacer, and found no evidence of malfunction. He was placed on telemetry, and has had no further evidence of bradycardia for the remainder of the day, nor any further bradycardia overnight. On the following morning he developed another episode of transient symptoms, and this time telemetry confirmed lack of bradycardia or any significant arrhythmia. By that afternoon when the patient had experienced another episode, orthostatics were checked and patient was noted to be significantly hypotensive, with a drop in SBP from 150 --> 80's, and a HR in the 60's. Cardiology formally consulted on 10/06, and found No evidence of dysfunction on patient's PPM. Following increase in his Florinef and gentle fluid hydration, patient's orthostatic pressures were repeated yesterday and maintained well following standing. No other events reported. Hospital Course: (1) Unresponsiveness: Initially thought secondary to bradycardia in patient with a PPM in place, and with unofficial interrogation without abnormality and with good battery life, subsequently noted to be significantly orthostatic. Mr. Baugh has a history of orthostatic hypotension based on likely autonomic dysfunction from his diagnosis of Multiple System Atrophy. Patient ruled out with serial cardiac biomarkers (Development of chest pain later in the day initially that resolved without intervention), with normal labs, and no evidence of bradyarrhythmia on telemetry. Official Pacer interrogation without dysfunction. Appears improved - will recommend continuation of increased dose of Florinef. Also recommend continued monitoring of symptoms, and ensuring that the patient has assistance when appropriate. Please note that he will continue to have hypotension based on his neurologic history - if any further episodes occur, and there is no sign of dehydration or infection, recommend that neurology and patient's PCP be contacted. (2) Parkinsons disease: Multiple System Atrophy with predominant Parkinsonism. Patient also has apparent dementia and autonomic dysfunction with noted significant orthostatic hy potension as above. Continue increased dose of Florinef as above. Neuro had seen patient initially - as per recommendations his seroquel dosing has been decreased, and speech and physical therapy obtained. (3) Orthostatic hypotension: Florinef, IVFs as above. (4) Multiple system atrophy: As above. Follows chronically with Neuro. (5) Paroxysmal atrial fibrillation: Appears either in sinus rhythm or paced - no evidence of bradycardia on telemetry. Not on mar agent. Continue Apixaban for anticoagulation. (6) Cardiomyopathy: Appears euvolemic to dry. No SHANTEL-I/ARB given hypotension. Also not on BB therapy. Last ECHO locally with LVEF 45% 03/2017. Monitor volume status, weights over time. (7) Heart block: S/p PPM, functioning normally per pacer interrogation as above. (8) DVT prophylaxis: On chronic anticoagulation with Apixaban. (9) Disposition: To [facility]. Home Meds and New Rx's Prescriptions: New quetiapine 25 mg Tablet 25 mg PO HS Qty: 0 RF: 0 quetiapine 25 mg Tablet 12.5 mg PO DAILY Qty: 0 RF: 0 sertraline 50 mg Tablet 200 mg PO QHS Qty: 0 RF: 0 Continued cholecalciferol (vitamin D3) 1,000 UNIT tablet 1,000 unit PO DAILY RF: 0 cyanocobalamin (vitamin B-12) [Vitamin B-12] 1,000 MCG tablet extended release 1,000 mcg PO DAILY RF: 0 Eliquis 5 mg tablet 5 mg PO BID Qty: 180 RF: 3 omeprazole 20 mg capsule,delayed release(DR/EC) 20 mg PO DAILY Qty: 90 RF: 6 loratadine 10 mg tablet 10 mg PO DAILY Qty: 90 RF: 3 Metamucil 3.4 gram/5.4 gram Powder 1 tbsp PO TID RF: 0 acetaminophen 325 mg Tablet 650 mg PO Q4H PRNRF: 0 docusate sodium 100 mg Capsule 100 mg PO TID PRNRF: 0 clotrimazole 1 % Cream 1 applic TOPICAL TID RF: 0 dimethicone-zinc oxide Cream topical PRN PRNRF: 0 magnesium hydroxide 2,400 mg/10 mL Suspension 30 ml PO DAILY PRNRF: 0 Discontinued fludrocortisone 0.1 mg tablet 0.2 mg PO DAILY Qty: 180 RF: 3 sertraline 100 mg tablet 100 mg PO BID RF: 0 quetiapine [Seroquel] 50 mg tablet 25 mg PO QHS RF: 0 Discharge Instructions Activity:: As per PT recommendations Equipment/Supplies:: No Equipment Needed Diet:: As Tolerated Discharge Orders Discharge Orders: Discharge Order (Routine); Ordered 10/07/18 Ordered By: Ignacio James DS: Data Vitals/I&O Vitals and I&O: Vital Signs Temperature 37.2 C 10/06/18 18:45 Temperature Source Tympanic 10/06/18 15:53 Pulse 60 10/06/18 23:35 Pulse Rhythm Regular 10/07/18 08:04 Respiratory Rate 18 10/06/18 18:45 Respiratory Effort 10/07/18 08:04 Respiratory Depth Normal 10/07/18 08:04 Respiratory Pattern Normal 10/07/18 04:38 Blood Pressure 168/89 H 10/06/18 23:35 Pulse Oximetry 96 10/07/18 04:55 Oxygen Delivery Method Room Air 10/07/18 04:55 Oxygen Flow Rate 0 10/07/18 04:55 Pain Level 0 10/07/18 04:55 Comment 10/06/18 23:35 Intake & Output 10/06/18 10/06/18 10/07/18 11:59 23:59 11:59 Intake Total 1700 / 2190 490 / 2190 Output Total 600 / 1840 1240 / 1840 1200 / 1200 Balance 1100 / 350 -750 / 350 -1200 / -1200 Intake: IV 1000 / 1010 10 / 1010 Oral 700 / 1180 480 / 1180 Output: Urine 600 / 1840 1240 / 1840 1200 / 1200 Other: Urine Color Yellow Yellow Pale Urine Appearance Clear Clear Clear Urine Odor None Normal Normal Voiding Methods Bedside Commode Urinal Urinal Urinal Completed studies during hospitalization [Text1]: Exam(s) 10/04/2018 a RAD:XR chest 2V PA & lateral SYMPTOM/DIAGNOSIS: LEAD PLACEMENT - HX PPM AP AND LATERAL CHEST: Leads are seen over the left lower chest. A pacemaker is noted. The heart is mildly enlarged, unchanged. The lungs appear clear. IMPRESSION: No acute abnormality. Labs on day of discharge: Labs from last 24 hours 10/07/18 10/07/18 06:50 06:50 WBC 8.35 RBC 4.72 Hgb 13.4 L Hct 40.5 MCV 85.8 MCH 28.4 MCHC 33.1 RDW 13.0 Plt Count 224 MPV 9.5 Immature Gran % 0.1 Neutrophils % 69.5 Lymphocytes % 15.8 Monocytes % 7.7 Eosinophils % 6.2 Basophils % 0.7 Absolute Neutrophils 5.80 Absolute Lymphocytes 1.32 Absolute Monocytes 0.64 Absolute Eosinophils 0.52 Absolute Basophils 0.06 Sodium 144 Potassium 3.7 Chloride 107 Carbon Dioxide 29.7 Anion Gap 7.3 BUN 14 Creatinine 0.96 Estimated GFR/1.73 m2 >= 60.00 Glucose 106 H Calcium 8.3 L Magnesium 2.0 PFSH 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) Diverticulosis of colon without diverticulitis (Chronic) Cardiomyopathy (Chronic 08/03/14) Basal cell carcinoma of right forehead (Chronic 03/06/14) Actinic keratosis (Chronic) Osteoarthritis (Chronic) 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 No smoking, ETOH, illicit drug use.
[2018-10-07 11:10] VITALS: PULSE 60
--- NOTE | 2018-10-07 12:21 | CMDISCH_ITS ---
LACE Index Scoring Tool - Questions: Length of Stay (in days): 7 - 13 Acuity (Admit via E.D.?): Yes Comorbidities: Dementia, Connective Tissue Disease E.D. Visits: 5 - Answers: Total Score: 17 Risk of Readmission: High Risk Care Management Discharge Reason for Hospitalization: Bradycardia, Failure to Thrive, Dementia Discharge Plan: Ayden will discharge to [facility] via W/C van at 1330. The facility will manage his further care needs. Ayden and his family are awaiting notication for Traditional Medicaid coverage and [employer] Medicaid; Choices for Care. Ultimately, the plan is for Ayden to enter a family friend home under [facility] benefit. Patient/Family Education Needs: Review of discharge instructions, discuss Ask Me Three. Services Needed at Discharge: Custodial Facility ([facility], [facility], [id number], LTC [facility] completed. )
== END 2018-10-07 13:31 | disposition skilled nursing facility (03) | DRG 884 ==
PROVIDERS: Family Medicine; Admitting Provider Internal Medicine; PCP Emergency Medicine; Visit Provider Internal Medicine
DX: R41.89 Other symptoms and signs involving cognitive functions and awareness (principal); G23.9 Degenerative disease of basal ganglia, unspecified; I42.9 Cardiomyopathy, unspecified; R00.1 Bradycardia, unspecified; I95.9 Hypotension, unspecified; G20 Parkinson's disease; I48.0 Paroxysmal atrial fibrillation; I44.30 Unspecified atrioventricular block; N40.0 Benign prostatic hyperplasia without lower urinary tract symptoms; Z74.2 Need for assistance at home and no other household member able to render care; Z95.0 Presence of cardiac pacemaker
CPT/HCPCS: 36415; 80048; 99223; 99232; 99233; 99239; 99252; 81003; 83735; 84484; 85025

== ENCOUNTER → 2018-10-06 11:39 | Outpatient (BNVA) | payer MEDICARE, MEDICAID, SELFPAY | PROVIDERS: PCP Emergency Medicine; Visit Provider Student in an Organized Health Care Education/Training Program | DX: R69 Illness, unspecified (principal) ==

== ENCOUNTER → 2018-10-26 11:52 | Outpatient (BNVA) | payer MEDICARE, MEDICAID, SELFPAY | PROVIDERS: Visit Provider Nurse Practitioner Family | DX: I48.0 Paroxysmal atrial fibrillation (principal); I95.1 Orthostatic hypotension; Z45.018 Encounter for adjustment and management of other part of cardiac pacemaker; I45.9 Conduction disorder, unspecified; Z79.01 Long term (current) use of anticoagulants | CPT/HCPCS: 93288; 99213 ==

== ENCOUNTER → 2018-11-24 10:35 | Outpatient (BNVA) | payer MEDICARE, MEDICAID, SELFPAY | PROVIDERS: PCP Emergency Medicine; Visit Provider Psychiatry & Neurology Neurology | DX: I95.1 Orthostatic hypotension (principal); G23.9 Degenerative disease of basal ganglia, unspecified; R26.9 Unspecified abnormalities of gait and mobility; R49.8 Other voice and resonance disorders; R41.82 Altered mental status, unspecified; F03.90 Unspecified dementia, unspecified severity, without behavioral disturbance, psychotic disturbance, mood disturbance, and anxiety; G25.3 Myoclonus | CPT/HCPCS: 99214 ==

== ENCOUNTER 2018-11-26 12:38 | Outpatient (REF) | payer MEDICARE, MEDICAID, SELFPAY ==
[2018-11-26 13:12] LABS: Abs Immature Grans 0.01 k/cumm (0.0-0.09); Absolute Basophil Count 0.03 k/cumm (0.0-0.2); Absolute Eosinophil Count 0.37 k/cumm (0.0-0.7); Absolute Lymphocyte Count 0.83 k/cumm (1.2-3.4); Absolute Monocyte Count 0.62 k/cumm (0.11-0.7); Absolute Neutrophil Count 4.02 k/cumm (1.2-6.7); Basophils % 0.5; Eosinophils % 6.3; HCT 41.5 % (40.0-50.0); HGB 13.2 g/dL (13.5-17.5); Immature Grans % 0.2; Lymphocytes % 14.1; Mean Corp. HGB Concentration 31.8 g/dL (32.0-36.0); Mean Corpuscular Hemoglobin 26.9 pg (27.0-33.0); Mean Corpuscular Volume 84.5 fL (80-95); Monocytes % 10.5; Neutrophils % 68.4; Platelet Count 204 x1000/uL (130-400); RBC 4.91 m/cumm (4.50-6.00); RBC Distribution Width 14.1 % (11.8-14.1); White Blood Cell Count 5.88 k/cumm (4.4-10.8)
[2018-11-26 14:30] LABS: Anion Gap 6.4 mmol/L (3-11); BUN 14 mg/dL (7-18); CO2 32.6 mmol/L (21.0-32.0); CREATININE 1.07 mg/dL (0.70-1.30); Calcium 8.3 mg/dL (8.5-10.1); Chloride 104 mmol/L (98-107); Glucose 124 mg/dL (70-100); Potassium 3.3 mmol/L (3.5-5.1); Sodium 143 mmol/L (136-145)
== END 2018-11-26 12:58 ==
LOC: LBN 12:38
PROVIDERS: PCP Emergency Medicine; Visit Provider Nurse Practitioner Adult Health
DX: G20 Parkinson's disease (principal); R62.7 Adult failure to thrive; K21.9 Gastro-esophageal reflux disease without esophagitis; M62.81 Muscle weakness (generalized)
CPT/HCPCS: 80048; 85025

== ENCOUNTER 2018-12-07 10:28 | Outpatient (CLI) | payer MEDICARE, MEDICAID, SELFPAY ==
[2018-12-07 13:28] LABS: Anion Gap 8.6 mmol/L (3-11); BUN 15 mg/dL (7-18); CO2 29.4 mmol/L (21.0-32.0); Calcium 7.9 mg/dL (8.5-10.1); Chloride 104 mmol/L (98-107); Glucose 153 mg/dL (70-100); Potassium 3.4 mmol/L (3.5-5.1); Sodium 142 mmol/L (136-145)
== END 2018-12-07 10:48 ==
LOC: LBO 11:09 → LBN 11:09
PROVIDERS: PCP Emergency Medicine; Visit Provider Nurse Practitioner Adult Health
DX: G20 Parkinson's disease (principal); G90.3 Multi-system degeneration of the autonomic nervous system
CPT/HCPCS: 36415; 80048

== ENCOUNTER → 2018-12-23 12:45 | Outpatient (BNVA) | payer MEDICARE, MEDICAID, SELFPAY | PROVIDERS: PCP Emergency Medicine; Visit Provider Psychiatry & Neurology Neurology | DX: I95.1 Orthostatic hypotension (principal); G23.9 Degenerative disease of basal ganglia, unspecified; R26.9 Unspecified abnormalities of gait and mobility; R49.8 Other voice and resonance disorders; F03.90 Unspecified dementia, unspecified severity, without behavioral disturbance, psychotic disturbance, mood disturbance, and anxiety; G25.3 Myoclonus | CPT/HCPCS: 99214 ==

== ENCOUNTER 2018-12-28 12:14 | Outpatient (CLI) | payer MEDICARE, MEDICAID, SELFPAY | END 2018-12-28 12:34 | PROVIDERS: PCP Emergency Medicine; Visit Provider Nurse Practitioner Adult Health | DX: E83.42 Hypomagnesemia (principal) | CPT/HCPCS: 83735 ==

== ENCOUNTER 2019-01-30 09:50 | Emergency (ER) | payer MEDICARE, MEDICAID, SELFPAY ==
[2019-01-30] VITALS (22 sets, daily range): BP systolic 136–167; BP diastolic 66–101; PULSE 59–67; RESP 11–26; TEMP 36.6; O2SAT 86–99
--- NOTE | 2019-01-30 09:59 | DI.RAD_ITS ---
EXAM: XR PELVIS AP CLINICAL HISTORY: s/p fall, r/o acute fracture TECHNIQUE: COMPARISON: THORACIC SPINE from 07/10/2016 FINDINGS: Two views were obtained. There are severe degenerative changes of both hips. No acute fracture is i dentified on this limited series. IMPRESSION:
--- NOTE | 2019-01-30 10:02 | ED.GENADUL_ITS ---
Discharge Plan Disposition Patient Disposition: HOME Condition: Stable Discharge Details Chief Complaint: HeadInjury Clinical Impression: Urinary tract infection, Unwitnessed fall, Bleeding from ear Primary Care Provider: Laureano Kaminski ED Provider: Margarita Whitley Home Meds and New Rx's Prescriptions: New cephalexin [Keflex] 500 mg capsule 500 mg PO QID 7 Days Qty: 28 RF: 0 Continued sertraline 50 mg tablet 100 mg PO BID RF: 0 bisacodyl [Dulcolax (bisacodyl)] 10 mg suppository 10 mg [place] DAILY PRNRF: 0 magnesium hydroxide [Milk of Magnesia] 400 mg/5 mL suspension 30 ml PO QHS PRNRF: 0 fludrocortisone 0.1 mg tablet 0.3 mg PO DAILY RF: 0 cholecalciferol (vitamin D3) 1,000 UNIT tablet 1,000 unit PO DAILY RF: 0 cyanocobalamin (vitamin B-12) [Vitamin B-12] 1,000 MCG tablet extended release 1,000 mcg PO DAILY RF: 0 Eliquis 5 mg tablet 5 mg PO BID Qty: 180 RF: 3 omeprazole 20 mg capsule,delayed release(DR/EC) 20 mg PO DAILY Qty: 90 RF: 6 loratadine 10 mg tablet 10 mg PO DAILY Qty: 90 RF: 3 Metamucil 3.4 gram/5.4 gram Powder 1 tbsp PO TID RF: 0 dimethicone-zinc oxide Cream 0 applic topical PRN PRNRF: 0 acetaminophen 325 mg Tablet 650 mg PO Q4H PRN PRNRF: 0 miconazole nitrate 2 % Cream 1 applic TOPICAL BID RF: 0 multivitamin with minerals Tablet 1 tab PO DAILY RF: 0 divalproex [Depakote Sprinkles] 125 mg Capsule, Delayed Rel Sprinkle 125 mg PO BID RF: 0 carboxymethylcellulose sodium Drops 2 drp ophthalmic (eye) TID RF: 0 quetiapine 25 mg tablet 25 mg PO DAILY RF: 0 Discharge Instructions Instructions: Urinary Tract Infection in Men (ED) Additional Instructions: Take the antibiotics until finished. Follow-up with primary care doctor at the rehab this week for reevaluation. Return to the emergency department if you develop any worsening or new concerning symptoms. Discharge Data Discharge Date/Time-TO BE ENTERED AT DEPARTURE: 01/30/19 12:42 Discharge Physician: Margarita Whitley Medical Decision Making [id number] -- 83-year-old male with history of dementia, Parkinson's disease, alcoholic cardiomyopathy, A. nataly on Lalitha presents for evaluation after unwitnessed fall overnight and noted to have blood in both ears after fall. Call received to the ED around 930 this a.m.. Patient is awake but confused at baseline and does not answer any questions. EMS states that patient's mental status appears at baseline on arrival to ED. Patient records note he is a full code. EKG on arrival notes a rate of 60, paced, no acute change from previous. The left ear canal notes bright red fresh blood but no active oozing or pulsatile bleeding. Right ear canal notes cerumen but no blood. No other evidence of trauma on exam. Lungs clear, abdomen soft and nontender. C-collar in place. No orthopedic deformity. We will send for stat CT head and cervical spine, chest x-ray and pelvis x-ray check screening labs and urinalysis. 1050 -- All imaging reviewed and negative for acute findings. Labs reviewed and unremarkable. CK within normal limits. Troponin negative. Urinalysis notes findings consistent with UTI. Urine culture sent. Case discussed with Danielle the nurse supervisory civil engineer at the rehab and she states that patient fell at 7 PM last night but appeared to be on his bottom without evidence of head injury. Case was discussed with the on-call doctor at that time and he advised neurological checks. This morning nursing staff noted bleeding from his left ear and sent him here for evaluation. was informed of this. Patient's left ear was cleaned and revealed possibly an abrasion. Tetanus updated. Patient has an interaction with fluoroquinolones and his Seroquel. Dose of Keflex given as well as prescription. felt comfortable with patient going back to rehab. Rehab notified to have patient return with any worsening or concerning symptoms. Dr. Dotson called to state that he noted a discrepancy on the CT cervical spine which he reported as Severe cervical spine DJD, fragmentation of left T2 sup erior articular facet, chronic versus acute, doubt unstable lesion. Patient has a history of dementia but was able to move his extremities. This was reviewed with Dr. Whaley and there are no acute recommendations for any treatment or further imaging regarding this stable lesion at this time. Medical Records Medical records reviewed: Yes I reviewed the patient's medical records. Imaging Data Radiologic Study: Radiologist's impression: CT Head Without Contrast Exam date and time: 01/30/2019 10:11 AM Clinical history: 83 years old, male; Other: S/P fall, R/O acute cva/bleed TECHNIQUE: Imaging protocol: Computed tomography of the head without contrast. Radiation optimization: All CT scans at this facility use at least one of these dose optimization techniques: automated exposure control; mA and/or kV adjustment per patient size (includes targeted exams where dose is matched to clinical indication); or iterative reconstruction. COMPARISON: CT HEAD WO 03/24/2018 2:38 PM FINDINGS: Brain: See Midline Shift Finding. Midline shift: No hemorrhage. No midline shift. No abnormal extra-axial collections. No herniation. Very mild calcification of the basal ganglia. No evidence for acute infarct. There is moderate generalized brain parenchymal volume loss. Patchy hypodensity of the cerebral white matter which are nonspecific but likely secondary to microangiopathic changes. Ventricles: There is moderate ventriculomegaly secondary to white matter volume loss. There is no hydrocephalus. Bones/joints: Unremarkable. No acute fracture. Sinuses: Paranasal sinus mucosal thickening. Mucous retention cysts or polyps seen in the left maxillary, sphenoid sinuses, and left frontal sinus. No fluid levels. Mastoid air cells: Visualized mastoid air cells are well aerated. Soft tissues: Unremarkable. Vasculature: Atherosclerotic calcification of the intracranial internal carotid arteries and vertebral arteries. IMPRESSION: 1. No acute intracranial findings. 2. Paranasal sinus disease. 3. Chronic and senescent changes as above. CT Cervical Spine Without Contrast Exam date and time: 01/30/2019 10:11 AM Clinical history: 83 years old, male; Other: S/P fall, R/O acute cva/bleed TECHNIQUE: Imaging protocol: Computed tomography images of the cervical spine without contrast. Radiation optimization: All CT scans at this facility use at least one of these dose optimization techniques: automated exposure control; mA and/or kV adjustment per patient size (includes targeted exams where dose is matched to clinical indication); or iterative reconstruction. COMPARISON: CT HEAD WO 03/24/2018 2:38 PM FINDINGS: Vertebrae: No acute fracture. Normal alignment. Chronic changes to the spinous processes. Discs/Spinal canal/Neural foramina: Severe spondylosis most pronounced at the mid and lower cervical spine (severe bilateral neural foraminal narrowing at C6-7 and severe right and moderate left neuroforaminal narrowing at C5-C6). There appears to be CSF effacement/spinal canal narrowing at the lower cervical levels (C6 and C7). Soft tissues: Unremarkable. Oropharynx: Partially visualized left tonsillar calcification. Lungs: Lung apices are normal. Vasculature: Atherosclerotic calcification of the bilateral carotid bulbs (right worse than left). IMPRESSION: 1. No acute CT findings of the cervical spine. 2. Severe lower cervical spondylosis. Lab Data Lab results reviewed: Yes I reviewed the patient's lab results. Labs: 01/30/19 10:35 Urine - Reflex from Ua Urine Culture - Pending Laboratory Tests Range/Units 01/30/19 01/30/19 01/30/19 10:30 10:30 10:30 WBC (4.4-10.8) k/cumm 6.99 RBC (4.50-6.00) m/cumm 4.75 Hgb (13.5-17.5) g/dL 13.3 L Hct (40.0-50.0) % 40.8 MCV (80-95) fL 85.9 MCH (27.0-33.0) pg 28.0 MCHC (32.0-36.0) g/dL 32.6 RDW (11.8-14.1) % 14.7 H Plt Count (130-400) x1000/uL 206 MPV (8.0-11.0) fL 9.7 Immature Gran % 0.0 Neutrophils % 76.0 Lymphocytes % 11.4 Monocytes % 8.4 Eosinophils % 3.6 Basophils % 0.6 Absolute Neutrophils (1.2-6.7) k/cumm 5.31 Absolute Lymphocytes (1.2-3.4) k/cumm 0.80 L Absolute Monocytes (0.11-0.7) k/cumm 0.59 Absolute Eosinophils (0.0-0.7) k/cumm 0.25 Absolute Basophils (0.0-0.2) k/cumm 0.04 Sodium (136-145) mmol/L 141 Potassium (3.5-5.1) mmol/L 4.6 Chloride (98-107) mmol/L 106 Carbon Dioxide (21.0-32.0) mmol/L 28.9 Anion Gap (3-11) mmol/L 6.1 BUN (7-18) mg/dL 11 Creatinine (0.70-1.30) mg/dL 0.81 Estimated GFR/1.73 m2 (mL/min/1.73m2) >= 60.00 Glucose (70-100) mg/dL 103 H Calcium (8.5-10.1) mg/dL 8.1 L Magnesium (1.8-2.4) mg/dL 2.3 Total Bilirubin (0.2-1.0) mg/dL 0.6 AST (15-37) U/L 35 ALT (16-63) U/L 14 L Alkaline Phosphatase (46-116) U/L 76 Creatine Kinase (39-308) U/L 91 Troponin I (0.00-0.06) ng/mL < 0.05 Total Protein (6.4-8.2) g/dL 6.3 L Albumin (3.4-5.0) g/dL 3.0 L Urine Color (Yellow) Urine Clarity (Clear) Urine pH (5-8) Ur Specific [place] (1.005-1.025) Urine Protein (Negative) mg/dL Urine Ketones (Negative) mg/dL Urine Blood (Negative) Urine Nitrite (Negative) Urine Bilirubin (Negative) Urine Urobilinogen (Up TO 0.2) EU/dL Ur Leukocyte Esterase (Negative) Urine RBC (0-2) Urine WBC (0-5) HPF Ur Epithelial Cells (Negative) HPF Urine Crystals (Negative) HPF Urine Bacteria (Negative) HPF Urine Casts (Negative) LPF Urine Mucus (Negative) Urine Other (Negative) Ur Culture Indicated? Urine Glucose (Negative) mg/dL Range/Units 01/30/19 10:35 WBC (4.4-10.8) k/cumm RBC (4.50-6.00) m/cumm Hgb (13.5-17.5) g/dL Hct (40.0-50.0) % MCV (80-95) fL MCH (27.0-33.0) pg MCHC (32.0-36.0) g/dL RDW (11.8-14.1) % Plt Count (130-400) x1000/uL MPV (8.0-11.0) fL Immature Gran % Neutrophils % Lymphocytes % Monocytes % Eosinophils % Basophils % Absolute Neutrophils (1.2-6.7) k/cumm Absolute Lymphocytes (1.2-3.4) k/cumm Absolute Monocytes (0.11-0.7) k/cumm Absolute Eosinophils (0.0-0.7) k/cumm Absolute Basophils (0.0-0.2) k/cumm Sodium (136-145) mmol/L Potassium (3.5-5.1) mmol/L Chloride (98-107) mmol/L Carbon Dioxide (21.0-32.0) mmol/L Anion Gap (3-11) mmol/L BUN (7-18) mg/dL Creatinine (0.70-1.30) mg/dL Estimated GFR/1.73 m2 (mL/min/1.73m2) Glucose (70-100) mg/dL Calcium (8.5-10.1) mg/dL Magnesium (1.8-2.4) mg/dL Total Bilirubin (0.2-1.0) mg/dL AST (15-37) U/L ALT (16-63) U/L Alkaline Phosphatase (46-116) U/L Creatine Kinase (39-308) U/L Troponin I (0.00-0.06) ng/mL Total Protein (6.4-8.2) g/dL Albumin (3.4-5.0) g/dL Urine Color (Yellow) Yellow Urine Clarity (Clear) Clear Urine pH (5-8) 7.5 Ur Specific [place] (1.005-1.025) 1.020 Urine Protein (Negative) mg/dL Negative Urine Ketones (Negative) mg/dL Negative Urine Blood (Negative) Large H Urine Nitrite (Negative) Negative Urine Bilirubin (Negative) Negative Urine Urobilinogen (Up TO 0.2) EU/dL 0.2 Ur Leukocyte Esterase (Negative) Negative Urine RBC (0-2) >50 H Urine WBC (0-5) HPF 20-50 Ur Epithelial Cells (Negative) HPF Few Urine Crystals (Negative) HPF Moderate amorphous Urine Bacteria (Negative) HPF Moderate Urine Casts (Negative) LPF Urine Mucus (Negative) Trace Urine Other (Negative) Few renal Ur Culture Indicated? Yes Urine Glucose (Negative) mg/dL Negative ECG Data Attestation: I personally reviewed and interpreted this ECG (s) as follows: Interpretation: Rate of 60, paced, no acute change from previous EKG. HPI General Mode of arrival: ambulatory . Date/Time Provider Initiated Documentation: 01/30/19 10:09 . Limitations to Documentation: no limitations . Information obtained by: patient . HPI Narrative: Patient is an 83-year-old male with a history of dementia, Parkinson's disease, alcoholic cardiomyopathy, paroxysmal atrial fibrillation on Eliquis who presents from [facility] after unwitnessed fall. Staff states that patient was found on the floor in the middle the night with blood in his ears. Staff called the ED this morning to report they were sending him here for evaluation. He is confused at baseline per EMS and he seems to be at his baseline. Patient is unable to provide any history as he does not answer any questions which EMS states is his baseline. Related Data Home Medications Medication Instructions Recorded Confirmed cholecalciferol (vitamin D3) 1,000 unit PO DAILY 08/03/14 01/30/19 cyanocobalamin (vitamin B-12) 1,000 mcg PO DAILY 11/28/15 01/30/19 [Vitamin B-12] Metamucil 1 tbsp PO TID 03/24/18 01/30/19 apixaban 5 mg tablet 5 mg PO BID #180 tab-cap 03/30/18 01/30/19 omeprazole 20 mg capsule,delayed 20 mg PO DAILY #90 cap 06/22/18 01/30/19 release loratadine 10 mg tablet 10 mg PO DAILY #90 tab-cap 07/06/18 01/30/19 dimethicone-zinc oxide 0 applic TOPICAL PRN PRN 09/28/18 01/30/19 fludrocortisone 0.1 mg tablet 0.3 mg PO DAILY tab 10/26/18 01/30/19 bisacodyl 10 mg rectal suppository 10 mg [place] DAILY PRN 11/24/18 01/30/19 magnesium hydroxide 400 mg/5 mL 30 ml PO QHS PRN ml 11/24/18 01/30/19 oral suspension sertraline 50 mg tablet 100 mg PO BID tab 11/24/18 01/30/19 acetaminophen 650 mg PO Q4H PRN PRN 01/30/19 01/30/19 carboxymethylcellulose sodium 2 drp OPHTHALMIC (EYE) TID 01/30/19 01/30/19 cephalexin [Keflex] 500 mg PO QID 7 Days #28 cap 01/30/19 01/30/19 divalproex [Depakote Sprinkles] 125 mg PO BID 01/30/19 01/30/19 miconazole nitrate 1 applic TOPICAL BID 01/30/19 01/30/19 multivitamin with minerals 1 tab PO DAILY 01/30/19 01/30/19 quetiapine 25 mg PO DAILY 01/30/19 01/30/19 Previous Rx's Medication Instructions Recorded apixaban 5 mg tablet 5 mg PO BID #180 tab-cap 03/30/18 omeprazole 20 mg capsule,delayed 20 mg PO DAILY #90 cap 06/22/18 release loratadine 10 mg tablet 10 mg PO DAILY #90 tab-cap 07/06/18 cephalexin [Keflex] 500 mg PO QID 7 Days #28 cap 01/30/19 Allergies Allergy/AdvReac Type Severity Reaction Status Date / Time bee pollen [Bee Pollen] Allergy Intermediate PERIORBITAL Unverified 01/30/19 13:19 EDEMA aspirin AdvReac Mild Upset Unverified 01/30/19 13:19 Stomach DUST Allergy Intermediate unknown Uncoded 01/30/19 13:19 General ERIN: 3 Review of Systems Review of Systems ROS Unobtainable: Unobtainable due to mental status [facility] Medical History Actinic keratosis (Chronic) 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) Basal cell carcinoma of right forehead (Chronic 03/06/14) Benign prostatic hypertrophy (Chronic) Cardiomyopathy (Chronic 08/03/14) resolved ?due to alcohol Chronic thoracic back pain (Chronic) s/p fracture 1961 Depression (Chronic) Diverticulosis of colon without diverticulitis (Chronic) Erectile dysfunction (Chronic) Gout (Chronic) Hearing loss (Chronic) Heart block (Resolved 03/06/14) s/p PM 2013 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 vasectomy b. left hernia repair c. colonoscopy Pacemaker 03/06/14 Repair of inguinal hernia (~2002) left Vasectomy Family History Mother Personal history of malignant neoplasm UTERINE Father Personal history of malignant neoplasm GB Sister Personal history of malignant neoplasm BREAST Brother Personal history of malignant neoplasm THYROID Son No problems noted. 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 No smoking, ETOH, illicit drug use. Exam Const General: cooperative and healthy appearing Orientation: alert and awake HENMT Head: normal to inspection Ears: external ears normal General nose exam: external nose normal Face and sinus: normal facial exam Mouth: oral mucosae normal Throat: posterior oropharynx normal Other: Bright red fresh blood left ear canal, no active oozing or pulsatile bleeding. Right ear canal reveals cerumen but no blood. Eyes General: appearance normal, both eyes and all related structures Eyelids: eyelids normal Pupils: PERRL Neck Neck: normal visual inspection Lymphatic: no lymphadenopathy noted Chest Chest: normal inspection of the chest, normal palpation of entire chest wall, no crepitus and no tenderness Resp Effort & Inspection: normal respiratory effort Auscultation: clear to auscultation bilaterally Cardio Rate: regular rate Rhythm: regular rhythm GI Inspection: normal to inspection and no abdominal wall ecchymosis Palpation: soft, not firm, no guarding, no hepatosplenomegaly, no masses and nontender Auscultation: normal bowel sounds Back/Spine/Pelvis Cervical Spine: No cervical spinal tenderness and No step off deformity Thoracic/Lumbar Spine: thoracic and lumbar spine normal to inspection, No thor acic spinal tenderness and No lumbar spinal tenderness Pelvis: no pain with anterior-posterior compression, no pain with lateral compression and no buttock ecchymosis Skin General skin exam: no rashes or lesions noted Neuro General: awake, moves all extremities and no focal motor deficits Extrem General: normal to inspection, full ROM and normal capillary refill Psych Appearance: grossly normal
--- NOTE | 2019-01-30 10:17 | DI.CT_ITS ---
EXAM: CT HEAD CERVICAL SPINE WO CLINICAL HISTORY: s/p fall, r/o acute cva/bleed TECHNIQUE: CT examination of the cervical spine was performed utilizing multi slice acquisition and multiplanar reconstruction. Noncontrast cranial CT was performed. COMPARISON: CT HEAD WO from 03/24/2018 FINDINGS: C SPINE: There are severe degenerative changes of the cervical spine. Note is made of fragmentation of the superior most portion of the superior articular facet of T2 on the left, this may represent c hronic or acute finding and is unlikely to cause instability. No other evidence of fracture or dislo cation. Tracheolaryngeal structures appear intact. Visualized lung apices are clear. No cervical m ass or adenopathy. HEAD: There is moderate generalized cerebral atrophy. There is no evidence of acute intracranial hem orrhage, mass effect or midline shift. The orbital and temporal bone structures appear intact. No c alvarial fracture identified. Mucoperiosteal thickening noted throughout the paranasal sinuses consi stent with mild chronic littlejohn sinusitis. Mastoid air cells are clear. IMPRESSION: HEAD: No evidence of acute intracranial injury. C SPINE: Severe cervical spine DJD, fragmentation of left T2 superior articular facet, chronic versus acute, doubt unstable lesion.
--- NOTE | 2019-01-30 10:25 | DI.RAD_ITS ---
EXAM: XR CHEST 1V IN DI DEPT CLINICAL HISTORY: s/p fall, r/o acute fx/pneumothorax TECHNIQUE: COMPARISON: XR CHEST 2V PA LATERAL from 10/04/2018 FINDINGS: There is a transvenous cardiac pacemaker in position. Cardiac size is within normal limits. Lungs a re grossly clear. IMPRESSION: No evidence of acute process.
[2019-01-30 10:46] LABS: Bilirubin Negative (Negative); Blood Large (Negative); Clarity Clear (Clear); Glucose Negative (Negative); Ketones Negative (Negative); Leukocyte Esterase Negative (Negative); Nitrite Negative (Negative); Urobilinogen 0.2 EU/dL (Up TO 0.2); pH 7.5 (5-8)
[2019-01-30 10:52] LABS: Absolute Basophil Count 0.04 k/cumm (0.0-0.2); Absolute Eosinophil Count 0.25 k/cumm (0.0-0.7); Absolute Monocyte Count 0.59 k/cumm (0.11-0.7); Absolute Neutrophil Count 5.31 k/cumm (1.2-6.7); Basophils % 0.6; Eosinophils % 3.6; HCT 40.8 % (40.0-50.0); HGB 13.3 g/dL (13.5-17.5); Lymphocytes % 11.4; Mean Corp. HGB Concentration 32.6 g/dL (32.0-36.0); Mean Corpuscular Volume 85.9 fL (80-95); Mean Platelet Volume 9.7 fL (8.0-11.0); Monocytes % 8.4; Platelet Count 206 x1000/uL (130-400); RBC 4.75 m/cumm (4.50-6.00); RBC Distribution Width 14.7 % (11.8-14.1); White Blood Cell Count 6.99 k/cumm (4.4-10.8)
--- NOTE | 2019-01-30 10:55 | DI.VRAD_ITS ---
PROCEDURE INFORMATION: Exam: CT Head Without Contrast Exam date and time: 01/30/2019 10:11 AM Clinical history: 83 years old, male; Other: S/P fall, R/O acute cva/bleed TECHNIQUE: Imaging protocol: Computed tomography of the head without contrast. Radiation optimization: All CT scans at this facility use at least one of these dose optimization techniques: automated exposure control; mA and/or kV adjustment per patient size (includes targeted exams where dose is matched to clinical indication); or iterative reconstruction. COMPARISON: CT HEAD WO 03/24/2018 2:38 PM FINDINGS: Brain: See Midline Shift Finding. Midline shift: No hemorrhage. No midline shift. No abnormal extra-axial collections. No herniation. Very mild calcification of the basal ganglia. No evidence for acute infarct. There is moderate generalized brain parenchymal volume loss. Patchy hypodensity of the cerebral white matter which are nonspecific but likely secondary to microangiopathic changes. Ventricles: There is moderate ventriculomegaly secondary to white matter volume loss. There is no hydrocephalus. Bones/joints: Unremarkable. No acute fracture. Sinuses: Paranasal sinus mucosal thickening. Mucous retention cysts or polyps seen in the left maxillary, sphenoid sinuses, and left frontal sinus. No fluid levels. Mastoid air cells: Visualized mastoid air cells are well aerated. Soft tissues: Unremarkable. Vasculature: Atherosclerotic calcification of the intracranial internal carotid arteries and vertebral arteries. IMPRESSION: 1. No acute intracranial findings. 2. Paranasal sinus disease. 3. Chronic and senescent changes as above. PROCEDURE INFORMATION: Exam: CT Cervical Spine Without Contrast Exam date and time: 01/30/2019 10:11 AM Clinical history: 83 years old, male; Other: S/P fall, R/O acute cva/bleed TECHNIQUE: Imaging protocol: Computed tomography images of the cervical spine without contrast. Radiation optimization: All CT scans at this facility use at least one of these dose optimization techniques: automated exposure control; mA and/or kV adjustment per patient size (includes targeted exams where dose is matched to clinical indication); or iterative reconstruction. COMPARISON: CT HEAD WO 03/24/2018 2:38 PM FINDINGS: Vertebrae: No acute fracture. Normal alignment. Chronic changes to the spinous processes. Discs/Spinal canal/Neural foramina: Severe spondylosis most pronounced at the mid and lower cervical spine (severe bilateral neural foraminal narrowing at C6-7 and severe right and moderate left neuroforaminal narrowing at C5-C6). There appears to be CSF effacement/spinal canal narrowing at the lower cervical levels (C6 and C7). Soft tissues: Unremarkable. Oropharynx: Partially visualized left tonsillar calcification. Lungs: Lung apices are normal. Vasculature: Atherosclerotic calcification of the bilateral carotid bulbs (right worse than left). IMPRESSION: 1. No acute CT findings of the cervical spine. 2. Severe lower cervical spondylosis. Dictated and Authenticated by: Axel Albert MD. Ordering:CRISPIN Avila MD
[2019-01-30 10:58] LABS: ALT 14 U/L (16-63); AST 35 U/L (15-37); Alkaline Phosphatase 76 U/L (46-116); Anion Gap 6.1 mmol/L (3-11); BUN 11 mg/dL (7-18); Bilirubin, Total 0.6 mg/dL (0.2-1.0); CO2 28.9 mmol/L (21.0-32.0); CREATININE 0.81 mg/dL (0.70-1.30); Calcium 8.1 mg/dL (8.5-10.1); Chloride 106 mmol/L (98-107); Glucose 103 mg/dL (70-100); Potassium 4.6 mmol/L (3.5-5.1); Sodium 141 mmol/L (136-145); Total Protein 6.3 g/dL (6.4-8.2)
[2019-01-30 10:59] LABS: Epithelial Cells Few HPF (Negative); RBC >50 (0-2); WBC 20-50 HPF (0-5)
--- NOTE | 2019-01-30 10:59 | DI.VRAD_ITS ---
PROCEDURE INFORMATION: Exam: XR Chest, 1 View Exam date and time: 01/30/2019 10:25 AM Clinical history: 83 years old, male; Other: S/P fall, R/O acute fracture/pneumothorax TECHNIQUE: Imaging protocol: XR of the chest Views: 1 view. COMPARISON: CR XR CHEST 2V PA LATERAL 10/04/2018 11:19 AM FINDINGS: Tubes, catheters and devices: Right chest dual lead pacing device with right atrial and right ventricular location. Lungs: The lungs are slightly hypoinflated. Bronchovascular crowding. No focal airspace consolidation. Pleural space: No pleural effusion or pneumothorax. Heart/Mediastinum: Top normal size cardiac silhouette. Vasculature: Calcified tortuous aorta. Bones/joints: No acute osseous findings. Chronic healed fracture deformity of the left clavicle. Degenerative changes of bilateral shoulders. IMPRESSION: No acute pulmonary findings. Dictated and Authenticated by: Axel Albert MD. Ordering:CRISPIN Avila MD
[2019-01-30 11:00] LABS: Bacteria Moderate HPF (Negative); C & S Indicated? Yes; Crystals Moderate Amorphous HPF (Negative); Mucus Trace (Negative); Other Cells Few Renal (Negative)
[2019-01-30 11:02] LABS: Creatine Kinase 91 U/L (39-308); Magnesium 2.3 mg/dL (1.8-2.4)
--- NOTE | 2019-01-30 11:03 | DI.VRAD_ITS ---
PROCEDURE INFORMATION: Exam: XR Pelvis Exam date and time: 01/30/2019 10:25 AM Clinical history: 83 years old, male; Other: S/P fall, R/O acute fracture TECHNIQUE: Imaging protocol: XR pelvis. Views: 1 or 2 view. COMPARISON: None. FINDINGS: Bones/joints: No acute displaced fracture. Evaluation of the sacral ala is limited due to overlying bowel. Severe osteoarthritis of both hips. Degenerative changes of the sacroiliac joints. Lower lumbar spondylosis. Soft tissues: Unremarkable. Vasculature: Calcified pelvic vessels are visualized. Phleboliths in the pelvis. IMPRESSION: 1. No acute findings. 2. Severe osteoporosis of the hips. 3. Diffuse degenerative changes. Dictated and Authenticated by: Axel Albert MD. Ordering:CRISPIN Avila MD
[2019-01-30] MEDS: Normal Saline 500 ML IV (11:06)
[2019-01-30 11:09] LABS: Troponin I < 0.05 ng/mL (0.00-0.06)
[2019-01-30] MEDS: Cephalexin 500 MG CAP PO (11:38)
== END 2019-01-30 12:42 | disposition home or self-care (01) ==
PROVIDERS: Emergency Provider Physician Assistant; PCP Emergency Medicine
DX: H92.22 Otorrhagia, left ear (principal); N39.0 Urinary tract infection, site not specified; G20 Parkinson's disease; F03.90 Unspecified dementia, unspecified severity, without behavioral disturbance, psychotic disturbance, mood disturbance, and anxiety; W01.0XXA Fall on same level from slipping, tripping and stumbling without subsequent striking against object, initial encounter; I48.91 Unspecified atrial fibrillation; Z79.01 Long term (current) use of anticoagulants
CPT/HCPCS: 36415; 80053; 82550; 90471; 93005; 96360; 99282; 99285; 70450; 71045; 72125; 72170; 81003; 81015; 83735; 84484; 85025; 87086; 93010

== ENCOUNTER 2019-01-30 13:08 | Emergency (ER) | payer MEDICARE, MEDICAID, SELFPAY ==
[2019-01-30] VITALS (9 sets, daily range): BP systolic 151–167; BP diastolic 71–92; PULSE 59–60; RESP 18; TEMP 36.5; O2SAT 94–98
--- NOTE | 2019-01-30 13:31 | ED.GENADUL_ITS ---
Discharge Plan Disposition Patient Disposition: HOME Condition: Stable Discharge Details Chief Complaint: Urinary Clinical Impression: Hematuria Primary Care Provider: Laureano Kaminski ED Provider: Margarita Whitley Home Meds and New Rx's Prescriptions: Continued sertraline 50 mg tablet 100 mg PO BID RF: 0 bisacodyl [Dulcolax (bisacodyl)] 10 mg suppository 10 mg FL DAILY PRNRF: 0 magnesium hydroxide [Milk of Magnesia] 400 mg/5 mL suspension 30 ml PO QHS PRNRF: 0 fludrocortisone 0.1 mg tablet 0.3 mg PO DAILY RF: 0 cholecalciferol (vitamin D3) 1,000 UNIT tablet 1,000 unit PO DAILY RF: 0 cyanocobalamin (vitamin B-12) [Vitamin B-12] 1,000 MCG tablet extended release 1,000 mcg PO DAILY RF: 0 Eliquis 5 mg tablet 5 mg PO BID Qty: 180 RF: 3 omeprazole 20 mg capsule,delayed release(DR/EC) 20 mg PO DAILY Qty: 90 RF: 6 loratadine 10 mg tablet 10 mg PO DAILY Qty: 90 RF: 3 Metamucil 3.4 gram/5.4 gram Powder 1 tbsp PO TID RF: 0 dimethicone-zinc oxide Cream 0 applic topical PRN PRNRF: 0 acetaminophen 325 mg Tablet 650 mg PO Q4H PRN PRNRF: 0 miconazole nitrate 2 % Cream 1 applic TOPICAL BID RF: 0 multivitamin with minerals Tablet 1 tab PO DAILY RF: 0 divalproex [Depakote Sprinkles] 125 mg Capsule, Delayed Rel Sprinkle 125 mg PO BID RF: 0 carboxymethylcellulose sodium Drops 2 drp ophthalmic (eye) TID RF: 0 quetiapine 25 mg tablet 25 mg PO DAILY RF: 0 cephalexin [Keflex] 500 mg capsule 500 mg PO QID 7 Days Qty: 28 RF: 0 Discharge Instructions Instructions: Hematuria (ED) Additional Instructions: Continue the antibiotics until finished. Follow-up with the primary care doctor at the rehab this week for reevaluation. Return to the emergency department if you develop any worsening or new concerning symptoms. Discharge Data Discharge Date/Time-TO BE ENTERED AT DEPARTURE: 01/30/19 14:55 Discharge Physician: Margarita Whitley Medical Decision Making 83-year-old male with a history of dementia, Parkinson's disease and A. fib on Eliquis presents for reevaluation after seen here earlier today status post unwitnessed fall for hypotension and hematuria at the rehab. Patient was back at the rehab less than 1 hour before he was sent back to the ED. Per nursing staff at rehab, blood pressures 70s/40s. EMS states blood pressure 90s/50s. BP on arrival 167/76. Normal exam with no active bleeding. Hemoglobin here a few hours ago 13.3. Patient had a straight cath here earlier today which then noted a urinalysis with large blood and he is also on Eliquis. This probably contributed to his large hematuria which is now resolved. He remains hemodynamically stable. Case discussed with rehab physician airways control specialist and he was notified of patient's normal vitals and no active bleeding here with plan for transfer back to rehab and he is agreeable with plan. He stated that he was not called before patient was sent here the second time. Do not see an indication for repeat blood work at this time. Case discussed with and she is agreeable with discharge back to [facility]. HPI General Mode of arrival: EMS . Date/Time Provider Initiated Documentation: 01/30/19 13:31 . Limitations to Documentation: altered mental status . Information obtained by: family . HPI Narrative: Patient is an 83-year-old male with a history of dementia, Parkinson's disease, paroxysmal atrial fibrillation on Eliquis who presents for evaluation for hypotension and hematuria from the rehab. Patient was here within 1 hour ago for unwitnessed fall. He had had a straight catheter placed at that time to a obtain a urine sample with some blood clots noted. Patient was found to have a UTI and started on Keflex and discharged back to the rehab. Nursing staff at the rehab states that patient urinated in the toilet with a large amount of blood as well as a few large blood clots. They also noted that his blood pressure was a systolic of 80s to 90s over 40s to 50s. Patient has a history of orthostatic hypotension and is on fludrocortisone which he did receive today. Related Data Home Medications Medication Instructions Recorded Confirmed cholecalciferol (vitamin D3) 1,000 unit PO DAILY 08/03/14 01/30/19 cyanocobalamin (vitamin B-12) 1,000 mcg PO DAILY 11/28/15 01/30/19 [Vitamin B-12] Metamucil 1 tbsp PO TID 03/24/18 01/30/19 apixaban 5 mg tablet 5 mg PO BID #180 tab-cap 03/30/18 01/30/19 omeprazole 20 mg capsule,delayed 20 mg PO DAILY #90 cap 06/22/18 01/30/19 release loratadine 10 mg tablet 10 mg PO DAILY #90 tab-cap 07/06/18 01/30/19 dimethicone-zinc oxide 0 applic TOPICAL PRN PRN 09/28/18 01/30/19 fludrocortisone 0.1 mg tablet 0.3 mg PO DAILY tab 10/26/18 01/30/19 bisacodyl 10 mg rectal suppository 10 mg FL DAILY PRN 11/24/18 01/30/19 magnesium hydroxide 400 mg/5 mL 30 ml PO QHS PRN ml 11/24/18 01/30/19 oral suspension sertraline 50 mg tablet 100 mg PO BID tab 11/24/18 01/30/19 acetaminophen 650 mg PO Q4H PRN PRN 01/30/19 01/30/19 carboxymethylcellulose sodium 2 drp OPHTHALMIC (EYE) TID 01/30/19 01/30/19 cephalexin [Keflex] 500 mg PO QID 7 Days #28 cap 01/30/19 01/30/19 divalproex [Depakote Sprinkles] 125 mg PO BID 01/30/19 01/30/19 miconazole nitrate 1 applic TOPICAL BID 01/30/19 01/30/19 multivitamin with minerals 1 tab PO DAILY 01/30/19 01/30/19 quetiapine 25 mg PO DAILY 01/30/19 01/30/19 Previous Rx's Medication Instructions Recorded apixaban 5 mg tablet 5 mg PO BID #180 tab-cap 03/30/18 omeprazole 20 mg capsule,delayed 20 mg PO DAILY #90 cap 06/22/18 release loratadine 10 mg tablet 10 mg PO DAILY #90 tab-cap 07/06/18 cephalexin [Keflex] 500 mg PO QID 7 Days #28 cap 01/30/19 Allergies Allergy/AdvReac Type Severity Reaction Status Date / Time bee pollen [Bee Pollen] Allergy Intermediate PERIORBITAL Unverified 01/30/19 13:19 EDEMA aspirin AdvReac Mild Upset Unverified 01/30/19 13:19 Stomach DUST Allergy Intermediate unknown Uncoded 01/30/19 13:19 General Stated Complaint: Urinary ERIN: 3 Review of Systems Review of Systems ROS Unobtainable: All systems reviewed & are unremarkable except as noted in HPI and below Constitutional Constitutional: Reports as per HPI, Denies chills and Denies fever(s) Eyes Eyes: Denies blurry vision ENT Ears, Nose, Mouth, and Throat: Denies dizziness, Denies sore throat and Denies throat swelling Cardiovascular Cardiovascular: Denies chest pain and Denies dyspnea Respiratory Respiratory: Denies cough and Denies dyspnea Gastrointestinal Gastrointestinal: Denies abdominal pain, Denies diarrhea and Denies vomiting Genitourinary Genitourinary: Denies hematuria and Denies dysuria Musculoskeletal Musculoskeletal: Denies back pain and Denies numbness Integumentary/Breasts Skin/Breast: Denies lesions and Denies rash Neurologic Neurologic: Denies dizziness, Denies focal weakness and Denies numbness Allergic/Immunologic Allergic/Immunologic: Denies throat swelling [facility] Social History Smoking/Tobacco Use Status: Never Alcohol Intake: never Drug use: Never Substance use type: does not use Household members: other 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 No smoking, ETOH, illicit drug use. Exam Const General: cooperative, healthy appearing and no acute distress HENNE Head: normal to inspection Face and sinus: normal facial exam Eyes General: appearance normal, both eyes and all related structures Neck Neck: normal visual inspection and No submandibular swelling Lymphatic: no lymphadenopathy noted Chest Chest: normal inspection of the chest and no tenderness Resp Effort & Inspection: normal respiratory effort and able to speak in complete sentences Auscultation: clear to auscultation bilaterally Cardio Rate: regular rate Rhythm: regular rhythm GI Inspection: normal to inspection Palpation: soft, not firm, not rigid and nontender Auscultation: normal bowel sounds Penis: other (No active bleeding noted, no lesions or rash) Scrotum: scrotum normal Skin General skin exam: no rashes or lesions noted Neuro General: alert and awake Speech: speech normal Motor: muscle tone normal throughout Sensory Exam: no sensory deficits noted Extrem General: normal to inspection, full ROM, normal capillary refill, no calf tenderness bilaterally and no edema Psych Appearance: grossly normal Affect: normal affect Course Vital Signs Vital signs: Vital Signs Temperature 97.7 F 01/30/19 13:20 Pulse 60 01/30/19 13:20 Respiratory Rate 18 01/30/19 13:20 Blood Pressure 167/76 H 01/30/19 13:20 Pulse Oximetry 98 01/30/19 13:20 Temperature 97.7 F 01/30/19 13:20 Pulse 60 01/30/19 13:20 Respiratory Rate 18 01/30/19 13:20 Respiratory Effort 01/30/19 13:24 Blood Pressure 167/76 H 01/30/19 13:20 Pulse Oximetry 98 01/30/19 13:20 Oxygen Delivery Method Room Air 01/30/19 13:20 Oxygen Flow Rate 0 01/30/19 13:20
== END 2019-01-30 14:55 | disposition home or self-care (01) ==
LOC: ER 14:42
PROVIDERS: Emergency Provider Physician Assistant; PCP Emergency Medicine
DX: R31.0 Gross hematuria (principal); G20 Parkinson's disease; F03.90 Unspecified dementia, unspecified severity, without behavioral disturbance, psychotic disturbance, mood disturbance, and anxiety; I48.91 Unspecified atrial fibrillation; Z79.01 Long term (current) use of anticoagulants
CPT/HCPCS: 99282

== ENCOUNTER → 2019-02-01 14:37 | Outpatient (BNVA) | payer MEDICARE, MEDICAID, SELFPAY | PROVIDERS: PCP Emergency Medicine; Referring Provider Emergency Medicine; Visit Provider Urology | DX: N39.0 Urinary tract infection, site not specified (principal); R31.9 Hematuria, unspecified; N20.0 Calculus of kidney; F03.90 Unspecified dementia, unspecified severity, without behavioral disturbance, psychotic disturbance, mood disturbance, and anxiety | CPT/HCPCS: 99213 ==

== ENCOUNTER → 2019-02-02 12:09 | Outpatient (BNVA) | payer MEDICARE, MEDICAID, SELFPAY | PROVIDERS: PCP Emergency Medicine; Referring Provider Emergency Medicine; Visit Provider Psychiatry & Neurology Neurology | DX: G23.9 Degenerative disease of basal ganglia, unspecified (principal); I95.1 Orthostatic hypotension; R49.8 Other voice and resonance disorders; R41.82 Altered mental status, unspecified; F03.90 Unspecified dementia, unspecified severity, without behavioral disturbance, psychotic disturbance, mood disturbance, and anxiety; G25.3 Myoclonus | CPT/HCPCS: 99213 ==

== ENCOUNTER 2019-02-11 00:37 | Outpatient (CLI) | payer MEDICARE, MEDICAID, SELFPAY ==
--- NOTE | 2019-02-11 07:41 | DI.US_ITS ---
EXAM: US RENAL CLINICAL HISTORY: left stone, r/o mass, UTI, N39.0, hematuria, R31.9 TECHNIQUE: Ultrasound performed using standard protocol. COMPARISON: No exams were available for comparison FINDINGS: The kidneys are normal in size and echogenicity and show normal parenchymal thickness. The right ki dney measures 11.0 cm in length. The left kidney measures 10.2 cm in length. There is no evidence o f hydronephrosis. A 1.8 centimeter cyst is seen in the mid right kidney. There is a 4.3 centimeter cyst at the superior pole of the right kidney. The left kidney shows a 3 millimeter echogenic focus portion. The prevoid bladder volume measured 170 cc. No bladder masses are seen. The prostate volu me is calculated at 10.7 cc. Both ureteral jets were seen. There is an elevated postvoid residual o f 83 cc. IMPRESSION: 1. Right renal cysts. No evidence of mass. 2. 3 millimeter stone in the mid left kidney. 3. Elevated postvoid residual.
== END 2019-02-11 00:57 ==
PROVIDERS: PCP Emergency Medicine; Visit Provider Urology
DX: N28.1 Cyst of kidney, acquired (principal); N20.0 Calculus of kidney; R39.198 Other difficulties with micturition
CPT/HCPCS: 76770

== ENCOUNTER 2019-02-15 09:08 | Outpatient (CLI) | payer MEDICARE, MEDICAID, SELFPAY | END 2019-02-15 09:28 | PROVIDERS: PCP Emergency Medicine; Visit Provider Emergency Medicine | DX: I48.0 Paroxysmal atrial fibrillation (principal) | CPT/HCPCS: 93005; 93010 ==

== ENCOUNTER 2019-03-11 11:50 | Outpatient (REF) | payer MEDICARE, MEDICAID, SELFPAY ==
[2019-03-11 12:22] LABS: Anion Gap 5.4 mmol/L (3-11); BUN 11 mg/dL (7-18); CO2 30.6 mmol/L (21.0-32.0); CREATININE 0.83 mg/dL (0.70-1.30); Calcium 8.3 mg/dL (8.5-10.1); Chloride 108 mmol/L (98-107); Glucose 94 mg/dL (74-106); Potassium 4.1 mmol/L (3.5-5.1); Sodium 144 mmol/L (136-145)
[2019-03-11 12:36] LABS: Absolute Basophil Count 0.03 k/cumm (0.0-0.2); Absolute Eosinophil Count 0.25 k/cumm (0.0-0.7); Absolute Lymphocyte Count 1.01 k/cumm (1.2-3.4); Absolute Monocyte Count 0.47 k/cumm (0.11-0.7); Absolute Neutrophil Count 2.97 k/cumm (1.2-6.7); Basophils % 0.6; Eosinophils % 5.3; HCT 39.9 % (40.0-50.0); HGB 12.8 g/dL (13.5-17.5); Lymphocytes % 21.4; Mean Corp. HGB Concentration 32.1 g/dL (32.0-36.0); Mean Corpuscular Hemoglobin 27.8 pg (27.0-33.0); Mean Corpuscular Volume 86.7 fL (80-95); Mean Platelet Volume 9.9 fL (8.0-11.0); Monocytes % 9.9; Neutrophils % 62.8; Platelet Count 216 x1000/uL (130-400); RBC Distribution Width 13.9 % (11.8-14.1); White Blood Cell Count 4.73 k/cumm (4.4-10.8)
[2019-03-11 18:33] LABS: Bilirubin Negative (Negative); Blood Negative (Negative); Clarity Clear (Clear); Glucose Negative (Negative); Ketones Negative (Negative); Leukocyte Esterase Negative (Negative); Nitrite Negative (Negative); Urobilinogen 0.2 EU/dL (Up TO 0.2)
== END 2019-03-11 12:10 ==
LOC: LBN 11:50
PROVIDERS: PCP Emergency Medicine; Visit Provider Nurse Practitioner Adult Health
DX: N39.0 Urinary tract infection, site not specified (principal); R00.1 Bradycardia, unspecified; I95.1 Orthostatic hypotension
CPT/HCPCS: 80048; 81003; 85025

== ENCOUNTER 2019-03-12 13:46 | Emergency (ER) | payer MEDICARE, MEDICAID, SELFPAY ==
[2019-03-12 13:52] VITALS: BP 116/65; PULSE 73; RESP 16; TEMP 36; O2SAT 96
[2019-03-12 14:02] VITALS: RESP 17
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
== END 2019-03-12 14:16 | disposition skilled nursing facility (03) ==
PROVIDERS: Emergency Provider Physician Assistant; PCP Emergency Medicine
DX: G31.83 Neurocognitive disorder with Lewy bodies (principal); F02.81 Dementia in other diseases classified elsewhere, unspecified severity, with behavioral disturbance
CPT/HCPCS: 36416; 82962; 99283

== ENCOUNTER 2019-04-22 10:11 | Outpatient (CLI) | payer MEDICARE, MEDICAID, SELFPAY ==
--- NOTE | 2019-04-22 12:00 | DI.RAD_ITS ---
EXAM: XR CHEST 2V PA LATERAL CLINICAL HISTORY: R07.9 CHEST PAIN, EVALUATE PACEMAKER TECHNIQUE: COMPARISON: XR CHEST 2V PA LATERAL from 10/04/2018 XR CHEST 1V IN DI DEPT from 01/30/2019 FINDINGS: There is a trans venous cardiac pacemaker in position. The heart appears mildly enlarged. Lungs are grossly clear with some apparent mild changes of scarring in the lung bases. No pleural effusion se en. IMPRESSION: No evidence of acute intrapulmonary process. Cardiac pacemaker in position with lead tips unchanged in alignment in comparison prior study of 10/04/2018.
== END 2019-04-22 10:31 ==
PROVIDERS: PCP Family Medicine; Visit Provider Family Medicine
DX: R07.89 Other chest pain (principal); Z95.0 Presence of cardiac pacemaker; I51.7 Cardiomegaly; R55 Syncope and collapse
CPT/HCPCS: 71046; 93005; 93010

== ENCOUNTER 2019-05-03 10:56 | Outpatient (CLI) | payer MEDICARE, MEDICAID, SELFPAY ==
[2019-05-03 12:07] LABS: Abs Immature Grans 0.01 k/cumm (0.0-0.09); Absolute Basophil Count 0.03 k/cumm (0.0-0.2); Absolute Eosinophil Count 0.16 k/cumm (0.0-0.7); Absolute Lymphocyte Count 0.99 k/cumm (1.2-3.4); Absolute Monocyte Count 0.33 k/cumm (0.11-0.7); Absolute Neutrophil Count 4.19 k/cumm (1.2-6.7); Basophils % 0.5; Eosinophils % 2.8; HCT 45.5 % (40.0-50.0); HGB 14.7 g/dL (13.5-17.5); Immature Grans % 0.2 %; Lymphocytes % 17.3; Mean Corp. HGB Concentration 32.3 g/dL (32.0-36.0); Mean Corpuscular Hemoglobin 28.9 pg (27.0-33.0); Mean Corpuscular Volume 89.6 fL (80-95); Mean Platelet Volume 10.3 fL (8.0-11.0); Monocytes % 5.8; Neutrophils % 73.4; Platelet Count 243 x1000/uL (130-400); RBC 5.08 m/cumm (4.50-6.00); RBC Distribution Width 13.8 % (11.8-14.1); White Blood Cell Count 5.71 k/cumm (4.4-10.8)
[2019-05-03 12:52] LABS: ALT 10 U/L (16-63); AST 10 U/L (15-37); Albumin 3.4 g/dL (3.4-5.0); Alkaline Phosphatase 81 U/L (46-116); Anion Gap 5.7 mmol/L (3-11); BUN 16 mg/dL (7-18); CO2 31.3 mmol/L (21.0-32.0); CREATININE 1.03 mg/dL (0.70-1.30); Calcium 8.7 mg/dL (8.5-10.1); Calculated LDL 76 mg/dL (>130); Chloride 104 mmol/L (98-107); Cholesterol 150 mg/dL (<200); Glucose 149 mg/dL (74-106); HDL Cholesterol 65 mg/dL (40-60); Sodium 141 mmol/L (136-145); Total Protein 6.3 g/dL (6.4-8.2); Triglyceride 45 mg/dL (<150)
== END 2019-05-03 11:16 ==
LOC: LBN 11:03 → LBO 11:45 → LBN 14:09
PROVIDERS: PCP Family Medicine; Visit Provider Nurse Practitioner Adult Health
DX: I95.1 Orthostatic hypotension (principal); I42.8 Other cardiomyopathies; R79.89 Other specified abnormal findings of blood chemistry; M62.81 Muscle weakness (generalized); G20 Parkinson's disease
CPT/HCPCS: 36415; 80053; 80061; 85025

== ENCOUNTER 2019-07-12 17:52 | Outpatient (REF) | payer MEDICARE, MEDICAID, SELFPAY ==
[2019-07-12 17:39] LABS: BUN 17 mg/dL (7-18); CREATININE 0.85 mg/dL (0.70-1.30); Chloride 107 mmol/L (98-107); Glucose 100 mg/dL (74-106); Potassium 4.5 mmol/L (3.5-5.1); Sodium 144 mmol/L (136-145)
[2019-07-12 17:58] LABS: Calcium 8.2 mg/dL (8.5-10.1)
[2019-07-12 18:06] LABS: Abs Immature Grans 0.01 k/cumm (0.0-0.09); Absolute Basophil Count 0.05 k/cumm (0.0-0.2); Absolute Eosinophil Count 0.31 k/cumm (0.0-0.7); Absolute Lymphocyte Count 1.17 k/cumm (1.2-3.4); Absolute Monocyte Count 0.66 k/cumm (0.11-0.7); Absolute Neutrophil Count 3.39 k/cumm (1.2-6.7); Basophils % 0.9; Eosinophils % 5.5; HCT 41.6 % (40.0-50.0); HGB 13.7 g/dL (13.5-17.5); Immature Grans % 0.2 %; Lymphocytes % 20.9; Mean Corp. HGB Concentration 32.9 g/dL (32.0-36.0); Mean Corpuscular Hemoglobin 29.7 pg (27.0-33.0); Mean Platelet Volume 10.3 fL (8.0-11.0); Monocytes % 11.8; Neutrophils % 60.7; Platelet Count 246 x1000/uL (130-400); RBC 4.62 m/cumm (4.50-6.00); White Blood Cell Count 5.59 k/cumm (4.4-10.8)
== END 2019-07-12 18:12 ==
LOC: LBN 17:52
PROVIDERS: PCP Family Medicine; Visit Provider Nurse Practitioner Adult Health
DX: R41.82 Altered mental status, unspecified (principal); G35 Multiple sclerosis
CPT/HCPCS: 80048; 85025

== ENCOUNTER 2019-07-13 12:45 | Outpatient (REF) | payer MEDICARE, MEDICAID, SELFPAY ==
[2019-07-13 13:45] LABS: Bilirubin Negative (Negative); Blood Negative (Negative); Clarity Clear (Clear); Glucose Negative (Negative); Ketones Negative (Negative); Leukocyte Esterase Negative (Negative); Nitrite Negative (Negative); Urobilinogen 0.2 EU/dL (Up TO 0.2)
== END 2019-07-13 13:05 ==
LOC: LBN 12:45
PROVIDERS: PCP Family Medicine; Visit Provider Nurse Practitioner Adult Health
DX: R41.82 Altered mental status, unspecified (principal)
CPT/HCPCS: 81003; 87086

== ENCOUNTER 2019-08-18 14:06 | Outpatient (REF) | payer MEDICARE, MEDICAID, SELFPAY | END 2019-08-18 14:26 | LOC: LBN 14:06 | PROVIDERS: PCP Family Medicine; Visit Provider Nurse Practitioner Adult Health | DX: R82.998 Other abnormal findings in urine (principal); G20 Parkinson's disease | CPT/HCPCS: 87086 ==

== ENCOUNTER 2019-09-20 13:24 | Outpatient (REF) | payer MEDICARE, MEDICAID, SELFPAY ==
[2019-09-20 13:45] LABS: Anion Gap 4.4 mmol/L (3-11); BUN 13 mg/dL (7-18); CO2 31.6 mmol/L (21.0-32.0); CREATININE 0.85 mg/dL (0.70-1.30); Calcium 8.5 mg/dL (8.5-10.1); Chloride 106 mmol/L (98-107); Glucose 68 mg/dL (74-106); Potassium 3.9 mmol/L (3.5-5.1); Sodium 142 mmol/L (136-145)
== END 2019-09-20 13:44 ==
LOC: LBN 13:24
PROVIDERS: PCP Family Medicine; Visit Provider Nurse Practitioner Adult Health
DX: I95.1 Orthostatic hypotension (principal); M62.81 Muscle weakness (generalized); G35 Multiple sclerosis
CPT/HCPCS: 80048; 84550

== ENCOUNTER 2019-09-25 10:31 | Outpatient (REF) | payer MEDICARE, MEDICAID, SELFPAY ==
[2019-09-25 11:07] LABS: Bilirubin Negative (Negative); Blood Negative (Negative); Clarity Cloudy (Clear); Glucose Negative (Negative); Ketones Negative (Negative); Leukocyte Esterase Moderate (Negative); Nitrite Positive (Negative); Specific Gravity 1.015 (1.005-1.025); Urobilinogen 0.2 EU/dL (Up TO 0.2); pH >= 9.0 (5-8)
[2019-09-25 11:14] LABS: Bacteria Moderate HPF (Negative); C & S Indicated? C&S Done As Ordered; Casts Negative LPF (Negative); Crystals Negative HPF (Negative); Epithelial Cells Rare HPF (Negative); Mucus Negative (Negative); RBC 0-2 HPF (0-2)
== END 2019-09-25 10:51 ==
LOC: LBN 10:31
PROVIDERS: PCP Family Medicine; Visit Provider Family Medicine
DX: N39.0 Urinary tract infection, site not specified (principal)
CPT/HCPCS: 87077; 81003; 81015; 87086; 87186

== ENCOUNTER → 2019-10-26 08:06 | Outpatient (BNVA) | payer MEDICARE, MEDICAID, SELFPAY | PROVIDERS: PCP Family Medicine; Referring Provider Family Medicine; Visit Provider Psychiatry & Neurology Neurology | DX: R69 Illness, unspecified (principal) | CPT/HCPCS: 99214 ==

== ENCOUNTER 2019-10-26 20:31 | Outpatient (REF) | payer MEDICARE, MEDICAID, SELFPAY ==
[2019-10-26 21:12] LABS: Bilirubin Negative (Negative); Blood Trace-intact (Negative); Clarity Turbid (Clear); Glucose Negative (Negative); Ketones Negative (Negative); Leukocyte Esterase Large (Negative); Nitrite Negative (Negative); Urobilinogen 0.2 EU/dL (Up TO 0.2); pH >= 9.0 (5-8)
[2019-10-26 21:20] LABS: Bacteria Packed HPF (Negative); C & S Indicated? C&S Done As Ordered
[2019-10-26 21:21] LABS: WBC >50 HPF (0-5)
== END 2019-10-26 20:51 ==
LOC: LBN 20:31
PROVIDERS: PCP Family Medicine; Visit Provider Family Medicine
DX: R82.998 Other abnormal findings in urine (principal)
CPT/HCPCS: 87077; 81003; 81015; 87086; 87186

== ENCOUNTER 2019-12-09 20:29 | Outpatient (REF) | payer MEDICARE, MEDICAID, SELFPAY ==
[2019-12-09 21:15] LABS: Bilirubin Negative (Negative); Blood Trace-intact (Negative); Clarity Cloudy (Clear); Glucose Negative (Negative); Ketones Negative (Negative); Leukocyte Esterase Large (Negative); Nitrite Positive (Negative); Urobilinogen 0.2 EU/dL (Up TO 0.2); pH 8.5 (5-8)
[2019-12-09 21:35] LABS: Bacteria Packed HPF (Negative); Crystals Few Triple Phos HPF (Negative); WBC >50 HPF (0-5)
[2019-12-09 21:36] LABS: C & S Indicated? C&S Done As Ordered
== END 2019-12-09 20:49 ==
LOC: LBN 20:29
PROVIDERS: PCP Family Medicine; Visit Provider Nurse Practitioner Adult Health
DX: R35.0 Frequency of micturition (principal)
CPT/HCPCS: 87077; 81003; 81015; 87086; 87186

== ENCOUNTER → 2019-12-14 10:04 | Outpatient (BNVA) | payer MEDICARE, MEDICAID, SELFPAY | PROVIDERS: PCP Family Medicine; Referring Provider Family Medicine; Visit Provider Internal Medicine Cardiovascular Disease | DX: I44.30 Unspecified atrioventricular block (principal); Z45.09 Encounter for adjustment and management of other cardiac device | CPT/HCPCS: 93280; 99212 ==

== ENCOUNTER 2020-06-14 12:03 | Emergency (ER) | payer MEDICARE, MEDICAID, SELFPAY ==
[2020-06-14 12:07] VITALS: BP 157/90; PULSE 60; RESP 18; TEMP 36.3; O2SAT 98
[2020-06-14] MEDS: Haloperidol 5 MG TAB PO (12:36)
--- NOTE | 2020-06-14 13:50 | W.ED.GENAD ---
Discharge Plan Disposition Patient Disposition: HOME Condition: Stable Discharge Details Clinical Impression: Outbursts of explosive behavior Primary Care Provider: Geremias Whitman ED Provider: Alexandr Kiser Home Meds and New Rx's Prescriptions: Continued bisacodyl [Dulcolax (bisacodyl)] 10 mg suppository 10 mg OH DAILY PRNRF: 0 magnesium hydroxide [Milk of Magnesia] 400 mg/5 mL suspension 30 ml PO QHS PRNRF: 0 fludrocortisone 0.1 mg tablet 0.3 mg PO DAILY RF: 0 duloxetine [Cymbalta] 60 mg capsule,delayed release(DR/EC) 90 mg PO DAILY RF: 0 melatonin 3 mg capsule 6 mg PO HS RF: 0 cholecalciferol (vitamin D3) 1,000 UNIT tablet 1,000 unit PO DAILY RF: 0 cyanocobalamin (vitamin B-12) [Vitamin B-12] 1,000 MCG tablet extended release 1,000 mcg PO DAILY RF: 0 omeprazole 20 mg capsule,delayed release(DR/EC) 20 mg PO DAILY Qty: 90 RF: 6 Metamucil 3.4 gram/5.4 gram Powder 1 tbsp PO QAM RF: 0 acetaminophen 325 mg Tablet 650 mg PO Q4H PRN PRNRF: 0 haloperidol 0.5 mg tablet 0.5 mg PO BID RF: 0 haloperidol 0.5 mg tablet 0.5 mg PO DAILY PRNRF: 0 sodium chloride 1,000 mg Tablet,Soluble 1,000 mg PO TID RF: 0 Lubricating Drops 0.5-0.9 % Drops 1 drp OPHTHALMIC (EYE) TID RF: 0 Therems-M 9 mg iron-400 mcg Tablet 1 tab PO QAM RF: 0 colchicine 0.6 mg capsule 0.6 mg PO QAM RF: 0 Discharge Instructions Additional Instructions: Patient was observed in the ER for over 2 hours, no evidence of escalating or aggressive behavior. Patient took 5 mg p.o. Haldol without difficulty. After speaking with EMANUEL Fermin, plan [facility] I do believe that likely increasing his p.o. Haldol at baseline will help obtain better control of his behavioral outburst. Please watch for new or worsening symptoms and return to the ER for any concerns. Medical Decision Making 84-year-old gentleman who resides at [facility] facility is presenting to the ER today after his medications have been changed, now with escalating behavioral issues. Was walking into other patient's rooms, throwing things, aggressive towards staff members. The facility cannot give IM medication. After speaking with EMANUEL Fermin, it does not appear as though a medical work-up needs to be pursued. If we are able to get the patient to take Haldol they feel as though they can properly care for him. Patient has been calm and cooperative while here in the ER. He has no acute medical concerns or complaints. Patient agreeable to taking 5 mg Haldol p.o. Medication given without difficulty. Patient ate lunch without difficulty. Patient was observed in the ER for over 2 hours with no escalating behavior. He continues to be pleasantly demented, no acute medical concerns or complaints. Given his prolonged time here without behavioral issues, feel as though transfer back to his facility is perfectly reasonable. Medical Records Medical records reviewed: Yes I reviewed the patient's medical records. HPI General Mode of arrival: EMS. Date/Time Provider Initiated Documentation: 06/14/20 12:19. Limitations to Documentation: other (Baseline dementia). Information obtained by: RN/MD (EMANUEL Fermin), EMS and old records reviewed. HPI Narrative: This is a 84-year-old gentleman presenting via EMS from [facility]. He has a past medical history that includes BPH, cardiomyopathy, depression, gout, osteoarthritis, proximal A. fib, dementia, Parkinson's disease, presenting for increasing behavioral disturbances. Apparently he has a history of this occasionally but has been harder to control over the past week or so. Yesterday his Seroquel was discontinued and initiated on Haldol 0.5 mg twice daily. Behavior escalating today, aggressive towards staff, they are unable to give IM medications. I was able to speak with EMANUEL Fermin. Their facility cannot give IM medication and she feels as though a higher dose of Haldol for his acute behavioral issues would be appropriate. Patient is a DNR, DNI, they are able to obtain a medical work-up there if necessary. She does not believe that further medical work-up here such as laboratory values or urinalysis is indicated. Upon arrival patient is cooperative, has no concerns or complaints, and appears pleasantly demented. Related Data Home Medications Medication Instructions Recorded Confirmed cholecalciferol (vitamin D3) 1,000 unit PO DAILY 08/03/14 06/14/20 cyanocobalamin (vitamin B-12) 1,000 mcg PO DAILY 11/28/15 06/14/20 [Vitamin B-12] Metamucil 1 tbsp PO QAM 03/24/18 06/14/20 omeprazole 20 mg capsule,delayed 20 mg PO DAILY #90 cap 06/22/18 06/14/20 release fludrocortisone 0.1 mg tablet 0.3 mg PO DAILY tab 10/26/18 06/14/20 bisacodyl 10 mg rectal suppository 10 mg OH DAILY PRN 11/24/18 06/14/20 magnesium hydroxide 400 mg/5 mL 30 ml PO QHS PRN ml 11/24/18 06/14/20 oral suspension acetaminophen 650 mg PO Q4H PRN PRN 01/30/19 06/14/20 duloxetine 60 mg capsule,delayed 90 mg PO DAILY cap 10/26/19 06/14/20 release melatonin 3 mg capsule 6 mg PO HS cap 10/26/19 06/14/20 Lubricating Drops 1 drp OPHTHALMIC (EYE) TID 06/14/20 06/14/20 Therems-M 1 tab PO QAM 06/14/20 06/14/20 colchicine 0.6 mg PO QAM 06/14/20 06/14/20 haloperidol 0.5 mg PO BID 06/14/20 06/14/20 haloperidol 0.5 mg PO DAILY PRN 06/14/20 06/14/20 sodium chloride 1,000 mg PO TID 06/14/20 06/14/20 Previous Rx's Medication Instructions Recorded omeprazole 20 mg capsule,delayed 20 mg PO DAILY #90 cap 06/22/18 release Allergies Allergy/AdvReac Type Severity Reaction Status Date / Time bee pollen [Bee Pollen] Allergy Intermediate PERIORBITAL Unverified 06/14/20 12:11 EDEMA aspirin AdvReac Mild Upset Unverified 06/14/20 12:11 Stomach DUST Allergy Intermediate unknown Uncoded 06/14/20 12:11 General Stated Complaint: PsychEval ERIN: 2 Review of Systems Unobtainable due to mental condition (Baseline dementia) [facility] Medical History (Updated 06/14/20 @ 14:00 by KENDAL Romero) Actinic keratosis Alcoholism in remission Basal cell carcinoma of right forehead (03/06/14) Benign prostatic hypertrophy Cardiomyopathy (08/03/14) resolved ?due to alcohol Chronic thoracic back pain s/p fracture 196 Depression Diverticulosis of colon without diverticulitis Erectile dysfunction Gout Hearing loss Heart block (03/06/14) 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 vasectomy b. left hernia repair c. colonoscopy Pacemaker 03/06/14 Repair of inguinal hernia (~2002) left Vasectomy Family History Mother Personal history of malignant neoplasm UTERINE Father Personal history of malignant neoplasm GB Sister Personal history of malignant neoplasm BREAST Brother Personal history of malignant neoplasm THYROID Son No problems noted. 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 No smoking, ETOH, illicit drug use. Exam Const General: cooperative, healthy appearing, comfortable and no acute distress Orientation: alert, awake and oriented to person [facility] Head: normal to inspection, normocephalic and atraumatic Face and sinus: normal facial exam Mouth: moist mucous membranes Eyes General: appearance normal, both eyes and all related structures Conjunctivae: conjunctivae normal Sclera: sclerae normal Neck Neck: normal visual inspection, trachea midline, supple and nontender Resp Effort & Inspection: normal respiratory effort and able to speak in complete sentences Auscultation: clear to auscultation bilaterally Cardio Rate: regular rate Rhythm: regular rhythm GI Palpation: soft and nontender Back/Spine/Pelvis Back: No back tenderness Skin General skin exam: no rashes or lesions noted Neuro General: patient alert, patient awake, moves all extremities and no focal motor deficits Speech: speech normal Motor: muscle tone normal throughout Sensory Exam: no sensory deficits noted Extrem General: normal to inspection, full ROM and capillary refill normal Psych Appearance: grossly normal Mental Status: mental status grossly normal Course Vital Signs Vital signs: Vital Signs Temperature 36.3 C L 06/14/20 12:07 Pulse 60 06/14/20 12:07 Respiratory Rate 18 06/14/20 12:07 Blood Pressure 157/90 H 06/14/20 12:07 Pulse Oximetry 98 06/14/20 12:07 Temperature 36.3 C L 06/14/20 12:07 Temperature Source Temporal Artery Scan 06/14/20 12:07 Pulse 60 06/14/20 12:07 Respiratory Rate 18 06/14/20 12:07 Respiratory Effort Non-Labored 06/14/20 12:11 Blood Pressure 157/90 H 06/14/20 12:07 Blood Pressure Position Sitting 06/14/20 12:07 Pulse Oximetry 98 06/14/20 12:07 Oxygen Delivery Method Room Air 06/14/20 12:07 Oxygen Flow Rate 0 06/14/20 12:07 Pain Level 0 06/14/20 12:07
== END 2020-06-14 14:38 | disposition home or self-care (01) ==
PROVIDERS: Emergency Provider Physician Assistant; PCP Family Medicine
DX: F63.81 Intermittent explosive disorder (principal)
CPT/HCPCS: 99283

== ENCOUNTER 2020-06-15 00:20 | Outpatient (REF) | payer MEDICARE, MEDICAID, SELFPAY | END 2020-06-15 00:21 | disposition home or self-care (01) | LOC: LBN 00:20 | PROVIDERS: PCP Family Medicine; Visit Provider Family Medicine | DX: N40.1 Benign prostatic hyperplasia with lower urinary tract symptoms (principal) | CPT/HCPCS: 87086 ==

== ENCOUNTER 2020-09-04 07:39 | Outpatient (REF) | payer MEDICARE, MEDICAID, SELFPAY ==
[2020-09-04 13:47] LABS: Bilirubin Negative (Negative); Blood Negative (Negative); Clarity Cloudy (Clear); Glucose Negative (Negative); Ketones Negative (Negative); Leukocyte Esterase Negative (Negative); Nitrite Negative (Negative); Specific Gravity >= 1.030 (1.005-1.025); Urobilinogen 0.2 EU/dL (Up TO 0.2); pH 5.5 (5-8)
== END 2020-09-04 07:40 | disposition home or self-care (01) ==
LOC: LBN 07:39
PROVIDERS: PCP Family Medicine; Visit Provider Family Medicine
DX: R30.0 Dysuria (principal)
CPT/HCPCS: 81003

== ENCOUNTER 2020-11-02 19:07 | Outpatient (REF) | payer MEDICARE, MEDICAID, SELFPAY ==
[2020-11-02 15:16] LABS: HCT 43.6 % (40.0-50.0); HGB 13.7 g/dL (13.5-17.5); MCH 28.8 pg (27.0-33.0); MCHC 31.4 % (32.0-36.0); MCV 91.8 fL (80-95); MPV 10.1 fL (8.0-11.0); Platelet Count 209 10^3/uL (130-400); RBC 4.75 10^6/uL (4.36-5.78); RDW-SD 43.8 fL; WBC 6.74 10^3/uL (4.4-10.8)
[2020-11-02 15:30] LABS: Anion Gap 6.5 mmol/L (3-11); BUN 24 mg/dL (7-18); CO2 30.5 mmol/L (21.0-32.0); CREATININE 0.8 mg/dL (0.70-1.30); Calcium 8.5 mg/dL (8.5-10.1); Chloride 106 mmol/L (98-107); Glucose 84 mg/dL (74-106); Potassium 4.4 mmol/L (3.5-5.1); Sodium 143 mmol/L (136-145)
== END 2020-11-02 19:08 | disposition home or self-care (01) ==
LOC: LBN 19:07
PROVIDERS: PCP Family Medicine; Visit Provider Family Medicine
DX: F03.91 Unspecified dementia, unspecified severity, with behavioral disturbance (principal); G35 Multiple sclerosis
CPT/HCPCS: 80048; 85027; 85025

== ENCOUNTER 2020-11-07 04:10 | Outpatient (CLI) | payer MEDICARE, MEDICAID, SELFPAY ==
--- NOTE | 2020-11-07 11:00 | RT.EKG_ITS ---
APPROVED REPORT Exam: Resting ECG Reason for Exam: SYNCOPE Patient Location: O HR:62 bpm ECG Measurements Heart Rate 62 AXIS MD 210 P 0 QRSd 184 QRS -81 QT 511 T 109 QTc 521 Conclusion Atrial-sensed ventricular-paced rhythm...ventricular pacing tracks p-waves
== END 2020-11-07 04:11 | disposition home or self-care (01) ==
LOC: RT 04:10
PROVIDERS: PCP Family Medicine; Visit Provider Family Medicine
DX: R55 Syncope and collapse (principal)
CPT/HCPCS: 93005; 93010

== ENCOUNTER 2020-11-23 12:57 | Outpatient (REF) | payer MEDICARE, MEDICAID, SELFPAY ==
[2020-11-23 15:30] LABS: Anion Gap 4.2 mmol/L (3-11); BUN 16 mg/dL (7-18); CO2 29.8 mmol/L (21.0-32.0); CREATININE 0.8 mg/dL (0.70-1.30); Calcium 8.6 mg/dL (8.5-10.1); Chloride 107 mmol/L (98-107); Glucose 109 mg/dL (74-106); Potassium 3.9 mmol/L (3.5-5.1); Sodium 141 mmol/L (136-145)
[2020-11-23 15:41] LABS: Abs Immature Grans 0.02 10^3/uL (0.0-0.06); Absolute Basophil Count 0.03 10^3/uL (0.0-0.2); Absolute Eosinophil Count 0.26 10^3/uL (0.0-0.7); Absolute Lymphocyte Count 0.83 10^3/uL (1.2-3.4); Absolute Monocyte Count 0.62 10^3/uL (0.1-0.8); Absolute Neutrophil Count 5.04 10^3/uL (1.2-6.7); Basophils % 0.4; Eosinophils % 3.8; HCT 41.8 % (40.0-50.0); HGB 13.6 g/dL (13.5-17.5); Immature Grans % 0.3; Lymphocytes % 12.2; MCH 28.9 pg (27.0-33.0); MCHC 32.5 % (32.0-36.0); MCV 88.9 fL (80-95); Monocytes % 9.1; Neutrophils % 74.2; Nucleated RBC 0 %; Platelet Count 191 10^3/uL (130-400); RDW 13.2 % (11.8-14.1); RDW-SD 42.9 fL
== END 2020-11-23 12:58 | disposition home or self-care (01) ==
LOC: LBN 12:57
PROVIDERS: PCP Family Medicine; Visit Provider Nurse Practitioner Family
DX: E87.8 Other disorders of electrolyte and fluid balance, not elsewhere classified (principal)
CPT/HCPCS: 80048; 85025

== ENCOUNTER 2020-12-20 12:37 | Outpatient (REF) | payer MEDICARE, MEDICAID, SELFPAY | END 2020-12-20 12:38 | disposition home or self-care (01) | LOC: LBN 12:37 | PROVIDERS: PCP Family Medicine; Visit Provider Family Medicine | DX: N40.1 Benign prostatic hyperplasia with lower urinary tract symptoms (principal) | CPT/HCPCS: 87086 ==

== ENCOUNTER 2020-12-21 12:35 | Outpatient (REF) | payer MEDICARE, MEDICAID, SELFPAY ==
[2020-12-21 12:55] LABS: Abs Immature Grans 0.02 10^3/uL (0.0-0.06); Absolute Basophil Count 0.04 10^3/uL (0.0-0.2); Absolute Lymphocyte Count 0.69 10^3/uL (1.2-3.4); Absolute Neutrophil Count 5.44 10^3/uL (1.2-6.7); Basophils % 0.6; Eosinophils % 4.2; HCT 41.6 % (40.0-50.0); HGB 13.4 g/dL (13.5-17.5); Immature Grans % 0.3; Lymphocytes % 9.7; MCH 28.6 pg (27.0-33.0); MCHC 32.2 % (32.0-36.0); MCV 88.9 fL (80-95); Monocytes % 8.5; Neutrophils % 76.7; Nucleated RBC 0 %; Platelet Count 189 10^3/uL (130-400); RBC 4.68 10^6/uL (4.36-5.78); RDW 13.2 % (11.8-14.1); RDW-SD 42.8 fL; WBC 7.09 10^3/uL (4.4-10.8)
[2020-12-21 13:11] LABS: Anion Gap 6.4 mmol/L (3-11); BUN 36 mg/dL (7-18); CO2 29.6 mmol/L (21.0-32.0); Calcium 8.2 mg/dL (8.5-10.1); Chloride 107 mmol/L (98-107); Glucose 104 mg/dL (74-106); Sodium 143 mmol/L (136-145)
== END 2020-12-21 12:36 | disposition home or self-care (01) ==
LOC: LBN 12:35
PROVIDERS: PCP Family Medicine; Visit Provider Nurse Practitioner Family
DX: R62.7 Adult failure to thrive (principal); I95.1 Orthostatic hypotension; G20 Parkinson's disease
CPT/HCPCS: 80048; 85025